=== PATIENT | female | born 1955 | race Caucasian/White ===

== ENCOUNTER 2021-11-18 15:29 | Inpatient (IN) | payer OTHER ==
[2021-11-18] MEDS ORDERED: ACETAMINOPHEN 1000 MG/100 ML BAG IVPB ONE (16:21)
[2021-11-18] MEDS ORDERED: SODIUM CHLORIDE 0.9% 500 ML INFUS.BAG IV ONE ×2 (16:42→17:42)
[2021-11-18 16:43] LABS: BASO % 0.4 % (0-2.0); EOS % 0.1 % (0-4.5); HEMOGLOBIN 8.5 GM/dL (10.7-15.3); LYMPH % 8.5 % (8-40); MCHC 34.1 g/dl (32.0-36.0); MEAN PLT VOLUME 7.6 fl (7.5-11.1); MONO % 8.5 % (3.8-10.2); NEUT % 82.5 % (42.8-82.8); PLATELET COUNT 398 10^3/uL (134-434); RBC 2.74 M/mm3 (3.60-5.2); RDW 16.8 % (11.6-15.6); WHITE BLOOD COUNT 10.4 K/mm3 (4.0-10.0)
[2021-11-18] MEDS ORDERED: ACETAMINOPHEN INJECTION 100 ML IVPB ONE (16:45)
[2021-11-18 16:50] LABS: INR 1.16 (0.83-1.09); PROTHROMBIN TIME (PATIENT) 13.4 SEC (9.7-13.0)
[2021-11-18 16:53] LABS: ACTIVATED PTT 38.3 SECONDS (25.2-36.5)
[2021-11-18 17:05] LABS: ALBUMIN 2.2 g/dl (3.4-5.0); ANION GAP 10 MMOL/L (8-16); CALCIUM 9.2 mg/dL (8.5-10.1); CHLORIDE 99 mmol/L (98-107); CO2 31 mmol/L (21-32); GLUCOSE,RANDOM 155 mg/dL (74-106); SODIUM 140 mmol/L (136-145)
[2021-11-18 17:07] LABS: CREATININE 1.9 mg/dL (0.55-1.3); SGOT/AST 70 U/L (15-37); SGPT/ALT 75 U/L (13-61)
[2021-11-18 17:09] LABS: BILIRUBIN,TOTAL 0.3 mg/dL (0.2-1)
[2021-11-18 17:10] LABS: ALK PHOS 108 U/L (45-117)
[2021-11-18 17:12] LABS: BLOOD UREA NITROGEN 112.9 mg/dL (7-18)
[2021-11-18] MEDS ORDERED: VANCOMYCIN 1 GM in D5W (PRE-DOCKED) 1,000 MG/250 ML IVPB ONE (18:10)
[2021-11-18 18:11] LABS: URINE APPEARANCE TURBID; URINE BILIRUBIN 3+ (NEGATIVE); URINE COLOR RED; URINE GLUCOSE (UA) NEGATIVE (NEGATIVE); URINE LEUK ESTERASE 3+ (NEGATIVE); URINE NITRITE POSITIVE (NEGATIVE); URINE PROTEIN 1+ (NEGATIVE); URINE UROBILINOGEN 0.2 mg/dL (0.2-1.0)
[2021-11-18] MEDS ORDERED: CEFEPIME HCL/D5W 2 GM/50 ML BAG IVPB ONE (18:11)
[2021-11-18 18:12] LABS: URINE KETONE NEGATIVE (NEGATIVE)
[2021-11-18 18:13] LABS: URINE RBC TNTC /uL (0-23.9)
[2021-11-18 18:14] LABS: URINE BACTERIA 3+ /uL (0-1359); URINE WBC TNTC /uL (0-25.8)
[2021-11-18] MEDS ORDERED: CEFEPIME 2 GM/100 ML BAG IVPB ONE (19:11)
[2021-11-18] MEDS ORDERED: SODIUM CHLORIDE 1,000 ML IV SCH (21:00)
[2021-11-18] MEDS ORDERED: MEROPENEM 1 GM in DEXTROSE 5%-WATER 100 ML IVPB ONE (21:19)
[2021-11-18] MEDS ORDERED: ZINC OXIDE/PANTHENOL/VITAMIN E 56 GM TUBE TP PRN (23:15)
[2021-11-18] MEDS ORDERED: oxyCODONE HCL 5 MG TABLET GT PRN (23:22)
[2021-11-18] MEDS ORDERED: ACETAMINOPHEN 1000 MG/100 ML BAG IVPB PRN (23:22)
[2021-11-18] MEDS ORDERED: DEXAMETHASONE SOD PHOSPHATE 4 MG/1 ML VIAL ONE (23:39)
[2021-11-19] MEDS ORDERED: VANCOMYCIN 1 GM/200 ML PREMIX BAG IVPB ONE (01:15)
[2021-11-19] MEDS ORDERED: VANCOMYCIN/WATER FOR INJ (PEG) 1,000 MG/200 ML BAG IVPB ONE (01:18)
[2021-11-19] MEDS: FAMOTIDINE 40 MG/5 ML ORAL SUSPENSION PEG SCH ×3 (01:31→21:59)
[2021-11-19] MEDS ORDERED: METOPROLOL TARTRATE 50 MG TABLET (FP) GT ONE (03:49)
[2021-11-19] MEDS ORDERED: METOPROLOL TARTRATE 5 MG/5 ML VIAL IVPUSH ONE (03:49)
[2021-11-19] MEDS: BUDESONIDE 0.5 MG/2 ML INH SUSP VIAL NEB SCH ×2 (07:57→20:39)
[2021-11-19] MEDS ORDERED: PNEUMOC 20-VAL CONJ-DIP CRM/PF 0.5 ML SYRINGE IM ONE (10:00)
[2021-11-19 10:32] LABS: HEMATOCRIT 24.7 % (32.4-45.2); HEMOGLOBIN 8.1 GM/dL (10.7-15.3); MCH 29.7 pg (25.7-33.7); MCHC 32.8 g/dl (32.0-36.0); MEAN CELL VOLUME 90.7 fl (80-96); MEAN PLT VOLUME 7.5 fl (7.5-11.1); PLATELET COUNT 393 10^3/uL (134-434); RBC 2.72 M/mm3 (3.60-5.2); RDW 17.2 % (11.6-15.6); WHITE BLOOD COUNT 12.7 K/mm3 (4.0-10.0)
[2021-11-19] MEDS: LIDOCAINE 5% TOPICAL PATCH TP SCH (10:56)
[2021-11-19] MEDS: MIDODRINE HCL 5 MG TABLET GT SCH ×2 (10:56→19:00)
[2021-11-19 11:02] LABS: CHLORIDE 106 mmol/L (98-107); SODIUM 143 mmol/L (136-145)
[2021-11-19 11:05] LABS: CALCIUM 9.3 mg/dL (8.5-10.1)
[2021-11-19 11:06] LABS: ALBUMIN 2.2 g/dl (3.4-5.0); ANION GAP 10 MMOL/L (8-16); CO2 27 mmol/L (21-32); GLUCOSE,RANDOM 116 mg/dL (74-106); MAGNESIUM 3.1 mg/dL (1.8-2.4)
[2021-11-19 11:09] LABS: PHOSPHOROUS 3.2 mg/dL (2.5-4.9); SGOT/AST 59 U/L (15-37); SGPT/ALT 71 U/L (13-61)
[2021-11-19 11:10] LABS: BILIRUBIN,TOTAL 0.5 mg/dL (0.2-1); TOT PROT 6.6 g/dl (6.4-8.2)
[2021-11-19 11:12] LABS: ALK PHOS 107 U/L (45-117); BLOOD UREA NITROGEN 113.6 mg/dL (7-18)
[2021-11-19 11:40] LABS: ANISOCYTOSIS 0; HELMET CELLS 0; HOWELL-JOLLY BODIES 0; MACROCYTOSIS 0; OVALOCYTE 0; ROULEAU 0; SICKELED CELLS 0; TARGET CELLS 0; TEAR DROP CELLS 0; TOXIC GRANULATION 0
[2021-11-19] MEDS ORDERED: SODIUM CHLORIDE 500 ML IV STA (12:38)
[2021-11-19] MEDS: COLLAGENASE CLOSTRIDIUM HIST. 30 GRAMS TUBE TP SCH (14:55)
[2021-11-19] MEDS: MEROPENEM 1 GM in DEXTROSE 5%-WATER 100 ML IVPB SCH (15:30)
[2021-11-19] MEDS ORDERED: ATORVASTATIN CA 80 MG TABLET (FP) GT SCH (22:00)
[2021-11-19] MEDS ORDERED: LIDOCAINE PATCH REMOVAL MC SCH (22:00)
[2021-11-19] MEDS ORDERED: QUEtiapine FUMARATE 25 MG TABLET GT SCH (22:00)
[2021-11-20] MEDS: MEROPENEM 1 GM in DEXTROSE 5%-WATER 100 ML IVPB SCH ×2 (01:10→15:00)
[2021-11-20 08:20] LABS: BASO % 0.6 % (0-2.0); HEMATOCRIT 23.8 % (32.4-45.2); LYMPH % 9.4 % (8-40); MCH 30.5 pg (25.7-33.7); MCHC 33.8 g/dl (32.0-36.0); MEAN CELL VOLUME 90.3 fl (80-96); MEAN PLT VOLUME 7.5 fl (7.5-11.1); MONO % 4.8 % (3.8-10.2); NEUT % 84.2 % (42.8-82.8); PLATELET COUNT 325 10^3/uL (134-434); RBC 2.64 M/mm3 (3.60-5.2); RDW 17.3 % (11.6-15.6); WHITE BLOOD COUNT 9.9 K/mm3 (4.0-10.0)
[2021-11-20] MEDS: BUDESONIDE 0.5 MG/2 ML INH SUSP VIAL NEB SCH ×2 (08:35→20:08)
[2021-11-20] MEDS ORDERED: SODIUM CHLORIDE 1,000 ML IV SCH (08:45)
[2021-11-20] MEDS: LIDOCAINE 5% TOPICAL PATCH TP SCH (10:47)
[2021-11-20] MEDS: COLLAGENASE CLOSTRIDIUM HIST. 30 GRAMS TUBE TP SCH (10:47)
[2021-11-20] MEDS: MIDODRINE HCL 5 MG TABLET GT SCH ×2 (10:47→18:03)
[2021-11-20 10:54] LABS: ALBUMIN 1.9 g/dl (3.4-5.0); ALK PHOS 97 U/L (45-117); ANION GAP 9 MMOL/L (8-16); BILIRUBIN,TOTAL 0.4 mg/dL (0.2-1); BLOOD UREA NITROGEN 112.6 mg/dL (7-18); CALCIUM 9.3 mg/dL (8.5-10.1); CHLORIDE 110 mmol/L (98-107); CO2 27 mmol/L (21-32); CREATININE 2.1 mg/dL (0.55-1.3); GLUCOSE,RANDOM 111 mg/dL (74-106); SGOT/AST 41 U/L (15-37); SGPT/ALT 58 U/L (13-61); SODIUM 146 mmol/L (136-145); TOT PROT 6.1 g/dl (6.4-8.2)
[2021-11-20] MEDS: FAMOTIDINE 40 MG/5 ML ORAL SUSPENSION PEG SCH ×2 (11:00→21:13)
[2021-11-20] MEDS: SODIUM CHLORIDE 0.45% 1,000 ML IV SCH (13:40)
[2021-11-20 16:30] VITALS: BMI 36.3
[2021-11-20] MEDS ORDERED: ZINC OXIDE/PANTHENOL/VITAMIN E 56 GM TUBE TP PRN (19:33)
[2021-11-20] MEDS ORDERED: FAMOTIDINE 40 MG/5 ML ORAL SUSPENSION PEG SCH ×2 (20:05→22:00)
[2021-11-20] MEDS: ATORVASTATIN CA 80 MG TABLET (FP) GT SCH (21:13)
[2021-11-20] MEDS: QUEtiapine FUMARATE 25 MG TABLET GT SCH (21:13)
[2021-11-20] MEDS: ASCORBIC ACID 500 MG TABLET (FP) PO SCH (21:13)
[2021-11-20] MEDS: oxyCODONE HCL 5 MG TABLET GT PRN (21:14)
[2021-11-20] MEDS: LIDOCAINE PATCH REMOVAL MC SCH (21:14)
[2021-11-21] MEDS: MEROPENEM 1 GM in DEXTROSE 5%-WATER 100 ML IVPB SCH ×2 (00:03→13:27)
[2021-11-21] MEDS: SODIUM CHLORIDE 0.45% 1,000 ML IV SCH ×3 (04:42→14:00)
[2021-11-21 08:14] LABS: HEMATOCRIT 25.6 % (32.4-45.2); HEMOGLOBIN 8.4 GM/dL (10.7-15.3); MCH 30.6 pg (25.7-33.7); MCHC 32.9 g/dl (32.0-36.0); MEAN CELL VOLUME 92.9 fl (80-96); MEAN PLT VOLUME 7.4 fl (7.5-11.1); PLATELET COUNT 347 10^3/uL (134-434); RBC 2.75 M/mm3 (3.60-5.2); RDW 17.5 % (11.6-15.6); WHITE BLOOD COUNT 9.1 K/mm3 (4.0-10.0)
[2021-11-21] MEDS: BUDESONIDE 0.5 MG/2 ML INH SUSP VIAL NEB SCH ×2 (08:30→20:30)
[2021-11-21 08:59] LABS: ALBUMIN 1.9 g/dl (3.4-5.0); BILIRUBIN,TOTAL 0.4 mg/dL (0.2-1); BLOOD UREA NITROGEN 95.4 mg/dL (7-18); CALCIUM 9.2 mg/dL (8.5-10.1); CREATININE 1.7 mg/dL (0.55-1.3)
[2021-11-21] MEDS: ASCORBIC ACID 500 MG TABLET (FP) PO SCH ×2 (09:57→21:52)
[2021-11-21] MEDS: MULTIVIT-MINERALS ORAL LIQUID PO SCH (09:57)
[2021-11-21] MEDS: MIDODRINE HCL 5 MG TABLET GT SCH ×2 (09:57→17:50)
[2021-11-21] MEDS: AMINO ACIDS/PROTEIN HYDROLYS 30 ML LIQUID.PKT PO SCH (09:57)
[2021-11-21] MEDS: LIDOCAINE 5% TOPICAL PATCH TP SCH (09:58)
[2021-11-21] MEDS: COLLAGENASE CLOSTRIDIUM HIST. 30 GRAMS TUBE TP SCH (09:59)
[2021-11-21] MEDS: FAMOTIDINE 40 MG/5 ML ORAL SUSPENSION PEG SCH (09:59)
[2021-11-21] MEDS: ATORVASTATIN CA 80 MG TABLET (FP) GT SCH (21:52)
[2021-11-21] MEDS: QUEtiapine FUMARATE 25 MG TABLET GT SCH (21:53)
[2021-11-21] MEDS: LIDOCAINE PATCH REMOVAL MC SCH (21:55)
[2021-11-22] MEDS: MEROPENEM 1 GM in DEXTROSE 5%-WATER 100 ML IVPB SCH ×2 (01:40→12:30)
[2021-11-22] MEDS: SODIUM CHLORIDE 0.45% 1,000 ML IV SCH ×3 (04:00→21:07)
[2021-11-22 07:42] LABS: HEMATOCRIT 26.1 % (32.4-45.2); HEMOGLOBIN 8.5 GM/dL (10.7-15.3); MCH 29.5 pg (25.7-33.7); MCHC 32.6 g/dl (32.0-36.0); MEAN CELL VOLUME 90.5 fl (80-96); MEAN PLT VOLUME 7.2 fl (7.5-11.1); PLATELET COUNT 387 10^3/uL (134-434); RBC 2.88 M/mm3 (3.60-5.2); RDW 17.1 % (11.6-15.6); WHITE BLOOD COUNT 10.5 K/mm3 (4.0-10.0)
[2021-11-22 08:04] LABS: ALBUMIN 1.9 g/dl (3.4-5.0); BLOOD UREA NITROGEN 77.5 mg/dL (7-18)
[2021-11-22 08:07] LABS: CREATININE 1.5 mg/dL (0.55-1.3)
[2021-11-22 08:08] LABS: BILIRUBIN,TOTAL 0.4 mg/dL (0.2-1)
[2021-11-22 08:09] LABS: TOT PROT 5.9 g/dl (6.4-8.2)
[2021-11-22] MEDS: BUDESONIDE 0.5 MG/2 ML INH SUSP VIAL NEB SCH ×2 (09:00→20:01)
[2021-11-22] MEDS: MULTIVIT-MINERALS ORAL LIQUID PO SCH (09:30)
[2021-11-22] MEDS: AMINO ACIDS/PROTEIN HYDROLYS 30 ML LIQUID.PKT PO SCH (09:30)
[2021-11-22] MEDS: FAMOTIDINE 40 MG/5 ML ORAL SUSPENSION PEG SCH (09:31)
[2021-11-22] MEDS: MIDODRINE HCL 5 MG TABLET GT SCH ×2 (09:31→17:26)
[2021-11-22] MEDS: LIDOCAINE 5% TOPICAL PATCH TP SCH (09:31)
[2021-11-22] MEDS: ASCORBIC ACID 500 MG TABLET (FP) PO SCH ×2 (09:31→21:08)
[2021-11-22] MEDS: oxyCODONE HCL 5 MG TABLET GT PRN ×2 (11:28→21:07)
[2021-11-22] MEDS: COLLAGENASE CLOSTRIDIUM HIST. 30 GRAMS TUBE TP SCH (11:28)
[2021-11-22] MEDS: QUEtiapine FUMARATE 25 MG TABLET GT SCH (21:07)
[2021-11-22] MEDS: ATORVASTATIN CA 80 MG TABLET (FP) GT SCH (21:07)
[2021-11-22] MEDS: LIDOCAINE PATCH REMOVAL MC SCH (21:08)
[2021-11-23] MEDS: MEROPENEM 1 GM in DEXTROSE 5%-WATER 100 ML IVPB SCH ×2 (00:54→13:05)
[2021-11-23] MEDS: oxyCODONE HCL 5 MG TABLET GT PRN ×4 (01:11→22:25)
[2021-11-23] MEDS: BUDESONIDE 0.5 MG/2 ML INH SUSP VIAL NEB SCH ×2 (08:05→20:56)
[2021-11-23] MEDS ORDERED: ACETAMINOPHEN 650 MG/20.3 ML ORAL SOLUTION (CUPS) PO ONE (09:05)
[2021-11-23] MEDS: AMINO ACIDS/PROTEIN HYDROLYS 30 ML LIQUID.PKT PO SCH (09:28)
[2021-11-23] MEDS ORDERED: VANCOMYCIN 1 GM in D5W (PRE-DOCKED) 1,000 MG/250 ML IVPB SCH (11:00)
[2021-11-23] MEDS ORDERED: VANCOMYCIN 1 GM/200 ML PREMIX BAG IVPB ONE (11:15)
[2021-11-23] MEDS: MULTIVIT-MINERALS ORAL LIQUID PO SCH (11:30)
[2021-11-23] MEDS: COLLAGENASE CLOSTRIDIUM HIST. 30 GRAMS TUBE TP SCH (11:31)
[2021-11-23] MEDS: MIDODRINE HCL 5 MG TABLET GT SCH ×2 (11:31→18:10)
[2021-11-23] MEDS: LIDOCAINE 5% TOPICAL PATCH TP SCH ×2 (11:31→16:58)
[2021-11-23] MEDS: FAMOTIDINE 40 MG/5 ML ORAL SUSPENSION PEG SCH (11:31)
[2021-11-23] MEDS: ASCORBIC ACID 500 MG TABLET (FP) PO SCH ×2 (11:32→22:00)
[2021-11-23] MEDS: SODIUM CHLORIDE 0.45% 1,000 ML IV SCH (13:04)
[2021-11-23 17:37] LABS: BASO % 0.4 % (0-2.0); EOS % 1.9 % (0-4.5); LYMPH % 6.3 % (8-40); MCH 28.9 pg (25.7-33.7); MCHC 31.9 g/dl (32.0-36.0); MEAN CELL VOLUME 90.7 fl (80-96); MEAN PLT VOLUME 7.2 fl (7.5-11.1); MONO % 3.6 % (3.8-10.2); NEUT % 87.8 % (42.8-82.8); PLATELET COUNT 394 10^3/uL (134-434); RBC 2.75 M/mm3 (3.60-5.2); RDW 17.5 % (11.6-15.6)
[2021-11-23 18:04] LABS: CALCIUM 9.2 mg/dL (8.5-10.1)
[2021-11-23 18:05] LABS: ALBUMIN 1.8 g/dl (3.4-5.0); MAGNESIUM 2.5 mg/dL (1.8-2.4)
[2021-11-23 18:08] LABS: CREATININE 1.2 mg/dL (0.55-1.3); PHOSPHOROUS 2.7 mg/dL (2.5-4.9)
[2021-11-23 18:09] LABS: BILIRUBIN,TOTAL 0.4 mg/dL (0.2-1); TOT PROT 5.8 g/dl (6.4-8.2)
[2021-11-23] MEDS: QUEtiapine FUMARATE 25 MG TABLET GT SCH (22:00)
[2021-11-23] MEDS: LIDOCAINE PATCH REMOVAL MC SCH ×2 (22:00)
[2021-11-23] MEDS: ATORVASTATIN CA 80 MG TABLET (FP) GT SCH (22:00)
[2021-11-24] MEDS: MEROPENEM 1 GM in DEXTROSE 5%-WATER 100 ML IVPB SCH ×2 (03:38→18:15)
[2021-11-24 06:50] LABS: HEMATOCRIT 22.9 % (32.4-45.2); HEMOGLOBIN 7.5 GM/dL (10.7-15.3); MCH 29.9 pg (25.7-33.7); MCHC 32.9 g/dl (32.0-36.0); MEAN CELL VOLUME 90.8 fl (80-96); MEAN PLT VOLUME 7.1 fl (7.5-11.1); PLATELET COUNT 361 10^3/uL (134-434); RBC 2.52 M/mm3 (3.60-5.2); RDW 16.9 % (11.6-15.6); WHITE BLOOD COUNT 10.2 K/mm3 (4.0-10.0)
[2021-11-24 07:23] LABS: CALCIUM 9.1 mg/dL (8.5-10.1)
[2021-11-24] MEDS: BUDESONIDE 0.5 MG/2 ML INH SUSP VIAL NEB SCH ×2 (08:13→19:48)
[2021-11-24] MEDS: AMINO ACIDS/PROTEIN HYDROLYS 30 ML LIQUID.PKT PO SCH (09:00)
[2021-11-24] MEDS: MULTIVIT-MINERALS ORAL LIQUID PO SCH (09:52)
[2021-11-24] MEDS: LIDOCAINE 5% TOPICAL PATCH TP SCH ×2 (09:53→09:54)
[2021-11-24] MEDS: FAMOTIDINE 40 MG/5 ML ORAL SUSPENSION PEG SCH (09:54)
[2021-11-24] MEDS: MIDODRINE HCL 5 MG TABLET GT SCH ×2 (09:54→17:09)
[2021-11-24] MEDS: COLLAGENASE CLOSTRIDIUM HIST. 30 GRAMS TUBE TP SCH (09:55)
[2021-11-24] MEDS: ASCORBIC ACID 500 MG TABLET (FP) PO SCH (09:55)
[2021-11-24] MEDS: SODIUM CHLORIDE 0.45% 1,000 ML IV SCH (12:00)
[2021-11-24] MEDS: AMINO ACIDS/PROTEIN HYDROLYS 30 ML LIQUID.PKT GT SCH (16:30)
[2021-11-24] MEDS: oxyCODONE HCL 5 MG TABLET GT PRN (20:32)
[2021-11-24] MEDS: QUEtiapine FUMARATE 25 MG TABLET GT SCH (21:00)
[2021-11-24] MEDS: ASCORBIC ACID 500 MG/5 ML UNIT DOSE CUP GT SCH (21:00)
[2021-11-24] MEDS: ATORVASTATIN CA 80 MG TABLET (FP) GT SCH (21:00)
[2021-11-24] MEDS: LIDOCAINE PATCH REMOVAL MC SCH ×2 (23:06)
[2021-11-25] MEDS: MEROPENEM 1 GM in DEXTROSE 5%-WATER 100 ML IVPB SCH ×3 (02:49→17:59)
[2021-11-25 07:10] LABS: HEMATOCRIT 25.2 % (32.4-45.2); HEMOGLOBIN 8.5 GM/dL (10.7-15.3); MCH 30.2 pg (25.7-33.7); MCHC 33.6 g/dl (32.0-36.0); MEAN CELL VOLUME 89.9 fl (80-96); PLATELET COUNT 362 10^3/uL (134-434); RBC 2.81 M/mm3 (3.60-5.2); RDW 16.9 % (11.6-15.6)
[2021-11-25 07:32] LABS: BLOOD UREA NITROGEN 48.8 mg/dL (7-18); CALCIUM 8.6 mg/dL (8.5-10.1)
[2021-11-25] MEDS: AMINO ACIDS/PROTEIN HYDROLYS 30 ML LIQUID.PKT GT SCH ×3 (07:47→17:59)
[2021-11-25] MEDS: BUDESONIDE 0.5 MG/2 ML INH SUSP VIAL NEB SCH ×2 (09:19→20:35)
[2021-11-25] MEDS: MULTIVIT-MINERALS ORAL LIQUID PO SCH (09:39)
[2021-11-25] MEDS: ASCORBIC ACID 500 MG/5 ML UNIT DOSE CUP GT SCH ×2 (09:39→21:15)
[2021-11-25] MEDS: LIDOCAINE 5% TOPICAL PATCH TP SCH ×2 (09:40)
[2021-11-25] MEDS: MIDODRINE HCL 5 MG TABLET GT SCH ×2 (09:41→17:58)
[2021-11-25] MEDS: COLLAGENASE CLOSTRIDIUM HIST. 30 GRAMS TUBE TP SCH (09:41)
[2021-11-25] MEDS: FAMOTIDINE 40 MG/5 ML ORAL SUSPENSION PEG SCH (09:42)
[2021-11-25] MEDS: SODIUM CHLORIDE 0.45% 1,000 ML IV SCH (11:49)
[2021-11-25] MEDS: oxyCODONE HCL 5 MG TABLET GT PRN (21:14)
[2021-11-25] MEDS: LIDOCAINE PATCH REMOVAL MC SCH ×2 (21:15)
[2021-11-25] MEDS: ATORVASTATIN CA 80 MG TABLET (FP) GT SCH (21:15)
[2021-11-25] MEDS: QUEtiapine FUMARATE 25 MG TABLET GT SCH (21:15)
[2021-11-26] MEDS: MEROPENEM 1 GM in DEXTROSE 5%-WATER 100 ML IVPB SCH ×3 (01:13→17:12)
[2021-11-26] MEDS: AMINO ACIDS/PROTEIN HYDROLYS 30 ML LIQUID.PKT GT SCH ×3 (08:55→16:30)
[2021-11-26] MEDS: ASCORBIC ACID 500 MG/5 ML UNIT DOSE CUP GT SCH ×2 (09:22→22:47)
[2021-11-26] MEDS: LIDOCAINE 5% TOPICAL PATCH TP SCH ×2 (09:22)
[2021-11-26] MEDS: MULTIVIT-MINERALS ORAL LIQUID PO SCH (09:22)
[2021-11-26] MEDS: FAMOTIDINE 40 MG/5 ML ORAL SUSPENSION PEG SCH (09:23)
[2021-11-26] MEDS: MIDODRINE HCL 5 MG TABLET GT SCH ×2 (09:23→17:12)
[2021-11-26] MEDS: COLLAGENASE CLOSTRIDIUM HIST. 30 GRAMS TUBE TP SCH (09:23)
[2021-11-26] MEDS: SODIUM CHLORIDE 0.45% 1,000 ML IV SCH (12:00)
[2021-11-26] MEDS: BUDESONIDE 0.5 MG/2 ML INH SUSP VIAL NEB SCH ×2 (12:20→20:37)
[2021-11-26] MEDS: oxyCODONE HCL 5 MG TABLET GT PRN ×2 (16:30→21:45)
[2021-11-26] MEDS: LIDOCAINE PATCH REMOVAL MC SCH ×2 (22:47)
[2021-11-26] MEDS: QUEtiapine FUMARATE 25 MG TABLET GT SCH (22:47)
[2021-11-26] MEDS: ATORVASTATIN CA 80 MG TABLET (FP) GT SCH (22:47)
[2021-11-27] MEDS: MEROPENEM 1 GM in DEXTROSE 5%-WATER 100 ML IVPB SCH ×3 (02:02→18:18)
[2021-11-27] MEDS: oxyCODONE HCL 5 MG TABLET GT PRN ×2 (06:35→21:41)
[2021-11-27] MEDS: BUDESONIDE 0.5 MG/2 ML INH SUSP VIAL NEB SCH ×2 (08:17→20:29)
[2021-11-27] MEDS: AMINO ACIDS/PROTEIN HYDROLYS 30 ML LIQUID.PKT GT SCH ×3 (10:01→18:18)
[2021-11-27] MEDS: MULTIVIT-MINERALS ORAL LIQUID PO SCH (10:01)
[2021-11-27] MEDS: FAMOTIDINE 40 MG/5 ML ORAL SUSPENSION PEG SCH (10:01)
[2021-11-27] MEDS: LIDOCAINE 5% TOPICAL PATCH TP SCH ×2 (10:04→10:05)
[2021-11-27] MEDS: MIDODRINE HCL 5 MG TABLET GT SCH ×2 (10:05→18:52)
[2021-11-27] MEDS: COLLAGENASE CLOSTRIDIUM HIST. 30 GRAMS TUBE TP SCH (10:05)
[2021-11-27] MEDS: ASCORBIC ACID 500 MG/5 ML UNIT DOSE CUP GT SCH ×2 (10:06→23:00)
[2021-11-27] MEDS: QUEtiapine FUMARATE 25 MG TABLET GT SCH (21:41)
[2021-11-27] MEDS: ATORVASTATIN CA 80 MG TABLET (FP) GT SCH (21:41)
[2021-11-27] MEDS: LIDOCAINE PATCH REMOVAL MC SCH ×2 (21:41)
[2021-11-28] MEDS: MEROPENEM 1 GM in DEXTROSE 5%-WATER 100 ML IVPB SCH ×3 (01:12→17:40)
[2021-11-28] MEDS: oxyCODONE HCL 5 MG TABLET GT PRN (06:47)
[2021-11-28] MEDS: BUDESONIDE 0.5 MG/2 ML INH SUSP VIAL NEB SCH ×2 (08:25→20:05)
[2021-11-28] MEDS: AMINO ACIDS/PROTEIN HYDROLYS 30 ML LIQUID.PKT GT SCH ×3 (08:58→17:40)
[2021-11-28] MEDS: LIDOCAINE 5% TOPICAL PATCH TP SCH ×2 (09:07)
[2021-11-28] MEDS: FAMOTIDINE 40 MG/5 ML ORAL SUSPENSION PEG SCH (09:08)
[2021-11-28] MEDS: MULTIVIT-MINERALS ORAL LIQUID PO SCH (09:08)
[2021-11-28] MEDS: ASCORBIC ACID 500 MG/5 ML UNIT DOSE CUP GT SCH ×2 (09:08→22:06)
[2021-11-28] MEDS: COLLAGENASE CLOSTRIDIUM HIST. 30 GRAMS TUBE TP SCH (09:09)
[2021-11-28] MEDS: MIDODRINE HCL 5 MG TABLET GT SCH ×2 (09:09→17:40)
[2021-11-28 17:28] LABS: HEMATOCRIT 26.6 % (32.4-45.2); HEMOGLOBIN 9.1 GM/dL (10.7-15.3); MCH 30.3 pg (25.7-33.7); MCHC 34.1 g/dl (32.0-36.0); MEAN CELL VOLUME 88.8 fl (80-96); MEAN PLT VOLUME 8.2 fl (7.5-11.1); PLATELET COUNT 358 10^3/uL (134-434); RDW 16.2 % (11.6-15.6)
[2021-11-28 17:42] LABS: ALBUMIN 1.7 g/dl (3.4-5.0); BLOOD UREA NITROGEN 43.4 mg/dL (7-18)
[2021-11-28 17:46] LABS: CREATININE 0.8 mg/dL (0.55-1.3)
[2021-11-28 17:48] LABS: BILIRUBIN,TOTAL 0.6 mg/dL (0.2-1)
[2021-11-28] MEDS: LIDOCAINE PATCH REMOVAL MC SCH ×2 (22:05)
[2021-11-28] MEDS: ATORVASTATIN CA 80 MG TABLET (FP) GT SCH (22:05)
[2021-11-28] MEDS: QUEtiapine FUMARATE 25 MG TABLET GT SCH (22:05)
[2021-11-29] MEDS: oxyCODONE HCL 5 MG TABLET GT PRN ×3 (00:48→22:37)
[2021-11-29] MEDS: MEROPENEM 1 GM in DEXTROSE 5%-WATER 100 ML IVPB SCH ×3 (01:09→18:17)
[2021-11-29 07:38] LABS: CALCIUM 9.3 mg/dL (8.5-10.1)
[2021-11-29 07:40] LABS: ALBUMIN 1.9 g/dl (3.4-5.0); BLOOD UREA NITROGEN 42.6 mg/dL (7-18)
[2021-11-29 07:42] LABS: CREATININE 0.9 mg/dL (0.55-1.3)
[2021-11-29 07:44] LABS: BILIRUBIN,TOTAL 0.4 mg/dL (0.2-1); TOT PROT 6.1 g/dl (6.4-8.2)
[2021-11-29] MEDS: BUDESONIDE 0.5 MG/2 ML INH SUSP VIAL NEB SCH ×2 (08:00→20:45)
[2021-11-29] MEDS: FAMOTIDINE 40 MG/5 ML ORAL SUSPENSION PEG SCH (10:02)
[2021-11-29] MEDS: MIDODRINE HCL 5 MG TABLET GT SCH ×2 (10:02→18:17)
[2021-11-29] MEDS: LIDOCAINE 5% TOPICAL PATCH TP SCH ×2 (10:03)
[2021-11-29] MEDS: ASCORBIC ACID 500 MG/5 ML UNIT DOSE CUP GT SCH ×2 (10:04→22:01)
[2021-11-29] MEDS: AMINO ACIDS/PROTEIN HYDROLYS 30 ML LIQUID.PKT GT SCH ×3 (10:04→18:01)
[2021-11-29] MEDS: MULTIVIT-MINERALS ORAL LIQUID PO SCH (10:04)
[2021-11-29] MEDS: COLLAGENASE CLOSTRIDIUM HIST. 30 GRAMS TUBE TP SCH (18:01)
[2021-11-29] MEDS: QUEtiapine FUMARATE 25 MG TABLET GT SCH (22:02)
[2021-11-29] MEDS: ATORVASTATIN CA 80 MG TABLET (FP) GT SCH (22:02)
[2021-11-29] MEDS: LIDOCAINE PATCH REMOVAL MC SCH ×2 (22:02)
[2021-11-30] MEDS: MEROPENEM 1 GM in DEXTROSE 5%-WATER 100 ML IVPB SCH ×2 (01:00→09:50)
[2021-11-30 06:50] VITALS: PULSE 89; TEMP 98.9
[2021-11-30] MEDS ORDERED: SODIUM CHLORIDE 0.9% 500 ML INFUS.BAG IV ONE (08:03)
[2021-11-30 08:24] LABS: CALCIUM 8.9 mg/dL (8.5-10.1)
[2021-11-30 08:25] LABS: ALBUMIN 1.8 g/dl (3.4-5.0); BLOOD UREA NITROGEN 46.6 mg/dL (7-18)
[2021-11-30 08:28] LABS: CREATININE 0.8 mg/dL (0.55-1.3)
[2021-11-30 08:29] LABS: BILIRUBIN,TOTAL 0.7 mg/dL (0.2-1); TOT PROT 5.8 g/dl (6.4-8.2)
[2021-11-30 09:27] VITALS: BP 130/74
[2021-11-30] MEDS: AMINO ACIDS/PROTEIN HYDROLYS 30 ML LIQUID.PKT GT SCH (09:42)
[2021-11-30] MEDS: LIDOCAINE 5% TOPICAL PATCH TP SCH ×2 (09:42→09:43)
[2021-11-30] MEDS: FAMOTIDINE 40 MG/5 ML ORAL SUSPENSION PEG SCH (09:43)
[2021-11-30] MEDS: MULTIVIT-MINERALS ORAL LIQUID PO SCH (09:43)
[2021-11-30] MEDS: ASCORBIC ACID 500 MG/5 ML UNIT DOSE CUP GT SCH (09:44)
[2021-11-30] MEDS: COLLAGENASE CLOSTRIDIUM HIST. 30 GRAMS TUBE TP SCH (09:44)
[2021-11-30 09:49] VITALS: RESP 26
[2021-11-30] MEDS: BUDESONIDE 0.5 MG/2 ML INH SUSP VIAL NEB SCH (09:49)
[2021-11-30] MEDS: MIDODRINE HCL 5 MG TABLET GT SCH (09:51)
== END 2021-11-30 10:45 | disposition short-term general hospital (02) | DRG 870 ==
LOC: JER 15:29 → JERBED 18:20 → J5S 11-19 03:04 → JICU 11-19 23:32 → J2W 11-19 23:40
PROVIDERS: ADMIT Internal Medicine
PROC: 5A1955Z Respiratory Ventilation, Greater than 96 Consecutive Hours (ICD-10-PCS; principal; 2021-11-18)
PROC: 30233N1 Transfusion of Nonautologous Red Blood Cells into Peripheral Vein, Percutaneous Approach (ICD-10-PCS; 2021-11-24)
DX: A41.89 Other specified sepsis (principal); J15.6 Pneumonia due to other Gram-negative bacteria; R53.2 Functional quadriplegia; J96.21 Acute and chronic respiratory failure with hypoxia; J96.22 Acute and chronic respiratory failure with hypercapnia; I69.354 Hemiplegia and hemiparesis following cerebral infarction affecting left non-dominant side; N17.9 Acute kidney failure, unspecified; N11.8 Other chronic tubulo-interstitial nephritis; K21.9 Gastro-esophageal reflux disease without esophagitis; R50.9 Fever, unspecified; I48.91 Unspecified atrial fibrillation; D72.829 Elevated white blood cell count, unspecified; R31.0 Gross hematuria; E78.5 Hyperlipidemia, unspecified; N18.9 Chronic kidney disease, unspecified; G89.29 Other chronic pain; M84.422G Pathological fracture, left humerus, subsequent encounter for fracture with delayed healing; D17.71 Benign lipomatous neoplasm of kidney; D64.9 Anemia, unspecified; M25.50 Pain in unspecified joint; L89.152 Pressure ulcer of sacral region, stage 2; Z93.1 Gastrostomy status; Z93.0 Tracheostomy status; Z86.718 Personal history of other venous thrombosis and embolism; Z88.0 Allergy status to penicillin
CPT/HCPCS: 36415; 36430; 71045-TC-FY; 73030-TC-LT-FY; 73030-TC-RT-FY; 73610-TC-LT-FY; 73630-TC-LT; 74176-TC; 76775-TC; 76856-TC; 80048; 80053; 81003; 83605; 83735; 84100; 84484; 85025; 85027; 85610; 85730; 86850; 86900; 86901; 86922; 87040; 87070; 87086; 87186; 87205; 93005; 93010; 94002; 94640; 99285-25; C9803-CS; E0186; P9058; U0003; U0005

== ENCOUNTER 2022-02-04 08:51 | Inpatient (IN) | payer OTHER ==
[2022-02-04] MEDS ORDERED: VANCOMYCIN 1 GM in D5W (PRE-DOCKED) 1,000 MG/250 ML IVPB ONE (09:06)
[2022-02-04] MEDS ORDERED: CEFEPIME HCL/D5W 1 GM/50 ML BAG IVPB ONE (09:06)
[2022-02-04] MEDS ORDERED: ACETAMINOPHEN 1000 MG/100 ML BAG IVPB ONE (09:06)
[2022-02-04] MEDS ORDERED: SODIUM CHLORIDE 1,000 ML IV STA (09:07)
[2022-02-04] MEDS ORDERED: VANCOMYCIN/WATER FOR INJ (PEG) 1,000 MG/200 ML BAG IVPB ONE (09:24)
[2022-02-04] MEDS ORDERED: CEFEPIME 1 GM/100 ML BAG IVPB ONE (09:24)
[2022-02-04] MEDS ORDERED: ACETAMINOPHEN INJECTION 100 ML IVPB ONE ×3 (09:24→22:45)
[2022-02-04 09:41] LABS: VENOUS BASE EXCESS 5.6 mmol/L (-2-2); VENOUS O2 SATURATION 56.7 % (70-80); VENOUS PCO2 59.2 mmHg (38-52); VENOUS PH 7.353 (7.310-7.410)
[2022-02-04 09:46] LABS: BASO % 0.6 % (0-2.0); EOS % 0.2 % (0-4.5); HEMATOCRIT 25.9 % (32.4-45.2); LYMPH % 22.3 % (8-40); MCH 29.2 pg (25.7-33.7); MEAN CELL VOLUME 94.2 fl (80-96); MEAN PLT VOLUME 7.8 fl (7.5-11.1); MONO % 5.5 % (3.8-10.2); NEUT % 71.4 % (42.8-82.8); PLATELET COUNT 533 10^3/uL (134-434); RBC 2.75 M/mm3 (3.60-5.2); RDW 17.8 % (11.6-15.6); WHITE BLOOD COUNT 13.4 K/mm3 (4.0-10.0)
[2022-02-04 09:47] LABS: INR 1.09 (0.83-1.09); PROTHROMBIN TIME (PATIENT) 12.5 SEC (9.7-13.0)
[2022-02-04 09:49] LABS: ACTIVATED PTT 28.8 SECONDS (25.2-36.5)
[2022-02-04 10:03] LABS: CHLORIDE 108 mmol/L (98-107); SODIUM 146 mmol/L (136-145)
[2022-02-04 10:05] LABS: CALCIUM 10.2 mg/dL (8.5-10.1)
[2022-02-04 10:06] LABS: ANION GAP 7 MMOL/L (8-16); BLOOD UREA NITROGEN 92.5 mg/dL (7-18); CO2 31 mmol/L (21-32); GLUCOSE,RANDOM 170 mg/dL (74-106)
[2022-02-04 10:09] LABS: CREATININE 2.2 mg/dL (0.55-1.3); SGOT/AST 38 U/L (15-37); SGPT/ALT 43 U/L (13-61)
[2022-02-04 10:10] LABS: TOT PROT 8.2 g/dl (6.4-8.2)
[2022-02-04 10:11] LABS: BILIRUBIN,TOTAL 0.4 mg/dL (0.2-1)
[2022-02-04 10:12] LABS: ALK PHOS 84 U/L (45-117)
[2022-02-04 10:12] LABS: ARTERIAL BLD GAS O2 SATURATION 99.6 % (95-98); ARTERIAL BLOOD GAS BASE EXCESS 7.2 mmol/L (-2-2); ARTERIAL BLOOD GAS PO2 255.2 mmHg (80-100); ARTERIAL BLOOD GAS pH 7.478 (7.350-7.450)
[2022-02-04 10:15] LABS: LACTIC ACID 2.3 mmol/L (0.4-2.0)
[2022-02-04 10:19] LABS: EPI CELLS >36 /uL (0-25.1); HYALINE CASTS 11 /uL (0-3.1); PH,URINE 6.5 (5.0-8.0); URINE APPEARANCE TURBID; URINE BILIRUBIN 1+ (NEGATIVE); URINE COLOR ORANGE; URINE GLUCOSE (UA) NEGATIVE (NEGATIVE); URINE KETONE NEGATIVE (NEGATIVE); URINE LEUK ESTERASE 3+ (NEGATIVE); URINE NITRITE NEGATIVE (NEGATIVE); URINE PROTEIN 3+ (NEGATIVE); URINE RBC 81 /uL (0-23.9); URINE WBC 6979 /uL (0-25.8)
[2022-02-04 10:23] LABS: ALLENS TEST POSITIVE; PT'S TEMP 102.8
[2022-02-04 10:24] LABS: VENT MODE U-AC; VENT RATE 20
[2022-02-04 10:34] LABS: URINE BACTERIA 262.06 /uL (0-1359); URINE CRYSTALS NEGATIVE /hpf
[2022-02-04] MEDS ORDERED: SODIUM CHLORIDE 1,000 ML IV SCH (10:45)
[2022-02-04] MEDS ORDERED: ACYCLOVIR INJECTION 500 MG in DEXTROSE 5%-WATER - 100 ML IVPB ONE (11:30)
[2022-02-04] MEDS: ACETAMINOPHEN 1000 MG/100 ML BAG IVPB PRN ×2 (16:13→22:49)
[2022-02-04] MEDS ORDERED: SODIUM CHLORIDE 500 ML IV STA (17:45)
[2022-02-04] MEDS: SODIUM CHLORIDE 1,000 ML IV SCH (18:15)
[2022-02-04] MEDS ORDERED: MEROPENEM 500 MG VIAL (RESTRICTED TO ID) IVPB ONE (18:30)
[2022-02-04] MEDS: MEROPENEM 500 MG in DEXTROSE 5%-WATER 100 ML IVPB SCH (18:59)
[2022-02-05] MEDS ORDERED: MEROPENEM 500 MG VIAL (RESTRICTED TO ID) IVPB ONE ×2 (00:50→09:58)
[2022-02-05] MEDS: MEROPENEM 500 MG in DEXTROSE 5%-WATER 100 ML IVPB SCH ×3 (01:19→17:16)
[2022-02-05] MEDS: SODIUM CHLORIDE 1,000 ML IV SCH (01:20)
[2022-02-05] MEDS: ACETAMINOPHEN 1000 MG/100 ML BAG IVPB PRN (05:00)
[2022-02-05] MEDS ORDERED: ACETAMINOPHEN INJECTION 100 ML IVPB ONE (05:17)
[2022-02-05 08:26] LABS: CALCIUM 9.7 mg/dL (8.5-10.1)
[2022-02-05 08:27] LABS: ALBUMIN 2.6 g/dl (3.4-5.0); BLOOD UREA NITROGEN 91.8 mg/dL (7-18)
[2022-02-05 08:30] LABS: CREATININE 2.1 mg/dL (0.55-1.3)
[2022-02-05 08:31] LABS: BILIRUBIN,TOTAL 0.5 mg/dL (0.2-1); TOT PROT 6.9 g/dl (6.4-8.2)
[2022-02-05 08:32] LABS: BASO % 0.5 % (0-2.0); HEMATOCRIT 23.8 % (32.4-45.2); HEMOGLOBIN 7.2 GM/dL (10.7-15.3); LYMPH % 15.4 % (8-40); MCH 29.2 pg (25.7-33.7); MCHC 30.3 g/dl (32.0-36.0); MEAN CELL VOLUME 96.5 fl (80-96); MEAN PLT VOLUME 8.2 fl (7.5-11.1); MONO % 4.6 % (3.8-10.2); NEUT % 79.5 % (42.8-82.8); PLATELET COUNT 338 10^3/uL (134-434); RBC 2.46 M/mm3 (3.60-5.2); RDW 18.2 % (11.6-15.6); WHITE BLOOD COUNT 10.8 K/mm3 (4.0-10.0)
[2022-02-05] MEDS ORDERED: VANCOMYCIN 1 GM in D5W (PRE-DOCKED) 1,000 MG/250 ML IVPB ONE (09:16)
[2022-02-05] MEDS ORDERED: VANCOMYCIN/WATER FOR INJ (PEG) 1,000 MG/200 ML BAG IVPB ONE (09:58)
[2022-02-05] MEDS ORDERED: METOPROLOL TARTRATE 25 MG TABLET (FP) PO SCH (12:30)
[2022-02-05] MEDS ORDERED: METOPROLOL TARTRATE 25 MG TABLET (FP) GT SCH (12:30)
[2022-02-05] MEDS ORDERED: METOPROLOL TARTRATE 5 MG/5 ML VIAL IVPUSH PRN (12:34)
[2022-02-05] MEDS ORDERED: SODIUM CHLORIDE 0.45% 1,000 ML IV SCH (13:00)
[2022-02-05] MEDS: SODIUM CHLORIDE 0.45% 1,000 ML IV SCH (14:17)
[2022-02-05] MEDS: ENOXAPARIN NA (PORCINE) 120 MG/0.8 ML DISP.SYRIN SQ SCH ×2 (14:55→21:50)
[2022-02-06] MEDS: MEROPENEM 500 MG in DEXTROSE 5%-WATER 100 ML IVPB SCH ×3 (01:07→18:13)
[2022-02-06] MEDS: SODIUM CHLORIDE 0.45% 1,000 ML IV SCH ×2 (05:24→15:09)
[2022-02-06 11:03] LABS: BASO % 0.2 % (0-2.0); EOS % 0.1 % (0-4.5); HEMATOCRIT 24.2 % (32.4-45.2); HEMOGLOBIN 7.6 GM/dL (10.7-15.3); MCH 29.6 pg (25.7-33.7); MCHC 31.6 g/dl (32.0-36.0); MEAN CELL VOLUME 93.7 fl (80-96); MEAN PLT VOLUME 8.3 fl (7.5-11.1); MONO % 5.1 % (3.8-10.2); NEUT % 77.6 % (42.8-82.8); PLATELET COUNT 285 10^3/uL (134-434); RBC 2.58 M/mm3 (3.60-5.2); RDW 17.8 % (11.6-15.6); WHITE BLOOD COUNT 7.7 K/mm3 (4.0-10.0)
[2022-02-06] MEDS: ENOXAPARIN NA (PORCINE) 120 MG/0.8 ML DISP.SYRIN SQ SCH (11:30)
[2022-02-06 11:50] LABS: ALBUMIN 2.6 g/dl (3.4-5.0)
[2022-02-06 11:51] LABS: CALCIUM 10.1 mg/dL (8.5-10.1)
[2022-02-06 11:52] LABS: BLOOD UREA NITROGEN 78.2 mg/dL (7-18)
[2022-02-06 11:54] LABS: CREATININE 1.8 mg/dL (0.55-1.3); PHOSPHOROUS 3.8 mg/dL (2.5-4.9)
[2022-02-06 11:56] LABS: BILIRUBIN,TOTAL 0.6 mg/dL (0.2-1); TOT PROT 6.7 g/dl (6.4-8.2)
[2022-02-06] MEDS ORDERED: LIDOCAINE 5% TOPICAL PATCH TP ONE (13:03)
[2022-02-06] MEDS ORDERED: ACETAMINOPHEN 1000 MG/100 ML BAG IVPB ONE (13:04)
[2022-02-06] MEDS ORDERED: HEPARIN NA (PORCINE) 5,000 UNITS/ML 1ML VIAL IVPUSH PRN (14:16)
[2022-02-06] MEDS ORDERED: IPRATROPIUM BR 0.02% 0.5 MG/2.5 ML VIAL.NEB. NEB PRN (19:03)
[2022-02-06] MEDS ORDERED: SODIUM CHLORIDE 0.45% 1,000 ML IV SCH (19:10)
[2022-02-06] MEDS: BUDESONIDE 0.5 MG/2 ML INH SUSP VIAL NEB SCH (19:38)
[2022-02-06] MEDS ORDERED: ACETAMINOPHEN 325 MG TABLET (FP) PO PRN (19:45)
[2022-02-06] MEDS ORDERED: oxyCODONE HCL 5 MG TABLET PO PRN (19:45)
[2022-02-06] MEDS: FAMOTIDINE 40 MG/5 ML ORAL SUSPENSION PEG SCH (20:46)
[2022-02-06 21:45] LABS: INR 1.09 (0.83-1.09); PROTHROMBIN TIME (PATIENT) 12.6 SEC (9.7-13.0)
[2022-02-06] MEDS ORDERED: PATIENT'S OWN MEDICATION (NON-FORMULARY) (Oxycodone Hcl/Acetaminophen [Oxycodon-Acetaminop GT SCH (22:00)
[2022-02-06] MEDS ORDERED: PATIENT'S OWN MEDICATION (NON-FORMULARY) (Argin/Glut/Cahmb/Collag/Mv-Min [Juven Packet] 1 GT SCH (22:00)
[2022-02-06] MEDS ORDERED: LIDOCAINE PATCH REMOVAL MC SCH (22:00)
[2022-02-06] MEDS: MIDODRINE HCL 5 MG TABLET GT SCH (22:10)
[2022-02-06] MEDS: QUEtiapine FUMARATE 25 MG TABLET GT SCH (22:10)
[2022-02-06] MEDS: ZINC OXIDE 20% TOPICAL OINTMENT 30 GM TUBE TP SCH (22:10)
[2022-02-06] MEDS: ATORVASTATIN CA 80 MG TABLET (FP) GT SCH (22:10)
[2022-02-06] MEDS: HEPARIN INFUSION - 25,000 UNITS/500 ML INFUS.BAG IVPB SCH (22:14)
[2022-02-07] MEDS: MEROPENEM 500 MG in DEXTROSE 5%-WATER 100 ML IVPB SCH ×4 (01:57→19:04)
[2022-02-07] MEDS ORDERED: DEXTROSE 5%-WATER - 1,000 ML with POTASSIUM CHLORIDE 20 MEQ IV SCH ×2 (05:45→09:31)
[2022-02-07] MEDS: BUDESONIDE 0.5 MG/2 ML INH SUSP VIAL NEB SCH ×2 (08:23→20:30)
[2022-02-07] MEDS: HEPARIN NA (PORCINE) 5,000 UNITS/ML 1ML VIAL IVPUSH PRN ×2 (08:45→17:41)
[2022-02-07] MEDS: HEPARIN INFUSION - 25,000 UNITS/500 ML INFUS.BAG IVPB SCH ×2 (08:49→23:01)
[2022-02-07] MEDS ORDERED: PATIENT'S OWN MEDICATION (NON-FORMULARY) (Lidocaine [Aspercreme Lidocaine] 1 EACH Adh..Pat TP SCH (10:00)
[2022-02-07] MEDS: ZINC OXIDE 20% TOPICAL OINTMENT 30 GM TUBE TP SCH ×4 (10:15→23:07)
[2022-02-07 10:21] LABS: BASO % 0.3 % (0-2.0); EOS % 0.4 % (0-4.5); HEMATOCRIT 22.2 % (32.4-45.2); HEMOGLOBIN 7.1 GM/dL (10.7-15.3); LYMPH % 17.1 % (8-40); MCH 30.2 pg (25.7-33.7); MCHC 32.2 g/dl (32.0-36.0); MEAN CELL VOLUME 93.8 fl (80-96); MEAN PLT VOLUME 8.2 fl (7.5-11.1); MONO % 4.8 % (3.8-10.2); NEUT % 77.4 % (42.8-82.8); PLATELET COUNT 243 10^3/uL (134-434); RBC 2.37 M/mm3 (3.60-5.2); RDW 17.8 % (11.6-15.6); WHITE BLOOD COUNT 6.3 K/mm3 (4.0-10.0)
[2022-02-07] MEDS: CYCLOBENZAPRINE HCL 5 MG TABLET GT SCH (10:28)
[2022-02-07] MEDS: FAMOTIDINE 40 MG/5 ML ORAL SUSPENSION PEG SCH (10:29)
[2022-02-07] MEDS: CYANOCOBALAMIN (VITAMIN B-12) 100 MCG TABLET GT SCH (10:29)
[2022-02-07] MEDS: ASCORBIC ACID 500 MG TABLET (FP) GT SCH (10:29)
[2022-02-07] MEDS: MIDODRINE HCL 5 MG TABLET GT SCH (10:29)
[2022-02-07] MEDS: MULTIVIT-MINERALS ORAL LIQUID GT SCH (10:29)
[2022-02-07] MEDS: POLYETHYLENE GLYCOL (HEALTHYLAX) 3350 17 GM PACKET GT SCH (10:31)
[2022-02-07 11:56] LABS: ALBUMIN 2.3 g/dl (3.4-5.0); ALK PHOS 71 U/L (45-117); ANION GAP 10 MMOL/L (8-16); BILIRUBIN,TOTAL 0.5 mg/dL (0.2-1); BLOOD UREA NITROGEN 73.7 mg/dL (7-18); CALCIUM 9.3 mg/dL (8.5-10.1); CHLORIDE 117 mmol/L (98-107); CO2 23 mmol/L (21-32); CREATININE 1.6 mg/dL (0.55-1.3); GLUCOSE,RANDOM 168 mg/dL (74-106); MAGNESIUM 2.7 mg/dL (1.8-2.4); PHOSPHOROUS 3.3 mg/dL (2.5-4.9); SGOT/AST 18 U/L (15-37); SGPT/ALT 15 U/L (13-61); SODIUM 150 mmol/L (136-145)
[2022-02-07] MEDS: LIDOCAINE 5% TOPICAL PATCH TP SCH (12:05)
[2022-02-07] MEDS: KCL 10 MEQ IVPB 10 MEQ/100 ML INFUS.BAG IVPB SCH ×4 (12:15→15:15)
[2022-02-07] MEDS ORDERED: POTASSIUM CHLORIDE TABS 20 MEQ TABLET.ER (FP) PO ONE (12:22)
[2022-02-07] MEDS ORDERED: POTASSIUM CHLORIDE ORAL LIQUID 20 MEQ/15 ML PO ONE (12:24)
[2022-02-07] MEDS ORDERED: METOPROLOL TARTRATE IVPB ONE ×2 (13:00)
[2022-02-07] MEDS ORDERED: SODIUM CHLORIDE IVPB ONE ×2 (13:00)
[2022-02-07] MEDS ORDERED: METOPROLOL TARTRATE 5 MG/5 ML VIAL IVPB PRN (15:28)
[2022-02-07] MEDS ORDERED: POTASSIUM CHLORIDE ORAL LIQUID 20 MEQ/15 ML PEG ONE (17:12)
[2022-02-07] MEDS: MIDODRINE HCL 2.5 MG TABLET GT SCH (18:05)
[2022-02-07] MEDS: ATORVASTATIN CA 80 MG TABLET (FP) GT SCH (22:53)
[2022-02-07] MEDS: QUEtiapine FUMARATE 25 MG TABLET GT SCH (22:53)
[2022-02-07] MEDS: LIDOCAINE PATCH REMOVAL MC SCH (22:53)
[2022-02-08] MEDS: HEPARIN NA (PORCINE) 5,000 UNITS/ML 1ML VIAL IVPUSH PRN (02:38)
[2022-02-08] MEDS: DEXTROSE 5%-WATER - 1,000 ML with POTASSIUM CHLORIDE 20 MEQ IV SCH ×2 (02:50→21:50)
[2022-02-08] MEDS: MEROPENEM 500 MG in DEXTROSE 5%-WATER 100 ML IVPB SCH ×2 (02:50→10:15)
[2022-02-08] MEDS: ZINC OXIDE 20% TOPICAL OINTMENT 30 GM TUBE TP SCH ×5 (10:30→23:35)
[2022-02-08 11:00] LABS: BASO % 0.3 % (0-2.0); HEMATOCRIT 22.8 % (32.4-45.2); HEMOGLOBIN 7.1 GM/dL (10.7-15.3); LYMPH % 14.4 % (8-40); MCH 29.4 pg (25.7-33.7); MCHC 31.3 g/dl (32.0-36.0); MEAN CELL VOLUME 93.9 fl (80-96); MEAN PLT VOLUME 8.3 fl (7.5-11.1); MONO % 4.7 % (3.8-10.2); NEUT % 79.6 % (42.8-82.8); PLATELET COUNT 230 10^3/uL (134-434); RBC 2.43 M/mm3 (3.60-5.2); WHITE BLOOD COUNT 6.6 K/mm3 (4.0-10.0)
[2022-02-08] MEDS: BUDESONIDE 0.5 MG/2 ML INH SUSP VIAL NEB SCH ×3 (11:00→20:11)
[2022-02-08] MEDS: CYCLOBENZAPRINE HCL 5 MG TABLET GT SCH (11:41)
[2022-02-08] MEDS: POLYETHYLENE GLYCOL (HEALTHYLAX) 3350 17 GM PACKET GT SCH (11:41)
[2022-02-08] MEDS: LIDOCAINE 5% TOPICAL PATCH TP SCH (11:41)
[2022-02-08] MEDS: ASCORBIC ACID 500 MG TABLET (FP) GT SCH (11:41)
[2022-02-08] MEDS: MIDODRINE HCL 2.5 MG TABLET GT SCH ×2 (11:41→18:52)
[2022-02-08] MEDS: FAMOTIDINE 40 MG/5 ML ORAL SUSPENSION PEG SCH (11:45)
[2022-02-08] MEDS: MULTIVIT-MINERALS ORAL LIQUID GT SCH (11:45)
[2022-02-08] MEDS: CYANOCOBALAMIN (VITAMIN B-12) 100 MCG TABLET GT SCH (11:49)
[2022-02-08 12:28] LABS: ALBUMIN 2.3 g/dl (3.4-5.0); BLOOD UREA NITROGEN 65.4 mg/dL (7-18); CALCIUM 9.9 mg/dL (8.5-10.1); MAGNESIUM 2.8 mg/dL (1.8-2.4)
[2022-02-08 12:31] LABS: CREATININE 1.3 mg/dL (0.55-1.3)
[2022-02-08 12:33] LABS: BILIRUBIN,TOTAL 0.5 mg/dL (0.2-1); TOT PROT 5.8 g/dl (6.4-8.2)
[2022-02-08] MEDS ORDERED: LIDOCAINE HCL 1%, 10 MG/ML (20ML VIAL) ONE (15:01)
[2022-02-08] MEDS: QUEtiapine FUMARATE 25 MG TABLET GT SCH (21:46)
[2022-02-08] MEDS: oxyCODONE HCL 5 MG TABLET GT PRN (21:46)
[2022-02-08] MEDS: ATORVASTATIN CA 80 MG TABLET (FP) GT SCH (21:46)
[2022-02-08] MEDS: HEPARIN INFUSION - 25,000 UNITS/500 ML INFUS.BAG IVPB SCH (21:48)
[2022-02-08] MEDS: LIDOCAINE PATCH REMOVAL MC SCH (23:35)
[2022-02-09] MEDS: oxyCODONE HCL 5 MG TABLET GT PRN ×2 (05:45→18:24)
[2022-02-09] MEDS: ACETAMINOPHEN 325 MG TABLET (FP) NR PRN ×2 (05:46→18:27)
[2022-02-09] MEDS: BUDESONIDE 0.5 MG/2 ML INH SUSP VIAL NEB SCH ×2 (08:52→20:37)
[2022-02-09 09:57] LABS: BASO % 0.2 % (0-2.0); EOS % 2.3 % (0-4.5); HEMATOCRIT 20.1 % (32.4-45.2); LYMPH % 14.8 % (8-40); MCH 29.8 pg (25.7-33.7); MCHC 31.6 g/dl (32.0-36.0); MEAN CELL VOLUME 94.4 fl (80-96); MEAN PLT VOLUME 8.3 fl (7.5-11.1); NEUT % 78.7 % (42.8-82.8); PLATELET COUNT 210 10^3/uL (134-434); RBC 2.13 M/mm3 (3.60-5.2); WHITE BLOOD COUNT 6.9 K/mm3 (4.0-10.0)
[2022-02-09 10:09] LABS: HEMOGLOBIN 6.4 GM/dL (10.7-15.3)
[2022-02-09 10:23] LABS: CALCIUM 9.7 mg/dL (8.5-10.1)
[2022-02-09 10:24] LABS: ALBUMIN 2.2 g/dl (3.4-5.0); BLOOD UREA NITROGEN 55.1 mg/dL (7-18); MAGNESIUM 2.6 mg/dL (1.8-2.4)
[2022-02-09 10:27] LABS: CREATININE 1.2 mg/dL (0.55-1.3); PHOSPHOROUS 2.6 mg/dL (2.5-4.9)
[2022-02-09 10:29] LABS: BILIRUBIN,TOTAL 0.5 mg/dL (0.2-1); TOT PROT 5.5 g/dl (6.4-8.2)
[2022-02-09] MEDS: HEPARIN NA (PORCINE) 5,000 UNITS/ML 1ML VIAL IVPUSH PRN (10:38)
[2022-02-09] MEDS: ZINC OXIDE 20% TOPICAL OINTMENT 30 GM TUBE TP SCH ×4 (11:07→23:08)
[2022-02-09] MEDS: CYCLOBENZAPRINE HCL 5 MG TABLET GT SCH (11:08)
[2022-02-09] MEDS: ASCORBIC ACID 500 MG TABLET (FP) GT SCH (11:08)
[2022-02-09] MEDS: MIDODRINE HCL 2.5 MG TABLET GT SCH ×2 (11:08→17:29)
[2022-02-09] MEDS: MULTIVIT-MINERALS ORAL LIQUID GT SCH (11:08)
[2022-02-09] MEDS: FAMOTIDINE 40 MG/5 ML ORAL SUSPENSION PEG SCH (11:09)
[2022-02-09] MEDS: LIDOCAINE 5% TOPICAL PATCH TP SCH (11:09)
[2022-02-09] MEDS: CYANOCOBALAMIN (VITAMIN B-12) 100 MCG TABLET GT SCH (11:09)
[2022-02-09] MEDS: DEXTROSE 5%-WATER - 1,000 ML with POTASSIUM CHLORIDE 20 MEQ IV SCH ×2 (11:10→20:00)
[2022-02-09] MEDS: POLYETHYLENE GLYCOL (HEALTHYLAX) 3350 17 GM PACKET GT SCH (11:10)
[2022-02-09] MEDS ORDERED: ENOXAPARIN NA (PORCINE) 100 MG/1 ML DISP.SYRIN SQ SCH (11:45)
[2022-02-09] MEDS ORDERED: ACETAMINOPHEN 500 MG TABLET (FP) PO PRN (17:25)
[2022-02-09] MEDS: QUEtiapine FUMARATE 25 MG TABLET GT SCH (23:07)
[2022-02-09] MEDS: ATORVASTATIN CA 80 MG TABLET (FP) GT SCH (23:07)
[2022-02-09] MEDS: LIDOCAINE PATCH REMOVAL MC SCH (23:08)
[2022-02-09] MEDS: ENOXAPARIN NA (PORCINE) 100 MG/1 ML DISP.SYRIN SQ SCH (23:08)
[2022-02-10] MEDS: DEXTROSE 5%-WATER - 1,000 ML with POTASSIUM CHLORIDE 20 MEQ IV SCH ×3 (01:30→18:04)
[2022-02-10] MEDS: BUDESONIDE 0.5 MG/2 ML INH SUSP VIAL NEB SCH ×2 (08:23→20:17)
[2022-02-10 09:46] LABS: BASO % 0.2 % (0-2.0); EOS % 2.1 % (0-4.5); HEMOGLOBIN 7.9 GM/dL (10.7-15.3); LYMPH % 11.9 % (8-40); MCH 29.9 pg (25.7-33.7); MCHC 32.9 g/dl (32.0-36.0); MEAN CELL VOLUME 90.7 fl (80-96); MEAN PLT VOLUME 8.1 fl (7.5-11.1); MONO % 3.3 % (3.8-10.2); NEUT % 82.5 % (42.8-82.8); PLATELET COUNT 221 10^3/uL (134-434); RBC 2.65 M/mm3 (3.60-5.2); RDW 19.9 % (11.6-15.6); WHITE BLOOD COUNT 7.6 K/mm3 (4.0-10.0)
[2022-02-10 09:54] LABS: ALBUMIN 2.3 g/dl (3.4-5.0); BLOOD UREA NITROGEN 46.3 mg/dL (7-18); MAGNESIUM 2.7 mg/dL (1.8-2.4)
[2022-02-10 09:57] LABS: CREATININE 1.1 mg/dL (0.55-1.3); PHOSPHOROUS 2.6 mg/dL (2.5-4.9)
[2022-02-10 09:59] LABS: BILIRUBIN,TOTAL 0.4 mg/dL (0.2-1); TOT PROT 5.9 g/dl (6.4-8.2)
[2022-02-10] MEDS: ENOXAPARIN NA (PORCINE) 100 MG/1 ML DISP.SYRIN SQ SCH ×2 (10:27→22:05)
[2022-02-10] MEDS: MIDODRINE HCL 2.5 MG TABLET GT SCH ×2 (10:28→18:03)
[2022-02-10] MEDS: FAMOTIDINE 40 MG/5 ML ORAL SUSPENSION PEG SCH (10:28)
[2022-02-10] MEDS: POLYETHYLENE GLYCOL (HEALTHYLAX) 3350 17 GM PACKET GT SCH (10:28)
[2022-02-10] MEDS: MULTIVIT-MINERALS ORAL LIQUID GT SCH (10:28)
[2022-02-10] MEDS: CYANOCOBALAMIN (VITAMIN B-12) 100 MCG TABLET GT SCH (10:28)
[2022-02-10] MEDS: ASCORBIC ACID 500 MG TABLET (FP) GT SCH (10:28)
[2022-02-10] MEDS: CYCLOBENZAPRINE HCL 5 MG TABLET GT SCH (10:28)
[2022-02-10] MEDS: ZINC OXIDE 20% TOPICAL OINTMENT 30 GM TUBE TP SCH ×4 (10:29→22:42)
[2022-02-10] MEDS: LIDOCAINE 5% TOPICAL PATCH TP SCH (10:29)
[2022-02-10 21:46] VITALS: BMI 37.4
[2022-02-10] MEDS: QUEtiapine FUMARATE 25 MG TABLET GT SCH (22:05)
[2022-02-10] MEDS: ATORVASTATIN CA 80 MG TABLET (FP) GT SCH (22:05)
[2022-02-10] MEDS: LIDOCAINE PATCH REMOVAL MC SCH (22:42)
[2022-02-11] MEDS: BUDESONIDE 0.5 MG/2 ML INH SUSP VIAL NEB SCH ×2 (08:00→20:25)
[2022-02-11 10:44] LABS: BASO % 0.4 % (0-2.0); EOS % 3.2 % (0-4.5); HEMATOCRIT 21.9 % (32.4-45.2); HEMOGLOBIN 7.4 GM/dL (10.7-15.3); LYMPH % 13.5 % (8-40); MCH 30.3 pg (25.7-33.7); MCHC 33.6 g/dl (32.0-36.0); MEAN CELL VOLUME 90.2 fl (80-96); MEAN PLT VOLUME 7.9 fl (7.5-11.1); MONO % 4.9 % (3.8-10.2); PLATELET COUNT 222 10^3/uL (134-434); RBC 2.43 M/mm3 (3.60-5.2); RDW 19.9 % (11.6-15.6); WHITE BLOOD COUNT 6.5 K/mm3 (4.0-10.0)
[2022-02-11] MEDS: CYCLOBENZAPRINE HCL 5 MG TABLET GT SCH (10:47)
[2022-02-11] MEDS: MIDODRINE HCL 2.5 MG TABLET GT SCH ×2 (10:47→18:42)
[2022-02-11] MEDS: ZINC SULFATE 220 MG CAPSULE (FP) PO SCH (10:47)
[2022-02-11] MEDS: ENOXAPARIN NA (PORCINE) 100 MG/1 ML DISP.SYRIN SQ SCH ×2 (10:47→21:52)
[2022-02-11] MEDS: LIDOCAINE 5% TOPICAL PATCH TP SCH (10:47)
[2022-02-11] MEDS: ASCORBIC ACID 500 MG TABLET (FP) GT SCH (10:47)
[2022-02-11] MEDS: MULTIVIT-MINERALS ORAL LIQUID GT SCH (10:48)
[2022-02-11] MEDS: POLYETHYLENE GLYCOL (HEALTHYLAX) 3350 17 GM PACKET GT SCH (10:48)
[2022-02-11] MEDS: CYANOCOBALAMIN (VITAMIN B-12) 100 MCG TABLET GT SCH (10:48)
[2022-02-11] MEDS: ZINC OXIDE 20% TOPICAL OINTMENT 30 GM TUBE TP SCH ×4 (10:49→22:46)
[2022-02-11 11:01] LABS: BLOOD UREA NITROGEN 38.5 mg/dL (7-18)
[2022-02-11 11:02] LABS: ALBUMIN 2.2 g/dl (3.4-5.0); MAGNESIUM 2.5 mg/dL (1.8-2.4)
[2022-02-11 11:05] LABS: CREATININE 1.1 mg/dL (0.55-1.3); PHOSPHOROUS 2.4 mg/dL (2.5-4.9)
[2022-02-11 11:07] LABS: BILIRUBIN,TOTAL 0.5 mg/dL (0.2-1); TOT PROT 5.7 g/dl (6.4-8.2)
[2022-02-11] MEDS: DEXTROSE 5%-WATER - 1,000 ML with POTASSIUM CHLORIDE 20 MEQ IV SCH (18:24)
[2022-02-11] MEDS: FAMOTIDINE 40 MG/5 ML ORAL SUSPENSION PEG SCH (18:25)
[2022-02-11] MEDS: QUEtiapine FUMARATE 25 MG TABLET GT SCH (21:52)
[2022-02-11] MEDS: ATORVASTATIN CA 80 MG TABLET (FP) GT SCH (21:52)
[2022-02-11] MEDS: LIDOCAINE PATCH REMOVAL MC SCH (22:46)
[2022-02-12] MEDS: DEXTROSE 5%-WATER - 1,000 ML with POTASSIUM CHLORIDE 20 MEQ IV SCH ×2 (05:21→18:09)
[2022-02-12] MEDS: BUDESONIDE 0.5 MG/2 ML INH SUSP VIAL NEB SCH ×2 (08:40→19:44)
[2022-02-12] MEDS: LIDOCAINE 5% TOPICAL PATCH TP SCH (10:30)
[2022-02-12] MEDS: MULTIVIT-MINERALS ORAL LIQUID GT SCH (10:31)
[2022-02-12] MEDS: ENOXAPARIN NA (PORCINE) 100 MG/1 ML DISP.SYRIN SQ SCH ×2 (10:31→21:26)
[2022-02-12] MEDS: FAMOTIDINE 40 MG/5 ML ORAL SUSPENSION PEG SCH (10:31)
[2022-02-12] MEDS: ASCORBIC ACID 500 MG TABLET (FP) GT SCH (10:32)
[2022-02-12] MEDS: MIDODRINE HCL 2.5 MG TABLET GT SCH ×2 (10:32→17:07)
[2022-02-12] MEDS: POLYETHYLENE GLYCOL (HEALTHYLAX) 3350 17 GM PACKET GT SCH (10:32)
[2022-02-12] MEDS: ZINC SULFATE 220 MG CAPSULE (FP) PO SCH (10:32)
[2022-02-12] MEDS: CYCLOBENZAPRINE HCL 5 MG TABLET GT SCH (10:32)
[2022-02-12] MEDS: CYANOCOBALAMIN (VITAMIN B-12) 100 MCG TABLET GT SCH (10:33)
[2022-02-12] MEDS: ZINC OXIDE 20% TOPICAL OINTMENT 30 GM TUBE TP SCH ×4 (10:34→22:03)
[2022-02-12 11:57] LABS: BASO % 0.5 % (0-2.0); EOS % 1.9 % (0-4.5); HEMATOCRIT 25.4 % (32.4-45.2); HEMOGLOBIN 8.2 GM/dL (10.7-15.3); LYMPH % 15.2 % (8-40); MCH 29.2 pg (25.7-33.7); MCHC 32.3 g/dl (32.0-36.0); MEAN CELL VOLUME 90.3 fl (80-96); MEAN PLT VOLUME 8.2 fl (7.5-11.1); MONO % 4.6 % (3.8-10.2); NEUT % 77.8 % (42.8-82.8); PLATELET COUNT 242 10^3/uL (134-434); RBC 2.81 M/mm3 (3.60-5.2); RDW 19.8 % (11.6-15.6); WHITE BLOOD COUNT 6.3 K/mm3 (4.0-10.0)
[2022-02-12 12:22] LABS: ALBUMIN 2.1 g/dl (3.4-5.0); BLOOD UREA NITROGEN 34.7 mg/dL (7-18); MAGNESIUM 2.4 mg/dL (1.8-2.4)
[2022-02-12 12:25] LABS: CREATININE 1.2 mg/dL (0.55-1.3); PHOSPHOROUS 2.2 mg/dL (2.5-4.9)
[2022-02-12 12:27] LABS: BILIRUBIN,TOTAL 0.6 mg/dL (0.2-1); TOT PROT 5.6 g/dl (6.4-8.2)
[2022-02-12] MEDS: ACETAMINOPHEN 500 MG TABLET (FP) GT PRN (13:47)
[2022-02-12] MEDS ORDERED: POTASSIUM PHOSPHATE 30 MM in SODIUM CHLORIDE 500 ML IVPB ONE (13:56)
[2022-02-12] MEDS ORDERED: NAPH,MB-DB/K PH,MBDB POWDER PACKET PEG ONE (15:38)
[2022-02-12] MEDS: LIDOCAINE PATCH REMOVAL MC SCH (21:20)
[2022-02-12] MEDS: QUEtiapine FUMARATE 25 MG TABLET GT SCH (21:21)
[2022-02-12] MEDS: ACETAMINOPHEN 325 MG TABLET (FP) NR PRN (21:21)
[2022-02-12] MEDS: oxyCODONE HCL 5 MG TABLET GT PRN (21:21)
[2022-02-12] MEDS: ATORVASTATIN CA 80 MG TABLET (FP) GT SCH (21:21)
[2022-02-13 08:45] LABS: EPI CELLS 31 /uL (0-25.1); HYALINE CASTS 3 /uL (0-3.1); URINE APPEARANCE TURBID; URINE BACTERIA >9,000 /uL (0-1359); URINE BILIRUBIN 1+ (NEGATIVE); URINE COLOR RED; URINE GLUCOSE (UA) NEGATIVE (NEGATIVE); URINE KETONE NEGATIVE (NEGATIVE); URINE LEUK ESTERASE 3+ (NEGATIVE); URINE NITRITE POSITIVE (NEGATIVE); URINE PROTEIN 3+ (NEGATIVE); URINE WBC 10285 /uL (0-25.8)
[2022-02-13] MEDS: AMINO ACIDS/PROTEIN HYDROLYS 30 ML LIQUID.PKT PEG SCH ×2 (08:49→17:54)
[2022-02-13] MEDS: BUDESONIDE 0.5 MG/2 ML INH SUSP VIAL NEB SCH ×2 (09:11→20:36)
[2022-02-13 10:29] LABS: URINE RBC 780.3 /uL (0-23.9)
[2022-02-13 10:30] LABS: URINE CRYSTALS 0-5 /hpf; YEAST NONE SEEN (NEGATIVE)
[2022-02-13] MEDS: ENOXAPARIN NA (PORCINE) 100 MG/1 ML DISP.SYRIN SQ SCH (10:50)
[2022-02-13] MEDS: CYCLOBENZAPRINE HCL 5 MG TABLET GT SCH (10:51)
[2022-02-13] MEDS: MULTIVIT-MINERALS ORAL LIQUID GT SCH (10:51)
[2022-02-13] MEDS: ASCORBIC ACID 500 MG TABLET (FP) GT SCH (10:51)
[2022-02-13] MEDS: MIDODRINE HCL 2.5 MG TABLET GT SCH ×2 (10:51→17:55)
[2022-02-13] MEDS: FAMOTIDINE 40 MG/5 ML ORAL SUSPENSION PEG SCH (10:51)
[2022-02-13] MEDS: CYANOCOBALAMIN (VITAMIN B-12) 100 MCG TABLET GT SCH (10:51)
[2022-02-13] MEDS: ZINC SULFATE 220 MG CAPSULE (FP) PO SCH (10:51)
[2022-02-13] MEDS: LIDOCAINE 5% TOPICAL PATCH TP SCH (10:52)
[2022-02-13] MEDS: POLYETHYLENE GLYCOL (HEALTHYLAX) 3350 17 GM PACKET GT SCH (10:52)
[2022-02-13] MEDS: ZINC OXIDE 20% TOPICAL OINTMENT 30 GM TUBE TP SCH ×4 (10:52→22:03)
[2022-02-13 13:02] LABS: BASO % 0.4 % (0-2.0); EOS % 1.1 % (0-4.5); HEMATOCRIT 24.1 % (32.4-45.2); HEMOGLOBIN 7.9 GM/dL (10.7-15.3); LYMPH % 9.8 % (8-40); MCH 29.5 pg (25.7-33.7); MCHC 32.8 g/dl (32.0-36.0); MEAN CELL VOLUME 90.1 fl (80-96); MEAN PLT VOLUME 7.8 fl (7.5-11.1); MONO % 4.8 % (3.8-10.2); NEUT % 83.9 % (42.8-82.8); PLATELET COUNT 237 10^3/uL (134-434); RBC 2.67 M/mm3 (3.60-5.2); RDW 19.2 % (11.6-15.6); WHITE BLOOD COUNT 6.2 K/mm3 (4.0-10.0)
[2022-02-13 13:23] LABS: CALCIUM 9.4 mg/dL (8.5-10.1)
[2022-02-13 13:24] LABS: ALBUMIN 2.2 g/dl (3.4-5.0); BLOOD UREA NITROGEN 35.6 mg/dL (7-18); MAGNESIUM 2.4 mg/dL (1.8-2.4)
[2022-02-13 13:27] LABS: CREATININE 1.2 mg/dL (0.55-1.3); PHOSPHOROUS 3.8 mg/dL (2.5-4.9)
[2022-02-13 13:28] LABS: BILIRUBIN,TOTAL 0.5 mg/dL (0.2-1); TOT PROT 5.9 g/dl (6.4-8.2)
[2022-02-13] MEDS: DEXTROSE 5%-WATER - 1,000 ML with POTASSIUM CHLORIDE 20 MEQ IV SCH (17:52)
[2022-02-13] MEDS ORDERED: ERTAPENEM SODIUM 1 GM in SODIUM CHLORIDE 50 ML IVPB SCH (18:00)
[2022-02-13] MEDS: ACETAMINOPHEN 500 MG TABLET (FP) GT PRN (18:37)
[2022-02-13 19:53] LABS: BASO % 0.3 % (0-2.0); EOS % 1.3 % (0-4.5); HEMATOCRIT 23.6 % (32.4-45.2); HEMOGLOBIN 7.7 GM/dL (10.7-15.3); LYMPH % 13.3 % (8-40); MCH 29.3 pg (25.7-33.7); MCHC 32.7 g/dl (32.0-36.0); MEAN CELL VOLUME 89.5 fl (80-96); MEAN PLT VOLUME 8.2 fl (7.5-11.1); MONO % 4.8 % (3.8-10.2); NEUT % 80.3 % (42.8-82.8); PLATELET COUNT 257 10^3/uL (134-434); RBC 2.63 M/mm3 (3.60-5.2); RDW 19.1 % (11.6-15.6)
[2022-02-13 21:40] LABS: HEMATOCRIT 23.6 % (32.4-45.2); HEMOGLOBIN 7.6 GM/dL (10.7-15.3); MCH 29.1 pg (25.7-33.7); MCHC 32.2 g/dl (32.0-36.0); MEAN CELL VOLUME 90.3 fl (80-96); MEAN PLT VOLUME 7.7 fl (7.5-11.1); PLATELET COUNT 252 10^3/uL (134-434); RBC 2.61 M/mm3 (3.60-5.2); RDW 19.4 % (11.6-15.6); WHITE BLOOD COUNT 6.2 K/mm3 (4.0-10.0)
[2022-02-13] MEDS: QUEtiapine FUMARATE 25 MG TABLET GT SCH (22:02)
[2022-02-13] MEDS: ATORVASTATIN CA 80 MG TABLET (FP) GT SCH (22:02)
[2022-02-13] MEDS: LIDOCAINE PATCH REMOVAL MC SCH (22:08)
[2022-02-14] MEDS: BUDESONIDE 0.5 MG/2 ML INH SUSP VIAL NEB SCH ×2 (08:45→20:10)
[2022-02-14 10:38] LABS: INR 1.06 (0.83-1.09); PROTHROMBIN TIME (PATIENT) 12.2 SEC (9.7-13.0)
[2022-02-14 10:40] LABS: BASO % 0.3 % (0-2.0); EOS % 1.8 % (0-4.5); HEMATOCRIT 22.8 % (32.4-45.2); HEMOGLOBIN 7.6 GM/dL (10.7-15.3); LYMPH % 14.4 % (8-40); MCH 29.9 pg (25.7-33.7); MCHC 33.2 g/dl (32.0-36.0); MEAN CELL VOLUME 89.8 fl (80-96); MEAN PLT VOLUME 7.8 fl (7.5-11.1); MONO % 5.7 % (3.8-10.2); NEUT % 77.8 % (42.8-82.8); PLATELET COUNT 226 10^3/uL (134-434); RBC 2.53 M/mm3 (3.60-5.2); RDW 19.1 % (11.6-15.6); WHITE BLOOD COUNT 6.3 K/mm3 (4.0-10.0)
[2022-02-14 10:41] LABS: ACTIVATED PTT 28.2 SECONDS (25.2-36.5)
[2022-02-14] MEDS: AMINO ACIDS/PROTEIN HYDROLYS 30 ML LIQUID.PKT PEG SCH ×2 (10:42→17:26)
[2022-02-14] MEDS: MULTIVIT-MINERALS ORAL LIQUID GT SCH (10:47)
[2022-02-14] MEDS: CYCLOBENZAPRINE HCL 5 MG TABLET GT SCH (10:47)
[2022-02-14] MEDS: LIDOCAINE 5% TOPICAL PATCH TP SCH (10:47)
[2022-02-14] MEDS: POLYETHYLENE GLYCOL (HEALTHYLAX) 3350 17 GM PACKET GT SCH (10:47)
[2022-02-14] MEDS: ASCORBIC ACID 500 MG TABLET (FP) GT SCH (10:48)
[2022-02-14] MEDS: MIDODRINE HCL 2.5 MG TABLET GT SCH ×2 (10:48→18:01)
[2022-02-14] MEDS: ZINC SULFATE 220 MG CAPSULE (FP) PO SCH (10:48)
[2022-02-14] MEDS: FAMOTIDINE 40 MG/5 ML ORAL SUSPENSION PEG SCH (10:48)
[2022-02-14] MEDS: CYANOCOBALAMIN (VITAMIN B-12) 100 MCG TABLET GT SCH (10:48)
[2022-02-14] MEDS: ZINC OXIDE 20% TOPICAL OINTMENT 30 GM TUBE TP SCH ×4 (10:49→21:01)
[2022-02-14 11:16] LABS: CALCIUM 9.7 mg/dL (8.5-10.1)
[2022-02-14 11:17] LABS: ALBUMIN 2.2 g/dl (3.4-5.0); BLOOD UREA NITROGEN 35.4 mg/dL (7-18); MAGNESIUM 2.5 mg/dL (1.8-2.4)
[2022-02-14 11:20] LABS: BILIRUBIN,TOTAL 0.5 mg/dL (0.2-1); CREATININE 1.2 mg/dL (0.55-1.3); PHOSPHOROUS 3.1 mg/dL (2.5-4.9); TOT PROT 5.8 g/dl (6.4-8.2)
[2022-02-14] MEDS: FLUCONAZOLE 40 MG/ML SUSPENSION GT SCH (13:05)
[2022-02-14] MEDS: DEXTROSE 5%-WATER - 1,000 ML with POTASSIUM CHLORIDE 20 MEQ IV SCH ×2 (13:07→18:02)
[2022-02-14] MEDS: LEVALBUTEROL HCL 0.31 MG/3 ML VIAL.NEB IH SCH ×2 (14:40→20:10)
[2022-02-14] MEDS: ACETAMINOPHEN 325 MG TABLET (FP) NR PRN (17:26)
[2022-02-14] MEDS: ATORVASTATIN CA 80 MG TABLET (FP) GT SCH (21:01)
[2022-02-14] MEDS: QUEtiapine FUMARATE 25 MG TABLET GT SCH (21:01)
[2022-02-14] MEDS: LIDOCAINE PATCH REMOVAL MC SCH (21:01)
[2022-02-15] MEDS: BUDESONIDE 0.5 MG/2 ML INH SUSP VIAL NEB SCH ×2 (08:20→20:05)
[2022-02-15] MEDS: LEVALBUTEROL HCL 0.31 MG/3 ML VIAL.NEB IH SCH ×3 (08:44→20:05)
[2022-02-15 09:14] LABS: BASO % 0.2 % (0-2.0); EOS % 1.2 % (0-4.5); HEMATOCRIT 22.8 % (32.4-45.2); HEMOGLOBIN 7.4 GM/dL (10.7-15.3); MCH 29.5 pg (25.7-33.7); MCHC 32.7 g/dl (32.0-36.0); MEAN CELL VOLUME 90.2 fl (80-96); MEAN PLT VOLUME 7.4 fl (7.5-11.1); MONO % 6.3 % (3.8-10.2); NEUT % 78.3 % (42.8-82.8); PLATELET COUNT 252 10^3/uL (134-434); RBC 2.52 M/mm3 (3.60-5.2); RDW 19.2 % (11.6-15.6); WHITE BLOOD COUNT 6.2 K/mm3 (4.0-10.0)
[2022-02-15 09:36] LABS: CALCIUM 9.2 mg/dL (8.5-10.1)
[2022-02-15 09:37] LABS: ALBUMIN 2.1 g/dl (3.4-5.0); BLOOD UREA NITROGEN 42.4 mg/dL (7-18); MAGNESIUM 2.3 mg/dL (1.8-2.4)
[2022-02-15 09:40] LABS: CREATININE 1.1 mg/dL (0.55-1.3)
[2022-02-15 09:41] LABS: BILIRUBIN,TOTAL 0.5 mg/dL (0.2-1)
[2022-02-15 09:42] LABS: TOT PROT 5.7 g/dl (6.4-8.2)
[2022-02-15] MEDS: DEXTROSE 5%-WATER - 1,000 ML with POTASSIUM CHLORIDE 20 MEQ IV SCH (09:49)
[2022-02-15] MEDS: AMINO ACIDS/PROTEIN HYDROLYS 30 ML LIQUID.PKT PEG SCH ×2 (09:53→17:35)
[2022-02-15] MEDS: ZINC OXIDE 20% TOPICAL OINTMENT 30 GM TUBE TP SCH ×4 (09:55→22:12)
[2022-02-15] MEDS: CYCLOBENZAPRINE HCL 5 MG TABLET GT SCH (09:57)
[2022-02-15] MEDS: POLYETHYLENE GLYCOL (HEALTHYLAX) 3350 17 GM PACKET GT SCH ×2 (09:57→11:47)
[2022-02-15] MEDS: LIDOCAINE 5% TOPICAL PATCH TP SCH (09:58)
[2022-02-15] MEDS: ZINC SULFATE 220 MG CAPSULE (FP) PO SCH (09:59)
[2022-02-15] MEDS: ASCORBIC ACID 500 MG TABLET (FP) GT SCH (09:59)
[2022-02-15] MEDS: MIDODRINE HCL 2.5 MG TABLET GT SCH ×2 (09:59→17:35)
[2022-02-15] MEDS: MULTIVIT-MINERALS ORAL LIQUID GT SCH (10:23)
[2022-02-15] MEDS: FLUCONAZOLE 40 MG/ML SUSPENSION GT SCH (10:24)
[2022-02-15] MEDS: FAMOTIDINE 40 MG/5 ML ORAL SUSPENSION PEG SCH (10:26)
[2022-02-15] MEDS: CYANOCOBALAMIN (VITAMIN B-12) 100 MCG TABLET GT SCH (10:27)
[2022-02-15] MEDS: oxyCODONE HCL 5 MG TABLET GT PRN (11:50)
[2022-02-15] MEDS: ENOXAPARIN NA (PORCINE) 100 MG/1 ML DISP.SYRIN SQ SCH ×2 (11:52→22:11)
[2022-02-15] MEDS: ATORVASTATIN CA 80 MG TABLET (FP) GT SCH (22:11)
[2022-02-15] MEDS: QUEtiapine FUMARATE 25 MG TABLET GT SCH (22:11)
[2022-02-15] MEDS: LIDOCAINE PATCH REMOVAL MC SCH (22:12)
[2022-02-16] MEDS: LEVALBUTEROL HCL 0.31 MG/3 ML VIAL.NEB IH SCH ×3 (08:45→21:19)
[2022-02-16] MEDS: BUDESONIDE 0.5 MG/2 ML INH SUSP VIAL NEB SCH ×2 (08:45→21:00)
[2022-02-16] MEDS: MIDODRINE HCL 2.5 MG TABLET GT SCH ×2 (09:18→18:07)
[2022-02-16] MEDS: AMINO ACIDS/PROTEIN HYDROLYS 30 ML LIQUID.PKT PEG SCH ×2 (09:18→18:07)
[2022-02-16] MEDS: POLYETHYLENE GLYCOL (HEALTHYLAX) 3350 17 GM PACKET GT SCH (09:18)
[2022-02-16] MEDS: CYCLOBENZAPRINE HCL 5 MG TABLET GT SCH (09:18)
[2022-02-16] MEDS: FAMOTIDINE 40 MG/5 ML ORAL SUSPENSION PEG SCH (09:19)
[2022-02-16] MEDS: CYANOCOBALAMIN (VITAMIN B-12) 100 MCG TABLET GT SCH (09:19)
[2022-02-16] MEDS: ENOXAPARIN NA (PORCINE) 100 MG/1 ML DISP.SYRIN SQ SCH ×2 (09:19→22:09)
[2022-02-16] MEDS: ASCORBIC ACID 500 MG TABLET (FP) GT SCH (09:19)
[2022-02-16] MEDS: MULTIVIT-MINERALS ORAL LIQUID GT SCH (09:20)
[2022-02-16] MEDS: FLUCONAZOLE 40 MG/ML SUSPENSION GT SCH (09:20)
[2022-02-16] MEDS: ZINC SULFATE 220 MG CAPSULE (FP) PO SCH (09:43)
[2022-02-16 10:10] LABS: BASO % 0.3 % (0-2.0); EOS % 0.8 % (0-4.5); HEMATOCRIT 23.7 % (32.4-45.2); HEMOGLOBIN 7.8 GM/dL (10.7-15.3); LYMPH % 17.5 % (8-40); MCH 29.7 pg (25.7-33.7); MCHC 32.8 g/dl (32.0-36.0); MEAN CELL VOLUME 90.8 fl (80-96); MEAN PLT VOLUME 7.4 fl (7.5-11.1); MONO % 6.9 % (3.8-10.2); NEUT % 74.5 % (42.8-82.8); PLATELET COUNT 267 10^3/uL (134-434); RBC 2.61 M/mm3 (3.60-5.2); RDW 19.5 % (11.6-15.6); WHITE BLOOD COUNT 8.2 K/mm3 (4.0-10.0)
[2022-02-16] MEDS: LIDOCAINE 5% TOPICAL PATCH TP SCH (10:30)
[2022-02-16] MEDS: ZINC OXIDE 20% TOPICAL OINTMENT 30 GM TUBE TP SCH ×3 (10:30→22:09)
[2022-02-16 10:55] LABS: CALCIUM 9.4 mg/dL (8.5-10.1)
[2022-02-16 10:56] LABS: ALBUMIN 2.2 g/dl (3.4-5.0); BLOOD UREA NITROGEN 43.8 mg/dL (7-18)
[2022-02-16 10:59] LABS: CREATININE 1.2 mg/dL (0.55-1.3)
[2022-02-16 11:00] LABS: BILIRUBIN,TOTAL 1.2 mg/dL (0.2-1)
[2022-02-16 11:01] LABS: TOT PROT 6.1 g/dl (6.4-8.2)
[2022-02-16] MEDS ORDERED: ACETYLCYSTEINE 20% 200MG/ML 4 ML VIAL *FOR ORAL / INH USE ONLY NEB ONE ×2 (15:32→16:29)
[2022-02-16] MEDS ORDERED: methylPREDNISolone NA SUCC 40 MG/1 ML VIAL IVPUSH ONE (15:35)
[2022-02-16] MEDS ORDERED: methylPREDNISolone NA SUCC 125 MG/2 ML VIAL ONE (15:37)
[2022-02-16] MEDS ORDERED: ALBUTEROL SO4 0.083% IH SOL 2.5 MG/3 ML VIAL.NEB. NEB ONE (16:28)
[2022-02-16] MEDS ORDERED: ALBUTEROL SO4 2.5/IPRATROPIUM 0.5 INH SOL 3 ML VIAL.NEB. NEB ONE (17:51)
[2022-02-16] MEDS: guaiFENesin 200 MG/10 ML 10 ML UNIT-DOSE CUPS GT PRN (18:07)
[2022-02-16] MEDS: methylPREDNISolone NA SUCC 40 MG/1 ML VIAL IVPUSH SCH (18:33)
[2022-02-16 18:50] LABS: ARTERIAL BLD GAS O2 SATURATION 99.2 % (95-98); ARTERIAL BLOOD GAS BASE EXCESS -2.9 mmol/L (-2-2); ARTERIAL BLOOD GAS PO2 168.8 mmHg (80-100); ARTERIAL BLOOD GAS pH 7.423 (7.350-7.450)
[2022-02-16 18:52] LABS: ALLENS TEST POSITIVE
[2022-02-16 18:53] LABS: VENT MODE A/C; VENT RATE 20
[2022-02-16] MEDS ORDERED: ACETYLCYSTEINE 20% 200MG/ML 30 ML VIAL *FOR ORAL / INH USE ONLY PO SCH (20:45)
[2022-02-16 22:07] LABS: HEMATOCRIT 23.8 % (32.4-45.2); HEMOGLOBIN 7.7 GM/dL (10.7-15.3); MCH 29.5 pg (25.7-33.7); MCHC 32.4 g/dl (32.0-36.0); MEAN CELL VOLUME 90.9 fl (80-96); MEAN PLT VOLUME 7.7 fl (7.5-11.1); PLATELET COUNT 281 10^3/uL (134-434); RBC 2.62 M/mm3 (3.60-5.2); RDW 19.7 % (11.6-15.6); WHITE BLOOD COUNT 10.1 K/mm3 (4.0-10.0)
[2022-02-16] MEDS: QUEtiapine FUMARATE 25 MG TABLET GT SCH (22:09)
[2022-02-16] MEDS: LIDOCAINE PATCH REMOVAL MC SCH (22:09)
[2022-02-16] MEDS: ATORVASTATIN CA 80 MG TABLET (FP) GT SCH (22:09)
[2022-02-16] MEDS: ACETYLCYSTEINE 20% 200MG/ML 4 ML VIAL *FOR ORAL / INH USE ONLY PO SCH (22:09)
[2022-02-16 23:28] LABS: ANISOCYTOSIS 1+; MACROCYTOSIS 0; PLATELET ESTIMATE NORMAL
[2022-02-17] MEDS: ACETYLCYSTEINE 20% 200MG/ML 4 ML VIAL *FOR ORAL / INH USE ONLY PO SCH ×5 (00:30→15:56)
[2022-02-17] MEDS: methylPREDNISolone NA SUCC 40 MG/1 ML VIAL IVPUSH SCH ×3 (01:59→18:10)
[2022-02-17] MEDS: ALBUTEROL SO4 0.083% IH SOL 2.5 MG/3 ML VIAL.NEB. NEB PRN (02:24)
[2022-02-17] MEDS: AMINO ACIDS/PROTEIN HYDROLYS 30 ML LIQUID.PKT PEG SCH ×2 (08:18→18:10)
[2022-02-17] MEDS: BUDESONIDE 0.5 MG/2 ML INH SUSP VIAL NEB SCH ×2 (08:35→21:10)
[2022-02-17] MEDS: LEVALBUTEROL HCL 0.31 MG/3 ML VIAL.NEB IH SCH ×3 (08:35→21:11)
[2022-02-17 09:18] LABS: BASO % 0.2 % (0-2.0); HEMATOCRIT 22.6 % (32.4-45.2); HEMOGLOBIN 7.4 GM/dL (10.7-15.3); LYMPH % 9.7 % (8-40); MCH 29.1 pg (25.7-33.7); MCHC 32.5 g/dl (32.0-36.0); MEAN CELL VOLUME 89.5 fl (80-96); MEAN PLT VOLUME 7.8 fl (7.5-11.1); MONO % 1.3 % (3.8-10.2); NEUT % 88.8 % (42.8-82.8); PLATELET COUNT 299 10^3/uL (134-434); RBC 2.52 M/mm3 (3.60-5.2); WHITE BLOOD COUNT 6.6 K/mm3 (4.0-10.0)
[2022-02-17 09:49] LABS: ALBUMIN 2.1 g/dl (3.4-5.0); BILIRUBIN,TOTAL 0.4 mg/dL (0.2-1); BLOOD UREA NITROGEN 47.4 mg/dL (7-18); CREATININE 1.2 mg/dL (0.55-1.3); TOT PROT 6.3 g/dl (6.4-8.2)
[2022-02-17] MEDS: MULTIVIT-MINERALS ORAL LIQUID GT SCH (11:55)
[2022-02-17] MEDS: ASCORBIC ACID 500 MG TABLET (FP) GT SCH (11:55)
[2022-02-17] MEDS: ZINC SULFATE 220 MG CAPSULE (FP) PO SCH (11:55)
[2022-02-17] MEDS: ENOXAPARIN NA (PORCINE) 100 MG/1 ML DISP.SYRIN SQ SCH ×2 (11:55→21:09)
[2022-02-17] MEDS: MIDODRINE HCL 2.5 MG TABLET GT SCH ×2 (11:56→18:10)
[2022-02-17] MEDS: POLYETHYLENE GLYCOL (HEALTHYLAX) 3350 17 GM PACKET GT SCH (11:56)
[2022-02-17] MEDS: CYCLOBENZAPRINE HCL 5 MG TABLET GT SCH (11:56)
[2022-02-17] MEDS: CYANOCOBALAMIN (VITAMIN B-12) 100 MCG TABLET GT SCH (11:56)
[2022-02-17] MEDS: FLUCONAZOLE 40 MG/ML SUSPENSION GT SCH (11:57)
[2022-02-17] MEDS: LIDOCAINE 5% TOPICAL PATCH TP SCH (11:58)
[2022-02-17] MEDS: FAMOTIDINE 40 MG/5 ML ORAL SUSPENSION PEG SCH (11:58)
[2022-02-17] MEDS: ZINC OXIDE 20% TOPICAL OINTMENT 30 GM TUBE TP SCH ×4 (12:00→21:10)
[2022-02-17] MEDS: ATORVASTATIN CA 80 MG TABLET (FP) GT SCH (21:09)
[2022-02-17] MEDS: LIDOCAINE PATCH REMOVAL MC SCH (21:10)
[2022-02-17] MEDS: QUEtiapine FUMARATE 25 MG TABLET GT SCH (21:10)
[2022-02-18] MEDS: methylPREDNISolone NA SUCC 40 MG/1 ML VIAL IVPUSH SCH ×3 (01:26→18:25)
[2022-02-18] MEDS: LEVALBUTEROL HCL 0.31 MG/3 ML VIAL.NEB IH SCH ×3 (08:02→20:31)
[2022-02-18] MEDS: BUDESONIDE 0.5 MG/2 ML INH SUSP VIAL NEB SCH ×2 (08:02→20:30)
[2022-02-18] MEDS: ZINC SULFATE 220 MG CAPSULE (FP) PO SCH (09:02)
[2022-02-18] MEDS: ASCORBIC ACID 500 MG TABLET (FP) GT SCH (09:02)
[2022-02-18] MEDS: MIDODRINE HCL 2.5 MG TABLET GT SCH ×2 (09:02→18:25)
[2022-02-18] MEDS: AMINO ACIDS/PROTEIN HYDROLYS 30 ML LIQUID.PKT PEG SCH ×2 (09:02→18:25)
[2022-02-18] MEDS: POLYETHYLENE GLYCOL (HEALTHYLAX) 3350 17 GM PACKET GT SCH (09:02)
[2022-02-18] MEDS: FLUCONAZOLE 40 MG/ML SUSPENSION GT SCH (09:03)
[2022-02-18] MEDS: ENOXAPARIN NA (PORCINE) 100 MG/1 ML DISP.SYRIN SQ SCH (09:03)
[2022-02-18] MEDS: LIDOCAINE 5% TOPICAL PATCH TP SCH (09:03)
[2022-02-18] MEDS: CYCLOBENZAPRINE HCL 5 MG TABLET GT SCH (09:03)
[2022-02-18] MEDS: ZINC OXIDE 20% TOPICAL OINTMENT 30 GM TUBE TP SCH ×4 (09:04→21:21)
[2022-02-18] MEDS: CYANOCOBALAMIN (VITAMIN B-12) 100 MCG TABLET GT SCH (09:04)
[2022-02-18] MEDS: FAMOTIDINE 40 MG/5 ML ORAL SUSPENSION PEG SCH (09:04)
[2022-02-18] MEDS: MULTIVIT-MINERALS ORAL LIQUID GT SCH (09:04)
[2022-02-18 10:11] LABS: HEMATOCRIT 23.9 % (32.4-45.2); HEMOGLOBIN 7.9 GM/dL (10.7-15.3); LYMPH % 7.9 % (8-40); MCH 29.6 pg (25.7-33.7); MCHC 32.8 g/dl (32.0-36.0); MEAN CELL VOLUME 90.2 fl (80-96); MEAN PLT VOLUME 7.5 fl (7.5-11.1); MONO % 2.5 % (3.8-10.2); NEUT % 89.6 % (42.8-82.8); PLATELET COUNT 337 10^3/uL (134-434); RBC 2.65 M/mm3 (3.60-5.2); RDW 19.4 % (11.6-15.6); WHITE BLOOD COUNT 7.2 K/mm3 (4.0-10.0)
[2022-02-18 10:35] LABS: BLOOD UREA NITROGEN 59.2 mg/dL (7-18); CALCIUM 9.7 mg/dL (8.5-10.1)
[2022-02-18 10:36] LABS: ALBUMIN 2.1 g/dl (3.4-5.0); MAGNESIUM 2.6 mg/dL (1.8-2.4)
[2022-02-18 10:39] LABS: CREATININE 1.2 mg/dL (0.55-1.3)
[2022-02-18 10:40] LABS: BILIRUBIN,TOTAL 0.4 mg/dL (0.2-1); PHOSPHOROUS 3.4 mg/dL (2.5-4.9)
[2022-02-18 21:03] LABS: BASO % 0.1 % (0-2.0); HEMATOCRIT 23.1 % (32.4-45.2); HEMOGLOBIN 7.6 GM/dL (10.7-15.3); LYMPH % 6.3 % (8-40); MCH 29.7 pg (25.7-33.7); MEAN CELL VOLUME 89.9 fl (80-96); MEAN PLT VOLUME 7.5 fl (7.5-11.1); MONO % 2.6 % (3.8-10.2); PLATELET COUNT 363 10^3/uL (134-434); RBC 2.57 M/mm3 (3.60-5.2); RDW 19.2 % (11.6-15.6); WHITE BLOOD COUNT 7.4 K/mm3 (4.0-10.0)
[2022-02-18] MEDS: QUEtiapine FUMARATE 25 MG TABLET GT SCH (21:18)
[2022-02-18] MEDS: ATORVASTATIN CA 80 MG TABLET (FP) GT SCH (21:18)
[2022-02-18] MEDS: LIDOCAINE PATCH REMOVAL MC SCH (21:18)
[2022-02-18 21:24] LABS: ALBUMIN 2.2 g/dl (3.4-5.0)
[2022-02-18 21:25] LABS: CALCIUM 9.5 mg/dL (8.5-10.1)
[2022-02-18 21:27] LABS: BLOOD UREA NITROGEN 68.8 mg/dL (7-18)
[2022-02-18 21:29] LABS: CREATININE 1.1 mg/dL (0.55-1.3)
[2022-02-18 21:32] LABS: BILIRUBIN,TOTAL 0.3 mg/dL (0.2-1); TOT PROT 6.2 g/dl (6.4-8.2)
[2022-02-18 21:59] LABS: ANISOCYTOSIS 3+; MACROCYTOSIS 0; OVALOCYTE 1+; PLATELET ESTIMATE NORMAL
[2022-02-18] MEDS ORDERED: ENOXAPARIN NA (PORCINE) 30 MG/0.3 ML DISP.SYRIN SQ ONE (22:00)
[2022-02-19] MEDS: methylPREDNISolone NA SUCC 40 MG/1 ML VIAL IVPUSH SCH ×5 (02:31→22:52)
[2022-02-19] MEDS: ALBUTEROL SO4 0.083% IH SOL 2.5 MG/3 ML VIAL.NEB. NEB PRN ×2 (08:00→11:40)
[2022-02-19] MEDS: BUDESONIDE 0.5 MG/2 ML INH SUSP VIAL NEB SCH (08:00)
[2022-02-19] MEDS: POLYETHYLENE GLYCOL (HEALTHYLAX) 3350 17 GM PACKET GT SCH (10:49)
[2022-02-19] MEDS: MIDODRINE HCL 2.5 MG TABLET GT SCH ×2 (10:49→17:17)
[2022-02-19] MEDS: ZINC SULFATE 220 MG CAPSULE (FP) PO SCH (10:49)
[2022-02-19] MEDS: FAMOTIDINE 40 MG/5 ML ORAL SUSPENSION PEG SCH (10:49)
[2022-02-19] MEDS: CYCLOBENZAPRINE HCL 5 MG TABLET GT SCH (10:49)
[2022-02-19] MEDS: AMINO ACIDS/PROTEIN HYDROLYS 30 ML LIQUID.PKT PEG SCH ×2 (10:49→17:17)
[2022-02-19] MEDS: MULTIVIT-MINERALS ORAL LIQUID GT SCH (10:49)
[2022-02-19] MEDS: ASCORBIC ACID 500 MG TABLET (FP) GT SCH (10:49)
[2022-02-19] MEDS: LIDOCAINE 5% TOPICAL PATCH TP SCH (10:53)
[2022-02-19] MEDS: ZINC OXIDE 20% TOPICAL OINTMENT 30 GM TUBE TP SCH ×4 (11:00→21:08)
[2022-02-19] MEDS ORDERED: ACETYLCYSTEINE 20% 200MG/ML 4 ML VIAL *FOR ORAL / INH USE ONLY NEB SCH (11:38)
[2022-02-19] MEDS: ACETAMINOPHEN 325 MG TABLET (FP) NR PRN (12:50)
[2022-02-19] MEDS: ACETYLCYSTEINE 20% 200MG/ML 4 ML VIAL *FOR ORAL / INH USE ONLY NEB SCH ×4 (13:24→20:56)
[2022-02-19] MEDS: LEVALBUTEROL HCL 0.31 MG/3 ML VIAL.NEB IH SCH (13:25)
[2022-02-19] MEDS: ALBUTEROL SO4 0.083% IH SOL 2.5 MG/3 ML VIAL.NEB. NEB SCH ×2 (13:26→20:57)
[2022-02-19] MEDS: CYANOCOBALAMIN (VITAMIN B-12) 100 MCG TABLET GT SCH (13:40)
[2022-02-19 13:51] LABS: ALBUMIN 2.5 g/dl (3.4-5.0)
[2022-02-19 13:53] LABS: CALCIUM 10.2 mg/dL (8.5-10.1)
[2022-02-19 13:57] LABS: BILIRUBIN,TOTAL 0.3 mg/dL (0.2-1); TOT PROT 6.5 g/dl (6.4-8.2)
[2022-02-19 14:00] LABS: CREATININE 1.2 mg/dL (0.55-1.3)
[2022-02-19] MEDS ORDERED: LEVALBUTEROL HCL 0.31 MG/3 ML VIAL.NEB IH SCH (14:00)
[2022-02-19] MEDS: FLUCONAZOLE 40 MG/ML SUSPENSION GT SCH (14:45)
[2022-02-19 20:11] LABS: HEMATOCRIT 25.1 % (32.4-45.2); HEMOGLOBIN 8.1 GM/dL (10.7-15.3); MCH 29.5 pg (25.7-33.7); MCHC 32.4 g/dl (32.0-36.0); MEAN CELL VOLUME 90.9 fl (80-96); MEAN PLT VOLUME 7.6 fl (7.5-11.1); PLATELET COUNT 351 10^3/uL (134-434); RBC 2.76 M/mm3 (3.60-5.2); WHITE BLOOD COUNT 10.7 K/mm3 (4.0-10.0)
[2022-02-19 21:52] LABS: ANISOCYTOSIS 1+; MACROCYTOSIS 0
[2022-02-19] MEDS ORDERED: ENOXAPARIN NA (PORCINE) 100 MG/1 ML DISP.SYRIN SQ SCH (22:00)
[2022-02-19] MEDS: LIDOCAINE PATCH REMOVAL MC SCH (22:08)
[2022-02-19] MEDS: QUEtiapine FUMARATE 25 MG TABLET GT SCH (22:52)
[2022-02-19] MEDS: ENOXAPARIN SQ SCH (22:52)
[2022-02-19] MEDS: ATORVASTATIN CA 80 MG TABLET (FP) GT SCH (22:52)
[2022-02-20] MEDS: ZINC OXIDE 20% TOPICAL OINTMENT 30 GM TUBE TP SCH ×4 (08:20→22:43)
[2022-02-20] MEDS: ALBUTEROL SO4 0.083% IH SOL 2.5 MG/3 ML VIAL.NEB. NEB SCH ×2 (08:40→19:26)
[2022-02-20] MEDS: ACETYLCYSTEINE 20% 200MG/ML 4 ML VIAL *FOR ORAL / INH USE ONLY NEB SCH ×2 (08:40→19:26)
[2022-02-20] MEDS: methylPREDNISolone NA SUCC 40 MG/1 ML VIAL IVPUSH SCH ×2 (11:00→22:07)
[2022-02-20] MEDS: MIDODRINE HCL 2.5 MG TABLET GT SCH ×2 (11:18→17:58)
[2022-02-20] MEDS: ASCORBIC ACID 500 MG TABLET (FP) GT SCH (11:18)
[2022-02-20] MEDS: ACETAMINOPHEN 325 MG TABLET (FP) NR PRN (11:18)
[2022-02-20] MEDS: ZINC SULFATE 220 MG CAPSULE (FP) PO SCH (11:19)
[2022-02-20] MEDS: AMINO ACIDS/PROTEIN HYDROLYS 30 ML LIQUID.PKT PEG SCH ×2 (11:19→17:58)
[2022-02-20] MEDS: POLYETHYLENE GLYCOL (HEALTHYLAX) 3350 17 GM PACKET GT SCH (11:19)
[2022-02-20] MEDS: FAMOTIDINE 40 MG/5 ML ORAL SUSPENSION PEG SCH (11:20)
[2022-02-20] MEDS: FLUCONAZOLE 40 MG/ML SUSPENSION GT SCH (11:20)
[2022-02-20] MEDS: LIDOCAINE 5% TOPICAL PATCH TP SCH (11:20)
[2022-02-20] MEDS: CYCLOBENZAPRINE HCL 5 MG TABLET GT SCH (11:21)
[2022-02-20] MEDS: CYANOCOBALAMIN (VITAMIN B-12) 100 MCG TABLET GT SCH (11:26)
[2022-02-20] MEDS: MULTIVIT-MINERALS ORAL LIQUID GT SCH (11:26)
[2022-02-20 12:04] LABS: BLOOD UREA NITROGEN 68.7 mg/dL (7-18)
[2022-02-20 12:06] LABS: ALBUMIN 2.6 g/dl (3.4-5.0); CALCIUM 9.9 mg/dL (8.5-10.1); MAGNESIUM 2.7 mg/dL (1.8-2.4)
[2022-02-20 12:09] LABS: CREATININE 1.1 mg/dL (0.55-1.3); PHOSPHOROUS 2.7 mg/dL (2.5-4.9)
[2022-02-20 12:10] LABS: BILIRUBIN,TOTAL 0.4 mg/dL (0.2-1); TOT PROT 7.1 g/dl (6.4-8.2)
[2022-02-20 17:54] LABS: HEMOGLOBIN 7.9 GM/dL (10.7-15.3); MCH 28.6 pg (25.7-33.7); MCHC 31.7 g/dl (32.0-36.0); MEAN CELL VOLUME 90.3 fl (80-96); MEAN PLT VOLUME 7.2 fl (7.5-11.1); PLATELET COUNT 351 10^3/uL (134-434); RBC 2.77 M/mm3 (3.60-5.2); RDW 18.5 % (11.6-15.6); WHITE BLOOD COUNT 9.5 K/mm3 (4.0-10.0)
[2022-02-20 19:40] LABS: ANISOCYTOSIS 1+; MACROCYTOSIS 0
[2022-02-20] MEDS: METOPROLOL TARTRATE 25 MG TABLET (FP) GT SCH (21:50)
[2022-02-20] MEDS: ATORVASTATIN CA 80 MG TABLET (FP) GT SCH (21:50)
[2022-02-20] MEDS: QUEtiapine FUMARATE 25 MG TABLET GT SCH (21:51)
[2022-02-20] MEDS: ENOXAPARIN SQ SCH (21:51)
[2022-02-20] MEDS: LIDOCAINE PATCH REMOVAL MC SCH (22:43)
[2022-02-21] MEDS: ACETYLCYSTEINE 20% 200MG/ML 4 ML VIAL *FOR ORAL / INH USE ONLY NEB SCH ×2 (08:30→19:50)
[2022-02-21] MEDS: ALBUTEROL SO4 0.083% IH SOL 2.5 MG/3 ML VIAL.NEB. NEB SCH ×2 (08:30→19:50)
[2022-02-21] MEDS: AMINO ACIDS/PROTEIN HYDROLYS 30 ML LIQUID.PKT PEG SCH ×2 (08:54→18:25)
[2022-02-21] MEDS: oxyCODONE HCL 5 MG TABLET PO PRN (08:55)
[2022-02-21] MEDS: ACETAMINOPHEN 325 MG TABLET (FP) NR PRN (08:55)
[2022-02-21] MEDS: METOPROLOL TARTRATE 25 MG TABLET (FP) GT SCH ×2 (12:06→22:24)
[2022-02-21] MEDS: methylPREDNISolone NA SUCC 40 MG/1 ML VIAL IVPUSH SCH (12:06)
[2022-02-21] MEDS: CYCLOBENZAPRINE HCL 5 MG TABLET GT SCH (12:06)
[2022-02-21] MEDS: ASCORBIC ACID 500 MG TABLET (FP) GT SCH (12:06)
[2022-02-21] MEDS: ZINC OXIDE 20% TOPICAL OINTMENT 30 GM TUBE TP SCH ×4 (12:07→22:25)
[2022-02-21] MEDS: LIDOCAINE 5% TOPICAL PATCH TP SCH (12:09)
[2022-02-21] MEDS: POLYETHYLENE GLYCOL (HEALTHYLAX) 3350 17 GM PACKET GT SCH (12:09)
[2022-02-21] MEDS: CYANOCOBALAMIN (VITAMIN B-12) 100 MCG TABLET GT SCH (12:12)
[2022-02-21] MEDS: FAMOTIDINE 40 MG/5 ML ORAL SUSPENSION PEG SCH (12:12)
[2022-02-21] MEDS: ZINC SULFATE 220 MG CAPSULE (FP) PO SCH (12:12)
[2022-02-21] MEDS: MULTIVIT-MINERALS ORAL LIQUID GT SCH (12:12)
[2022-02-21] MEDS: FLUCONAZOLE 40 MG/ML SUSPENSION GT SCH (12:13)
[2022-02-21] MEDS: MIDODRINE HCL 2.5 MG TABLET GT SCH ×2 (12:13→18:25)
[2022-02-21 12:23] LABS: ALBUMIN 2.3 g/dl (3.4-5.0); BLOOD UREA NITROGEN 72.7 mg/dL (7-18)
[2022-02-21 12:26] LABS: CREATININE 1.1 mg/dL (0.55-1.3)
[2022-02-21 12:28] LABS: BILIRUBIN,TOTAL 0.4 mg/dL (0.2-1)
[2022-02-21 17:08] LABS: HEMATOCRIT 24.2 % (32.4-45.2); HEMOGLOBIN 7.8 GM/dL (10.7-15.3); MCH 29.4 pg (25.7-33.7); MCHC 32.1 g/dl (32.0-36.0); MEAN CELL VOLUME 91.3 fl (80-96); PLATELET COUNT 311 10^3/uL (134-434); RBC 2.65 M/mm3 (3.60-5.2); WHITE BLOOD COUNT 10.2 K/mm3 (4.0-10.0)
[2022-02-21 17:58] LABS: ANISOCYTOSIS 2+; MACROCYTOSIS 0
[2022-02-21] MEDS: LIDOCAINE PATCH REMOVAL MC SCH (22:24)
[2022-02-21] MEDS: ATORVASTATIN CA 80 MG TABLET (FP) GT SCH (22:24)
[2022-02-21] MEDS: QUEtiapine FUMARATE 25 MG TABLET GT SCH (22:24)
[2022-02-21] MEDS: ENOXAPARIN SQ SCH (22:24)
[2022-02-22] MEDS: ALBUTEROL SO4 0.083% IH SOL 2.5 MG/3 ML VIAL.NEB. NEB SCH ×2 (08:24→20:33)
[2022-02-22] MEDS: ACETYLCYSTEINE 20% 200MG/ML 4 ML VIAL *FOR ORAL / INH USE ONLY NEB SCH ×2 (08:24→20:33)
[2022-02-22] MEDS: ZINC SULFATE 220 MG CAPSULE (FP) PO SCH (10:54)
[2022-02-22] MEDS: METOPROLOL TARTRATE 25 MG TABLET (FP) GT SCH ×2 (10:54→23:13)
[2022-02-22] MEDS: oxyCODONE HCL 5 MG TABLET PO PRN ×2 (10:54→23:13)
[2022-02-22] MEDS: predniSONE 20 MG TABLET (UD) PO SCH (10:54)
[2022-02-22] MEDS: CYCLOBENZAPRINE HCL 5 MG TABLET GT SCH (10:54)
[2022-02-22] MEDS: POLYETHYLENE GLYCOL (HEALTHYLAX) 3350 17 GM PACKET GT SCH (10:56)
[2022-02-22] MEDS: MULTIVIT-MINERALS ORAL LIQUID GT SCH (10:56)
[2022-02-22] MEDS: AMINO ACIDS/PROTEIN HYDROLYS 30 ML LIQUID.PKT PEG SCH ×2 (10:57→18:26)
[2022-02-22] MEDS: FAMOTIDINE 40 MG/5 ML ORAL SUSPENSION PEG SCH (10:57)
[2022-02-22] MEDS: MIDODRINE HCL 2.5 MG TABLET GT SCH ×2 (10:57→18:26)
[2022-02-22] MEDS: LIDOCAINE 5% TOPICAL PATCH TP SCH (10:58)
[2022-02-22] MEDS: CYANOCOBALAMIN (VITAMIN B-12) 100 MCG TABLET GT SCH (10:58)
[2022-02-22] MEDS: ZINC OXIDE 20% TOPICAL OINTMENT 30 GM TUBE TP SCH ×4 (10:59→23:31)
[2022-02-22] MEDS: ASCORBIC ACID 500 MG TABLET (FP) GT SCH (10:59)
[2022-02-22 12:48] LABS: ALBUMIN 2.3 g/dl (3.4-5.0)
[2022-02-22 12:49] LABS: BLOOD UREA NITROGEN 65.6 mg/dL (7-18)
[2022-02-22 12:52] LABS: CREATININE 1.2 mg/dL (0.55-1.3)
[2022-02-22 12:53] LABS: BILIRUBIN,TOTAL 0.2 mg/dL (0.2-1); TOT PROT 5.9 g/dl (6.4-8.2)
[2022-02-22] MEDS: COLLAGENASE CLOSTRIDIUM HIST. 30 GRAMS TUBE TP SCH (15:55)
[2022-02-22 16:13] LABS: BASO % 0.1 % (0-2.0); HEMATOCRIT 25.1 % (32.4-45.2); LYMPH % 4.2 % (8-40); MCH 29.4 pg (25.7-33.7); MEAN CELL VOLUME 91.7 fl (80-96); MEAN PLT VOLUME 7.2 fl (7.5-11.1); MONO % 2.6 % (3.8-10.2); NEUT % 93.1 % (42.8-82.8); PLATELET COUNT 325 10^3/uL (134-434); RBC 2.74 M/mm3 (3.60-5.2); RDW 19.5 % (11.6-15.6); WHITE BLOOD COUNT 13.4 K/mm3 (4.0-10.0)
[2022-02-22 18:25] LABS: ANISOCYTOSIS 1+; MACROCYTOSIS 0; PLATELET ESTIMATE NORMAL
[2022-02-22] MEDS: ATORVASTATIN CA 80 MG TABLET (FP) GT SCH (23:13)
[2022-02-22] MEDS: LIDOCAINE PATCH REMOVAL MC SCH (23:13)
[2022-02-22] MEDS: QUEtiapine FUMARATE 25 MG TABLET GT SCH (23:13)
[2022-02-22] MEDS: ENOXAPARIN SQ SCH (23:14)
[2022-02-23] MEDS: ACETYLCYSTEINE 20% 200MG/ML 4 ML VIAL *FOR ORAL / INH USE ONLY NEB SCH ×2 (07:30→20:05)
[2022-02-23] MEDS: ALBUTEROL SO4 0.083% IH SOL 2.5 MG/3 ML VIAL.NEB. NEB SCH ×2 (07:30→20:05)
[2022-02-23] MEDS: METOPROLOL TARTRATE 25 MG TABLET (FP) GT SCH ×2 (12:09→22:21)
[2022-02-23] MEDS: predniSONE 20 MG TABLET (UD) PO SCH (12:09)
[2022-02-23] MEDS: CYCLOBENZAPRINE HCL 5 MG TABLET GT SCH (12:09)
[2022-02-23] MEDS: ZINC SULFATE 220 MG CAPSULE (FP) PO SCH (12:09)
[2022-02-23] MEDS: oxyCODONE HCL 5 MG TABLET PO PRN (12:10)
[2022-02-23] MEDS: MIDODRINE HCL 2.5 MG TABLET GT SCH ×2 (12:11→18:45)
[2022-02-23] MEDS: MULTIVIT-MINERALS ORAL LIQUID GT SCH (12:11)
[2022-02-23] MEDS: POLYETHYLENE GLYCOL (HEALTHYLAX) 3350 17 GM PACKET GT SCH (12:15)
[2022-02-23] MEDS: AMINO ACIDS/PROTEIN HYDROLYS 30 ML LIQUID.PKT PEG SCH ×2 (12:15→18:45)
[2022-02-23] MEDS: LIDOCAINE 5% TOPICAL PATCH TP SCH (12:16)
[2022-02-23] MEDS: COLLAGENASE CLOSTRIDIUM HIST. 30 GRAMS TUBE TP SCH (12:16)
[2022-02-23] MEDS: FAMOTIDINE 40 MG/5 ML ORAL SUSPENSION PEG SCH (12:16)
[2022-02-23] MEDS: CYANOCOBALAMIN (VITAMIN B-12) 100 MCG TABLET GT SCH (12:16)
[2022-02-23] MEDS: ASCORBIC ACID 500 MG TABLET (FP) GT SCH (12:17)
[2022-02-23] MEDS: ZINC OXIDE 20% TOPICAL OINTMENT 30 GM TUBE TP SCH ×4 (12:18→22:22)
[2022-02-23 13:15] LABS: CALCIUM 10.1 mg/dL (8.5-10.1)
[2022-02-23 13:16] LABS: ALBUMIN 2.5 g/dl (3.4-5.0); BLOOD UREA NITROGEN 65.9 mg/dL (7-18)
[2022-02-23 13:19] LABS: CREATININE 1.2 mg/dL (0.55-1.3)
[2022-02-23 13:20] LABS: BILIRUBIN,TOTAL 0.5 mg/dL (0.2-1); TOT PROT 6.3 g/dl (6.4-8.2)
[2022-02-23] MEDS: SODIUM HYPOCHLORITE 0.5% 473 ML- BULK BOTTLE TP SCH (16:01)
[2022-02-23 18:11] LABS: HEMATOCRIT 27.5 % (32.4-45.2); HEMOGLOBIN 8.7 GM/dL (10.7-15.3); MCH 29.2 pg (25.7-33.7); MCHC 31.6 g/dl (32.0-36.0); MEAN CELL VOLUME 92.2 fl (80-96); MEAN PLT VOLUME 8.2 fl (7.5-11.1); PLATELET COUNT 276 10^3/uL (134-434); RBC 2.98 M/mm3 (3.60-5.2); RDW 19.4 % (11.6-15.6); WHITE BLOOD COUNT 14.9 K/mm3 (4.0-10.0)
[2022-02-23 18:56] LABS: PLATELET ESTIMATE NORMAL
[2022-02-23] MEDS: QUEtiapine FUMARATE 25 MG TABLET GT SCH (22:21)
[2022-02-23] MEDS: MEROPENEM 1 GM in DEXTROSE 5%-WATER 100 ML IVPB SCH (22:21)
[2022-02-23] MEDS: ATORVASTATIN CA 80 MG TABLET (FP) GT SCH (22:21)
[2022-02-23] MEDS: ENOXAPARIN SQ SCH (22:21)
[2022-02-23] MEDS: LIDOCAINE PATCH REMOVAL MC SCH (23:00)
[2022-02-23 23:27] LABS: ANISOCYTOSIS 1+
[2022-02-24] MEDS: MEROPENEM 1 GM in DEXTROSE 5%-WATER 100 ML IVPB SCH ×3 (02:20→19:30)
[2022-02-24] MEDS: ACETYLCYSTEINE 20% 200MG/ML 4 ML VIAL *FOR ORAL / INH USE ONLY NEB SCH ×2 (07:28→20:21)
[2022-02-24] MEDS: ALBUTEROL SO4 0.083% IH SOL 2.5 MG/3 ML VIAL.NEB. NEB SCH (07:29)
[2022-02-24] MEDS: AMINO ACIDS/PROTEIN HYDROLYS 30 ML LIQUID.PKT PEG SCH ×2 (09:15→17:55)
[2022-02-24] MEDS ORDERED: MEROPENEM 1 GM VIAL (RESTRICTED TO ID) IVPB ONE (10:39)
[2022-02-24] MEDS: MULTIVIT-MINERALS ORAL LIQUID GT SCH (10:49)
[2022-02-24] MEDS: ZINC SULFATE 220 MG CAPSULE (FP) PO SCH (10:50)
[2022-02-24] MEDS: ASCORBIC ACID 500 MG TABLET (FP) GT SCH (10:50)
[2022-02-24] MEDS: MIDODRINE HCL 2.5 MG TABLET GT SCH ×2 (10:50→17:56)
[2022-02-24] MEDS: CYCLOBENZAPRINE HCL 5 MG TABLET GT SCH (10:50)
[2022-02-24] MEDS: METOPROLOL TARTRATE 25 MG TABLET (FP) GT SCH ×2 (10:53→23:00)
[2022-02-24] MEDS: FAMOTIDINE 40 MG/5 ML ORAL SUSPENSION PEG SCH (10:54)
[2022-02-24] MEDS: predniSONE 10 MG TABLET (UD) PO SCH (10:57)
[2022-02-24] MEDS: CYANOCOBALAMIN (VITAMIN B-12) 100 MCG TABLET GT SCH (11:00)
[2022-02-24 11:04] LABS: CALCIUM 9.6 mg/dL (8.5-10.1)
[2022-02-24 11:05] LABS: ALBUMIN 2.2 g/dl (3.4-5.0); BLOOD UREA NITROGEN 55.1 mg/dL (7-18); MAGNESIUM 2.4 mg/dL (1.8-2.4)
[2022-02-24] MEDS: ZINC OXIDE 20% TOPICAL OINTMENT 30 GM TUBE TP SCH ×4 (11:07→23:00)
[2022-02-24 11:08] LABS: CREATININE 1.2 mg/dL (0.55-1.3); PHOSPHOROUS 1.3 mg/dL (2.5-4.9)
[2022-02-24 11:09] LABS: TOT PROT 5.9 g/dl (6.4-8.2)
[2022-02-24 11:10] LABS: BILIRUBIN,TOTAL 0.5 mg/dL (0.2-1)
[2022-02-24] MEDS: ACETAMINOPHEN 325 MG TABLET (FP) NR PRN ×2 (11:35→23:01)
[2022-02-24] MEDS: LIDOCAINE 5% TOPICAL PATCH TP SCH (11:44)
[2022-02-24] MEDS: COLLAGENASE CLOSTRIDIUM HIST. 30 GRAMS TUBE TP SCH (12:06)
[2022-02-24] MEDS: SODIUM HYPOCHLORITE 0.5% 473 ML- BULK BOTTLE TP SCH (12:06)
[2022-02-24] MEDS: POLYETHYLENE GLYCOL (HEALTHYLAX) 3350 17 GM PACKET GT SCH (12:08)
[2022-02-24] MEDS: NAPH,MB-DB/K PH,MBDB POWDER PACKET GT SCH ×2 (15:08→23:00)
[2022-02-24] MEDS: BACITRACIN 15 GM TUBE TOPICAL OINTMENT TP SCH (15:09)
[2022-02-24 16:21] LABS: BASO % 0.5 % (0-2.0); HEMATOCRIT 24.1 % (32.4-45.2); HEMOGLOBIN 7.7 GM/dL (10.7-15.3); LYMPH % 5.7 % (8-40); MCH 29.4 pg (25.7-33.7); MCHC 32.1 g/dl (32.0-36.0); MEAN CELL VOLUME 91.5 fl (80-96); MEAN PLT VOLUME 7.4 fl (7.5-11.1); MONO % 1.4 % (3.8-10.2); NEUT % 92.4 % (42.8-82.8); PLATELET COUNT 280 10^3/uL (134-434); RBC 2.63 M/mm3 (3.60-5.2); RDW 20.1 % (11.6-15.6); WHITE BLOOD COUNT 10.8 K/mm3 (4.0-10.0)
[2022-02-24 16:46] LABS: EPI CELLS >36 /uL (0-25.1); HYALINE CASTS 73 /uL (0-3.1); PH,URINE >= 9.0 (5.0-8.0); URINE APPEARANCE TURBID; URINE BACTERIA >9,000 /uL (0-1359); URINE BILIRUBIN NEGATIVE (NEGATIVE); URINE COLOR YELLOW; URINE GLUCOSE (UA) TRACE (NEGATIVE); URINE KETONE NEGATIVE (NEGATIVE); URINE LEUK ESTERASE 3+ (NEGATIVE); URINE NITRITE NEGATIVE (NEGATIVE); URINE PROTEIN 3+ (NEGATIVE); URINE RBC 162 /uL (0-23.9); URINE UROBILINOGEN 0.2 mg/dL (0.2-1.0); URINE WBC 26 /uL (0-25.8)
[2022-02-24 17:04] LABS: URINE CRYSTALS CA OXALATE /hpf
[2022-02-24 17:25] LABS: ANISOCYTOSIS 3+; MACROCYTOSIS 3+; TOXIC GRANULATION 1+
[2022-02-24] MEDS: QUEtiapine FUMARATE 25 MG TABLET GT SCH (23:00)
[2022-02-24] MEDS: ENOXAPARIN SQ SCH (23:00)
[2022-02-24] MEDS: LIDOCAINE PATCH REMOVAL MC SCH (23:00)
[2022-02-24] MEDS: ATORVASTATIN CA 80 MG TABLET (FP) GT SCH (23:00)
[2022-02-24] MEDS: oxyCODONE HCL 5 MG TABLET PO PRN (23:02)
[2022-02-25] MEDS: MEROPENEM 1 GM in DEXTROSE 5%-WATER 100 ML IVPB SCH ×3 (03:40→17:05)
[2022-02-25] MEDS: NAPH,MB-DB/K PH,MBDB POWDER PACKET GT SCH ×3 (06:00→22:29)
[2022-02-25] MEDS: ACETAMINOPHEN 500 MG TABLET (FP) GT PRN (06:57)
[2022-02-25] MEDS: ACETYLCYSTEINE 20% 200MG/ML 4 ML VIAL *FOR ORAL / INH USE ONLY NEB SCH ×2 (08:45→20:23)
[2022-02-25 08:47] LABS: HEMATOCRIT 24.3 % (32.4-45.2); HEMOGLOBIN 7.8 GM/dL (10.7-15.3); MCH 29.4 pg (25.7-33.7); MCHC 32.2 g/dl (32.0-36.0); MEAN CELL VOLUME 91.4 fl (80-96); MEAN PLT VOLUME 7.7 fl (7.5-11.1); PLATELET COUNT 285 10^3/uL (134-434); RBC 2.66 M/mm3 (3.60-5.2); RDW 20.4 % (11.6-15.6); WHITE BLOOD COUNT 7.9 K/mm3 (4.0-10.0)
[2022-02-25 08:53] LABS: CALCIUM 8.9 mg/dL (8.5-10.1)
[2022-02-25 08:54] LABS: ALBUMIN 2.1 g/dl (3.4-5.0); BLOOD UREA NITROGEN 63.3 mg/dL (7-18); MAGNESIUM 2.4 mg/dL (1.8-2.4)
[2022-02-25 08:57] LABS: CREATININE 1.1 mg/dL (0.55-1.3); PHOSPHOROUS 2.5 mg/dL (2.5-4.9)
[2022-02-25 08:58] LABS: TOT PROT 5.4 g/dl (6.4-8.2)
[2022-02-25 08:59] LABS: BILIRUBIN,TOTAL 0.4 mg/dL (0.2-1)
[2022-02-25] MEDS: POLYETHYLENE GLYCOL (HEALTHYLAX) 3350 17 GM PACKET GT SCH (09:40)
[2022-02-25] MEDS: LIDOCAINE 5% TOPICAL PATCH TP SCH (09:40)
[2022-02-25] MEDS: ASCORBIC ACID 500 MG TABLET (FP) GT SCH (09:41)
[2022-02-25] MEDS: METOPROLOL TARTRATE 25 MG TABLET (FP) GT SCH ×2 (09:41→22:30)
[2022-02-25] MEDS: CYANOCOBALAMIN (VITAMIN B-12) 100 MCG TABLET GT SCH (09:41)
[2022-02-25] MEDS: MIDODRINE HCL 2.5 MG TABLET GT SCH ×2 (09:41→17:02)
[2022-02-25] MEDS: MULTIVIT-MINERALS ORAL LIQUID GT SCH (09:41)
[2022-02-25] MEDS: FAMOTIDINE 40 MG/5 ML ORAL SUSPENSION PEG SCH (09:41)
[2022-02-25] MEDS: CYCLOBENZAPRINE HCL 5 MG TABLET GT SCH (09:41)
[2022-02-25] MEDS: ZINC SULFATE 220 MG CAPSULE (FP) PO SCH (09:41)
[2022-02-25] MEDS: oxyCODONE HCL 5 MG TABLET PO PRN ×2 (09:42→20:07)
[2022-02-25] MEDS: ZINC OXIDE 20% TOPICAL OINTMENT 30 GM TUBE TP SCH ×4 (09:43→22:30)
[2022-02-25] MEDS: COLLAGENASE CLOSTRIDIUM HIST. 30 GRAMS TUBE TP SCH (09:43)
[2022-02-25 10:51] LABS: ANISOCYTOSIS 0; HELMET CELLS 0; HOWELL-JOLLY BODIES 0; MACROCYTOSIS 0; OVALOCYTE 0; ROULEAU 0; SICKELED CELLS 0; TARGET CELLS 0; TEAR DROP CELLS 0; TOXIC GRANULATION 0
[2022-02-25] MEDS: BACITRACIN 15 GM TUBE TOPICAL OINTMENT TP SCH (11:04)
[2022-02-25] MEDS: predniSONE 10 MG TABLET (UD) PO SCH (11:17)
[2022-02-25] MEDS: SODIUM HYPOCHLORITE 0.5% 473 ML- BULK BOTTLE TP SCH (11:18)
[2022-02-25] MEDS: AMINO ACIDS/PROTEIN HYDROLYS 30 ML LIQUID.PKT PEG SCH ×2 (11:19→17:02)
[2022-02-25] MEDS ORDERED: LEVALBUTEROL HCL 0.31 MG/3 ML VIAL.NEB IH SCH (14:00)
[2022-02-25] MEDS: ALBUTEROL SO4 0.083% IH SOL 2.5 MG/3 ML VIAL.NEB. NEB SCH (20:21)
[2022-02-25] MEDS: QUEtiapine FUMARATE 25 MG TABLET GT SCH (22:29)
[2022-02-25] MEDS: ATORVASTATIN CA 80 MG TABLET (FP) GT SCH (22:29)
[2022-02-25] MEDS: ENOXAPARIN SQ SCH (22:29)
[2022-02-25] MEDS: LIDOCAINE PATCH REMOVAL MC SCH (22:30)
[2022-02-26] MEDS: MEROPENEM 1 GM in DEXTROSE 5%-WATER 100 ML IVPB SCH ×3 (01:22→19:00)
[2022-02-26] MEDS: NAPH,MB-DB/K PH,MBDB POWDER PACKET GT SCH ×2 (05:18→14:21)
[2022-02-26] MEDS: ALBUTEROL SO4 0.083% IH SOL 2.5 MG/3 ML VIAL.NEB. NEB SCH ×2 (07:50→21:02)
[2022-02-26] MEDS: ACETYLCYSTEINE 20% 200MG/ML 4 ML VIAL *FOR ORAL / INH USE ONLY NEB SCH ×3 (07:50→21:02)
[2022-02-26] MEDS: AMINO ACIDS/PROTEIN HYDROLYS 30 ML LIQUID.PKT PEG SCH ×2 (09:06→19:00)
[2022-02-26] MEDS: LIDOCAINE 5% TOPICAL PATCH TP SCH (09:07)
[2022-02-26] MEDS: ZINC SULFATE 220 MG CAPSULE (FP) PO SCH (09:07)
[2022-02-26] MEDS: CYCLOBENZAPRINE HCL 5 MG TABLET GT SCH (09:07)
[2022-02-26] MEDS: MIDODRINE HCL 2.5 MG TABLET GT SCH ×2 (09:07→19:01)
[2022-02-26] MEDS: ASCORBIC ACID 500 MG TABLET (FP) GT SCH (09:07)
[2022-02-26] MEDS: guaiFENesin 200 MG/10 ML 10 ML UNIT-DOSE CUPS GT PRN (09:07)
[2022-02-26] MEDS: METOPROLOL TARTRATE 25 MG TABLET (FP) GT SCH ×2 (09:07→21:45)
[2022-02-26] MEDS: BACITRACIN 15 GM TUBE TOPICAL OINTMENT TP SCH (09:08)
[2022-02-26] MEDS: SODIUM HYPOCHLORITE 0.5% 473 ML- BULK BOTTLE TP SCH (09:10)
[2022-02-26] MEDS: FAMOTIDINE 40 MG/5 ML ORAL SUSPENSION PEG SCH (09:10)
[2022-02-26] MEDS: CYANOCOBALAMIN (VITAMIN B-12) 100 MCG TABLET GT SCH (09:10)
[2022-02-26] MEDS: MULTIVIT-MINERALS ORAL LIQUID GT SCH (09:10)
[2022-02-26] MEDS: ZINC OXIDE 20% TOPICAL OINTMENT 30 GM TUBE TP SCH ×4 (09:11→21:46)
[2022-02-26] MEDS: COLLAGENASE CLOSTRIDIUM HIST. 30 GRAMS TUBE TP SCH (09:11)
[2022-02-26] MEDS: POLYETHYLENE GLYCOL (HEALTHYLAX) 3350 17 GM PACKET GT SCH (09:43)
[2022-02-26] MEDS ORDERED: predniSONE 20 MG TABLET (UD) PO ONE (10:00)
[2022-02-26] MEDS ORDERED: ALBUTEROL SO4 2.5/IPRATROPIUM 0.5 INH SOL 3 ML VIAL.NEB. NEB ONE (11:51)
[2022-02-26] MEDS ORDERED: SODIUM CHLORIDE FOR INHALATION 3 ML VIAL.NEB IH PRN ×2 (12:01→12:15)
[2022-02-26] MEDS ORDERED: morphine CARPU-JECT 2 MG/1 ML DISP.SYRIN IM ONE (12:12)
[2022-02-26] MEDS ORDERED: morphine CARPU-JECT 4 MG/1 ML DISP.SYRIN IVPUSH PRN (12:12)
[2022-02-26 12:22] LABS: MAGNESIUM 2.6 mg/dL (1.8-2.4)
[2022-02-26 12:26] LABS: PHOSPHOROUS 4.5 mg/dL (2.5-4.9)
[2022-02-26 12:27] LABS: BLOOD UREA NITROGEN 65.1 mg/dL (7-18); CALCIUM 9.4 mg/dL (8.5-10.1)
[2022-02-26 12:28] LABS: ALBUMIN 2.4 g/dl (3.4-5.0)
[2022-02-26 12:30] LABS: CREATININE 1.3 mg/dL (0.55-1.3)
[2022-02-26] MEDS ORDERED: guaiFENesin 200 MG/10 ML 10 ML UNIT-DOSE CUPS PO SCH (12:30)
[2022-02-26 12:31] LABS: BILIRUBIN,TOTAL 0.8 mg/dL (0.2-1); TOT PROT 6.3 g/dl (6.4-8.2)
[2022-02-26 12:50] LABS: HEMATOCRIT 28.9 % (32.4-45.2); HEMOGLOBIN 8.9 GM/dL (10.7-15.3); MCH 28.8 pg (25.7-33.7); MCHC 30.8 g/dl (32.0-36.0); MEAN CELL VOLUME 93.5 fl (80-96); MEAN PLT VOLUME 7.9 fl (7.5-11.1); PLATELET COUNT 451 10^3/uL (134-434); RBC 3.09 M/mm3 (3.60-5.2); RDW 21.2 % (11.6-15.6); WHITE BLOOD COUNT 20.8 K/mm3 (4.0-10.0)
[2022-02-26 13:03] LABS: INR 1.07 (0.83-1.09); PROTHROMBIN TIME (PATIENT) 12.3 SEC (9.7-13.0)
[2022-02-26] MEDS: guaiFENesin/D-METHORPHAN HB 10 ML UNIT-DOSE CUPS PO SCH ×3 (14:12→20:43)
[2022-02-26] MEDS: oxyCODONE HCL 5 MG TABLET PO PRN (14:20)
[2022-02-26 14:45] LABS: ANISOCYTOSIS 1+; MACROCYTOSIS 0
[2022-02-26] MEDS: ALBUTEROL SO4 0.083% IH SOL 2.5 MG/3 ML VIAL.NEB. NEB PRN (16:14)
[2022-02-26] MEDS: SODIUM CHLORIDE FOR INHALATION 3 ML VIAL.NEB IH SCH ×3 (16:15→23:25)
[2022-02-26 21:00] LABS: HEMATOCRIT 23.5 % (32.4-45.2); HEMOGLOBIN 7.5 GM/dL (10.7-15.3); MCH 29.6 pg (25.7-33.7); MEAN CELL VOLUME 92.4 fl (80-96); MEAN PLT VOLUME 7.7 fl (7.5-11.1); PLATELET COUNT 283 10^3/uL (134-434); RBC 2.54 M/mm3 (3.60-5.2); RDW 20.3 % (11.6-15.6)
[2022-02-26] MEDS: LIDOCAINE PATCH REMOVAL MC SCH (21:45)
[2022-02-26] MEDS: ATORVASTATIN CA 80 MG TABLET (FP) GT SCH (21:45)
[2022-02-26] MEDS: QUEtiapine FUMARATE 25 MG TABLET GT SCH (21:46)
[2022-02-26 22:07] LABS: ANISOCYTOSIS 1+; MACROCYTOSIS 0; PLATELET ESTIMATE NORMAL
[2022-02-27] MEDS: guaiFENesin/D-METHORPHAN HB 10 ML UNIT-DOSE CUPS PO SCH ×6 (00:58→21:44)
[2022-02-27] MEDS: MEROPENEM 1 GM in DEXTROSE 5%-WATER 100 ML IVPB SCH ×3 (03:04→18:25)
[2022-02-27] MEDS: oxyCODONE HCL 5 MG TABLET PO PRN (03:04)
[2022-02-27] MEDS: ALBUTEROL SO4 0.083% IH SOL 2.5 MG/3 ML VIAL.NEB. NEB PRN ×2 (05:04→14:52)
[2022-02-27] MEDS: ACETYLCYSTEINE 20% 200MG/ML 4 ML VIAL *FOR ORAL / INH USE ONLY NEB SCH ×3 (05:04→21:18)
[2022-02-27] MEDS: SODIUM CHLORIDE FOR INHALATION 3 ML VIAL.NEB IH SCH ×5 (05:05→20:05)
[2022-02-27] MEDS: ALBUTEROL SO4 0.083% IH SOL 2.5 MG/3 ML VIAL.NEB. NEB SCH ×2 (08:04→20:04)
[2022-02-27] MEDS ORDERED: predniSONE 10 MG TABLET (UD) PO ONE (10:00)
[2022-02-27] MEDS: ACETAMINOPHEN 500 MG TABLET (FP) GT PRN (11:59)
[2022-02-27] MEDS: ZINC SULFATE 220 MG CAPSULE (FP) PO SCH (11:59)
[2022-02-27] MEDS: CYCLOBENZAPRINE HCL 5 MG TABLET GT SCH (11:59)
[2022-02-27] MEDS: ASCORBIC ACID 500 MG TABLET (FP) GT SCH (11:59)
[2022-02-27] MEDS: MIDODRINE HCL 2.5 MG TABLET GT SCH ×2 (11:59→18:26)
[2022-02-27] MEDS: BACITRACIN 15 GM TUBE TOPICAL OINTMENT TP SCH (12:00)
[2022-02-27] MEDS: AMINO ACIDS/PROTEIN HYDROLYS 30 ML LIQUID.PKT PEG SCH ×2 (12:00→18:24)
[2022-02-27] MEDS: METOPROLOL TARTRATE 25 MG TABLET (FP) GT SCH ×2 (12:00→21:45)
[2022-02-27] MEDS: MULTIVIT-MINERALS ORAL LIQUID GT SCH (12:01)
[2022-02-27] MEDS: SODIUM HYPOCHLORITE 0.5% 473 ML- BULK BOTTLE TP SCH (12:01)
[2022-02-27] MEDS: COLLAGENASE CLOSTRIDIUM HIST. 30 GRAMS TUBE TP SCH (12:02)
[2022-02-27] MEDS: FAMOTIDINE 40 MG/5 ML ORAL SUSPENSION PEG SCH (12:02)
[2022-02-27] MEDS: ZINC OXIDE 20% TOPICAL OINTMENT 30 GM TUBE TP SCH ×4 (12:03→21:46)
[2022-02-27] MEDS: CYANOCOBALAMIN (VITAMIN B-12) 100 MCG TABLET GT SCH (12:03)
[2022-02-27 13:02] LABS: BASO % 0.2 % (0-2.0); EOS % 0.2 % (0-4.5); HEMATOCRIT 23.1 % (32.4-45.2); HEMOGLOBIN 7.5 GM/dL (10.7-15.3); LYMPH % 7.8 % (8-40); MCHC 32.5 g/dl (32.0-36.0); MEAN CELL VOLUME 92.2 fl (80-96); MEAN PLT VOLUME 7.7 fl (7.5-11.1); MONO % 4.6 % (3.8-10.2); NEUT % 87.2 % (42.8-82.8); PLATELET COUNT 274 10^3/uL (134-434); RDW 20.7 % (11.6-15.6)
[2022-02-27 13:40] LABS: ALBUMIN 2.2 g/dl (3.4-5.0); BLOOD UREA NITROGEN 66.5 mg/dL (7-18)
[2022-02-27 13:43] LABS: CREATININE 1.2 mg/dL (0.55-1.3)
[2022-02-27 13:45] LABS: BILIRUBIN,TOTAL 0.4 mg/dL (0.2-1); TOT PROT 5.5 g/dl (6.4-8.2)
[2022-02-27] MEDS: POLYETHYLENE GLYCOL (HEALTHYLAX) 3350 17 GM PACKET GT SCH (14:43)
[2022-02-27] MEDS: LIDOCAINE 5% TOPICAL PATCH TP SCH (14:43)
[2022-02-27] MEDS: ATORVASTATIN CA 80 MG TABLET (FP) GT SCH (21:45)
[2022-02-27] MEDS: LIDOCAINE PATCH REMOVAL MC SCH (21:45)
[2022-02-27] MEDS: QUEtiapine FUMARATE 25 MG TABLET GT SCH (21:46)
[2022-02-27] MEDS: ENOXAPARIN NA (PORCINE) 60 MG/0.6 ML DISP.SYRIN SQ SCH (22:18)
[2022-02-28] MEDS: SODIUM CHLORIDE FOR INHALATION 3 ML VIAL.NEB IH SCH ×5 (00:30→15:14)
[2022-02-28] MEDS: guaiFENesin/D-METHORPHAN HB 10 ML UNIT-DOSE CUPS PO SCH ×6 (01:39→22:47)
[2022-02-28] MEDS: MEROPENEM 1 GM in DEXTROSE 5%-WATER 100 ML IVPB SCH ×3 (01:40→17:13)
[2022-02-28] MEDS: ALBUTEROL SO4 0.083% IH SOL 2.5 MG/3 ML VIAL.NEB. NEB PRN ×2 (05:00→13:23)
[2022-02-28] MEDS: ACETYLCYSTEINE 20% 200MG/ML 4 ML VIAL *FOR ORAL / INH USE ONLY NEB SCH ×3 (05:00→22:15)
[2022-02-28] MEDS: ALBUTEROL SO4 0.083% IH SOL 2.5 MG/3 ML VIAL.NEB. NEB SCH ×2 (07:48→21:00)
[2022-02-28] MEDS: BACITRACIN 15 GM TUBE TOPICAL OINTMENT TP SCH (09:56)
[2022-02-28] MEDS: LIDOCAINE 5% TOPICAL PATCH TP SCH (09:56)
[2022-02-28] MEDS: POLYETHYLENE GLYCOL (HEALTHYLAX) 3350 17 GM PACKET GT SCH (09:57)
[2022-02-28] MEDS: ENOXAPARIN NA (PORCINE) 60 MG/0.6 ML DISP.SYRIN SQ SCH ×2 (09:57→22:47)
[2022-02-28] MEDS: METOPROLOL TARTRATE 25 MG TABLET (FP) GT SCH ×2 (09:58→22:55)
[2022-02-28] MEDS: AMINO ACIDS/PROTEIN HYDROLYS 30 ML LIQUID.PKT PEG SCH ×2 (09:58→17:12)
[2022-02-28] MEDS: ZINC SULFATE 220 MG CAPSULE (FP) PO SCH (09:58)
[2022-02-28] MEDS: CYCLOBENZAPRINE HCL 5 MG TABLET GT SCH (09:58)
[2022-02-28] MEDS: MIDODRINE HCL 2.5 MG TABLET GT SCH ×2 (09:58→17:13)
[2022-02-28] MEDS: ASCORBIC ACID 500 MG TABLET (FP) GT SCH (09:59)
[2022-02-28] MEDS: CYANOCOBALAMIN (VITAMIN B-12) 100 MCG TABLET GT SCH (10:00)
[2022-02-28] MEDS: MULTIVIT-MINERALS ORAL LIQUID GT SCH (10:02)
[2022-02-28] MEDS: FAMOTIDINE 40 MG/5 ML ORAL SUSPENSION PEG SCH (10:02)
[2022-02-28 11:37] LABS: BASO % 0.2 % (0-2.0); EOS % 0.4 % (0-4.5); HEMATOCRIT 22.1 % (32.4-45.2); LYMPH % 5.9 % (8-40); MCH 29.4 pg (25.7-33.7); MCHC 31.5 g/dl (32.0-36.0); MEAN PLT VOLUME 8.2 fl (7.5-11.1); MONO % 4.5 % (3.8-10.2); PLATELET COUNT 250 10^3/uL (134-434); RBC 2.38 M/mm3 (3.60-5.2); RDW 20.7 % (11.6-15.6); WHITE BLOOD COUNT 11.2 K/mm3 (4.0-10.0)
[2022-02-28] MEDS: COLLAGENASE CLOSTRIDIUM HIST. 30 GRAMS TUBE TP SCH (11:40)
[2022-02-28] MEDS: ZINC OXIDE 20% TOPICAL OINTMENT 30 GM TUBE TP SCH ×4 (11:41→22:56)
[2022-02-28 12:01] LABS: ALBUMIN 2.1 g/dl (3.4-5.0); BLOOD UREA NITROGEN 67.3 mg/dL (7-18); CALCIUM 8.7 mg/dL (8.5-10.1); MAGNESIUM 2.7 mg/dL (1.8-2.4)
[2022-02-28 12:04] LABS: BILIRUBIN,TOTAL 0.5 mg/dL (0.2-1); CREATININE 1.1 mg/dL (0.55-1.3); PHOSPHOROUS 3.2 mg/dL (2.5-4.9); TOT PROT 5.2 g/dl (6.4-8.2)
[2022-02-28] MEDS: SODIUM HYPOCHLORITE 0.5% 473 ML- BULK BOTTLE TP SCH (12:32)
[2022-02-28] MEDS: ACETAMINOPHEN 500 MG TABLET (FP) GT PRN (15:08)
[2022-02-28] MEDS: oxyCODONE HCL 5 MG TABLET GT SCH (17:12)
[2022-02-28] MEDS: ATORVASTATIN CA 80 MG TABLET (FP) GT SCH (22:48)
[2022-02-28] MEDS: QUEtiapine FUMARATE 25 MG TABLET GT SCH (22:48)
[2022-02-28] MEDS: LIDOCAINE PATCH REMOVAL MC SCH (22:55)
[2022-03-01] MEDS: oxyCODONE HCL 5 MG TABLET GT SCH ×4 (00:49→19:12)
[2022-03-01] MEDS: MEROPENEM 1 GM in DEXTROSE 5%-WATER 100 ML IVPB SCH ×3 (01:27→21:32)
[2022-03-01] MEDS: guaiFENesin/D-METHORPHAN HB 10 ML UNIT-DOSE CUPS PO SCH ×6 (01:27→21:33)
[2022-03-01] MEDS: ACETYLCYSTEINE 20% 200MG/ML 4 ML VIAL *FOR ORAL / INH USE ONLY NEB SCH ×3 (05:15→21:12)
[2022-03-01] MEDS: SODIUM CHLORIDE FOR INHALATION 3 ML VIAL.NEB IH SCH ×4 (07:30→20:03)
[2022-03-01] MEDS: ALBUTEROL SO4 0.083% IH SOL 2.5 MG/3 ML VIAL.NEB. NEB SCH ×2 (07:30→21:11)
[2022-03-01] MEDS: LIDOCAINE 5% TOPICAL PATCH TP SCH (09:42)
[2022-03-01] MEDS: AMINO ACIDS/PROTEIN HYDROLYS 30 ML LIQUID.PKT PEG SCH ×2 (09:42→18:05)
[2022-03-01] MEDS: FAMOTIDINE 40 MG/5 ML ORAL SUSPENSION PEG SCH (09:43)
[2022-03-01] MEDS: ENOXAPARIN NA (PORCINE) 60 MG/0.6 ML DISP.SYRIN SQ SCH ×2 (09:43→21:34)
[2022-03-01] MEDS: MULTIVIT-MINERALS ORAL LIQUID GT SCH (09:44)
[2022-03-01] MEDS: CYANOCOBALAMIN (VITAMIN B-12) 100 MCG TABLET GT SCH (09:44)
[2022-03-01] MEDS: POLYETHYLENE GLYCOL (HEALTHYLAX) 3350 17 GM PACKET GT SCH (09:45)
[2022-03-01] MEDS: MIDODRINE HCL 2.5 MG TABLET GT SCH ×2 (09:45→18:05)
[2022-03-01] MEDS: ZINC SULFATE 220 MG CAPSULE (FP) PO SCH (09:45)
[2022-03-01] MEDS: CYCLOBENZAPRINE HCL 5 MG TABLET GT SCH (09:45)
[2022-03-01] MEDS: SODIUM HYPOCHLORITE 0.5% 473 ML- BULK BOTTLE TP SCH (09:46)
[2022-03-01] MEDS: ASCORBIC ACID 500 MG TABLET (FP) GT SCH (09:46)
[2022-03-01] MEDS: ZINC OXIDE 20% TOPICAL OINTMENT 30 GM TUBE TP SCH ×4 (09:47→21:34)
[2022-03-01] MEDS: COLLAGENASE CLOSTRIDIUM HIST. 30 GRAMS TUBE TP SCH (09:48)
[2022-03-01] MEDS: BACITRACIN 15 GM TUBE TOPICAL OINTMENT TP SCH (10:07)
[2022-03-01] MEDS: METOPROLOL TARTRATE 25 MG TABLET (FP) GT SCH ×2 (10:07→23:56)
[2022-03-01 11:29] LABS: BASO % 0.3 % (0-2.0); EOS % 0.3 % (0-4.5); HEMATOCRIT 21.4 % (32.4-45.2); LYMPH % 5.3 % (8-40); MCH 28.8 pg (25.7-33.7); MCHC 31.2 g/dl (32.0-36.0); MEAN CELL VOLUME 92.5 fl (80-96); MONO % 3.7 % (3.8-10.2); NEUT % 90.4 % (42.8-82.8); PLATELET COUNT 253 10^3/uL (134-434); RBC 2.31 M/mm3 (3.60-5.2); RDW 20.8 % (11.6-15.6)
[2022-03-01 11:36] LABS: HEMOGLOBIN 6.7 GM/dL (10.7-15.3)
[2022-03-01 12:09] LABS: BILIRUBIN,TOTAL 0.4 mg/dL (0.2-1); CALCIUM 8.3 mg/dL (8.5-10.1); CREATININE 1.2 mg/dL (0.55-1.3); MAGNESIUM 2.7 mg/dL (1.8-2.4); PHOSPHOROUS 2.7 mg/dL (2.5-4.9); TOT PROT 4.9 g/dl (6.4-8.2)
[2022-03-01] MEDS: ACETAMINOPHEN 500 MG TABLET (FP) GT PRN (12:27)
[2022-03-01] MEDS: ALBUTEROL SO4 0.083% IH SOL 2.5 MG/3 ML VIAL.NEB. NEB PRN (14:45)
[2022-03-01 21:25] LABS: BASO % 0.3 % (0-2.0); EOS % 0.7 % (0-4.5); HEMATOCRIT 25.5 % (32.4-45.2); HEMOGLOBIN 8.1 GM/dL (10.7-15.3); LYMPH % 8.7 % (8-40); MCH 29.7 pg (25.7-33.7); MCHC 31.9 g/dl (32.0-36.0); MEAN CELL VOLUME 93.1 fl (80-96); MEAN PLT VOLUME 7.8 fl (7.5-11.1); NEUT % 86.3 % (42.8-82.8); PLATELET COUNT 242 10^3/uL (134-434); RBC 2.74 M/mm3 (3.60-5.2); RDW 19.8 % (11.6-15.6); WHITE BLOOD COUNT 10.4 K/mm3 (4.0-10.0)
[2022-03-01] MEDS: ATORVASTATIN CA 80 MG TABLET (FP) GT SCH (21:32)
[2022-03-01] MEDS: QUEtiapine FUMARATE 25 MG TABLET GT SCH (21:32)
[2022-03-01] MEDS: LIDOCAINE PATCH REMOVAL MC SCH (21:33)
[2022-03-02] MEDS: oxyCODONE HCL 5 MG TABLET GT SCH ×4 (01:29→18:34)
[2022-03-02] MEDS: guaiFENesin/D-METHORPHAN HB 10 ML UNIT-DOSE CUPS PO SCH ×6 (01:32→22:18)
[2022-03-02] MEDS: MEROPENEM 1 GM in DEXTROSE 5%-WATER 100 ML IVPB SCH ×4 (02:01→18:20)
[2022-03-02] MEDS: SODIUM CHLORIDE FOR INHALATION 3 ML VIAL.NEB IH SCH ×4 (02:12→20:45)
[2022-03-02] MEDS: ACETAMINOPHEN 500 MG TABLET (FP) GT PRN ×2 (06:35→15:53)
[2022-03-02] MEDS: ACETYLCYSTEINE 20% 200MG/ML 4 ML VIAL *FOR ORAL / INH USE ONLY NEB SCH ×3 (07:50→20:45)
[2022-03-02] MEDS: ALBUTEROL SO4 0.083% IH SOL 2.5 MG/3 ML VIAL.NEB. NEB SCH ×2 (07:50→20:45)
[2022-03-02] MEDS: LIDOCAINE 5% TOPICAL PATCH TP SCH (10:11)
[2022-03-02] MEDS: POLYETHYLENE GLYCOL (HEALTHYLAX) 3350 17 GM PACKET GT SCH (10:12)
[2022-03-02] MEDS: AMINO ACIDS/PROTEIN HYDROLYS 30 ML LIQUID.PKT PEG SCH ×2 (10:13→18:20)
[2022-03-02] MEDS: MULTIVIT-MINERALS ORAL LIQUID GT SCH (10:13)
[2022-03-02] MEDS: CYCLOBENZAPRINE HCL 5 MG TABLET GT SCH (10:14)
[2022-03-02] MEDS: ASCORBIC ACID 500 MG TABLET (FP) GT SCH (10:14)
[2022-03-02] MEDS: CYANOCOBALAMIN (VITAMIN B-12) 100 MCG TABLET GT SCH (10:14)
[2022-03-02] MEDS: ZINC SULFATE 220 MG CAPSULE (FP) PO SCH (10:14)
[2022-03-02] MEDS: MIDODRINE HCL 2.5 MG TABLET GT SCH ×2 (10:14→18:20)
[2022-03-02] MEDS: FAMOTIDINE 40 MG/5 ML ORAL SUSPENSION PEG SCH (10:15)
[2022-03-02] MEDS: SODIUM HYPOCHLORITE 0.5% 473 ML- BULK BOTTLE TP SCH (10:18)
[2022-03-02] MEDS: COLLAGENASE CLOSTRIDIUM HIST. 30 GRAMS TUBE TP SCH (10:19)
[2022-03-02] MEDS: BACITRACIN 15 GM TUBE TOPICAL OINTMENT TP SCH (10:20)
[2022-03-02] MEDS: ZINC OXIDE 20% TOPICAL OINTMENT 30 GM TUBE TP SCH ×4 (10:21→22:18)
[2022-03-02 10:32] LABS: BASO % 0.3 % (0-2.0); EOS % 0.4 % (0-4.5); HEMATOCRIT 24.9 % (32.4-45.2); HEMOGLOBIN 8.3 GM/dL (10.7-15.3); MCH 30.6 pg (25.7-33.7); MCHC 33.3 g/dl (32.0-36.0); MEAN CELL VOLUME 91.7 fl (80-96); MEAN PLT VOLUME 7.6 fl (7.5-11.1); NEUT % 88.3 % (42.8-82.8); PLATELET COUNT 251 10^3/uL (134-434); RBC 2.72 M/mm3 (3.60-5.2); RDW 19.8 % (11.6-15.6); WHITE BLOOD COUNT 10.4 K/mm3 (4.0-10.0)
[2022-03-02 11:08] LABS: CALCIUM 8.5 mg/dL (8.5-10.1)
[2022-03-02 11:09] LABS: BLOOD UREA NITROGEN 73.4 mg/dL (7-18)
[2022-03-02 11:12] LABS: CREATININE 1.3 mg/dL (0.55-1.3)
[2022-03-02 11:14] LABS: BILIRUBIN,TOTAL 0.4 mg/dL (0.2-1); TOT PROT 5.2 g/dl (6.4-8.2)
[2022-03-02] MEDS: METOPROLOL TARTRATE 25 MG TABLET (FP) GT SCH ×2 (11:44→22:18)
[2022-03-02] MEDS: ALBUTEROL SO4 0.083% IH SOL 2.5 MG/3 ML VIAL.NEB. NEB PRN (14:49)
[2022-03-02] MEDS: ATORVASTATIN CA 80 MG TABLET (FP) GT SCH (22:18)
[2022-03-02] MEDS: QUEtiapine FUMARATE 25 MG TABLET GT SCH (22:18)
[2022-03-02] MEDS: LIDOCAINE PATCH REMOVAL MC SCH (22:19)
[2022-03-03] MEDS: oxyCODONE HCL 5 MG TABLET GT SCH ×4 (02:01→18:43)
[2022-03-03] MEDS: guaiFENesin/D-METHORPHAN HB 10 ML UNIT-DOSE CUPS PO SCH ×7 (02:31→21:20)
[2022-03-03] MEDS: SODIUM CHLORIDE FOR INHALATION 3 ML VIAL.NEB IH SCH ×2 (07:32→20:00)
[2022-03-03] MEDS: ALBUTEROL SO4 0.083% IH SOL 2.5 MG/3 ML VIAL.NEB. NEB SCH ×2 (08:54→20:00)
[2022-03-03] MEDS: ACETYLCYSTEINE 20% 200MG/ML 4 ML VIAL *FOR ORAL / INH USE ONLY NEB SCH ×3 (08:54→20:00)
[2022-03-03 08:55] LABS: BASO % 0.5 % (0-2.0); EOS % 0.7 % (0-4.5); HEMATOCRIT 22.7 % (32.4-45.2); HEMOGLOBIN 7.3 GM/dL (10.7-15.3); LYMPH % 8.8 % (8-40); MCH 29.8 pg (25.7-33.7); MCHC 32.1 g/dl (32.0-36.0); MEAN CELL VOLUME 92.7 fl (80-96); MONO % 4.4 % (3.8-10.2); NEUT % 85.6 % (42.8-82.8); PLATELET COUNT 225 10^3/uL (134-434); RBC 2.45 M/mm3 (3.60-5.2); WHITE BLOOD COUNT 7.3 K/mm3 (4.0-10.0)
[2022-03-03 09:12] LABS: CALCIUM 8.5 mg/dL (8.5-10.1)
[2022-03-03 09:13] LABS: ALBUMIN 1.9 g/dl (3.4-5.0); BLOOD UREA NITROGEN 83.8 mg/dL (7-18); MAGNESIUM 2.9 mg/dL (1.8-2.4)
[2022-03-03 09:16] LABS: CREATININE 1.3 mg/dL (0.55-1.3)
[2022-03-03 09:17] LABS: TOT PROT 4.8 g/dl (6.4-8.2)
[2022-03-03 09:18] LABS: BILIRUBIN,TOTAL 0.4 mg/dL (0.2-1)
[2022-03-03] MEDS: MIDODRINE HCL 2.5 MG TABLET GT SCH ×2 (09:23→17:02)
[2022-03-03] MEDS: ZINC SULFATE 220 MG CAPSULE (FP) PO SCH (09:23)
[2022-03-03] MEDS: METOPROLOL TARTRATE 25 MG TABLET (FP) GT SCH ×2 (09:23→21:20)
[2022-03-03] MEDS: ASCORBIC ACID 500 MG TABLET (FP) GT SCH (09:23)
[2022-03-03] MEDS: AMINO ACIDS/PROTEIN HYDROLYS 30 ML LIQUID.PKT PEG SCH ×2 (09:23→17:02)
[2022-03-03] MEDS: POLYETHYLENE GLYCOL (HEALTHYLAX) 3350 17 GM PACKET GT SCH (09:23)
[2022-03-03] MEDS: MULTIVIT-MINERALS ORAL LIQUID GT SCH (09:24)
[2022-03-03] MEDS: CYCLOBENZAPRINE HCL 5 MG TABLET GT SCH (09:24)
[2022-03-03] MEDS: CYANOCOBALAMIN (VITAMIN B-12) 100 MCG TABLET GT SCH (09:24)
[2022-03-03] MEDS: FAMOTIDINE 40 MG/5 ML ORAL SUSPENSION PEG SCH (09:24)
[2022-03-03] MEDS: COLLAGENASE CLOSTRIDIUM HIST. 30 GRAMS TUBE TP SCH (09:26)
[2022-03-03] MEDS: ZINC OXIDE 20% TOPICAL OINTMENT 30 GM TUBE TP SCH ×4 (09:26→22:52)
[2022-03-03] MEDS: LIDOCAINE 5% TOPICAL PATCH TP SCH (09:27)
[2022-03-03] MEDS: BACITRACIN 15 GM TUBE TOPICAL OINTMENT TP SCH (09:27)
[2022-03-03] MEDS: SODIUM HYPOCHLORITE 0.5% 473 ML- BULK BOTTLE TP SCH (10:00)
[2022-03-03] MEDS: ACETAMINOPHEN 500 MG TABLET (FP) GT PRN (16:04)
[2022-03-03] MEDS: ENOXAPARIN NA (PORCINE) 60 MG/0.6 ML DISP.SYRIN SQ SCH ×2 (16:13→21:59)
[2022-03-03] MEDS: ATORVASTATIN CA 80 MG TABLET (FP) GT SCH (21:20)
[2022-03-03] MEDS: QUEtiapine FUMARATE 25 MG TABLET GT SCH (21:20)
[2022-03-03] MEDS: LIDOCAINE PATCH REMOVAL MC SCH (22:52)
[2022-03-04] MEDS: oxyCODONE HCL 5 MG TABLET GT SCH ×6 (00:09→23:40)
[2022-03-04] MEDS: guaiFENesin/D-METHORPHAN HB 10 ML UNIT-DOSE CUPS PO SCH ×6 (02:09→21:36)
[2022-03-04] MEDS: ACETAMINOPHEN 500 MG TABLET (FP) GT PRN (05:51)
[2022-03-04] MEDS ORDERED: MEROPENEM 500 MG in DEXTROSE 5%-WATER 100 ML IVPB ONE (07:49)
[2022-03-04] MEDS: ALBUTEROL SO4 0.083% IH SOL 2.5 MG/3 ML VIAL.NEB. NEB SCH ×2 (07:55→20:35)
[2022-03-04] MEDS: ACETYLCYSTEINE 20% 200MG/ML 4 ML VIAL *FOR ORAL / INH USE ONLY NEB SCH ×3 (07:55→20:40)
[2022-03-04] MEDS: SODIUM CHLORIDE FOR INHALATION 3 ML VIAL.NEB IH SCH ×6 (07:56→14:13)
[2022-03-04 09:22] LABS: BASO % 0.5 % (0-2.0); EOS % 0.8 % (0-4.5); HEMOGLOBIN 7.1 GM/dL (10.7-15.3); LYMPH % 10.6 % (8-40); MCH 30.4 pg (25.7-33.7); MCHC 32.5 g/dl (32.0-36.0); MEAN CELL VOLUME 93.6 fl (80-96); MEAN PLT VOLUME 8.2 fl (7.5-11.1); MONO % 4.4 % (3.8-10.2); NEUT % 83.7 % (42.8-82.8); PLATELET COUNT 234 10^3/uL (134-434); RBC 2.35 M/mm3 (3.60-5.2); RDW 19.8 % (11.6-15.6); WHITE BLOOD COUNT 7.3 K/mm3 (4.0-10.0)
[2022-03-04 09:53] LABS: CALCIUM 8.6 mg/dL (8.5-10.1)
[2022-03-04 09:54] LABS: ALBUMIN 1.8 g/dl (3.4-5.0)
[2022-03-04 09:55] LABS: BLOOD UREA NITROGEN 85.8 mg/dL (7-18)
[2022-03-04 09:57] LABS: CREATININE 1.4 mg/dL (0.55-1.3)
[2022-03-04 09:59] LABS: BILIRUBIN,TOTAL 0.4 mg/dL (0.2-1)
[2022-03-04] MEDS: AMINO ACIDS/PROTEIN HYDROLYS 30 ML LIQUID.PKT PEG SCH ×2 (11:29→18:03)
[2022-03-04] MEDS: BACITRACIN 15 GM TUBE TOPICAL OINTMENT TP SCH (11:30)
[2022-03-04] MEDS: MULTIVIT-MINERALS ORAL LIQUID GT SCH (11:31)
[2022-03-04] MEDS: MIDODRINE HCL 2.5 MG TABLET GT SCH ×2 (11:31→18:02)
[2022-03-04] MEDS: METOPROLOL TARTRATE 25 MG TABLET (FP) GT SCH ×2 (11:31→21:39)
[2022-03-04] MEDS: ASCORBIC ACID 500 MG TABLET (FP) GT SCH (11:31)
[2022-03-04] MEDS: FAMOTIDINE 40 MG/5 ML ORAL SUSPENSION PEG SCH (11:31)
[2022-03-04] MEDS: CYCLOBENZAPRINE HCL 5 MG TABLET GT SCH (11:31)
[2022-03-04] MEDS: ZINC SULFATE 220 MG CAPSULE (FP) PO SCH (11:32)
[2022-03-04] MEDS: POLYETHYLENE GLYCOL (HEALTHYLAX) 3350 17 GM PACKET GT SCH (11:32)
[2022-03-04] MEDS: LIDOCAINE 5% TOPICAL PATCH TP SCH (11:32)
[2022-03-04] MEDS: SODIUM HYPOCHLORITE 0.5% 473 ML- BULK BOTTLE TP SCH (11:32)
[2022-03-04] MEDS: ENOXAPARIN NA (PORCINE) 60 MG/0.6 ML DISP.SYRIN SQ SCH (11:32)
[2022-03-04] MEDS: CYANOCOBALAMIN (VITAMIN B-12) 100 MCG TABLET GT SCH (11:33)
[2022-03-04] MEDS: ZINC OXIDE 20% TOPICAL OINTMENT 30 GM TUBE TP SCH ×4 (11:33→21:39)
[2022-03-04] MEDS: COLLAGENASE CLOSTRIDIUM HIST. 30 GRAMS TUBE TP SCH (11:33)
[2022-03-04] MEDS: ALBUTEROL SO4 0.083% IH SOL 2.5 MG/3 ML VIAL.NEB. NEB PRN (14:14)
[2022-03-04 19:09] LABS: INR 0.99 (0.83-1.09); PROTHROMBIN TIME (PATIENT) 11.4 SEC (9.7-13.0)
[2022-03-04 19:12] LABS: ACTIVATED PTT 26.8 SECONDS (25.2-36.5)
[2022-03-04] MEDS: MEROPENEM 500 MG in DEXTROSE 5%-WATER 100 ML IVPB SCH (19:29)
[2022-03-04] MEDS: LIDOCAINE PATCH REMOVAL MC SCH (21:36)
[2022-03-04] MEDS: ATORVASTATIN CA 80 MG TABLET (FP) GT SCH (21:36)
[2022-03-04] MEDS: QUEtiapine FUMARATE 25 MG TABLET GT SCH (21:39)
[2022-03-04] MEDS ORDERED: METOPROLOL TARTRATE 25 MG TABLET (FP) GT ONE (21:44)
[2022-03-04] MEDS ORDERED: METOPROLOL TARTRATE 25 MG TABLET (FP) GT SCH (21:47)
[2022-03-05] MEDS: guaiFENesin/D-METHORPHAN HB 10 ML UNIT-DOSE CUPS PO SCH ×6 (00:48→20:13)
[2022-03-05] MEDS: MEROPENEM 500 MG in DEXTROSE 5%-WATER 100 ML IVPB SCH ×2 (01:44→12:04)
[2022-03-05] MEDS: oxyCODONE HCL 5 MG TABLET GT SCH ×3 (05:33→21:39)
[2022-03-05] MEDS: ALBUTEROL SO4 0.083% IH SOL 2.5 MG/3 ML VIAL.NEB. NEB SCH ×2 (08:33→20:45)
[2022-03-05] MEDS: ACETYLCYSTEINE 20% 200MG/ML 4 ML VIAL *FOR ORAL / INH USE ONLY NEB SCH ×3 (08:35→20:45)
[2022-03-05] MEDS: SODIUM CHLORIDE FOR INHALATION 3 ML VIAL.NEB IH PRN (08:35)
[2022-03-05 09:19] LABS: BASO % 0.5 % (0-2.0); EOS % 0.8 % (0-4.5); HEMATOCRIT 21.6 % (32.4-45.2); LYMPH % 8.6 % (8-40); MCH 30.3 pg (25.7-33.7); MCHC 32.2 g/dl (32.0-36.0); MEAN CELL VOLUME 93.9 fl (80-96); MEAN PLT VOLUME 8.1 fl (7.5-11.1); MONO % 3.8 % (3.8-10.2); NEUT % 86.3 % (42.8-82.8); PLATELET COUNT 220 10^3/uL (134-434); RDW 20.4 % (11.6-15.6); WHITE BLOOD COUNT 6.5 K/mm3 (4.0-10.0)
[2022-03-05 09:50] LABS: BLOOD UREA NITROGEN 80.9 mg/dL (7-18); CALCIUM 8.7 mg/dL (8.5-10.1)
[2022-03-05 09:51] LABS: ALBUMIN 1.8 g/dl (3.4-5.0); MAGNESIUM 2.8 mg/dL (1.8-2.4)
[2022-03-05 09:53] LABS: CREATININE 1.2 mg/dL (0.55-1.3); PHOSPHOROUS 2.9 mg/dL (2.5-4.9)
[2022-03-05 09:54] LABS: BILIRUBIN,TOTAL 0.4 mg/dL (0.2-1)
[2022-03-05 09:55] LABS: TOT PROT 4.9 g/dl (6.4-8.2)
[2022-03-05] MEDS: CYCLOBENZAPRINE HCL 5 MG TABLET GT SCH (12:03)
[2022-03-05] MEDS: BACITRACIN 15 GM TUBE TOPICAL OINTMENT TP SCH (12:03)
[2022-03-05] MEDS: AMINO ACIDS/PROTEIN HYDROLYS 30 ML LIQUID.PKT PEG SCH ×2 (12:03→18:06)
[2022-03-05] MEDS: MULTIVIT-MINERALS ORAL LIQUID GT SCH (12:03)
[2022-03-05] MEDS: METOPROLOL TARTRATE 25 MG TABLET (FP) GT SCH ×2 (12:04→21:38)
[2022-03-05] MEDS: MIDODRINE HCL 2.5 MG TABLET GT SCH ×2 (12:04→18:06)
[2022-03-05] MEDS: ZINC SULFATE 220 MG CAPSULE (FP) PO SCH (12:04)
[2022-03-05] MEDS: FAMOTIDINE 40 MG/5 ML ORAL SUSPENSION PEG SCH (12:04)
[2022-03-05] MEDS: LIDOCAINE 5% TOPICAL PATCH TP SCH (12:04)
[2022-03-05] MEDS: POLYETHYLENE GLYCOL (HEALTHYLAX) 3350 17 GM PACKET GT SCH (12:04)
[2022-03-05] MEDS: COLLAGENASE CLOSTRIDIUM HIST. 30 GRAMS TUBE TP SCH (12:05)
[2022-03-05] MEDS: CYANOCOBALAMIN (VITAMIN B-12) 100 MCG TABLET GT SCH (12:05)
[2022-03-05] MEDS: ASCORBIC ACID 500 MG TABLET (FP) GT SCH (12:05)
[2022-03-05] MEDS: ZINC OXIDE 20% TOPICAL OINTMENT 30 GM TUBE TP SCH ×4 (12:05→21:39)
[2022-03-05] MEDS ORDERED: SODIUM CHLORIDE 0.45% 1,000 ML IV SCH (12:30)
[2022-03-05] MEDS: ALBUTEROL SO4 0.083% IH SOL 2.5 MG/3 ML VIAL.NEB. NEB PRN (14:55)
[2022-03-05] MEDS: FERROUS SULFATE 220 MG/5 ML ELIXIR GT SCH (16:03)
[2022-03-05] MEDS: ACETAMINOPHEN 500 MG TABLET (FP) GT PRN (20:13)
[2022-03-05] MEDS: SODIUM CHLORIDE FOR INHALATION 3 ML VIAL.NEB IH SCH ×2 (20:43→20:44)
[2022-03-05] MEDS: SODIUM HYPOCHLORITE 0.5% 473 ML- BULK BOTTLE TP SCH (20:43)
[2022-03-05] MEDS: ATORVASTATIN CA 80 MG TABLET (FP) GT SCH (21:39)
[2022-03-05] MEDS: QUEtiapine FUMARATE 25 MG TABLET GT SCH (21:39)
[2022-03-05] MEDS: LIDOCAINE PATCH REMOVAL MC SCH (21:40)
[2022-03-06] MEDS: guaiFENesin/D-METHORPHAN HB 10 ML UNIT-DOSE CUPS PO SCH ×7 (01:54→23:48)
[2022-03-06] MEDS: oxyCODONE HCL 5 MG TABLET GT SCH ×3 (05:42→21:54)
[2022-03-06] MEDS: ALBUTEROL SO4 0.083% IH SOL 2.5 MG/3 ML VIAL.NEB. NEB SCH ×2 (08:20→20:30)
[2022-03-06] MEDS: ACETYLCYSTEINE 20% 200MG/ML 4 ML VIAL *FOR ORAL / INH USE ONLY NEB SCH ×3 (08:20→21:41)
[2022-03-06] MEDS: ZINC SULFATE 220 MG CAPSULE (FP) PO SCH (10:07)
[2022-03-06] MEDS: METOPROLOL TARTRATE 25 MG TABLET (FP) GT SCH ×2 (10:07→21:55)
[2022-03-06] MEDS: MIDODRINE HCL 2.5 MG TABLET GT SCH ×2 (10:09→17:34)
[2022-03-06] MEDS: CYCLOBENZAPRINE HCL 5 MG TABLET GT SCH (10:09)
[2022-03-06] MEDS: POLYETHYLENE GLYCOL (HEALTHYLAX) 3350 17 GM PACKET GT SCH (10:09)
[2022-03-06] MEDS: ASCORBIC ACID 500 MG TABLET (FP) GT SCH (10:09)
[2022-03-06] MEDS: CYANOCOBALAMIN (VITAMIN B-12) 100 MCG TABLET GT SCH (10:14)
[2022-03-06] MEDS: MULTIVIT-MINERALS ORAL LIQUID GT SCH (10:14)
[2022-03-06] MEDS: FAMOTIDINE 40 MG/5 ML ORAL SUSPENSION PEG SCH (10:14)
[2022-03-06] MEDS: FERROUS SULFATE 220 MG/5 ML ELIXIR GT SCH (10:14)
[2022-03-06] MEDS: AMINO ACIDS/PROTEIN HYDROLYS 30 ML LIQUID.PKT PEG SCH (10:18)
[2022-03-06] MEDS: LIDOCAINE 5% TOPICAL PATCH TP SCH (10:22)
[2022-03-06] MEDS: ZINC OXIDE 20% TOPICAL OINTMENT 30 GM TUBE TP SCH ×4 (11:07→21:55)
[2022-03-06] MEDS: ALBUTEROL SO4 0.083% IH SOL 2.5 MG/3 ML VIAL.NEB. NEB PRN (13:20)
[2022-03-06] MEDS: COLLAGENASE CLOSTRIDIUM HIST. 30 GRAMS TUBE TP SCH (14:07)
[2022-03-06] MEDS: BACITRACIN 15 GM TUBE TOPICAL OINTMENT TP SCH (14:07)
[2022-03-06 17:59] LABS: BASO % 0.3 % (0-2.0); EOS % 0.7 % (0-4.5); LYMPH % 12.2 % (8-40); MCH 29.4 pg (25.7-33.7); MCHC 32.1 g/dl (32.0-36.0); MEAN CELL VOLUME 91.7 fl (80-96); MONO % 5.4 % (3.8-10.2); NEUT % 81.4 % (42.8-82.8); PLATELET COUNT 223 10^3/uL (134-434); RBC 2.73 M/mm3 (3.60-5.2); RDW 21.1 % (11.6-15.6); WHITE BLOOD COUNT 6.3 K/mm3 (4.0-10.0)
[2022-03-06 18:17] LABS: ALBUMIN 1.8 g/dl (3.4-5.0); BLOOD UREA NITROGEN 73.9 mg/dL (7-18); CALCIUM 8.7 mg/dL (8.5-10.1); MAGNESIUM 2.7 mg/dL (1.8-2.4)
[2022-03-06 18:20] LABS: PHOSPHOROUS 2.6 mg/dL (2.5-4.9)
[2022-03-06 18:21] LABS: CREATININE 1.1 mg/dL (0.55-1.3)
[2022-03-06 18:22] LABS: BILIRUBIN,TOTAL 0.4 mg/dL (0.2-1)
[2022-03-06 18:33] LABS: ANISOCYTOSIS 2+; MACROCYTOSIS 0; PLATELET ESTIMATE NORMAL
[2022-03-06] MEDS: ATORVASTATIN CA 80 MG TABLET (FP) GT SCH (21:54)
[2022-03-06] MEDS: LIDOCAINE PATCH REMOVAL MC SCH (21:55)
[2022-03-06] MEDS: QUEtiapine FUMARATE 25 MG TABLET GT SCH (21:55)
[2022-03-07] MEDS: guaiFENesin/D-METHORPHAN HB 10 ML UNIT-DOSE CUPS PO SCH ×5 (04:42→21:02)
[2022-03-07] MEDS: oxyCODONE HCL 5 MG TABLET GT SCH ×3 (05:47→21:02)
[2022-03-07] MEDS: ACETYLCYSTEINE 20% 200MG/ML 4 ML VIAL *FOR ORAL / INH USE ONLY NEB SCH ×3 (08:49→21:09)
[2022-03-07] MEDS: ALBUTEROL SO4 0.083% IH SOL 2.5 MG/3 ML VIAL.NEB. NEB SCH ×2 (08:50→21:10)
[2022-03-07] MEDS ORDERED: ENOXAPARIN NA (PORCINE) 40 MG/0.4 ML DISP.SYRIN SQ SCH (10:00)
[2022-03-07 10:55] LABS: BASO % 0.6 % (0-2.0); EOS % 0.7 % (0-4.5); HEMATOCRIT 24.6 % (32.4-45.2); LYMPH % 14.8 % (8-40); MCH 29.7 pg (25.7-33.7); MCHC 32.5 g/dl (32.0-36.0); MEAN CELL VOLUME 91.4 fl (80-96); MEAN PLT VOLUME 8.2 fl (7.5-11.1); MONO % 5.4 % (3.8-10.2); NEUT % 78.5 % (42.8-82.8); PLATELET COUNT 218 10^3/uL (134-434); RBC 2.69 M/mm3 (3.60-5.2); RDW 20.2 % (11.6-15.6); WHITE BLOOD COUNT 6.1 K/mm3 (4.0-10.0)
[2022-03-07 11:09] LABS: CALCIUM 8.6 mg/dL (8.5-10.1)
[2022-03-07 11:10] LABS: ALBUMIN 1.8 g/dl (3.4-5.0); BLOOD UREA NITROGEN 76.9 mg/dL (7-18); MAGNESIUM 2.7 mg/dL (1.8-2.4)
[2022-03-07 11:13] LABS: CREATININE 1.2 mg/dL (0.55-1.3); PHOSPHOROUS 2.7 mg/dL (2.5-4.9)
[2022-03-07 11:14] LABS: BILIRUBIN,TOTAL 0.6 mg/dL (0.2-1)
[2022-03-07 11:15] LABS: TOT PROT 4.9 g/dl (6.4-8.2)
[2022-03-07] MEDS: LIDOCAINE 5% TOPICAL PATCH TP SCH (12:45)
[2022-03-07] MEDS: POLYETHYLENE GLYCOL (HEALTHYLAX) 3350 17 GM PACKET GT SCH (12:46)
[2022-03-07] MEDS: MIDODRINE HCL 2.5 MG TABLET GT SCH ×2 (12:46→17:04)
[2022-03-07] MEDS: AMINO ACIDS/PROTEIN HYDROLYS 30 ML LIQUID.PKT PEG SCH (12:46)
[2022-03-07] MEDS: ZINC SULFATE 220 MG CAPSULE (FP) PO SCH (12:47)
[2022-03-07] MEDS: MULTIVIT-MINERALS ORAL LIQUID GT SCH (12:47)
[2022-03-07] MEDS: METOPROLOL TARTRATE 25 MG TABLET (FP) GT SCH ×2 (12:47→21:02)
[2022-03-07] MEDS: ASCORBIC ACID 500 MG TABLET (FP) GT SCH (12:47)
[2022-03-07] MEDS: CYANOCOBALAMIN (VITAMIN B-12) 100 MCG TABLET GT SCH (12:47)
[2022-03-07] MEDS: FAMOTIDINE 40 MG/5 ML ORAL SUSPENSION PEG SCH (12:48)
[2022-03-07] MEDS: COLLAGENASE CLOSTRIDIUM HIST. 30 GRAMS TUBE TP SCH (12:48)
[2022-03-07] MEDS: BACITRACIN 15 GM TUBE TOPICAL OINTMENT TP SCH (12:48)
[2022-03-07] MEDS: CYCLOBENZAPRINE HCL 5 MG TABLET GT SCH (12:48)
[2022-03-07] MEDS: FERROUS SULFATE 220 MG/5 ML ELIXIR GT SCH (12:48)
[2022-03-07] MEDS: ZINC OXIDE 20% TOPICAL OINTMENT 30 GM TUBE TP SCH ×4 (12:49→23:07)
[2022-03-07] MEDS ORDERED: SODIUM CHLORIDE 0.9% 500 ML INFUS.BAG IV ONE (14:21)
[2022-03-07] MEDS: ALBUTEROL SO4 0.083% IH SOL 2.5 MG/3 ML VIAL.NEB. NEB PRN (14:50)
[2022-03-07] MEDS: SODIUM CHLORIDE 1,000 ML IV SCH (16:37)
[2022-03-07] MEDS: MEROPENEM 500 MG in DEXTROSE 5%-WATER 100 ML IVPB SCH ×3 (17:24→17:26)
[2022-03-07] MEDS: ENOXAPARIN NA (PORCINE) 100 MG/1 ML DISP.SYRIN SQ SCH (21:01)
[2022-03-07] MEDS: ATORVASTATIN CA 80 MG TABLET (FP) GT SCH (21:01)
[2022-03-07] MEDS: QUEtiapine FUMARATE 25 MG TABLET GT SCH (21:02)
[2022-03-07] MEDS: LIDOCAINE PATCH REMOVAL MC SCH (23:04)
[2022-03-08] MEDS: guaiFENesin/D-METHORPHAN HB 10 ML UNIT-DOSE CUPS PO SCH ×6 (00:45→21:53)
[2022-03-08] MEDS: SODIUM CHLORIDE 1,000 ML IV SCH ×2 (03:44→16:07)
[2022-03-08] MEDS: oxyCODONE HCL 5 MG TABLET GT SCH ×3 (05:59→23:14)
[2022-03-08 08:03] LABS: BASO % 0.5 % (0-2.0); EOS % 1.4 % (0-4.5); HEMATOCRIT 22.4 % (32.4-45.2); HEMOGLOBIN 7.3 GM/dL (10.7-15.3); LYMPH % 14.4 % (8-40); MCH 30.1 pg (25.7-33.7); MCHC 32.7 g/dl (32.0-36.0); MEAN CELL VOLUME 92.1 fl (80-96); MEAN PLT VOLUME 7.9 fl (7.5-11.1); MONO % 5.4 % (3.8-10.2); NEUT % 78.3 % (42.8-82.8); PLATELET COUNT 199 10^3/uL (134-434); RBC 2.43 M/mm3 (3.60-5.2); RDW 20.3 % (11.6-15.6); WHITE BLOOD COUNT 4.2 K/mm3 (4.0-10.0)
[2022-03-08 08:18] LABS: BLOOD UREA NITROGEN 67.8 mg/dL (7-18); CALCIUM 8.4 mg/dL (8.5-10.1)
[2022-03-08 08:19] LABS: ALBUMIN 1.6 g/dl (3.4-5.0); MAGNESIUM 2.6 mg/dL (1.8-2.4)
[2022-03-08 08:21] LABS: CREATININE 1.1 mg/dL (0.55-1.3); PHOSPHOROUS 2.6 mg/dL (2.5-4.9)
[2022-03-08 08:22] LABS: BILIRUBIN,TOTAL 0.6 mg/dL (0.2-1); TOT PROT 4.5 g/dl (6.4-8.2)
[2022-03-08] MEDS: ALBUTEROL SO4 0.083% IH SOL 2.5 MG/3 ML VIAL.NEB. NEB SCH ×2 (08:45→21:00)
[2022-03-08] MEDS: ACETYLCYSTEINE 20% 200MG/ML 4 ML VIAL *FOR ORAL / INH USE ONLY NEB SCH ×3 (08:45→21:00)
[2022-03-08] MEDS: AMINO ACIDS/PROTEIN HYDROLYS 30 ML LIQUID.PKT PEG SCH (11:51)
[2022-03-08] MEDS: BACITRACIN 15 GM TUBE TOPICAL OINTMENT TP SCH (11:51)
[2022-03-08] MEDS: MULTIVIT-MINERALS ORAL LIQUID GT SCH (11:53)
[2022-03-08] MEDS: CYANOCOBALAMIN (VITAMIN B-12) 100 MCG TABLET GT SCH (11:53)
[2022-03-08] MEDS: FAMOTIDINE 40 MG/5 ML ORAL SUSPENSION PEG SCH (11:54)
[2022-03-08] MEDS: COLLAGENASE CLOSTRIDIUM HIST. 30 GRAMS TUBE TP SCH (11:54)
[2022-03-08] MEDS: ASCORBIC ACID 500 MG TABLET (FP) GT SCH (11:55)
[2022-03-08] MEDS: METOPROLOL TARTRATE 25 MG TABLET (FP) GT SCH ×2 (11:55→23:13)
[2022-03-08] MEDS: ZINC SULFATE 220 MG CAPSULE (FP) PO SCH (11:55)
[2022-03-08] MEDS: CYCLOBENZAPRINE HCL 5 MG TABLET GT SCH (11:55)
[2022-03-08] MEDS: MIDODRINE HCL 2.5 MG TABLET GT SCH ×4 (11:55→23:11)
[2022-03-08] MEDS: LIDOCAINE 5% TOPICAL PATCH TP SCH (11:55)
[2022-03-08] MEDS: ZINC OXIDE 20% TOPICAL OINTMENT 30 GM TUBE TP SCH ×4 (11:56→23:15)
[2022-03-08] MEDS: POLYETHYLENE GLYCOL (HEALTHYLAX) 3350 17 GM PACKET GT SCH (11:56)
[2022-03-08] MEDS: ENOXAPARIN NA (PORCINE) 100 MG/1 ML DISP.SYRIN SQ SCH ×2 (11:57→23:13)
[2022-03-08] MEDS ORDERED: MIDODRINE HCL 2.5 MG TABLET GT SCH (14:00)
[2022-03-08] MEDS: ALBUTEROL SO4 0.083% IH SOL 2.5 MG/3 ML VIAL.NEB. NEB PRN (15:35)
[2022-03-08] MEDS: FERROUS SULFATE 220 MG/5 ML ELIXIR GT SCH (16:02)
[2022-03-08] MEDS ORDERED: ACETAMINOPHEN 1000 MG/100 ML BAG IVPB ONE (22:18)
[2022-03-08] MEDS: LIDOCAINE PATCH REMOVAL MC SCH (23:11)
[2022-03-08] MEDS: ATORVASTATIN CA 80 MG TABLET (FP) GT SCH (23:13)
[2022-03-08] MEDS: QUEtiapine FUMARATE 25 MG TABLET GT SCH (23:14)
[2022-03-09] MEDS: guaiFENesin/D-METHORPHAN HB 10 ML UNIT-DOSE CUPS PO SCH ×6 (02:18→20:37)
[2022-03-09] MEDS: ALBUTEROL SO4 0.083% IH SOL 2.5 MG/3 ML VIAL.NEB. NEB SCH ×2 (07:20→20:31)
[2022-03-09] MEDS: ACETYLCYSTEINE 20% 200MG/ML 4 ML VIAL *FOR ORAL / INH USE ONLY NEB SCH ×3 (07:20→20:31)
[2022-03-09] MEDS: oxyCODONE HCL 5 MG TABLET GT SCH ×3 (07:33→21:58)
[2022-03-09 07:51] LABS: EPI CELLS >36 /uL (0-25.1); HYALINE CASTS 0 /uL (0-3.1); URINE APPEARANCE TURBID; URINE BILIRUBIN NEGATIVE (NEGATIVE); URINE COLOR YELLOW; URINE GLUCOSE (UA) NEGATIVE (NEGATIVE); URINE KETONE NEGATIVE (NEGATIVE); URINE LEUK ESTERASE 3+ (NEGATIVE); URINE NITRITE NEGATIVE (NEGATIVE); URINE PROTEIN 2+ (NEGATIVE); URINE WBC 234 /uL (0-25.8)
[2022-03-09 07:58] LABS: URINE BACTERIA 2142.9 /uL (0-1359); URINE CRYSTALS NEGATIVE /hpf; URINE RBC 1026 /uL (0-23.9)
[2022-03-09] MEDS: AMINO ACIDS/PROTEIN HYDROLYS 30 ML LIQUID.PKT PEG SCH (10:56)
[2022-03-09] MEDS: MULTIVIT-MINERALS ORAL LIQUID GT SCH (10:57)
[2022-03-09] MEDS: CYCLOBENZAPRINE HCL 5 MG TABLET GT SCH (10:57)
[2022-03-09] MEDS: BACITRACIN 15 GM TUBE TOPICAL OINTMENT TP SCH (10:57)
[2022-03-09] MEDS: POLYETHYLENE GLYCOL (HEALTHYLAX) 3350 17 GM PACKET GT SCH (10:58)
[2022-03-09] MEDS: ZINC SULFATE 220 MG CAPSULE (FP) PO SCH (10:58)
[2022-03-09] MEDS: METOPROLOL TARTRATE 25 MG TABLET (FP) GT SCH ×2 (10:58→21:59)
[2022-03-09] MEDS: FAMOTIDINE 40 MG/5 ML ORAL SUSPENSION PEG SCH (10:58)
[2022-03-09] MEDS: FERROUS SULFATE 220 MG/5 ML ELIXIR GT SCH (10:58)
[2022-03-09] MEDS: COLLAGENASE CLOSTRIDIUM HIST. 30 GRAMS TUBE TP SCH (10:59)
[2022-03-09] MEDS: CYANOCOBALAMIN (VITAMIN B-12) 100 MCG TABLET GT SCH (10:59)
[2022-03-09] MEDS: MIDODRINE HCL 2.5 MG TABLET GT SCH ×3 (10:59→17:12)
[2022-03-09] MEDS: ASCORBIC ACID 500 MG TABLET (FP) GT SCH (10:59)
[2022-03-09] MEDS: ZINC OXIDE 20% TOPICAL OINTMENT 30 GM TUBE TP SCH ×4 (10:59→22:00)
[2022-03-09] MEDS: ENOXAPARIN NA (PORCINE) 100 MG/1 ML DISP.SYRIN SQ SCH ×2 (11:01→21:57)
[2022-03-09] MEDS: LIDOCAINE 5% TOPICAL PATCH TP SCH (11:01)
[2022-03-09 11:41] LABS: BASO % 0.6 % (0-2.0); EOS % 1.2 % (0-4.5); HEMATOCRIT 23.5 % (32.4-45.2); HEMOGLOBIN 7.6 GM/dL (10.7-15.3); MCH 29.4 pg (25.7-33.7); MCHC 32.2 g/dl (32.0-36.0); MEAN CELL VOLUME 91.3 fl (80-96); MEAN PLT VOLUME 7.9 fl (7.5-11.1); MONO % 5.1 % (3.8-10.2); NEUT % 80.1 % (42.8-82.8); PLATELET COUNT 242 10^3/uL (134-434); RBC 2.57 M/mm3 (3.60-5.2); RDW 19.8 % (11.6-15.6); WHITE BLOOD COUNT 4.4 K/mm3 (4.0-10.0)
[2022-03-09 12:25] LABS: CALCIUM 8.8 mg/dL (8.5-10.1)
[2022-03-09 12:28] LABS: ALBUMIN 1.7 g/dl (3.4-5.0); BLOOD UREA NITROGEN 57.2 mg/dL (7-18); MAGNESIUM 2.5 mg/dL (1.8-2.4)
[2022-03-09 12:30] LABS: PHOSPHOROUS 2.1 mg/dL (2.5-4.9)
[2022-03-09 12:31] LABS: BILIRUBIN,TOTAL 0.5 mg/dL (0.2-1); TOT PROT 4.8 g/dl (6.4-8.2)
[2022-03-09] MEDS: ALBUTEROL SO4 0.083% IH SOL 2.5 MG/3 ML VIAL.NEB. NEB PRN (14:55)
[2022-03-09] MEDS: ACETAMINOPHEN 500 MG TABLET (FP) GT PRN (21:57)
[2022-03-09] MEDS: ATORVASTATIN CA 80 MG TABLET (FP) GT SCH (21:59)
[2022-03-09] MEDS: QUEtiapine FUMARATE 25 MG TABLET GT SCH (22:00)
[2022-03-09] MEDS: LIDOCAINE PATCH REMOVAL MC SCH (23:15)
[2022-03-10] MEDS: guaiFENesin/D-METHORPHAN HB 10 ML UNIT-DOSE CUPS PO SCH ×6 (00:48→21:48)
[2022-03-10] MEDS: oxyCODONE HCL 5 MG TABLET GT SCH ×3 (05:49→21:46)
[2022-03-10] MEDS: ALBUTEROL SO4 0.083% IH SOL 2.5 MG/3 ML VIAL.NEB. NEB SCH ×2 (08:00→20:24)
[2022-03-10] MEDS: ACETYLCYSTEINE 20% 200MG/ML 4 ML VIAL *FOR ORAL / INH USE ONLY NEB SCH ×3 (08:00→20:24)
[2022-03-10] MEDS: AMINO ACIDS/PROTEIN HYDROLYS 30 ML LIQUID.PKT PEG SCH (09:09)
[2022-03-10 10:03] LABS: BASO % 0.7 % (0-2.0); EOS % 1.1 % (0-4.5); HEMATOCRIT 24.4 % (32.4-45.2); HEMOGLOBIN 7.9 GM/dL (10.7-15.3); LYMPH % 19.3 % (8-40); MCH 29.6 pg (25.7-33.7); MCHC 32.1 g/dl (32.0-36.0); MEAN CELL VOLUME 91.9 fl (80-96); MEAN PLT VOLUME 8.1 fl (7.5-11.1); NEUT % 72.9 % (42.8-82.8); PLATELET COUNT 273 10^3/uL (134-434); RBC 2.66 M/mm3 (3.60-5.2); RDW 20.2 % (11.6-15.6); WHITE BLOOD COUNT 5.1 K/mm3 (4.0-10.0)
[2022-03-10] MEDS: POLYETHYLENE GLYCOL (HEALTHYLAX) 3350 17 GM PACKET GT SCH (10:57)
[2022-03-10] MEDS: CYANOCOBALAMIN (VITAMIN B-12) 100 MCG TABLET GT SCH (10:57)
[2022-03-10] MEDS: FAMOTIDINE 40 MG/5 ML ORAL SUSPENSION PEG SCH (10:57)
[2022-03-10] MEDS: MULTIVIT-MINERALS ORAL LIQUID GT SCH (10:57)
[2022-03-10] MEDS: MIDODRINE HCL 2.5 MG TABLET GT SCH ×3 (10:58→17:40)
[2022-03-10] MEDS: ENOXAPARIN NA (PORCINE) 100 MG/1 ML DISP.SYRIN SQ SCH ×2 (10:58→21:48)
[2022-03-10] MEDS: CYCLOBENZAPRINE HCL 5 MG TABLET GT SCH (10:58)
[2022-03-10] MEDS: ZINC SULFATE 220 MG CAPSULE (FP) PO SCH (10:58)
[2022-03-10] MEDS: LIDOCAINE 5% TOPICAL PATCH TP SCH (10:59)
[2022-03-10] MEDS: METOPROLOL TARTRATE 25 MG TABLET (FP) GT SCH ×2 (10:59→21:44)
[2022-03-10] MEDS: COLLAGENASE CLOSTRIDIUM HIST. 30 GRAMS TUBE TP SCH (11:00)
[2022-03-10] MEDS: FERROUS SULFATE 220 MG/5 ML ELIXIR GT SCH (11:00)
[2022-03-10] MEDS: ZINC OXIDE 20% TOPICAL OINTMENT 30 GM TUBE TP SCH ×4 (11:00→22:00)
[2022-03-10] MEDS: BACITRACIN 15 GM TUBE TOPICAL OINTMENT TP SCH (11:00)
[2022-03-10] MEDS: ASCORBIC ACID 500 MG TABLET (FP) GT SCH (11:01)
[2022-03-10 11:09] LABS: ALBUMIN 1.7 g/dl (3.4-5.0); CALCIUM 8.9 mg/dL (8.5-10.1); MAGNESIUM 2.5 mg/dL (1.8-2.4)
[2022-03-10 11:11] LABS: BLOOD UREA NITROGEN 56.2 mg/dL (7-18)
[2022-03-10 11:14] LABS: CREATININE 1.1 mg/dL (0.55-1.3)
[2022-03-10 11:15] LABS: BILIRUBIN,TOTAL 0.4 mg/dL (0.2-1); TOT PROT 4.8 g/dl (6.4-8.2)
[2022-03-10] MEDS: ALBUTEROL SO4 0.083% IH SOL 2.5 MG/3 ML VIAL.NEB. NEB PRN (15:20)
[2022-03-10] MEDS: CEFTAZIDIME/AVIBACTAM 2.5 GM in DEXTROSE 5%-WATER - 250 ML IVPB SCH ×2 (17:40→19:01)
[2022-03-10] MEDS: ATORVASTATIN CA 80 MG TABLET (FP) GT SCH (21:44)
[2022-03-10] MEDS: QUEtiapine FUMARATE 25 MG TABLET GT SCH (21:45)
[2022-03-10] MEDS: LIDOCAINE PATCH REMOVAL MC SCH (21:58)
[2022-03-11] MEDS: CEFTAZIDIME/AVIBACTAM 2.5 GM in DEXTROSE 5%-WATER - 250 ML IVPB SCH ×2 (01:58→09:58)
[2022-03-11] MEDS: guaiFENesin/D-METHORPHAN HB 10 ML UNIT-DOSE CUPS PO SCH ×7 (01:59→22:00)
[2022-03-11] MEDS: oxyCODONE HCL 5 MG TABLET GT SCH ×3 (05:53→21:50)
[2022-03-11] MEDS: ACETYLCYSTEINE 20% 200MG/ML 4 ML VIAL *FOR ORAL / INH USE ONLY NEB SCH ×3 (08:05→20:05)
[2022-03-11] MEDS: ALBUTEROL SO4 0.083% IH SOL 2.5 MG/3 ML VIAL.NEB. NEB SCH ×2 (08:05→20:05)
[2022-03-11] MEDS: AMINO ACIDS/PROTEIN HYDROLYS 30 ML LIQUID.PKT PEG SCH (08:26)
[2022-03-11] MEDS: POLYETHYLENE GLYCOL (HEALTHYLAX) 3350 17 GM PACKET GT SCH (09:55)
[2022-03-11] MEDS: BACITRACIN 15 GM TUBE TOPICAL OINTMENT TP SCH (09:55)
[2022-03-11] MEDS: LIDOCAINE 5% TOPICAL PATCH TP SCH (09:55)
[2022-03-11] MEDS: ENOXAPARIN NA (PORCINE) 100 MG/1 ML DISP.SYRIN SQ SCH ×2 (09:56→21:49)
[2022-03-11] MEDS: FERROUS SULFATE 220 MG/5 ML ELIXIR GT SCH (09:56)
[2022-03-11] MEDS: FAMOTIDINE 40 MG/5 ML ORAL SUSPENSION PEG SCH (09:56)
[2022-03-11] MEDS: MIDODRINE HCL 2.5 MG TABLET GT SCH ×3 (09:57→17:43)
[2022-03-11] MEDS: CYCLOBENZAPRINE HCL 5 MG TABLET GT SCH (09:57)
[2022-03-11] MEDS: CYANOCOBALAMIN (VITAMIN B-12) 100 MCG TABLET GT SCH (09:57)
[2022-03-11] MEDS: MULTIVIT-MINERALS ORAL LIQUID GT SCH (09:57)
[2022-03-11] MEDS: ASCORBIC ACID 500 MG TABLET (FP) GT SCH (09:57)
[2022-03-11] MEDS: ZINC SULFATE 220 MG CAPSULE (FP) PO SCH (09:57)
[2022-03-11] MEDS: METOPROLOL TARTRATE 25 MG TABLET (FP) GT SCH ×2 (09:57→21:52)
[2022-03-11] MEDS: COLLAGENASE CLOSTRIDIUM HIST. 30 GRAMS TUBE TP SCH (09:58)
[2022-03-11] MEDS: ZINC OXIDE 20% TOPICAL OINTMENT 30 GM TUBE TP SCH ×4 (09:58→21:50)
[2022-03-11 10:21] LABS: BASO % 0.7 % (0-2.0); EOS % 1.7 % (0-4.5); HEMATOCRIT 22.8 % (32.4-45.2); HEMOGLOBIN 7.2 GM/dL (10.7-15.3); LYMPH % 19.3 % (8-40); MCH 29.3 pg (25.7-33.7); MCHC 31.8 g/dl (32.0-36.0); MEAN CELL VOLUME 92.1 fl (80-96); MEAN PLT VOLUME 7.9 fl (7.5-11.1); MONO % 6.8 % (3.8-10.2); NEUT % 71.5 % (42.8-82.8); PLATELET COUNT 276 10^3/uL (134-434); RBC 2.47 M/mm3 (3.60-5.2); RDW 19.5 % (11.6-15.6); WHITE BLOOD COUNT 4.4 K/mm3 (4.0-10.0)
[2022-03-11 10:43] LABS: BLOOD UREA NITROGEN 47.1 mg/dL (7-18); CALCIUM 8.7 mg/dL (8.5-10.1); MAGNESIUM 2.5 mg/dL (1.8-2.4)
[2022-03-11 10:44] LABS: ALBUMIN 1.7 g/dl (3.4-5.0)
[2022-03-11 10:47] LABS: PHOSPHOROUS 2.1 mg/dL (2.5-4.9)
[2022-03-11 10:48] LABS: BILIRUBIN,TOTAL 0.5 mg/dL (0.2-1); TOT PROT 4.9 g/dl (6.4-8.2)
[2022-03-11] MEDS: ALBUTEROL SO4 0.083% IH SOL 2.5 MG/3 ML VIAL.NEB. NEB PRN (14:30)
[2022-03-11] MEDS: ACETAMINOPHEN 500 MG TABLET (FP) GT PRN (18:24)
[2022-03-11] MEDS: LIDOCAINE PATCH REMOVAL MC SCH (21:48)
[2022-03-11] MEDS: ATORVASTATIN CA 80 MG TABLET (FP) GT SCH (21:49)
[2022-03-11] MEDS: QUEtiapine FUMARATE 25 MG TABLET GT SCH (21:50)
[2022-03-12] MEDS: guaiFENesin/D-METHORPHAN HB 10 ML UNIT-DOSE CUPS PO SCH ×5 (06:00→20:56)
[2022-03-12] MEDS: oxyCODONE HCL 5 MG TABLET GT SCH (06:20)
[2022-03-12] MEDS: ALBUTEROL SO4 0.083% IH SOL 2.5 MG/3 ML VIAL.NEB. NEB SCH ×2 (08:00→20:35)
[2022-03-12] MEDS: ACETYLCYSTEINE 20% 200MG/ML 4 ML VIAL *FOR ORAL / INH USE ONLY NEB SCH ×3 (08:00→20:36)
[2022-03-12 09:28] LABS: BASO % 0.8 % (0-2.0); EOS % 2.7 % (0-4.5); HEMATOCRIT 22.7 % (32.4-45.2); HEMOGLOBIN 7.2 GM/dL (10.7-15.3); MCH 29.3 pg (25.7-33.7); MCHC 31.8 g/dl (32.0-36.0); MEAN CELL VOLUME 92.1 fl (80-96); MEAN PLT VOLUME 7.8 fl (7.5-11.1); NEUT % 70.5 % (42.8-82.8); PLATELET COUNT 288 10^3/uL (134-434); RBC 2.47 M/mm3 (3.60-5.2); RDW 19.9 % (11.6-15.6)
[2022-03-12 10:37] LABS: ALBUMIN 1.6 g/dl (3.4-5.0); CALCIUM 8.9 mg/dL (8.5-10.1)
[2022-03-12 10:38] LABS: BLOOD UREA NITROGEN 43.1 mg/dL (7-18); MAGNESIUM 2.5 mg/dL (1.8-2.4)
[2022-03-12 10:41] LABS: CREATININE 0.9 mg/dL (0.55-1.3); PHOSPHOROUS 2.2 mg/dL (2.5-4.9)
[2022-03-12 10:42] LABS: BILIRUBIN,TOTAL 0.5 mg/dL (0.2-1); TOT PROT 4.7 g/dl (6.4-8.2)
[2022-03-12] MEDS: METOPROLOL TARTRATE 25 MG TABLET (FP) GT SCH ×2 (10:56→21:16)
[2022-03-12] MEDS: MIDODRINE HCL 2.5 MG TABLET GT SCH ×3 (10:56→17:55)
[2022-03-12] MEDS: CYCLOBENZAPRINE HCL 5 MG TABLET GT SCH (10:56)
[2022-03-12] MEDS: ASCORBIC ACID 500 MG TABLET (FP) GT SCH (10:56)
[2022-03-12] MEDS: ZINC SULFATE 220 MG CAPSULE (FP) PO SCH (10:57)
[2022-03-12] MEDS: AMINO ACIDS/PROTEIN HYDROLYS 30 ML LIQUID.PKT PEG SCH (10:57)
[2022-03-12] MEDS: LIDOCAINE 5% TOPICAL PATCH TP SCH (10:57)
[2022-03-12] MEDS: POLYETHYLENE GLYCOL (HEALTHYLAX) 3350 17 GM PACKET GT SCH (10:57)
[2022-03-12] MEDS: BACITRACIN 15 GM TUBE TOPICAL OINTMENT TP SCH (10:58)
[2022-03-12] MEDS: ENOXAPARIN NA (PORCINE) 100 MG/1 ML DISP.SYRIN SQ SCH ×2 (10:58→21:16)
[2022-03-12] MEDS: MULTIVIT-MINERALS ORAL LIQUID GT SCH (10:58)
[2022-03-12] MEDS: CYANOCOBALAMIN (VITAMIN B-12) 100 MCG TABLET GT SCH (10:58)
[2022-03-12] MEDS: FAMOTIDINE 40 MG/5 ML ORAL SUSPENSION PEG SCH (10:59)
[2022-03-12] MEDS: ZINC OXIDE 20% TOPICAL OINTMENT 30 GM TUBE TP SCH ×4 (10:59→21:18)
[2022-03-12] MEDS: COLLAGENASE CLOSTRIDIUM HIST. 30 GRAMS TUBE TP SCH (10:59)
[2022-03-12] MEDS: FERROUS SULFATE 220 MG/5 ML ELIXIR GT SCH (10:59)
[2022-03-12] MEDS: SODIUM CHLORIDE FOR INHALATION 3 ML VIAL.NEB IH PRN (15:18)
[2022-03-12] MEDS ORDERED: SODIUM PHOSPHATE - 20 MM in DEXTROSE 5%-WATER - 250 ML IVPB ONE (19:00)
[2022-03-12] MEDS: ACETAMINOPHEN 500 MG TABLET (FP) GT PRN (20:56)
[2022-03-12] MEDS ORDERED: oxyCODONE HCL 5 MG TABLET PO ONE (21:16)
[2022-03-12] MEDS: ATORVASTATIN CA 80 MG TABLET (FP) GT SCH (21:17)
[2022-03-12] MEDS: LIDOCAINE PATCH REMOVAL MC SCH (21:17)
[2022-03-12] MEDS: QUEtiapine FUMARATE 25 MG TABLET GT SCH (21:17)
[2022-03-13] MEDS: guaiFENesin/D-METHORPHAN HB 10 ML UNIT-DOSE CUPS PO SCH ×6 (01:32→21:05)
[2022-03-13] MEDS: ACETAMINOPHEN 500 MG TABLET (FP) GT PRN ×2 (05:28→16:57)
[2022-03-13] MEDS: ALBUTEROL SO4 0.083% IH SOL 2.5 MG/3 ML VIAL.NEB. NEB SCH (08:50)
[2022-03-13] MEDS: ACETYLCYSTEINE 20% 200MG/ML 4 ML VIAL *FOR ORAL / INH USE ONLY NEB SCH ×3 (08:51→21:10)
[2022-03-13] MEDS: LIDOCAINE 5% TOPICAL PATCH TP SCH (11:22)
[2022-03-13] MEDS: CYCLOBENZAPRINE HCL 5 MG TABLET GT SCH (11:23)
[2022-03-13] MEDS: ZINC SULFATE 220 MG CAPSULE (FP) PO SCH (11:24)
[2022-03-13] MEDS: ASCORBIC ACID 500 MG TABLET (FP) GT SCH (11:24)
[2022-03-13] MEDS: METOPROLOL TARTRATE 25 MG TABLET (FP) GT SCH ×2 (11:24→21:43)
[2022-03-13] MEDS: AMINO ACIDS/PROTEIN HYDROLYS 30 ML LIQUID.PKT PEG SCH (11:24)
[2022-03-13] MEDS: MIDODRINE HCL 2.5 MG TABLET GT SCH ×3 (11:24→18:45)
[2022-03-13] MEDS: BACITRACIN 15 GM TUBE TOPICAL OINTMENT TP SCH (11:25)
[2022-03-13] MEDS: MULTIVIT-MINERALS ORAL LIQUID GT SCH (11:26)
[2022-03-13] MEDS: ENOXAPARIN NA (PORCINE) 100 MG/1 ML DISP.SYRIN SQ SCH (11:27)
[2022-03-13] MEDS: FAMOTIDINE 40 MG/5 ML ORAL SUSPENSION PEG SCH (11:27)
[2022-03-13] MEDS: COLLAGENASE CLOSTRIDIUM HIST. 30 GRAMS TUBE TP SCH (11:27)
[2022-03-13] MEDS: FERROUS SULFATE 220 MG/5 ML ELIXIR GT SCH (11:27)
[2022-03-13] MEDS: POLYETHYLENE GLYCOL (HEALTHYLAX) 3350 17 GM PACKET GT SCH (11:27)
[2022-03-13] MEDS: ZINC OXIDE 20% TOPICAL OINTMENT 30 GM TUBE TP SCH ×4 (11:29→23:07)
[2022-03-13] MEDS: CYANOCOBALAMIN (VITAMIN B-12) 100 MCG TABLET GT SCH (11:29)
[2022-03-13] MEDS ORDERED: ACETAMINOPHEN 325 MG TABLET (FP) PO PRN (18:20)
[2022-03-13] MEDS ORDERED: ALBUTEROL SO4 HFA INHALER IH PRN (20:34)
[2022-03-13] MEDS: QUEtiapine FUMARATE 25 MG TABLET GT SCH (21:43)
[2022-03-13] MEDS: ATORVASTATIN CA 80 MG TABLET (FP) GT SCH (21:43)
[2022-03-13] MEDS: ENOXAPARIN NA (PORCINE) 60 MG/0.6 ML DISP.SYRIN SQ SCH (21:44)
[2022-03-13] MEDS: oxyCODONE HCL 5 MG TABLET GT PRN (21:58)
[2022-03-13] MEDS: LIDOCAINE PATCH REMOVAL MC SCH (23:07)
[2022-03-14] MEDS: guaiFENesin/D-METHORPHAN HB 10 ML UNIT-DOSE CUPS PO SCH ×6 (01:11→22:07)
[2022-03-14] MEDS: oxyCODONE HCL 5 MG TABLET GT PRN ×3 (04:27→22:07)
[2022-03-14] MEDS: ACETYLCYSTEINE 20% 200MG/ML 4 ML VIAL *FOR ORAL / INH USE ONLY NEB SCH ×3 (08:08→23:17)
[2022-03-14] MEDS: AMINO ACIDS/PROTEIN HYDROLYS 30 ML LIQUID.PKT PEG SCH (10:11)
[2022-03-14 11:20] LABS: HEMOGLOBIN 7.1 GM/dL (10.7-15.3); MCH 29.7 pg (25.7-33.7); MCHC 32.4 g/dl (32.0-36.0); MEAN CELL VOLUME 91.6 fl (80-96); MEAN PLT VOLUME 7.5 fl (7.5-11.1); PLATELET COUNT 317 10^3/uL (134-434); RDW 20.2 % (11.6-15.6); WHITE BLOOD COUNT 4.6 K/mm3 (4.0-10.0)
[2022-03-14] MEDS ORDERED: SODIUM CHLORIDE 500 ML IV STA (11:28)
[2022-03-14 11:55] LABS: ALBUMIN 1.7 g/dl (3.4-5.0)
[2022-03-14 11:58] LABS: CREATININE 0.9 mg/dL (0.55-1.3)
[2022-03-14 11:59] LABS: BILIRUBIN,TOTAL 0.3 mg/dL (0.2-1)
[2022-03-14] MEDS: POLYETHYLENE GLYCOL (HEALTHYLAX) 3350 17 GM PACKET GT SCH (12:48)
[2022-03-14] MEDS: LIDOCAINE 5% TOPICAL PATCH TP SCH (12:48)
[2022-03-14] MEDS: ASCORBIC ACID 500 MG TABLET (FP) GT SCH (12:49)
[2022-03-14] MEDS: ENOXAPARIN NA (PORCINE) 60 MG/0.6 ML DISP.SYRIN SQ SCH ×2 (12:49→22:06)
[2022-03-14] MEDS: FERROUS SULFATE 220 MG/5 ML ELIXIR GT SCH (12:49)
[2022-03-14] MEDS: FAMOTIDINE 40 MG/5 ML ORAL SUSPENSION PEG SCH (12:49)
[2022-03-14] MEDS: MULTIVIT-MINERALS ORAL LIQUID GT SCH (12:49)
[2022-03-14] MEDS: MIDODRINE HCL 2.5 MG TABLET GT SCH ×4 (12:49→18:14)
[2022-03-14] MEDS: CYANOCOBALAMIN (VITAMIN B-12) 100 MCG TABLET GT SCH (12:49)
[2022-03-14] MEDS: ZINC SULFATE 220 MG CAPSULE (FP) PO SCH (12:50)
[2022-03-14] MEDS: CYCLOBENZAPRINE HCL 5 MG TABLET GT SCH (12:50)
[2022-03-14] MEDS: METOPROLOL TARTRATE 25 MG TABLET (FP) GT SCH ×2 (12:50→22:08)
[2022-03-14] MEDS: BACITRACIN 15 GM TUBE TOPICAL OINTMENT TP SCH (12:50)
[2022-03-14] MEDS: COLLAGENASE CLOSTRIDIUM HIST. 30 GRAMS TUBE TP SCH (12:51)
[2022-03-14] MEDS: ZINC OXIDE 20% TOPICAL OINTMENT 30 GM TUBE TP SCH ×4 (12:51→22:07)
[2022-03-14] MEDS: ATORVASTATIN CA 80 MG TABLET (FP) GT SCH (22:06)
[2022-03-14] MEDS: QUEtiapine FUMARATE 25 MG TABLET GT SCH (22:07)
[2022-03-14] MEDS: LIDOCAINE PATCH REMOVAL MC SCH (22:07)
[2022-03-15] MEDS: guaiFENesin/D-METHORPHAN HB 10 ML UNIT-DOSE CUPS PO SCH ×6 (00:09→21:36)
[2022-03-15] MEDS: ACETYLCYSTEINE 20% 200MG/ML 4 ML VIAL *FOR ORAL / INH USE ONLY NEB SCH ×3 (08:15→20:25)
[2022-03-15] MEDS: AMINO ACIDS/PROTEIN HYDROLYS 30 ML LIQUID.PKT PEG SCH (10:35)
[2022-03-15] MEDS: CYANOCOBALAMIN (VITAMIN B-12) 100 MCG TABLET GT SCH (10:35)
[2022-03-15] MEDS: LIDOCAINE 5% TOPICAL PATCH TP SCH (10:42)
[2022-03-15] MEDS: MULTIVIT-MINERALS ORAL LIQUID GT SCH (10:42)
[2022-03-15] MEDS: POLYETHYLENE GLYCOL (HEALTHYLAX) 3350 17 GM PACKET GT SCH (10:43)
[2022-03-15] MEDS: CYCLOBENZAPRINE HCL 5 MG TABLET GT SCH (10:43)
[2022-03-15] MEDS: ENOXAPARIN NA (PORCINE) 60 MG/0.6 ML DISP.SYRIN SQ SCH ×2 (10:43→21:37)
[2022-03-15] MEDS: ASCORBIC ACID 500 MG TABLET (FP) GT SCH (10:43)
[2022-03-15] MEDS: MIDODRINE HCL 2.5 MG TABLET GT SCH ×3 (10:43→17:59)
[2022-03-15] MEDS: METOPROLOL TARTRATE 25 MG TABLET (FP) GT SCH ×2 (10:43→21:37)
[2022-03-15] MEDS: ZINC SULFATE 220 MG CAPSULE (FP) PO SCH (10:43)
[2022-03-15] MEDS: FERROUS SULFATE 220 MG/5 ML ELIXIR GT SCH (10:44)
[2022-03-15] MEDS: FAMOTIDINE 40 MG/5 ML ORAL SUSPENSION PEG SCH (10:44)
[2022-03-15] MEDS: ZINC OXIDE 20% TOPICAL OINTMENT 30 GM TUBE TP SCH ×4 (10:44→21:39)
[2022-03-15] MEDS: COLLAGENASE CLOSTRIDIUM HIST. 30 GRAMS TUBE TP SCH (10:44)
[2022-03-15] MEDS: BACITRACIN 15 GM TUBE TOPICAL OINTMENT TP SCH (10:45)
[2022-03-15 11:45] LABS: BASO % 0.8 % (0-2.0); EOS % 1.1 % (0-4.5); HEMATOCRIT 22.5 % (32.4-45.2); HEMOGLOBIN 7.1 GM/dL (10.7-15.3); LYMPH % 18.3 % (8-40); MCH 29.1 pg (25.7-33.7); MCHC 31.8 g/dl (32.0-36.0); MEAN CELL VOLUME 91.6 fl (80-96); MEAN PLT VOLUME 7.8 fl (7.5-11.1); MONO % 7.5 % (3.8-10.2); NEUT % 72.3 % (42.8-82.8); PLATELET COUNT 328 10^3/uL (134-434); RBC 2.45 M/mm3 (3.60-5.2); RDW 19.9 % (11.6-15.6); WHITE BLOOD COUNT 4.6 K/mm3 (4.0-10.0)
[2022-03-15 12:06] LABS: ALBUMIN 1.7 g/dl (3.4-5.0); CALCIUM 9.2 mg/dL (8.5-10.1); MAGNESIUM 2.5 mg/dL (1.8-2.4)
[2022-03-15 12:07] LABS: BLOOD UREA NITROGEN 45.8 mg/dL (7-18)
[2022-03-15 12:09] LABS: CREATININE 0.9 mg/dL (0.55-1.3); PHOSPHOROUS 2.7 mg/dL (2.5-4.9)
[2022-03-15 12:10] LABS: BILIRUBIN,TOTAL 0.4 mg/dL (0.2-1)
[2022-03-15] MEDS ORDERED: SODIUM CHLORIDE 500 ML IV STA (15:55)
[2022-03-15] MEDS: ATORVASTATIN CA 80 MG TABLET (FP) GT SCH (21:36)
[2022-03-15] MEDS: QUEtiapine FUMARATE 25 MG TABLET GT SCH (21:37)
[2022-03-15] MEDS: LIDOCAINE PATCH REMOVAL MC SCH (21:38)
[2022-03-16] MEDS: guaiFENesin/D-METHORPHAN HB 10 ML UNIT-DOSE CUPS PO SCH ×6 (01:14→22:18)
[2022-03-16] MEDS: AMINO ACIDS/PROTEIN HYDROLYS 30 ML LIQUID.PKT PEG SCH (08:13)
[2022-03-16] MEDS: ACETYLCYSTEINE 20% 200MG/ML 4 ML VIAL *FOR ORAL / INH USE ONLY NEB SCH ×3 (08:39→21:02)
[2022-03-16] MEDS: LIDOCAINE 5% TOPICAL PATCH TP SCH (10:30)
[2022-03-16] MEDS: FAMOTIDINE 40 MG/5 ML ORAL SUSPENSION PEG SCH (10:31)
[2022-03-16] MEDS: ENOXAPARIN NA (PORCINE) 60 MG/0.6 ML DISP.SYRIN SQ SCH ×2 (10:31→22:17)
[2022-03-16] MEDS: FERROUS SULFATE 220 MG/5 ML ELIXIR GT SCH (10:31)
[2022-03-16] MEDS: CYANOCOBALAMIN (VITAMIN B-12) 100 MCG TABLET GT SCH (10:32)
[2022-03-16] MEDS: ASCORBIC ACID 500 MG TABLET (FP) GT SCH (10:32)
[2022-03-16] MEDS: ZINC SULFATE 220 MG CAPSULE (FP) PO SCH (10:32)
[2022-03-16] MEDS: METOPROLOL TARTRATE 25 MG TABLET (FP) GT SCH ×3 (10:32→22:17)
[2022-03-16] MEDS: POLYETHYLENE GLYCOL (HEALTHYLAX) 3350 17 GM PACKET GT SCH (10:32)
[2022-03-16] MEDS: CYCLOBENZAPRINE HCL 5 MG TABLET GT SCH (10:32)
[2022-03-16] MEDS: MIDODRINE HCL 2.5 MG TABLET GT SCH ×3 (10:32→17:35)
[2022-03-16] MEDS: MULTIVIT-MINERALS ORAL LIQUID GT SCH (10:32)
[2022-03-16] MEDS: BACITRACIN 15 GM TUBE TOPICAL OINTMENT TP SCH (10:33)
[2022-03-16] MEDS: ZINC OXIDE 20% TOPICAL OINTMENT 30 GM TUBE TP SCH ×4 (10:34→22:18)
[2022-03-16] MEDS: COLLAGENASE CLOSTRIDIUM HIST. 30 GRAMS TUBE TP SCH (10:34)
[2022-03-16 13:31] LABS: HEMATOCRIT 21.3 % (32.4-45.2); MCH 29.6 pg (25.7-33.7); MCHC 32.4 g/dl (32.0-36.0); MEAN CELL VOLUME 91.4 fl (80-96); MEAN PLT VOLUME 7.8 fl (7.5-11.1); PLATELET COUNT 326 10^3/uL (134-434); RBC 2.33 M/mm3 (3.60-5.2); RDW 20.2 % (11.6-15.6); WHITE BLOOD COUNT 4.9 K/mm3 (4.0-10.0)
[2022-03-16 13:41] LABS: BLOOD UREA NITROGEN 45.2 mg/dL (7-18); CALCIUM 8.9 mg/dL (8.5-10.1); MAGNESIUM 2.4 mg/dL (1.8-2.4)
[2022-03-16 13:45] LABS: PHOSPHOROUS 2.2 mg/dL (2.5-4.9)
[2022-03-16 13:59] LABS: HEMOGLOBIN 6.9 GM/dL (10.7-15.3)
[2022-03-16] MEDS ORDERED: NAPH,MB-DB/K PH,MBDB POWDER PACKET GT ONE (17:37)
[2022-03-16] MEDS: oxyCODONE HCL 5 MG TABLET GT PRN (18:19)
[2022-03-16] MEDS: ALBUTEROL SO4 0.083% IH SOL 2.5 MG/3 ML VIAL.NEB. NEB PRN (21:02)
[2022-03-16] MEDS: QUEtiapine FUMARATE 25 MG TABLET GT SCH (22:18)
[2022-03-16] MEDS: LIDOCAINE PATCH REMOVAL MC SCH (22:18)
[2022-03-16] MEDS: ATORVASTATIN CA 80 MG TABLET (FP) GT SCH (22:18)
[2022-03-17] MEDS: guaiFENesin/D-METHORPHAN HB 10 ML UNIT-DOSE CUPS PO SCH ×6 (01:47→20:31)
[2022-03-17] MEDS: SODIUM CHLORIDE FOR INHALATION 3 ML VIAL.NEB IH PRN (08:04)
[2022-03-17] MEDS: ACETYLCYSTEINE 20% 200MG/ML 4 ML VIAL *FOR ORAL / INH USE ONLY NEB SCH ×3 (08:04→20:53)
[2022-03-17] MEDS: ALBUTEROL SO4 0.083% IH SOL 2.5 MG/3 ML VIAL.NEB. NEB PRN ×3 (08:05→20:53)
[2022-03-17] MEDS: AMINO ACIDS/PROTEIN HYDROLYS 30 ML LIQUID.PKT PEG SCH (08:25)
[2022-03-17] MEDS: MIDODRINE HCL 2.5 MG TABLET GT SCH ×3 (10:43→18:10)
[2022-03-17] MEDS: ZINC SULFATE 220 MG CAPSULE (FP) PO SCH (10:43)
[2022-03-17] MEDS: ENOXAPARIN NA (PORCINE) 60 MG/0.6 ML DISP.SYRIN SQ SCH ×2 (10:43→22:52)
[2022-03-17] MEDS: POLYETHYLENE GLYCOL (HEALTHYLAX) 3350 17 GM PACKET GT SCH (10:44)
[2022-03-17] MEDS: METOPROLOL TARTRATE 25 MG TABLET (FP) GT SCH ×2 (10:44→22:52)
[2022-03-17] MEDS: FAMOTIDINE 40 MG/5 ML ORAL SUSPENSION PEG SCH (10:45)
[2022-03-17] MEDS: LIDOCAINE 5% TOPICAL PATCH TP SCH (10:45)
[2022-03-17] MEDS: ASCORBIC ACID 500 MG TABLET (FP) GT SCH (10:45)
[2022-03-17] MEDS: MULTIVIT-MINERALS ORAL LIQUID GT SCH (10:45)
[2022-03-17] MEDS: CYCLOBENZAPRINE HCL 5 MG TABLET GT SCH (10:45)
[2022-03-17] MEDS: FERROUS SULFATE 220 MG/5 ML ELIXIR GT SCH (10:46)
[2022-03-17] MEDS: CYANOCOBALAMIN (VITAMIN B-12) 100 MCG TABLET GT SCH (10:46)
[2022-03-17] MEDS: BACITRACIN 15 GM TUBE TOPICAL OINTMENT TP SCH (10:46)
[2022-03-17] MEDS: COLLAGENASE CLOSTRIDIUM HIST. 30 GRAMS TUBE TP SCH (10:46)
[2022-03-17] MEDS: ZINC OXIDE 20% TOPICAL OINTMENT 30 GM TUBE TP SCH ×4 (10:47→23:04)
[2022-03-17] MEDS: oxyCODONE HCL 5 MG TABLET GT PRN (13:22)
[2022-03-17] MEDS ORDERED: ALPRAZolam 0.25 MG TABLET PO ONE (15:29)
[2022-03-17] MEDS ORDERED: FUROSEMIDE 40 MG/4 ML INJECTABLE VIAL IVPUSH ONE ×2 (20:09→20:12)
[2022-03-17] MEDS: QUEtiapine FUMARATE 25 MG TABLET GT SCH (22:52)
[2022-03-17] MEDS: ATORVASTATIN CA 80 MG TABLET (FP) GT SCH (22:52)
[2022-03-17] MEDS: ACETAMINOPHEN 500 MG TABLET (FP) GT PRN (22:53)
[2022-03-17] MEDS: LIDOCAINE PATCH REMOVAL MC SCH (22:53)
[2022-03-17 23:08] LABS: HEMATOCRIT 26.7 % (32.4-45.2); HEMOGLOBIN 8.8 GM/dL (10.7-15.3); MCH 29.6 pg (25.7-33.7); MCHC 32.9 g/dl (32.0-36.0); MEAN CELL VOLUME 89.9 fl (80-96); MEAN PLT VOLUME 7.1 fl (7.5-11.1); PLATELET COUNT 339 10^3/uL (134-434); RBC 2.97 M/mm3 (3.60-5.2); RDW 18.5 % (11.6-15.6); WHITE BLOOD COUNT 6.3 K/mm3 (4.0-10.0)
[2022-03-18] MEDS: guaiFENesin/D-METHORPHAN HB 10 ML UNIT-DOSE CUPS PO SCH ×6 (01:15→22:03)
[2022-03-18] MEDS: oxyCODONE HCL 5 MG TABLET GT PRN (01:40)
[2022-03-18] MEDS: ACETYLCYSTEINE 20% 200MG/ML 4 ML VIAL *FOR ORAL / INH USE ONLY NEB SCH ×3 (07:45→20:17)
[2022-03-18] MEDS: ALBUTEROL SO4 0.083% IH SOL 2.5 MG/3 ML VIAL.NEB. NEB PRN ×3 (07:45→20:17)
[2022-03-18] MEDS: AMINO ACIDS/PROTEIN HYDROLYS 30 ML LIQUID.PKT PEG SCH (08:19)
[2022-03-18 09:43] LABS: BASO % 0.4 % (0-2.0); EOS % 0.6 % (0-4.5); HEMATOCRIT 25.4 % (32.4-45.2); HEMOGLOBIN 8.2 GM/dL (10.7-15.3); LYMPH % 13.6 % (8-40); MCH 29.4 pg (25.7-33.7); MCHC 32.2 g/dl (32.0-36.0); MEAN CELL VOLUME 91.2 fl (80-96); MEAN PLT VOLUME 7.4 fl (7.5-11.1); MONO % 7.1 % (3.8-10.2); NEUT % 78.3 % (42.8-82.8); PLATELET COUNT 344 10^3/uL (134-434); RBC 2.78 M/mm3 (3.60-5.2); RDW 19.3 % (11.6-15.6); WHITE BLOOD COUNT 7.7 K/mm3 (4.0-10.0)
[2022-03-18] MEDS: POLYETHYLENE GLYCOL (HEALTHYLAX) 3350 17 GM PACKET GT SCH (09:53)
[2022-03-18] MEDS: CYANOCOBALAMIN (VITAMIN B-12) 100 MCG TABLET GT SCH (09:53)
[2022-03-18] MEDS: MULTIVIT-MINERALS ORAL LIQUID GT SCH (09:53)
[2022-03-18] MEDS: ENOXAPARIN NA (PORCINE) 60 MG/0.6 ML DISP.SYRIN SQ SCH ×2 (09:53→22:04)
[2022-03-18] MEDS: METOPROLOL TARTRATE 25 MG TABLET (FP) GT SCH ×2 (09:54→22:04)
[2022-03-18] MEDS: MIDODRINE HCL 2.5 MG TABLET GT SCH ×3 (09:54→17:00)
[2022-03-18] MEDS: FAMOTIDINE 40 MG/5 ML ORAL SUSPENSION PEG SCH (09:54)
[2022-03-18] MEDS: ASCORBIC ACID 500 MG TABLET (FP) GT SCH (09:54)
[2022-03-18] MEDS: ZINC SULFATE 220 MG CAPSULE (FP) PO SCH (09:54)
[2022-03-18] MEDS: FERROUS SULFATE 220 MG/5 ML ELIXIR GT SCH (09:54)
[2022-03-18] MEDS: CYCLOBENZAPRINE HCL 5 MG TABLET GT SCH (09:54)
[2022-03-18] MEDS: BACITRACIN 15 GM TUBE TOPICAL OINTMENT TP SCH (09:55)
[2022-03-18] MEDS: COLLAGENASE CLOSTRIDIUM HIST. 30 GRAMS TUBE TP SCH (09:56)
[2022-03-18] MEDS: ZINC OXIDE 20% TOPICAL OINTMENT 30 GM TUBE TP SCH ×4 (09:56→22:06)
[2022-03-18 10:13] LABS: CALCIUM 9.3 mg/dL (8.5-10.1)
[2022-03-18 10:14] LABS: ALBUMIN 1.8 g/dl (3.4-5.0); BLOOD UREA NITROGEN 40.7 mg/dL (7-18); MAGNESIUM 2.3 mg/dL (1.8-2.4)
[2022-03-18 10:17] LABS: PHOSPHOROUS 2.9 mg/dL (2.5-4.9)
[2022-03-18 10:18] LABS: BILIRUBIN,TOTAL 0.5 mg/dL (0.2-1); TOT PROT 5.1 g/dl (6.4-8.2)
[2022-03-18] MEDS ORDERED: ONDANSETRON 4 MG/2 ML VIAL IVPUSH ONE (11:07)
[2022-03-18] MEDS: LIDOCAINE 5% TOPICAL PATCH TP SCH (13:14)
[2022-03-18] MEDS: ACETAMINOPHEN 500 MG TABLET (FP) GT PRN (13:27)
[2022-03-18] MEDS: LIDOCAINE PATCH REMOVAL MC SCH (22:03)
[2022-03-18] MEDS: ATORVASTATIN CA 80 MG TABLET (FP) GT SCH (22:03)
[2022-03-18] MEDS: QUEtiapine FUMARATE 25 MG TABLET GT SCH (22:05)
[2022-03-19] MEDS: guaiFENesin/D-METHORPHAN HB 10 ML UNIT-DOSE CUPS PO SCH ×6 (02:37→21:13)
[2022-03-19] MEDS: ACETAMINOPHEN 650 MG/20.3 ML ORAL SOLUTION (CUPS) GT PRN ×2 (03:35→09:36)
[2022-03-19] MEDS: ACETYLCYSTEINE 20% 200MG/ML 4 ML VIAL *FOR ORAL / INH USE ONLY NEB SCH (08:00)
[2022-03-19] MEDS: ALBUTEROL SO4 0.083% IH SOL 2.5 MG/3 ML VIAL.NEB. NEB PRN ×2 (08:00→15:32)
[2022-03-19] MEDS: POLYETHYLENE GLYCOL (HEALTHYLAX) 3350 17 GM PACKET GT SCH (09:36)
[2022-03-19] MEDS: AMINO ACIDS/PROTEIN HYDROLYS 30 ML LIQUID.PKT PEG SCH (09:37)
[2022-03-19] MEDS: LIDOCAINE 5% TOPICAL PATCH TP SCH (09:38)
[2022-03-19] MEDS: MULTIVIT-MINERALS ORAL LIQUID GT SCH (09:38)
[2022-03-19] MEDS: ENOXAPARIN NA (PORCINE) 60 MG/0.6 ML DISP.SYRIN SQ SCH ×2 (09:38→11:43)
[2022-03-19] MEDS: CYANOCOBALAMIN (VITAMIN B-12) 100 MCG TABLET GT SCH (09:38)
[2022-03-19] MEDS: FERROUS SULFATE 220 MG/5 ML ELIXIR GT SCH (09:39)
[2022-03-19] MEDS: FAMOTIDINE 40 MG/5 ML ORAL SUSPENSION PEG SCH (09:39)
[2022-03-19] MEDS: BACITRACIN 15 GM TUBE TOPICAL OINTMENT TP SCH (09:39)
[2022-03-19] MEDS: MIDODRINE HCL 2.5 MG TABLET GT SCH ×3 (09:39→17:45)
[2022-03-19] MEDS: CYCLOBENZAPRINE HCL 5 MG TABLET GT SCH (09:39)
[2022-03-19] MEDS: METOPROLOL TARTRATE 25 MG TABLET (FP) GT SCH ×2 (09:39→23:05)
[2022-03-19] MEDS: ZINC SULFATE 220 MG CAPSULE (FP) PO SCH (09:39)
[2022-03-19] MEDS: COLLAGENASE CLOSTRIDIUM HIST. 30 GRAMS TUBE TP SCH (09:40)
[2022-03-19] MEDS: ZINC OXIDE 20% TOPICAL OINTMENT 30 GM TUBE TP SCH ×4 (09:40→23:06)
[2022-03-19] MEDS: ASCORBIC ACID 500 MG TABLET (FP) GT SCH (09:40)
[2022-03-19 12:53] LABS: HEMATOCRIT 25.5 % (32.4-45.2); HEMOGLOBIN 8.3 GM/dL (10.7-15.3); MCH 29.7 pg (25.7-33.7); MCHC 32.8 g/dl (32.0-36.0); MEAN CELL VOLUME 90.6 fl (80-96); MEAN PLT VOLUME 7.4 fl (7.5-11.1); PLATELET COUNT 364 10^3/uL (134-434); RBC 2.81 M/mm3 (3.60-5.2); RDW 18.8 % (11.6-15.6); WHITE BLOOD COUNT 7.3 K/mm3 (4.0-10.0)
[2022-03-19 13:15] LABS: CALCIUM 9.3 mg/dL (8.5-10.1)
[2022-03-19 13:16] LABS: ALBUMIN 1.8 g/dl (3.4-5.0); BLOOD UREA NITROGEN 38.9 mg/dL (7-18); MAGNESIUM 2.4 mg/dL (1.8-2.4)
[2022-03-19 13:19] LABS: CREATININE 0.9 mg/dL (0.55-1.3); PHOSPHOROUS 2.6 mg/dL (2.5-4.9)
[2022-03-19 13:20] LABS: BILIRUBIN,TOTAL 0.6 mg/dL (0.2-1); TOT PROT 5.4 g/dl (6.4-8.2)
[2022-03-19] MEDS ORDERED: ACETYLCYSTEINE 20% 200MG/ML 4 ML VIAL *FOR ORAL / INH USE ONLY NEB SCH (14:00)
[2022-03-19] MEDS: oxyCODONE HCL 5 MG TABLET GT PRN (18:02)
[2022-03-19] MEDS: ATORVASTATIN CA 80 MG TABLET (FP) GT SCH (23:05)
[2022-03-19] MEDS: QUEtiapine FUMARATE 25 MG TABLET GT SCH (23:05)
[2022-03-19] MEDS: ENOXAPARIN NA (PORCINE) 40 MG/0.4 ML DISP.SYRIN SQ SCH (23:06)
[2022-03-19] MEDS: LIDOCAINE PATCH REMOVAL MC SCH (23:06)
[2022-03-20] MEDS: guaiFENesin/D-METHORPHAN HB 10 ML UNIT-DOSE CUPS PO SCH ×6 (01:14→22:28)
[2022-03-20] MEDS: ACETAMINOPHEN 650 MG/20.3 ML ORAL SOLUTION (CUPS) GT PRN (03:46)
[2022-03-20] MEDS: ZINC SULFATE 220 MG CAPSULE (FP) PO SCH (09:34)
[2022-03-20] MEDS: MIDODRINE HCL 2.5 MG TABLET GT SCH ×3 (09:34→17:55)
[2022-03-20] MEDS: METOPROLOL TARTRATE 25 MG TABLET (FP) GT SCH ×3 (09:34→22:32)
[2022-03-20] MEDS: ASCORBIC ACID 500 MG TABLET (FP) GT SCH (09:34)
[2022-03-20] MEDS: CYCLOBENZAPRINE HCL 5 MG TABLET GT SCH (09:34)
[2022-03-20] MEDS: AMINO ACIDS/PROTEIN HYDROLYS 30 ML LIQUID.PKT PEG SCH (09:36)
[2022-03-20] MEDS: LIDOCAINE 5% TOPICAL PATCH TP SCH (09:36)
[2022-03-20] MEDS: POLYETHYLENE GLYCOL (HEALTHYLAX) 3350 17 GM PACKET GT SCH (09:36)
[2022-03-20] MEDS: FAMOTIDINE 40 MG/5 ML ORAL SUSPENSION PEG SCH (09:48)
[2022-03-20] MEDS: CYANOCOBALAMIN (VITAMIN B-12) 100 MCG TABLET GT SCH (09:48)
[2022-03-20] MEDS: MULTIVIT-MINERALS ORAL LIQUID GT SCH (09:48)
[2022-03-20] MEDS: FERROUS SULFATE 220 MG/5 ML ELIXIR GT SCH (09:49)
[2022-03-20] MEDS: ENOXAPARIN NA (PORCINE) 40 MG/0.4 ML DISP.SYRIN SQ SCH ×2 (09:51→22:28)
[2022-03-20] MEDS: ZINC OXIDE 20% TOPICAL OINTMENT 30 GM TUBE TP SCH ×3 (09:51→18:08)
[2022-03-20 12:05] LABS: HEMATOCRIT 25.8 % (32.4-45.2); HEMOGLOBIN 8.5 GM/dL (10.7-15.3); MCH 29.9 pg (25.7-33.7); MCHC 32.8 g/dl (32.0-36.0); MEAN CELL VOLUME 91.1 fl (80-96); MEAN PLT VOLUME 7.5 fl (7.5-11.1); PLATELET COUNT 350 10^3/uL (134-434); RBC 2.83 M/mm3 (3.60-5.2); RDW 18.8 % (11.6-15.6); WHITE BLOOD COUNT 8.1 K/mm3 (4.0-10.0)
[2022-03-20 12:11] LABS: INR 1.03 (0.83-1.09); PROTHROMBIN TIME (PATIENT) 11.9 SEC (9.7-13.0)
[2022-03-20 12:38] LABS: PHOSPHOROUS 2.5 mg/dL (2.5-4.9)
[2022-03-20 12:39] LABS: TOT PROT 5.4 g/dl (6.4-8.2)
[2022-03-20 12:42] LABS: ALBUMIN 1.8 g/dl (3.4-5.0); ANISOCYTOSIS 0; CALCIUM 9.3 mg/dL (8.5-10.1); HELMET CELLS 0; HOWELL-JOLLY BODIES 0; MACROCYTOSIS 0; MAGNESIUM 2.3 mg/dL (1.8-2.4); OVALOCYTE 0; ROULEAU 0; SICKELED CELLS 0; TARGET CELLS 0; TEAR DROP CELLS 0; TOXIC GRANULATION 0
[2022-03-20 12:43] LABS: CREATININE 0.8 mg/dL (0.55-1.3)
[2022-03-20 12:49] LABS: BILIRUBIN,TOTAL 0.4 mg/dL (0.2-1)
[2022-03-20] MEDS: BACITRACIN 15 GM TUBE TOPICAL OINTMENT TP SCH (12:57)
[2022-03-20] MEDS: COLLAGENASE CLOSTRIDIUM HIST. 30 GRAMS TUBE TP SCH (12:57)
[2022-03-20] MEDS: ATORVASTATIN CA 80 MG TABLET (FP) GT SCH (22:28)
[2022-03-20] MEDS: QUEtiapine FUMARATE 25 MG TABLET GT SCH (22:28)
[2022-03-21] MEDS: ZINC OXIDE 20% TOPICAL OINTMENT 30 GM TUBE TP SCH ×5 (00:15→21:07)
[2022-03-21] MEDS: LIDOCAINE PATCH REMOVAL MC SCH ×2 (00:15→21:07)
[2022-03-21] MEDS: ACETAMINOPHEN 650 MG/20.3 ML ORAL SOLUTION (CUPS) GT PRN (00:45)
[2022-03-21] MEDS: guaiFENesin/D-METHORPHAN HB 10 ML UNIT-DOSE CUPS PO SCH ×4 (01:24→13:45)
[2022-03-21] MEDS: ENOXAPARIN NA (PORCINE) 40 MG/0.4 ML DISP.SYRIN SQ SCH ×2 (10:48→21:05)
[2022-03-21] MEDS: CYCLOBENZAPRINE HCL 5 MG TABLET GT SCH (10:49)
[2022-03-21] MEDS: MIDODRINE HCL 2.5 MG TABLET GT SCH ×3 (10:49→18:51)
[2022-03-21] MEDS: ASCORBIC ACID 500 MG TABLET (FP) GT SCH (10:49)
[2022-03-21] MEDS: ZINC SULFATE 220 MG CAPSULE (FP) PO SCH (10:49)
[2022-03-21] MEDS: METOPROLOL TARTRATE 25 MG TABLET (FP) GT SCH ×3 (10:49→21:06)
[2022-03-21] MEDS: AMINO ACIDS/PROTEIN HYDROLYS 30 ML LIQUID.PKT PEG SCH (10:49)
[2022-03-21] MEDS: CYANOCOBALAMIN (VITAMIN B-12) 100 MCG TABLET GT SCH (10:50)
[2022-03-21] MEDS: FAMOTIDINE 40 MG/5 ML ORAL SUSPENSION PEG SCH (10:50)
[2022-03-21] MEDS: FERROUS SULFATE 220 MG/5 ML ELIXIR GT SCH (10:50)
[2022-03-21] MEDS: MULTIVIT-MINERALS ORAL LIQUID GT SCH (10:50)
[2022-03-21] MEDS: BACITRACIN 15 GM TUBE TOPICAL OINTMENT TP SCH (10:51)
[2022-03-21] MEDS: COLLAGENASE CLOSTRIDIUM HIST. 30 GRAMS TUBE TP SCH (11:30)
[2022-03-21 13:11] LABS: HEMATOCRIT 21.7 % (32.4-45.2); MCH 29.4 pg (25.7-33.7); MCHC 32.1 g/dl (32.0-36.0); MEAN CELL VOLUME 91.6 fl (80-96); MEAN PLT VOLUME 7.4 fl (7.5-11.1); PLATELET COUNT 328 10^3/uL (134-434); RBC 2.36 M/mm3 (3.60-5.2); RDW 19.4 % (11.6-15.6); WHITE BLOOD COUNT 8.4 K/mm3 (4.0-10.0)
[2022-03-21 13:28] LABS: BLOOD UREA NITROGEN 41.2 mg/dL (7-18); CALCIUM 8.9 mg/dL (8.5-10.1); MAGNESIUM 2.1 mg/dL (1.8-2.4)
[2022-03-21 13:31] LABS: CREATININE 0.9 mg/dL (0.55-1.3); PHOSPHOROUS 2.3 mg/dL (2.5-4.9)
[2022-03-21] MEDS: LIDOCAINE 5% TOPICAL PATCH TP SCH (14:25)
[2022-03-21] MEDS ORDERED: NAPH,MB-DB/K PH,MBDB POWDER PACKET GT ONE (18:25)
[2022-03-21] MEDS ORDERED: FLUTICASONE PROP 0.05% 16 GM NASAL SPRAY NS ONE (19:08)
[2022-03-21] MEDS: ATORVASTATIN CA 80 MG TABLET (FP) GT SCH (21:06)
[2022-03-21] MEDS: QUEtiapine FUMARATE 25 MG TABLET GT SCH (21:06)
[2022-03-22 11:25] LABS: HEMOGLOBIN 7.8 GM/dL (10.7-15.3); MCH 29.1 pg (25.7-33.7); MCHC 32.2 g/dl (32.0-36.0); MEAN CELL VOLUME 90.1 fl (80-96); PLATELET COUNT 351 10^3/uL (134-434); RBC 2.67 M/mm3 (3.60-5.2); RDW 19.1 % (11.6-15.6); WHITE BLOOD COUNT 8.4 K/mm3 (4.0-10.0)
[2022-03-22] MEDS: LIDOCAINE 5% TOPICAL PATCH TP SCH (11:45)
[2022-03-22] MEDS: ASCORBIC ACID 500 MG TABLET (FP) GT SCH (11:48)
[2022-03-22] MEDS: METOPROLOL TARTRATE 25 MG TABLET (FP) GT SCH ×2 (11:48→22:55)
[2022-03-22] MEDS: ZINC SULFATE 220 MG CAPSULE (FP) PO SCH (11:48)
[2022-03-22] MEDS: AMINO ACIDS/PROTEIN HYDROLYS 30 ML LIQUID.PKT PEG SCH (11:49)
[2022-03-22] MEDS: MIDODRINE HCL 2.5 MG TABLET GT SCH ×3 (11:49→17:03)
[2022-03-22] MEDS: CYCLOBENZAPRINE HCL 5 MG TABLET GT SCH (11:49)
[2022-03-22] MEDS: ENOXAPARIN NA (PORCINE) 40 MG/0.4 ML DISP.SYRIN SQ SCH ×2 (11:49→22:55)
[2022-03-22] MEDS: CYANOCOBALAMIN (VITAMIN B-12) 100 MCG TABLET GT SCH (11:49)
[2022-03-22] MEDS: MULTIVIT-MINERALS ORAL LIQUID GT SCH (11:50)
[2022-03-22] MEDS: COLLAGENASE CLOSTRIDIUM HIST. 30 GRAMS TUBE TP SCH (11:50)
[2022-03-22] MEDS: FERROUS SULFATE 220 MG/5 ML ELIXIR GT SCH (11:50)
[2022-03-22] MEDS: ZINC OXIDE 20% TOPICAL OINTMENT 30 GM TUBE TP SCH ×4 (11:51→22:55)
[2022-03-22] MEDS: FAMOTIDINE 40 MG/5 ML ORAL SUSPENSION PEG SCH (11:51)
[2022-03-22] MEDS: BACITRACIN 15 GM TUBE TOPICAL OINTMENT TP SCH (11:51)
[2022-03-22 11:54] LABS: CALCIUM 9.5 mg/dL (8.5-10.1)
[2022-03-22 11:55] LABS: BLOOD UREA NITROGEN 45.5 mg/dL (7-18); MAGNESIUM 2.5 mg/dL (1.8-2.4)
[2022-03-22 11:58] LABS: PHOSPHOROUS 2.9 mg/dL (2.5-4.9)
[2022-03-22] MEDS: oxyCODONE HCL 5 MG TABLET GT PRN (16:53)
[2022-03-22] MEDS ORDERED: FLUTICASONE PROP 0.05% 16 GM NASAL SPRAY NS PRN (18:32)
[2022-03-22] MEDS: LIDOCAINE PATCH REMOVAL MC SCH (22:55)
[2022-03-22] MEDS: QUEtiapine FUMARATE 25 MG TABLET GT SCH (22:55)
[2022-03-22] MEDS: VANCOMYCIN 250 MG/5 ML ORAL SOLUTION GT SCH (22:55)
[2022-03-22] MEDS: ATORVASTATIN CA 80 MG TABLET (FP) GT SCH (22:55)
[2022-03-23] MEDS: VANCOMYCIN 250 MG/5 ML ORAL SOLUTION GT SCH ×4 (00:33→17:20)
[2022-03-23] MEDS: AMINO ACIDS/PROTEIN HYDROLYS 30 ML LIQUID.PKT PEG SCH (08:01)
[2022-03-23] MEDS: oxyCODONE HCL 5 MG TABLET GT PRN ×2 (08:01→21:51)
[2022-03-23] MEDS: LIDOCAINE 5% TOPICAL PATCH TP SCH (10:45)
[2022-03-23] MEDS: METOPROLOL TARTRATE 25 MG TABLET (FP) GT SCH ×2 (10:46→21:50)
[2022-03-23] MEDS: ASCORBIC ACID 500 MG TABLET (FP) GT SCH (10:46)
[2022-03-23] MEDS: MIDODRINE HCL 2.5 MG TABLET GT SCH ×3 (10:46→17:20)
[2022-03-23] MEDS: ZINC SULFATE 220 MG CAPSULE (FP) PO SCH (10:46)
[2022-03-23] MEDS: CYANOCOBALAMIN (VITAMIN B-12) 100 MCG TABLET GT SCH (10:47)
[2022-03-23] MEDS: ENOXAPARIN NA (PORCINE) 40 MG/0.4 ML DISP.SYRIN SQ SCH ×2 (10:47→21:51)
[2022-03-23] MEDS: FAMOTIDINE 40 MG/5 ML ORAL SUSPENSION PEG SCH (10:47)
[2022-03-23] MEDS: MULTIVIT-MINERALS ORAL LIQUID GT SCH (10:48)
[2022-03-23] MEDS: BACITRACIN 15 GM TUBE TOPICAL OINTMENT TP SCH (10:48)
[2022-03-23] MEDS: CYCLOBENZAPRINE HCL 5 MG TABLET GT SCH (10:48)
[2022-03-23] MEDS: FERROUS SULFATE 220 MG/5 ML ELIXIR GT SCH (10:48)
[2022-03-23] MEDS: COLLAGENASE CLOSTRIDIUM HIST. 30 GRAMS TUBE TP SCH (11:02)
[2022-03-23] MEDS: ZINC OXIDE 20% TOPICAL OINTMENT 30 GM TUBE TP SCH ×4 (11:02→21:51)
[2022-03-23 12:40] LABS: HEMATOCRIT 22.4 % (32.4-45.2); HEMOGLOBIN 7.4 GM/dL (10.7-15.3); MCH 29.6 pg (25.7-33.7); MCHC 32.8 g/dl (32.0-36.0); MEAN CELL VOLUME 90.3 fl (80-96); PLATELET COUNT 339 10^3/uL (134-434); RBC 2.49 M/mm3 (3.60-5.2); RDW 18.7 % (11.6-15.6); WHITE BLOOD COUNT 9.4 K/mm3 (4.0-10.0)
[2022-03-23 13:06] LABS: CALCIUM 9.4 mg/dL (8.5-10.1)
[2022-03-23 13:07] LABS: ALBUMIN 1.7 g/dl (3.4-5.0); BLOOD UREA NITROGEN 44.1 mg/dL (7-18); MAGNESIUM 2.3 mg/dL (1.8-2.4)
[2022-03-23 13:10] LABS: CREATININE 0.9 mg/dL (0.55-1.3); PHOSPHOROUS 3.2 mg/dL (2.5-4.9)
[2022-03-23 13:11] LABS: BILIRUBIN,TOTAL 0.4 mg/dL (0.2-1); TOT PROT 5.1 g/dl (6.4-8.2)
[2022-03-23] MEDS: ATORVASTATIN CA 80 MG TABLET (FP) GT SCH (21:50)
[2022-03-23] MEDS: LIDOCAINE PATCH REMOVAL MC SCH (21:51)
[2022-03-23] MEDS: QUEtiapine FUMARATE 25 MG TABLET GT SCH (21:51)
[2022-03-24] MEDS: VANCOMYCIN 250 MG/5 ML ORAL SOLUTION GT SCH ×4 (00:35→18:07)
[2022-03-24] MEDS: oxyCODONE HCL 5 MG TABLET GT PRN ×2 (04:03→13:37)
[2022-03-24] MEDS: AMINO ACIDS/PROTEIN HYDROLYS 30 ML LIQUID.PKT PEG SCH (08:23)
[2022-03-24] MEDS: CYCLOBENZAPRINE HCL 5 MG TABLET GT SCH (10:04)
[2022-03-24] MEDS: BACITRACIN 15 GM TUBE TOPICAL OINTMENT TP SCH (10:05)
[2022-03-24] MEDS: MULTIVIT-MINERALS ORAL LIQUID GT SCH (10:07)
[2022-03-24] MEDS: ENOXAPARIN NA (PORCINE) 40 MG/0.4 ML DISP.SYRIN SQ SCH ×2 (10:08→23:16)
[2022-03-24] MEDS: ZINC SULFATE 220 MG CAPSULE (FP) PO SCH (10:09)
[2022-03-24] MEDS: METOPROLOL TARTRATE 25 MG TABLET (FP) GT SCH ×2 (10:10→23:15)
[2022-03-24] MEDS: FERROUS SULFATE 220 MG/5 ML ELIXIR GT SCH (10:10)
[2022-03-24] MEDS: LIDOCAINE 5% TOPICAL PATCH TP SCH (10:11)
[2022-03-24] MEDS: MIDODRINE HCL 2.5 MG TABLET GT SCH ×3 (10:12→18:07)
[2022-03-24] MEDS: ASCORBIC ACID 500 MG TABLET (FP) GT SCH (10:12)
[2022-03-24] MEDS: FAMOTIDINE 40 MG/5 ML ORAL SUSPENSION PEG SCH (10:12)
[2022-03-24] MEDS: ZINC OXIDE 20% TOPICAL OINTMENT 30 GM TUBE TP SCH ×4 (10:12→23:17)
[2022-03-24] MEDS: CYANOCOBALAMIN (VITAMIN B-12) 100 MCG TABLET GT SCH (10:13)
[2022-03-24 10:54] LABS: HEMATOCRIT 23.5 % (32.4-45.2); HEMOGLOBIN 7.5 GM/dL (10.7-15.3); MCH 28.9 pg (25.7-33.7); MCHC 32.1 g/dl (32.0-36.0); MEAN CELL VOLUME 90.3 fl (80-96); MEAN PLT VOLUME 7.2 fl (7.5-11.1); PLATELET COUNT 372 10^3/uL (134-434); WHITE BLOOD COUNT 9.5 K/mm3 (4.0-10.0)
[2022-03-24 11:18] LABS: CALCIUM 9.2 mg/dL (8.5-10.1); MAGNESIUM 2.3 mg/dL (1.8-2.4)
[2022-03-24 11:19] LABS: ALBUMIN 1.8 g/dl (3.4-5.0)
[2022-03-24 11:22] LABS: CREATININE 0.9 mg/dL (0.55-1.3); PHOSPHOROUS 3.5 mg/dL (2.5-4.9)
[2022-03-24 11:23] LABS: BILIRUBIN,TOTAL 0.4 mg/dL (0.2-1); TOT PROT 5.3 g/dl (6.4-8.2)
[2022-03-24] MEDS: COLLAGENASE CLOSTRIDIUM HIST. 30 GRAMS TUBE TP SCH (12:45)
[2022-03-24] MEDS ORDERED: ACETAMINOPHEN 1000 MG/100 ML BAG IVPB ONE (15:01)
[2022-03-24] MEDS: ATORVASTATIN CA 80 MG TABLET (FP) GT SCH (23:14)
[2022-03-24] MEDS: LIDOCAINE PATCH REMOVAL MC SCH (23:15)
[2022-03-24] MEDS: QUEtiapine FUMARATE 25 MG TABLET GT SCH (23:15)
[2022-03-25] MEDS: VANCOMYCIN 250 MG/5 ML ORAL SOLUTION GT SCH ×4 (02:20→17:45)
[2022-03-25] MEDS: ACETAMINOPHEN 650 MG/20.3 ML ORAL SOLUTION (CUPS) GT PRN ×2 (06:13→16:36)
[2022-03-25] MEDS: MIDODRINE HCL 2.5 MG TABLET GT SCH ×3 (11:04→17:46)
[2022-03-25] MEDS: CYCLOBENZAPRINE HCL 5 MG TABLET GT SCH (11:04)
[2022-03-25] MEDS: ZINC SULFATE 220 MG CAPSULE (FP) PO SCH (11:04)
[2022-03-25] MEDS: ASCORBIC ACID 500 MG TABLET (FP) GT SCH (11:04)
[2022-03-25] MEDS: METOPROLOL TARTRATE 25 MG TABLET (FP) GT SCH ×2 (11:04→22:18)
[2022-03-25] MEDS: LIDOCAINE 5% TOPICAL PATCH TP SCH (11:05)
[2022-03-25] MEDS: AMINO ACIDS/PROTEIN HYDROLYS 30 ML LIQUID.PKT PEG SCH (11:05)
[2022-03-25] MEDS: FAMOTIDINE 40 MG/5 ML ORAL SUSPENSION PEG SCH (11:08)
[2022-03-25] MEDS: CYANOCOBALAMIN (VITAMIN B-12) 100 MCG TABLET GT SCH (11:08)
[2022-03-25] MEDS: ENOXAPARIN NA (PORCINE) 40 MG/0.4 ML DISP.SYRIN SQ SCH ×3 (11:08→22:19)
[2022-03-25] MEDS: MULTIVIT-MINERALS ORAL LIQUID GT SCH (11:08)
[2022-03-25] MEDS: FERROUS SULFATE 220 MG/5 ML ELIXIR GT SCH (11:08)
[2022-03-25] MEDS: ZINC OXIDE 20% TOPICAL OINTMENT 30 GM TUBE TP SCH ×4 (11:09→23:12)
[2022-03-25] MEDS: oxyCODONE HCL 5 MG TABLET GT PRN ×2 (12:43→18:34)
[2022-03-25] MEDS: COLLAGENASE CLOSTRIDIUM HIST. 30 GRAMS TUBE TP SCH (14:43)
[2022-03-25] MEDS: BACITRACIN 15 GM TUBE TOPICAL OINTMENT TP SCH (14:44)
[2022-03-25] MEDS: FLUTICASONE PROP 0.05% 16 GM NASAL SPRAY NS PRN (17:46)
[2022-03-25] MEDS: QUEtiapine FUMARATE 25 MG TABLET GT SCH (22:18)
[2022-03-25] MEDS: LIDOCAINE PATCH REMOVAL MC SCH (22:18)
[2022-03-25] MEDS: ATORVASTATIN CA 80 MG TABLET (FP) GT SCH (22:18)
[2022-03-26] MEDS: VANCOMYCIN 250 MG/5 ML ORAL SOLUTION GT SCH ×4 (00:11→17:50)
[2022-03-26] MEDS: AMINO ACIDS/PROTEIN HYDROLYS 30 ML LIQUID.PKT PEG SCH (09:00)
[2022-03-26] MEDS: FAMOTIDINE 40 MG/5 ML ORAL SUSPENSION PEG SCH (10:41)
[2022-03-26] MEDS: FERROUS SULFATE 220 MG/5 ML ELIXIR GT SCH (10:41)
[2022-03-26] MEDS: BACITRACIN 15 GM TUBE TOPICAL OINTMENT TP SCH (10:42)
[2022-03-26] MEDS: CYANOCOBALAMIN (VITAMIN B-12) 100 MCG TABLET GT SCH (10:42)
[2022-03-26] MEDS: MULTIVIT-MINERALS ORAL LIQUID GT SCH (10:42)
[2022-03-26] MEDS: ZINC OXIDE 20% TOPICAL OINTMENT 30 GM TUBE TP SCH ×4 (10:43→22:34)
[2022-03-26] MEDS: LIDOCAINE 5% TOPICAL PATCH TP SCH (10:44)
[2022-03-26] MEDS: MIDODRINE HCL 2.5 MG TABLET GT SCH ×3 (10:45→17:50)
[2022-03-26] MEDS: METOPROLOL TARTRATE 25 MG TABLET (FP) GT SCH ×2 (10:45→22:09)
[2022-03-26] MEDS: ZINC SULFATE 220 MG CAPSULE (FP) PO SCH (10:45)
[2022-03-26] MEDS: ENOXAPARIN NA (PORCINE) 40 MG/0.4 ML DISP.SYRIN SQ SCH ×2 (10:46→22:09)
[2022-03-26] MEDS: CYCLOBENZAPRINE HCL 5 MG TABLET GT SCH (10:46)
[2022-03-26] MEDS: ASCORBIC ACID 500 MG TABLET (FP) GT SCH (10:47)
[2022-03-26 10:50] LABS: BASO % 0.3 % (0-2.0); EOS % 2.4 % (0-4.5); HEMATOCRIT 23.2 % (32.4-45.2); HEMOGLOBIN 7.3 GM/dL (10.7-15.3); LYMPH % 8.3 % (8-40); MCH 28.4 pg (25.7-33.7); MCHC 31.5 g/dl (32.0-36.0); MEAN CELL VOLUME 90.2 fl (80-96); MEAN PLT VOLUME 7.1 fl (7.5-11.1); MONO % 4.7 % (3.8-10.2); NEUT % 84.3 % (42.8-82.8); PLATELET COUNT 378 10^3/uL (134-434); RBC 2.57 M/mm3 (3.60-5.2); RDW 18.7 % (11.6-15.6); WHITE BLOOD COUNT 11.3 K/mm3 (4.0-10.0)
[2022-03-26 11:16] LABS: CALCIUM 9.4 mg/dL (8.5-10.1)
[2022-03-26 11:17] LABS: ALBUMIN 1.8 g/dl (3.4-5.0); BLOOD UREA NITROGEN 49.3 mg/dL (7-18); MAGNESIUM 2.5 mg/dL (1.8-2.4)
[2022-03-26 11:21] LABS: PHOSPHOROUS 2.8 mg/dL (2.5-4.9)
[2022-03-26 11:22] LABS: BILIRUBIN,TOTAL 0.4 mg/dL (0.2-1); CREATININE 1.1 mg/dL (0.55-1.3); TOT PROT 5.4 g/dl (6.4-8.2)
[2022-03-26] MEDS: COLLAGENASE CLOSTRIDIUM HIST. 30 GRAMS TUBE TP SCH (13:26)
[2022-03-26] MEDS: oxyCODONE HCL 5 MG TABLET GT PRN (13:30)
[2022-03-26] MEDS: ACETAMINOPHEN 650 MG/20.3 ML ORAL SOLUTION (CUPS) GT PRN (16:45)
[2022-03-26] MEDS: QUEtiapine FUMARATE 25 MG TABLET GT SCH (22:09)
[2022-03-26] MEDS: ATORVASTATIN CA 80 MG TABLET (FP) GT SCH (22:09)
[2022-03-26] MEDS: LIDOCAINE PATCH REMOVAL MC SCH (22:34)
[2022-03-27] MEDS: VANCOMYCIN 250 MG/5 ML ORAL SOLUTION GT SCH ×4 (00:25→17:51)
[2022-03-27] MEDS: AMINO ACIDS/PROTEIN HYDROLYS 30 ML LIQUID.PKT PEG SCH (08:45)
[2022-03-27] MEDS: LIDOCAINE 5% TOPICAL PATCH TP SCH (09:54)
[2022-03-27] MEDS: MIDODRINE HCL 2.5 MG TABLET GT SCH ×3 (09:55→17:50)
[2022-03-27] MEDS: ZINC SULFATE 220 MG CAPSULE (FP) PO SCH (09:55)
[2022-03-27] MEDS: ENOXAPARIN NA (PORCINE) 40 MG/0.4 ML DISP.SYRIN SQ SCH ×2 (09:55→22:28)
[2022-03-27] MEDS: CYCLOBENZAPRINE HCL 5 MG TABLET GT SCH (09:55)
[2022-03-27] MEDS: FAMOTIDINE 40 MG/5 ML ORAL SUSPENSION PEG SCH (09:55)
[2022-03-27] MEDS: FERROUS SULFATE 220 MG/5 ML ELIXIR GT SCH (09:55)
[2022-03-27] MEDS: CYANOCOBALAMIN (VITAMIN B-12) 100 MCG TABLET GT SCH (09:55)
[2022-03-27] MEDS: COLLAGENASE CLOSTRIDIUM HIST. 30 GRAMS TUBE TP SCH (09:56)
[2022-03-27] MEDS: ZINC OXIDE 20% TOPICAL OINTMENT 30 GM TUBE TP SCH ×4 (09:56→22:29)
[2022-03-27] MEDS: BACITRACIN 15 GM TUBE TOPICAL OINTMENT TP SCH (09:57)
[2022-03-27] MEDS: ASCORBIC ACID 500 MG TABLET (FP) GT SCH (09:58)
[2022-03-27] MEDS: oxyCODONE HCL 5 MG TABLET GT PRN (10:29)
[2022-03-27] MEDS: METOPROLOL TARTRATE 25 MG TABLET (FP) GT SCH ×2 (10:29→22:28)
[2022-03-27 13:50] LABS: HEMATOCRIT 22.4 % (32.4-45.2); HEMOGLOBIN 7.1 GM/dL (10.7-15.3); MCH 28.7 pg (25.7-33.7); MCHC 31.8 g/dl (32.0-36.0); MEAN CELL VOLUME 90.3 fl (80-96); PLATELET COUNT 399 10^3/uL (134-434); RBC 2.48 M/mm3 (3.60-5.2); RDW 18.8 % (11.6-15.6); WHITE BLOOD COUNT 12.1 K/mm3 (4.0-10.0)
[2022-03-27] MEDS: MULTIVIT-MINERALS ORAL LIQUID GT SCH (14:04)
[2022-03-27] MEDS: BANATROL PLUS POWDER PACKET GT SCH ×2 (14:05→22:27)
[2022-03-27 14:18] LABS: CALCIUM 9.6 mg/dL (8.5-10.1)
[2022-03-27 14:19] LABS: BLOOD UREA NITROGEN 49.7 mg/dL (7-18); MAGNESIUM 2.5 mg/dL (1.8-2.4)
[2022-03-27 14:22] LABS: PHOSPHOROUS 2.9 mg/dL (2.5-4.9)
[2022-03-27] MEDS: SODIUM HYPOCHLORITE 0.25%- 473 ML BULK BOTTLE TP SCH (15:22)
[2022-03-27 19:18] LABS: EPI CELLS >36 /uL (0-25.1); HYALINE CASTS 166 /uL (0-3.1); PH,URINE 8.5 (5.0-8.0); URINE APPEARANCE TURBID; URINE BILIRUBIN 1+ (NEGATIVE); URINE COLOR ORANGE; URINE GLUCOSE (UA) NEGATIVE (NEGATIVE); URINE KETONE NEGATIVE (NEGATIVE); URINE LEUK ESTERASE 3+ (NEGATIVE); URINE NITRITE POSITIVE (NEGATIVE); URINE PROTEIN 3+ (NEGATIVE); URINE RBC 1407 /uL (0-23.9); URINE WBC 13451 /uL (0-25.8)
[2022-03-27] MEDS ORDERED: LACTOBACILLUS ACIDOPHILUS 1 TABLET PO SCH (22:00)
[2022-03-27] MEDS: ATORVASTATIN CA 80 MG TABLET (FP) GT SCH (22:27)
[2022-03-27] MEDS: LIDOCAINE PATCH REMOVAL MC SCH (22:28)
[2022-03-27] MEDS: LACTOBACILLUS ACIDOPHILUS 1 TABLET PO SCH (22:28)
[2022-03-27] MEDS: QUEtiapine FUMARATE 25 MG TABLET GT SCH (22:28)
[2022-03-27] MEDS: ACETAMINOPHEN 650 MG/20.3 ML ORAL SOLUTION (CUPS) GT PRN (22:29)
[2022-03-27 23:26] LABS: URINE BACTERIA 12 /uL (0-1359)
[2022-03-27] MEDS ORDERED: guaiFENesin 200 MG/10 ML 10 ML UNIT-DOSE CUPS PO ONE (23:44)
[2022-03-28] MEDS: BANATROL PLUS POWDER PACKET GT SCH ×3 (05:19→22:40)
[2022-03-28] MEDS: oxyCODONE HCL 5 MG TABLET GT PRN ×3 (05:19→23:13)
[2022-03-28] MEDS: VANCOMYCIN 250 MG/5 ML ORAL SOLUTION GT SCH ×4 (06:37→17:42)
[2022-03-28] MEDS: MIDODRINE HCL 2.5 MG TABLET GT SCH ×3 (11:33→17:43)
[2022-03-28] MEDS: ENOXAPARIN NA (PORCINE) 40 MG/0.4 ML DISP.SYRIN SQ SCH ×2 (11:33→22:40)
[2022-03-28] MEDS: ZINC SULFATE 220 MG CAPSULE (FP) PO SCH (11:34)
[2022-03-28] MEDS: LIDOCAINE 5% TOPICAL PATCH TP SCH (11:34)
[2022-03-28] MEDS: ASCORBIC ACID 500 MG TABLET (FP) GT SCH (11:34)
[2022-03-28] MEDS: AMINO ACIDS/PROTEIN HYDROLYS 30 ML LIQUID.PKT PEG SCH (11:35)
[2022-03-28] MEDS: METOPROLOL TARTRATE 25 MG TABLET (FP) GT SCH ×2 (11:35→22:40)
[2022-03-28] MEDS: FAMOTIDINE 40 MG/5 ML ORAL SUSPENSION PEG SCH (11:35)
[2022-03-28] MEDS: CYCLOBENZAPRINE HCL 5 MG TABLET GT SCH (11:35)
[2022-03-28] MEDS: FERROUS SULFATE 220 MG/5 ML ELIXIR GT SCH (11:35)
[2022-03-28] MEDS: BACITRACIN 15 GM TUBE TOPICAL OINTMENT TP SCH (11:36)
[2022-03-28] MEDS: MULTIVIT-MINERALS ORAL LIQUID GT SCH (11:36)
[2022-03-28] MEDS: CYANOCOBALAMIN (VITAMIN B-12) 100 MCG TABLET GT SCH (11:36)
[2022-03-28] MEDS: MEROPENEM 500 MG in DEXTROSE 5%-WATER 100 ML IVPB SCH ×2 (11:37→17:42)
[2022-03-28 11:39] LABS: BASO % 0.3 % (0-2.0); EOS % 4.5 % (0-4.5); HEMATOCRIT 23.5 % (32.4-45.2); HEMOGLOBIN 7.4 GM/dL (10.7-15.3); LYMPH % 9.3 % (8-40); MCH 28.7 pg (25.7-33.7); MCHC 31.7 g/dl (32.0-36.0); MEAN CELL VOLUME 90.5 fl (80-96); MEAN PLT VOLUME 6.5 fl (7.5-11.1); MONO % 5.4 % (3.8-10.2); NEUT % 80.5 % (42.8-82.8); PLATELET COUNT 382 10^3/uL (134-434); RBC 2.59 M/mm3 (3.60-5.2); RDW 19.2 % (11.6-15.6); WHITE BLOOD COUNT 10.9 K/mm3 (4.0-10.0)
[2022-03-28 12:01] LABS: CALCIUM 9.3 mg/dL (8.5-10.1)
[2022-03-28 12:03] LABS: MAGNESIUM 2.6 mg/dL (1.8-2.4)
[2022-03-28 12:05] LABS: BLOOD UREA NITROGEN 50.4 mg/dL (7-18); PHOSPHOROUS 2.6 mg/dL (2.5-4.9)
[2022-03-28 12:40] LABS: ANISOCYTOSIS 0; MACROCYTOSIS 0; TEAR DROP CELLS 0
[2022-03-28] MEDS: SODIUM HYPOCHLORITE 0.25%- 473 ML BULK BOTTLE TP SCH (16:08)
[2022-03-28] MEDS: COLLAGENASE CLOSTRIDIUM HIST. 30 GRAMS TUBE TP SCH (16:09)
[2022-03-28] MEDS: ZINC OXIDE 20% TOPICAL OINTMENT 30 GM TUBE TP SCH ×3 (16:09→22:41)
[2022-03-28] MEDS: LIDOCAINE PATCH REMOVAL MC SCH (22:40)
[2022-03-28] MEDS: LACTOBACILLUS ACIDOPHILUS 1 TABLET PO SCH (22:40)
[2022-03-28] MEDS: ATORVASTATIN CA 80 MG TABLET (FP) GT SCH (22:40)
[2022-03-28] MEDS: QUEtiapine FUMARATE 25 MG TABLET GT SCH (22:40)
[2022-03-29] MEDS: VANCOMYCIN 250 MG/5 ML ORAL SOLUTION GT SCH ×4 (00:24→18:37)
[2022-03-29] MEDS: BANATROL PLUS POWDER PACKET GT SCH ×3 (06:28→21:10)
[2022-03-29] MEDS: oxyCODONE HCL 5 MG TABLET GT PRN ×2 (06:58→13:07)
[2022-03-29] MEDS: AMINO ACIDS/PROTEIN HYDROLYS 30 ML LIQUID.PKT PEG SCH (09:45)
[2022-03-29] MEDS: LIDOCAINE 5% TOPICAL PATCH TP SCH (10:22)
[2022-03-29] MEDS: FERROUS SULFATE 220 MG/5 ML ELIXIR GT SCH (10:26)
[2022-03-29] MEDS: ENOXAPARIN NA (PORCINE) 40 MG/0.4 ML DISP.SYRIN SQ SCH ×2 (10:26→21:10)
[2022-03-29] MEDS: ZINC SULFATE 220 MG CAPSULE (FP) PO SCH (10:26)
[2022-03-29] MEDS: FAMOTIDINE 40 MG/5 ML ORAL SUSPENSION PEG SCH (10:27)
[2022-03-29] MEDS: CYCLOBENZAPRINE HCL 5 MG TABLET GT SCH (10:27)
[2022-03-29] MEDS: CYANOCOBALAMIN (VITAMIN B-12) 100 MCG TABLET GT SCH (10:27)
[2022-03-29] MEDS: ASCORBIC ACID 500 MG TABLET (FP) GT SCH (10:27)
[2022-03-29] MEDS: MULTIVIT-MINERALS ORAL LIQUID GT SCH (10:27)
[2022-03-29] MEDS: MIDODRINE HCL 2.5 MG TABLET GT SCH ×3 (10:27→18:37)
[2022-03-29] MEDS: ZINC OXIDE 20% TOPICAL OINTMENT 30 GM TUBE TP SCH ×4 (10:28→21:13)
[2022-03-29] MEDS: BACITRACIN 15 GM TUBE TOPICAL OINTMENT TP SCH (10:29)
[2022-03-29 11:12] LABS: HEMATOCRIT 22.4 % (32.4-45.2); HEMOGLOBIN 7.2 GM/dL (10.7-15.3); MCHC 32.1 g/dl (32.0-36.0); MEAN CELL VOLUME 90.4 fl (80-96); MEAN PLT VOLUME 6.8 fl (7.5-11.1); PLATELET COUNT 395 10^3/uL (134-434); RBC 2.48 M/mm3 (3.60-5.2); RDW 18.9 % (11.6-15.6); WHITE BLOOD COUNT 10.3 K/mm3 (4.0-10.0)
[2022-03-29] MEDS: METOPROLOL TARTRATE 25 MG TABLET (FP) GT SCH (11:26)
[2022-03-29 11:37] LABS: ALBUMIN 1.8 g/dl (3.4-5.0); BLOOD UREA NITROGEN 50.8 mg/dL (7-18); CALCIUM 9.4 mg/dL (8.5-10.1); MAGNESIUM 2.6 mg/dL (1.8-2.4)
[2022-03-29 11:40] LABS: CREATININE 1.1 mg/dL (0.55-1.3); PHOSPHOROUS 2.6 mg/dL (2.5-4.9)
[2022-03-29 11:41] LABS: BILIRUBIN,TOTAL 0.4 mg/dL (0.2-1); TOT PROT 5.4 g/dl (6.4-8.2)
[2022-03-29 11:52] LABS: ANISOCYTOSIS 0; MACROCYTOSIS 0
[2022-03-29] MEDS: SODIUM HYPOCHLORITE 0.25%- 473 ML BULK BOTTLE TP SCH (12:10)
[2022-03-29] MEDS: COLLAGENASE CLOSTRIDIUM HIST. 30 GRAMS TUBE TP SCH (12:10)
[2022-03-29] MEDS: CHOLECALCIFEROL (VIT D SOLUTION) 400 UNIT/1 ML DROPS PEG SCH (13:09)
[2022-03-29] MEDS: ACETAMINOPHEN 650 MG/20.3 ML ORAL SOLUTION (CUPS) GT PRN (20:45)
[2022-03-29] MEDS: QUEtiapine FUMARATE 25 MG TABLET GT SCH (21:11)
[2022-03-29] MEDS: LACTOBACILLUS ACIDOPHILUS 1 TABLET PO SCH (21:11)
[2022-03-29] MEDS: ATORVASTATIN CA 80 MG TABLET (FP) GT SCH (21:11)
[2022-03-29] MEDS: LIDOCAINE PATCH REMOVAL MC SCH (21:12)
[2022-03-30] MEDS: METOPROLOL TARTRATE 25 MG TABLET (FP) GT SCH ×2 (00:06→11:42)
[2022-03-30] MEDS: VANCOMYCIN 250 MG/5 ML ORAL SOLUTION GT SCH ×3 (00:33→13:16)
[2022-03-30] MEDS: FLUTICASONE PROP 0.05% 16 GM NASAL SPRAY NS PRN (06:47)
[2022-03-30] MEDS: BANATROL PLUS POWDER PACKET GT SCH ×2 (06:48→15:24)
[2022-03-30 10:35] LABS: HEMATOCRIT 22.5 % (32.4-45.2); MCH 28.5 pg (25.7-33.7); MCHC 31.2 g/dl (32.0-36.0); MEAN CELL VOLUME 91.3 fl (80-96); MEAN PLT VOLUME 6.6 fl (7.5-11.1); PLATELET COUNT 364 10^3/uL (134-434); RBC 2.47 M/mm3 (3.60-5.2); RDW 19.5 % (11.6-15.6); WHITE BLOOD COUNT 9.4 K/mm3 (4.0-10.0)
[2022-03-30 11:04] LABS: BLOOD UREA NITROGEN 52.6 mg/dL (7-18); CALCIUM 9.3 mg/dL (8.5-10.1); MAGNESIUM 2.6 mg/dL (1.8-2.4)
[2022-03-30 11:08] LABS: CREATININE 1.2 mg/dL (0.55-1.3)
[2022-03-30] MEDS: LIDOCAINE 5% TOPICAL PATCH TP SCH (11:39)
[2022-03-30] MEDS: AMINO ACIDS/PROTEIN HYDROLYS 30 ML LIQUID.PKT PEG SCH (11:39)
[2022-03-30] MEDS: MULTIVIT-MINERALS ORAL LIQUID GT SCH (11:39)
[2022-03-30] MEDS: FAMOTIDINE 40 MG/5 ML ORAL SUSPENSION PEG SCH (11:39)
[2022-03-30] MEDS: MEROPENEM 1 GM in DEXTROSE 5%-WATER 100 ML IVPB SCH (11:39)
[2022-03-30] MEDS: CHOLECALCIFEROL (VIT D SOLUTION) 400 UNIT/1 ML DROPS PEG SCH (11:40)
[2022-03-30] MEDS: ASCORBIC ACID 500 MG TABLET (FP) GT SCH (11:40)
[2022-03-30] MEDS: oxyCODONE HCL 5 MG TABLET GT PRN (11:40)
[2022-03-30] MEDS: MIDODRINE HCL 2.5 MG TABLET GT SCH ×2 (11:41→15:24)
[2022-03-30] MEDS: BACITRACIN 15 GM TUBE TOPICAL OINTMENT TP SCH (11:41)
[2022-03-30] MEDS: SODIUM HYPOCHLORITE 0.25%- 473 ML BULK BOTTLE TP SCH (11:41)
[2022-03-30] MEDS: CYANOCOBALAMIN (VITAMIN B-12) 100 MCG TABLET GT SCH (11:41)
[2022-03-30] MEDS: ZINC OXIDE 20% TOPICAL OINTMENT 30 GM TUBE TP SCH ×3 (11:42→22:00)
[2022-03-30] MEDS: COLLAGENASE CLOSTRIDIUM HIST. 30 GRAMS TUBE TP SCH (11:42)
[2022-03-30] MEDS: FERROUS SULFATE 220 MG/5 ML ELIXIR GT SCH (11:47)
[2022-03-30] MEDS ORDERED: ACETAMINOPHEN 650 MG/20.3 ML ORAL SOLUTION (CUPS) GT ONE (13:06)
[2022-03-30] MEDS: ACETAMINOPHEN 650 MG/20.3 ML ORAL SOLUTION (CUPS) GT PRN (13:15)
[2022-03-30] MEDS: VANCOMYCIN/WATER FOR INJ (PEG) 1,000 MG/200 ML BAG IVPB SCH (13:16)
[2022-03-30] MEDS: ENOXAPARIN NA (PORCINE) 40 MG/0.4 ML DISP.SYRIN SQ SCH (13:17)
[2022-03-31] MEDS: LACTOBACILLUS ACIDOPHILUS 1 TABLET PO SCH ×2 (00:32→23:06)
[2022-03-31] MEDS: METOPROLOL TARTRATE 25 MG TABLET (FP) GT SCH ×3 (00:32→23:06)
[2022-03-31] MEDS: ATORVASTATIN CA 80 MG TABLET (FP) GT SCH ×2 (00:33→23:05)
[2022-03-31] MEDS: VANCOMYCIN/WATER FOR INJ (PEG) 1,000 MG/200 ML BAG IVPB SCH ×2 (00:34→13:30)
[2022-03-31] MEDS: LIDOCAINE PATCH REMOVAL MC SCH ×2 (00:34→23:06)
[2022-03-31] MEDS: QUEtiapine FUMARATE 25 MG TABLET GT SCH ×2 (00:34→23:05)
[2022-03-31] MEDS: BANATROL PLUS POWDER PACKET GT SCH ×4 (00:39→23:06)
[2022-03-31] MEDS: VANCOMYCIN 250 MG/5 ML ORAL SOLUTION GT SCH ×5 (00:55→18:06)
[2022-03-31] MEDS: MEROPENEM 1 GM in DEXTROSE 5%-WATER 100 ML IVPB SCH ×4 (02:48→18:03)
[2022-03-31 09:45] LABS: INR 1.15 (0.83-1.09); PROTHROMBIN TIME (PATIENT) 13.3 SEC (9.7-13.0)
[2022-03-31 09:50] LABS: HEMATOCRIT 24.9 % (32.4-45.2); HEMOGLOBIN 8.1 GM/dL (10.7-15.3); MCHC 32.6 g/dl (32.0-36.0); MEAN PLT VOLUME 6.9 fl (7.5-11.1); PLATELET COUNT 364 10^3/uL (134-434); RDW 17.5 % (11.6-15.6)
[2022-03-31] MEDS ORDERED: ENOXAPARIN NA (PORCINE) 40 MG/0.4 ML DISP.SYRIN SQ SCH (10:00)
[2022-03-31 10:03] LABS: CALCIUM 9.3 mg/dL (8.5-10.1); MAGNESIUM 2.6 mg/dL (1.8-2.4)
[2022-03-31 10:05] LABS: BLOOD UREA NITROGEN 50.7 mg/dL (7-18)
[2022-03-31 10:07] LABS: PHOSPHOROUS 2.9 mg/dL (2.5-4.9)
[2022-03-31] MEDS: MIDODRINE HCL 2.5 MG TABLET GT SCH ×4 (10:44→19:05)
[2022-03-31] MEDS: ASCORBIC ACID 500 MG TABLET (FP) GT SCH (10:44)
[2022-03-31] MEDS: LIDOCAINE 5% TOPICAL PATCH TP SCH (10:45)
[2022-03-31] MEDS: FERROUS SULFATE 220 MG/5 ML ELIXIR GT SCH (10:46)
[2022-03-31] MEDS: SODIUM HYPOCHLORITE 0.25%- 473 ML BULK BOTTLE TP SCH (10:46)
[2022-03-31] MEDS: CHOLECALCIFEROL (VIT D SOLUTION) 400 UNIT/1 ML DROPS PEG SCH (10:46)
[2022-03-31] MEDS: AMINO ACIDS/PROTEIN HYDROLYS 30 ML LIQUID.PKT PEG SCH (10:46)
[2022-03-31] MEDS: FAMOTIDINE 40 MG/5 ML ORAL SUSPENSION PEG SCH (10:46)
[2022-03-31] MEDS: MULTIVIT-MINERALS ORAL LIQUID GT SCH (10:47)
[2022-03-31] MEDS: ZINC OXIDE 20% TOPICAL OINTMENT 30 GM TUBE TP SCH ×5 (10:47→23:22)
[2022-03-31] MEDS: BACITRACIN 15 GM TUBE TOPICAL OINTMENT TP SCH (10:47)
[2022-03-31] MEDS: COLLAGENASE CLOSTRIDIUM HIST. 30 GRAMS TUBE TP SCH (10:48)
[2022-03-31] MEDS: CYANOCOBALAMIN (VITAMIN B-12) 100 MCG TABLET GT SCH (10:54)
[2022-03-31] MEDS: oxyCODONE HCL 5 MG TABLET GT PRN ×2 (12:36→23:09)
[2022-03-31] MEDS: MEROPENEM 500 MG in DEXTROSE 5%-WATER 100 ML IVPB SCH (16:56)
[2022-04-01] MEDS: MEROPENEM 1 GM in DEXTROSE 5%-WATER 100 ML IVPB SCH ×3 (01:52→17:15)
[2022-04-01] MEDS: VANCOMYCIN 250 MG/5 ML ORAL SOLUTION GT SCH ×4 (02:22→17:15)
[2022-04-01] MEDS: VANCOMYCIN/WATER FOR INJ (PEG) 1,000 MG/200 ML BAG IVPB SCH ×3 (03:50→22:24)
[2022-04-01] MEDS: BANATROL PLUS POWDER PACKET GT SCH ×3 (06:35→22:23)
[2022-04-01] MEDS: AMINO ACIDS/PROTEIN HYDROLYS 30 ML LIQUID.PKT PEG SCH (09:09)
[2022-04-01] MEDS: MIDODRINE HCL 2.5 MG TABLET GT SCH ×3 (09:09→17:15)
[2022-04-01] MEDS: METOPROLOL TARTRATE 25 MG TABLET (FP) GT SCH ×2 (09:09→22:23)
[2022-04-01] MEDS: LIDOCAINE 5% TOPICAL PATCH TP SCH (09:10)
[2022-04-01] MEDS: MULTIVIT-MINERALS ORAL LIQUID GT SCH (09:13)
[2022-04-01] MEDS: CYANOCOBALAMIN (VITAMIN B-12) 100 MCG TABLET GT SCH (09:13)
[2022-04-01] MEDS: FERROUS SULFATE 220 MG/5 ML ELIXIR GT SCH (09:14)
[2022-04-01] MEDS: CHOLECALCIFEROL (VIT D SOLUTION) 400 UNIT/1 ML DROPS PEG SCH (09:14)
[2022-04-01] MEDS: FAMOTIDINE 40 MG/5 ML ORAL SUSPENSION PEG SCH (09:14)
[2022-04-01] MEDS: ZINC OXIDE 20% TOPICAL OINTMENT 30 GM TUBE TP SCH ×4 (09:16→22:25)
[2022-04-01] MEDS: ASCORBIC ACID 500 MG TABLET (FP) GT SCH (09:21)
[2022-04-01 10:45] LABS: HEMATOCRIT 28.5 % (32.4-45.2); HEMOGLOBIN 9.2 GM/dL (10.7-15.3); MCH 29.1 pg (25.7-33.7); MCHC 32.2 g/dl (32.0-36.0); MEAN CELL VOLUME 90.4 fl (80-96); MEAN PLT VOLUME 6.8 fl (7.5-11.1); PLATELET COUNT 396 10^3/uL (134-434); RBC 3.16 M/mm3 (3.60-5.2); RDW 18.1 % (11.6-15.6); WHITE BLOOD COUNT 10.8 K/mm3 (4.0-10.0)
[2022-04-01] MEDS: oxyCODONE HCL 5 MG TABLET GT PRN ×2 (10:59→15:12)
[2022-04-01 11:22] LABS: ALBUMIN 1.8 g/dl (3.4-5.0); BLOOD UREA NITROGEN 53.5 mg/dL (7-18); CALCIUM 9.7 mg/dL (8.5-10.1); MAGNESIUM 2.7 mg/dL (1.8-2.4)
[2022-04-01 11:25] LABS: PHOSPHOROUS 2.8 mg/dL (2.5-4.9)
[2022-04-01 11:27] LABS: BILIRUBIN,TOTAL 0.6 mg/dL (0.2-1); TOT PROT 5.5 g/dl (6.4-8.2)
[2022-04-01 11:47] LABS: ANISOCYTOSIS 0; HELMET CELLS 0; HOWELL-JOLLY BODIES 0; MACROCYTOSIS 0; OVALOCYTE 0; ROULEAU 0; SICKELED CELLS 0; TARGET CELLS 0; TEAR DROP CELLS 0; TOXIC GRANULATION 0
[2022-04-01] MEDS: COLLAGENASE CLOSTRIDIUM HIST. 30 GRAMS TUBE TP SCH (12:16)
[2022-04-01] MEDS: BACITRACIN 15 GM TUBE TOPICAL OINTMENT TP SCH (12:16)
[2022-04-01] MEDS: SODIUM HYPOCHLORITE 0.25%- 473 ML BULK BOTTLE TP SCH (12:16)
[2022-04-01] MEDS: ACETAMINOPHEN 650 MG/20.3 ML ORAL SOLUTION (CUPS) GT PRN (12:39)
[2022-04-01] MEDS: ATORVASTATIN CA 80 MG TABLET (FP) GT SCH (22:23)
[2022-04-01] MEDS: LIDOCAINE PATCH REMOVAL MC SCH (22:24)
[2022-04-01] MEDS: LACTOBACILLUS ACIDOPHILUS 1 TABLET PO SCH (22:24)
[2022-04-01] MEDS: QUEtiapine FUMARATE 25 MG TABLET GT SCH (22:24)
[2022-04-02] MEDS: VANCOMYCIN 250 MG/5 ML ORAL SOLUTION GT SCH ×5 (00:22→23:12)
[2022-04-02] MEDS: MEROPENEM 1 GM in DEXTROSE 5%-WATER 100 ML IVPB SCH ×3 (01:16→17:50)
[2022-04-02] MEDS: BANATROL PLUS POWDER PACKET GT SCH ×3 (05:06→22:33)
[2022-04-02] MEDS: LIDOCAINE 5% TOPICAL PATCH TP SCH (10:23)
[2022-04-02] MEDS: oxyCODONE HCL 5 MG TABLET GT PRN ×2 (10:23→23:11)
[2022-04-02] MEDS: MULTIVIT-MINERALS ORAL LIQUID GT SCH (10:24)
[2022-04-02] MEDS: FAMOTIDINE 40 MG/5 ML ORAL SUSPENSION PEG SCH (10:25)
[2022-04-02] MEDS: CHOLECALCIFEROL (VIT D SOLUTION) 400 UNIT/1 ML DROPS PEG SCH (10:25)
[2022-04-02] MEDS: METOPROLOL TARTRATE 25 MG TABLET (FP) GT SCH ×3 (10:26→22:33)
[2022-04-02] MEDS: FERROUS SULFATE 220 MG/5 ML ELIXIR GT SCH (10:26)
[2022-04-02] MEDS: MIDODRINE HCL 2.5 MG TABLET GT SCH ×3 (10:26→17:50)
[2022-04-02] MEDS: ASPIRIN 81 MG CHEWABLE TABLETS GT SCH (10:26)
[2022-04-02] MEDS: ASCORBIC ACID 500 MG TABLET (FP) GT SCH (10:26)
[2022-04-02] MEDS: AMINO ACIDS/PROTEIN HYDROLYS 30 ML LIQUID.PKT PEG SCH (10:26)
[2022-04-02] MEDS: CYANOCOBALAMIN (VITAMIN B-12) 100 MCG TABLET GT SCH (10:26)
[2022-04-02] MEDS: ZINC OXIDE 20% TOPICAL OINTMENT 30 GM TUBE TP SCH ×4 (10:30→22:34)
[2022-04-02] MEDS: BACITRACIN 15 GM TUBE TOPICAL OINTMENT TP SCH (10:45)
[2022-04-02 10:54] LABS: HEMATOCRIT 26.5 % (32.4-45.2); HEMOGLOBIN 8.5 GM/dL (10.7-15.3); MCH 29.1 pg (25.7-33.7); MCHC 32.2 g/dl (32.0-36.0); MEAN CELL VOLUME 90.6 fl (80-96); MEAN PLT VOLUME 6.8 fl (7.5-11.1); PLATELET COUNT 377 10^3/uL (134-434); RBC 2.93 M/mm3 (3.60-5.2); RDW 18.3 % (11.6-15.6); WHITE BLOOD COUNT 9.4 K/mm3 (4.0-10.0)
[2022-04-02 11:26] LABS: CALCIUM 9.3 mg/dL (8.5-10.1)
[2022-04-02 11:27] LABS: ALBUMIN 1.8 g/dl (3.4-5.0); BLOOD UREA NITROGEN 53.1 mg/dL (7-18); MAGNESIUM 2.6 mg/dL (1.8-2.4)
[2022-04-02 11:30] LABS: CREATININE 1.1 mg/dL (0.55-1.3); PHOSPHOROUS 2.3 mg/dL (2.5-4.9)
[2022-04-02 11:32] LABS: BILIRUBIN,TOTAL 0.4 mg/dL (0.2-1); TOT PROT 5.4 g/dl (6.4-8.2)
[2022-04-02] MEDS: SODIUM HYPOCHLORITE 0.25%- 473 ML BULK BOTTLE TP SCH (12:30)
[2022-04-02] MEDS: COLLAGENASE CLOSTRIDIUM HIST. 30 GRAMS TUBE TP SCH (12:30)
[2022-04-02] MEDS: VANCOMYCIN/WATER FOR INJ (PEG) 1,000 MG/200 ML BAG IVPB SCH ×2 (12:40→22:33)
[2022-04-02] MEDS: ATORVASTATIN CA 80 MG TABLET (FP) GT SCH (22:33)
[2022-04-02] MEDS: QUEtiapine FUMARATE 25 MG TABLET GT SCH (22:33)
[2022-04-02] MEDS: LACTOBACILLUS ACIDOPHILUS 1 TABLET PO SCH (22:34)
[2022-04-02] MEDS: LIDOCAINE PATCH REMOVAL MC SCH (22:34)
[2022-04-03] MEDS: MEROPENEM 1 GM in DEXTROSE 5%-WATER 100 ML IVPB SCH ×3 (02:09→18:21)
[2022-04-03] MEDS: BANATROL PLUS POWDER PACKET GT SCH ×3 (05:28→23:18)
[2022-04-03] MEDS: VANCOMYCIN 250 MG/5 ML ORAL SOLUTION GT SCH ×4 (05:28→23:18)
[2022-04-03] MEDS: AMINO ACIDS/PROTEIN HYDROLYS 30 ML LIQUID.PKT PEG SCH (08:40)
[2022-04-03] MEDS: LIDOCAINE 5% TOPICAL PATCH TP SCH (10:38)
[2022-04-03] MEDS: MIDODRINE HCL 2.5 MG TABLET GT SCH ×3 (10:40→18:21)
[2022-04-03] MEDS: oxyCODONE HCL 5 MG TABLET GT PRN (10:40)
[2022-04-03] MEDS: CYANOCOBALAMIN (VITAMIN B-12) 100 MCG TABLET GT SCH (10:40)
[2022-04-03] MEDS: ASCORBIC ACID 500 MG TABLET (FP) GT SCH (10:40)
[2022-04-03] MEDS: ASPIRIN 81 MG CHEWABLE TABLETS GT SCH (10:40)
[2022-04-03] MEDS: FAMOTIDINE 40 MG/5 ML ORAL SUSPENSION PEG SCH (10:41)
[2022-04-03] MEDS: CHOLECALCIFEROL (VIT D SOLUTION) 400 UNIT/1 ML DROPS PEG SCH (10:41)
[2022-04-03] MEDS: BACITRACIN 15 GM TUBE TOPICAL OINTMENT TP SCH (10:42)
[2022-04-03] MEDS: MULTIVIT-MINERALS ORAL LIQUID GT SCH (10:42)
[2022-04-03] MEDS: ZINC OXIDE 20% TOPICAL OINTMENT 30 GM TUBE TP SCH ×4 (10:42→23:18)
[2022-04-03] MEDS: FERROUS SULFATE 220 MG/5 ML ELIXIR GT SCH (10:42)
[2022-04-03] MEDS: ACETAMINOPHEN 650 MG/20.3 ML ORAL SOLUTION (CUPS) GT PRN (10:55)
[2022-04-03] MEDS: METOPROLOL TARTRATE 25 MG TABLET (FP) GT SCH ×2 (11:30→23:17)
[2022-04-03] MEDS: VANCOMYCIN/WATER FOR INJ (PEG) 1,000 MG/200 ML BAG IVPB SCH ×2 (12:45→23:18)
[2022-04-03] MEDS: SODIUM HYPOCHLORITE 0.25%- 473 ML BULK BOTTLE TP SCH (15:30)
[2022-04-03] MEDS: COLLAGENASE CLOSTRIDIUM HIST. 30 GRAMS TUBE TP SCH (15:30)
[2022-04-03] MEDS: ATORVASTATIN CA 80 MG TABLET (FP) GT SCH (23:16)
[2022-04-03] MEDS: QUEtiapine FUMARATE 25 MG TABLET GT SCH (23:17)
[2022-04-03] MEDS: LACTOBACILLUS ACIDOPHILUS 1 TABLET PO SCH (23:17)
[2022-04-03] MEDS: LIDOCAINE PATCH REMOVAL MC SCH (23:18)
[2022-04-04] MEDS: MEROPENEM 1 GM in DEXTROSE 5%-WATER 100 ML IVPB SCH ×3 (02:46→18:21)
[2022-04-04] MEDS: BANATROL PLUS POWDER PACKET GT SCH ×3 (06:14→23:57)
[2022-04-04] MEDS: oxyCODONE HCL 5 MG TABLET GT PRN (06:15)
[2022-04-04] MEDS: VANCOMYCIN 250 MG/5 ML ORAL SOLUTION GT SCH ×3 (06:15→18:22)
[2022-04-04 09:39] LABS: HEMATOCRIT 26.7 % (32.4-45.2); HEMOGLOBIN 8.7 GM/dL (10.7-15.3); MCH 29.3 pg (25.7-33.7); MCHC 32.7 g/dl (32.0-36.0); MEAN CELL VOLUME 89.7 fl (80-96); PLATELET COUNT 402 10^3/uL (134-434); RBC 2.97 M/mm3 (3.60-5.2); RDW 17.8 % (11.6-15.6); WHITE BLOOD COUNT 10.2 K/mm3 (4.0-10.0)
[2022-04-04 10:22] LABS: BLOOD UREA NITROGEN 44.9 mg/dL (7-18)
[2022-04-04 10:24] LABS: CALCIUM 9.4 mg/dL (8.5-10.1); MAGNESIUM 2.6 mg/dL (1.8-2.4)
[2022-04-04 10:25] LABS: CREATININE 0.8 mg/dL (0.55-1.3); PHOSPHOROUS 2.9 mg/dL (2.5-4.9)
[2022-04-04] MEDS: LIDOCAINE 5% TOPICAL PATCH TP SCH (11:37)
[2022-04-04] MEDS: FAMOTIDINE 40 MG/5 ML ORAL SUSPENSION PEG SCH (11:38)
[2022-04-04] MEDS: CHOLECALCIFEROL (VIT D SOLUTION) 400 UNIT/1 ML DROPS PEG SCH (11:38)
[2022-04-04] MEDS: MULTIVIT-MINERALS ORAL LIQUID GT SCH (11:38)
[2022-04-04] MEDS: AMINO ACIDS/PROTEIN HYDROLYS 30 ML LIQUID.PKT PEG SCH (11:38)
[2022-04-04] MEDS: CYANOCOBALAMIN (VITAMIN B-12) 100 MCG TABLET GT SCH (11:39)
[2022-04-04] MEDS: ASPIRIN 81 MG CHEWABLE TABLETS GT SCH (11:39)
[2022-04-04] MEDS: ASCORBIC ACID 500 MG TABLET (FP) GT SCH (11:39)
[2022-04-04] MEDS: MIDODRINE HCL 2.5 MG TABLET GT SCH ×3 (11:40→18:22)
[2022-04-04] MEDS: BACITRACIN 15 GM TUBE TOPICAL OINTMENT TP SCH (11:41)
[2022-04-04] MEDS: METOPROLOL TARTRATE 25 MG TABLET (FP) GT SCH ×2 (11:41→23:58)
[2022-04-04] MEDS: SODIUM HYPOCHLORITE 0.25%- 473 ML BULK BOTTLE TP SCH (11:42)
[2022-04-04] MEDS: COLLAGENASE CLOSTRIDIUM HIST. 30 GRAMS TUBE TP SCH (11:42)
[2022-04-04] MEDS: ZINC OXIDE 20% TOPICAL OINTMENT 30 GM TUBE TP SCH ×4 (11:43→23:59)
[2022-04-04] MEDS: VANCOMYCIN/WATER FOR INJ (PEG) 1,000 MG/200 ML BAG IVPB SCH ×2 (12:42→23:59)
[2022-04-04] MEDS: FERROUS SULFATE 220 MG/5 ML ELIXIR GT SCH (15:15)
[2022-04-04] MEDS: LACTOBACILLUS ACIDOPHILUS 1 TABLET PO SCH (23:57)
[2022-04-04] MEDS: LIDOCAINE PATCH REMOVAL MC SCH (23:58)
[2022-04-04] MEDS: ATORVASTATIN CA 80 MG TABLET (FP) GT SCH (23:58)
[2022-04-04] MEDS: QUEtiapine FUMARATE 25 MG TABLET GT SCH (23:58)
[2022-04-05] MEDS: MEROPENEM 1 GM in DEXTROSE 5%-WATER 100 ML IVPB SCH ×3 (02:02→17:16)
[2022-04-05] MEDS: BANATROL PLUS POWDER PACKET GT SCH ×3 (05:48→21:22)
[2022-04-05] MEDS: VANCOMYCIN 250 MG/5 ML ORAL SOLUTION GT SCH ×4 (05:48→17:17)
[2022-04-05] MEDS: oxyCODONE HCL 5 MG TABLET GT PRN ×4 (05:48→16:20)
[2022-04-05 08:51] LABS: HEMOGLOBIN 8.2 GM/dL (10.7-15.3); MCH 29.6 pg (25.7-33.7); MCHC 32.8 g/dl (32.0-36.0); MEAN CELL VOLUME 90.3 fl (80-96); MEAN PLT VOLUME 6.8 fl (7.5-11.1); PLATELET COUNT 384 10^3/uL (134-434); RBC 2.77 M/mm3 (3.60-5.2); WHITE BLOOD COUNT 10.5 K/mm3 (4.0-10.0)
[2022-04-05] MEDS: AMINO ACIDS/PROTEIN HYDROLYS 30 ML LIQUID.PKT PEG SCH (11:44)
[2022-04-05] MEDS: LIDOCAINE 5% TOPICAL PATCH TP SCH (11:44)
[2022-04-05] MEDS: FAMOTIDINE 40 MG/5 ML ORAL SUSPENSION PEG SCH (11:45)
[2022-04-05] MEDS: ASPIRIN 81 MG CHEWABLE TABLETS GT SCH (11:45)
[2022-04-05] MEDS: FERROUS SULFATE 220 MG/5 ML ELIXIR GT SCH (11:45)
[2022-04-05] MEDS: ASCORBIC ACID 500 MG TABLET (FP) GT SCH (11:45)
[2022-04-05] MEDS: CHOLECALCIFEROL (VIT D SOLUTION) 400 UNIT/1 ML DROPS PEG SCH (11:45)
[2022-04-05] MEDS: MIDODRINE HCL 2.5 MG TABLET GT SCH ×4 (11:45→18:59)
[2022-04-05] MEDS: BACITRACIN 15 GM TUBE TOPICAL OINTMENT TP SCH (11:46)
[2022-04-05] MEDS: MULTIVIT-MINERALS ORAL LIQUID GT SCH (11:46)
[2022-04-05] MEDS: COLLAGENASE CLOSTRIDIUM HIST. 30 GRAMS TUBE TP SCH (11:47)
[2022-04-05] MEDS: CYANOCOBALAMIN (VITAMIN B-12) 100 MCG TABLET GT SCH (11:47)
[2022-04-05] MEDS: SODIUM HYPOCHLORITE 0.25%- 473 ML BULK BOTTLE TP SCH (11:47)
[2022-04-05] MEDS: ZINC OXIDE 20% TOPICAL OINTMENT 30 GM TUBE TP SCH ×4 (11:47→21:23)
[2022-04-05] MEDS: FLUTICASONE PROP 0.05% 16 GM NASAL SPRAY NS PRN (11:49)
[2022-04-05 12:24] LABS: CALCIUM 9.3 mg/dL (8.5-10.1)
[2022-04-05 12:25] LABS: ALBUMIN 1.8 g/dl (3.4-5.0)
[2022-04-05 12:28] LABS: CREATININE 0.8 mg/dL (0.55-1.3)
[2022-04-05 12:29] LABS: BILIRUBIN,TOTAL 0.6 mg/dL (0.2-1)
[2022-04-05] MEDS: METOPROLOL TARTRATE 25 MG TABLET (FP) GT SCH ×2 (13:35→21:22)
[2022-04-05] MEDS: VANCOMYCIN/WATER FOR INJ (PEG) 1,000 MG/200 ML BAG IVPB SCH (14:39)
[2022-04-05] MEDS ORDERED: ALPRAZolam 0.25 MG TABLET GT ONE (16:50)
[2022-04-05] MEDS: LACTOBACILLUS ACIDOPHILUS 1 TABLET PO SCH (21:21)
[2022-04-05] MEDS: LIDOCAINE PATCH REMOVAL MC SCH (21:22)
[2022-04-05] MEDS: ATORVASTATIN CA 80 MG TABLET (FP) GT SCH (21:22)
[2022-04-05] MEDS: QUEtiapine FUMARATE 25 MG TABLET GT SCH (21:23)
[2022-04-06] MEDS: VANCOMYCIN 250 MG/5 ML ORAL SOLUTION GT SCH ×4 (00:18→18:11)
[2022-04-06] MEDS: MEROPENEM 1 GM in DEXTROSE 5%-WATER 100 ML IVPB SCH ×3 (01:42→18:10)
[2022-04-06] MEDS: BANATROL PLUS POWDER PACKET GT SCH ×3 (06:24→21:05)
[2022-04-06 10:08] LABS: HEMATOCRIT 25.3 % (32.4-45.2); HEMOGLOBIN 8.3 GM/dL (10.7-15.3); MCH 29.4 pg (25.7-33.7); MCHC 32.7 g/dl (32.0-36.0); MEAN CELL VOLUME 89.8 fl (80-96); MEAN PLT VOLUME 6.9 fl (7.5-11.1); PLATELET COUNT 414 10^3/uL (134-434); RBC 2.82 M/mm3 (3.60-5.2); RDW 17.9 % (11.6-15.6); WHITE BLOOD COUNT 8.9 K/mm3 (4.0-10.0)
[2022-04-06 10:38] LABS: BLOOD UREA NITROGEN 46.2 mg/dL (7-18); CALCIUM 9.9 mg/dL (8.5-10.1); MAGNESIUM 2.8 mg/dL (1.8-2.4)
[2022-04-06 10:39] LABS: ALBUMIN 1.9 g/dl (3.4-5.0)
[2022-04-06 10:41] LABS: PHOSPHOROUS 3.3 mg/dL (2.5-4.9)
[2022-04-06 10:42] LABS: CREATININE 0.9 mg/dL (0.55-1.3)
[2022-04-06 10:43] LABS: BILIRUBIN,TOTAL 0.4 mg/dL (0.2-1); TOT PROT 5.6 g/dl (6.4-8.2)
[2022-04-06 10:49] LABS: ANISOCYTOSIS 1+; MACROCYTOSIS 0
[2022-04-06] MEDS: LIDOCAINE 5% TOPICAL PATCH TP SCH (11:01)
[2022-04-06] MEDS: AMINO ACIDS/PROTEIN HYDROLYS 30 ML LIQUID.PKT PEG SCH (11:02)
[2022-04-06] MEDS: MIDODRINE HCL 2.5 MG TABLET GT SCH ×3 (11:03→19:33)
[2022-04-06] MEDS: ASCORBIC ACID 500 MG TABLET (FP) GT SCH (11:03)
[2022-04-06] MEDS: METOPROLOL TARTRATE 25 MG TABLET (FP) GT SCH ×2 (11:03→21:06)
[2022-04-06] MEDS: ASPIRIN 81 MG CHEWABLE TABLETS GT SCH (11:03)
[2022-04-06] MEDS: FAMOTIDINE 40 MG/5 ML ORAL SUSPENSION PEG SCH (11:04)
[2022-04-06] MEDS: CHOLECALCIFEROL (VIT D SOLUTION) 400 UNIT/1 ML DROPS PEG SCH (11:04)
[2022-04-06] MEDS: FERROUS SULFATE 220 MG/5 ML ELIXIR GT SCH (11:04)
[2022-04-06] MEDS: COLLAGENASE CLOSTRIDIUM HIST. 30 GRAMS TUBE TP SCH (11:05)
[2022-04-06] MEDS: SODIUM HYPOCHLORITE 0.25%- 473 ML BULK BOTTLE TP SCH (11:05)
[2022-04-06] MEDS: BACITRACIN 15 GM TUBE TOPICAL OINTMENT TP SCH (11:06)
[2022-04-06] MEDS: MULTIVIT-MINERALS ORAL LIQUID GT SCH (11:06)
[2022-04-06] MEDS: CYANOCOBALAMIN (VITAMIN B-12) 100 MCG TABLET GT SCH (11:07)
[2022-04-06] MEDS: ZINC OXIDE 20% TOPICAL OINTMENT 30 GM TUBE TP SCH ×4 (11:07→21:10)
[2022-04-06] MEDS ORDERED: SODIUM CHLORIDE 0.45% 1,000 ML IV SCH (13:45)
[2022-04-06] MEDS: LACTOBACILLUS ACIDOPHILUS 1 TABLET PO SCH (21:05)
[2022-04-06] MEDS: ATORVASTATIN CA 80 MG TABLET (FP) GT SCH (21:06)
[2022-04-06] MEDS: LIDOCAINE PATCH REMOVAL MC SCH (21:06)
[2022-04-06] MEDS: QUEtiapine FUMARATE 25 MG TABLET GT SCH (21:10)
[2022-04-07] MEDS: VANCOMYCIN 250 MG/5 ML ORAL SOLUTION GT SCH ×4 (00:49→17:06)
[2022-04-07] MEDS: MEROPENEM 1 GM in DEXTROSE 5%-WATER 100 ML IVPB SCH ×3 (01:56→17:05)
[2022-04-07] MEDS: BANATROL PLUS POWDER PACKET GT SCH ×3 (05:42→22:03)
[2022-04-07] MEDS: oxyCODONE HCL 5 MG TABLET GT PRN ×2 (08:50→15:50)
[2022-04-07] MEDS: AMINO ACIDS/PROTEIN HYDROLYS 30 ML LIQUID.PKT PEG SCH (08:51)
[2022-04-07] MEDS: LIDOCAINE 5% TOPICAL PATCH TP SCH (09:20)
[2022-04-07] MEDS: METOPROLOL TARTRATE 25 MG TABLET (FP) GT SCH ×2 (09:21→23:24)
[2022-04-07] MEDS: MIDODRINE HCL 2.5 MG TABLET GT SCH ×3 (09:21→17:04)
[2022-04-07] MEDS: CHOLECALCIFEROL (VIT D SOLUTION) 400 UNIT/1 ML DROPS PEG SCH (09:22)
[2022-04-07] MEDS: FERROUS SULFATE 220 MG/5 ML ELIXIR GT SCH (09:22)
[2022-04-07] MEDS: CYANOCOBALAMIN (VITAMIN B-12) 100 MCG TABLET GT SCH (09:22)
[2022-04-07] MEDS: ASCORBIC ACID 500 MG TABLET (FP) GT SCH (09:22)
[2022-04-07] MEDS: MULTIVIT-MINERALS ORAL LIQUID GT SCH (09:23)
[2022-04-07] MEDS: FAMOTIDINE 40 MG/5 ML ORAL SUSPENSION PEG SCH (09:23)
[2022-04-07] MEDS: ZINC OXIDE 20% TOPICAL OINTMENT 30 GM TUBE TP SCH ×4 (09:35→22:03)
[2022-04-07] MEDS: BACITRACIN 15 GM TUBE TOPICAL OINTMENT TP SCH (09:36)
[2022-04-07 10:39] LABS: HEMATOCRIT 25.8 % (32.4-45.2); HEMOGLOBIN 8.5 GM/dL (10.7-15.3); MCH 29.3 pg (25.7-33.7); MCHC 32.9 g/dl (32.0-36.0); MEAN CELL VOLUME 89.1 fl (80-96); MEAN PLT VOLUME 7.1 fl (7.5-11.1); PLATELET COUNT 445 10^3/uL (134-434); RDW 17.8 % (11.6-15.6); WHITE BLOOD COUNT 10.5 K/mm3 (4.0-10.0)
[2022-04-07 11:24] LABS: CALCIUM 9.4 mg/dL (8.5-10.1)
[2022-04-07 11:25] LABS: BLOOD UREA NITROGEN 47.9 mg/dL (7-18); MAGNESIUM 2.6 mg/dL (1.8-2.4)
[2022-04-07 11:28] LABS: CREATININE 0.9 mg/dL (0.55-1.3)
[2022-04-07] MEDS ORDERED: SODIUM CHLORIDE 1,000 ML IV SCH (13:00)
[2022-04-07] MEDS: SODIUM HYPOCHLORITE 0.25%- 473 ML BULK BOTTLE TP SCH (14:41)
[2022-04-07] MEDS: COLLAGENASE CLOSTRIDIUM HIST. 30 GRAMS TUBE TP SCH (14:42)
[2022-04-07] MEDS: DULoxetine HCL 20 MG CAPSULE.DR PO SCH (17:37)
[2022-04-07] MEDS: LIDOCAINE PATCH REMOVAL MC SCH (22:03)
[2022-04-07] MEDS: QUEtiapine FUMARATE 25 MG TABLET GT SCH (22:03)
[2022-04-07] MEDS: LACTOBACILLUS ACIDOPHILUS 1 TABLET PO SCH (22:03)
[2022-04-07] MEDS: ATORVASTATIN CA 80 MG TABLET (FP) GT SCH (22:03)
[2022-04-08] MEDS: VANCOMYCIN 250 MG/5 ML ORAL SOLUTION GT SCH ×4 (01:02→17:23)
[2022-04-08] MEDS: oxyCODONE HCL 5 MG TABLET GT PRN ×2 (01:09→06:24)
[2022-04-08] MEDS: MEROPENEM 1 GM in DEXTROSE 5%-WATER 100 ML IVPB SCH ×3 (01:09→17:19)
[2022-04-08] MEDS: BANATROL PLUS POWDER PACKET GT SCH ×3 (05:06→21:54)
[2022-04-08] MEDS: MULTIVIT-MINERALS ORAL LIQUID GT SCH (09:50)
[2022-04-08] MEDS: CYANOCOBALAMIN (VITAMIN B-12) 100 MCG TABLET GT SCH (09:50)
[2022-04-08] MEDS: LIDOCAINE 5% TOPICAL PATCH TP SCH (09:50)
[2022-04-08] MEDS: CHOLECALCIFEROL (VIT D SOLUTION) 400 UNIT/1 ML DROPS PEG SCH (09:50)
[2022-04-08] MEDS: DULoxetine HCL 20 MG CAPSULE.DR PO SCH (09:50)
[2022-04-08] MEDS: FAMOTIDINE 40 MG/5 ML ORAL SUSPENSION PEG SCH (09:51)
[2022-04-08] MEDS: AMINO ACIDS/PROTEIN HYDROLYS 30 ML LIQUID.PKT PEG SCH (09:51)
[2022-04-08] MEDS: ASCORBIC ACID 500 MG TABLET (FP) GT SCH (09:52)
[2022-04-08] MEDS: MIDODRINE HCL 2.5 MG TABLET GT SCH ×3 (09:52→17:19)
[2022-04-08] MEDS: METOPROLOL TARTRATE 25 MG TABLET (FP) GT SCH ×2 (09:52→21:55)
[2022-04-08] MEDS: SODIUM HYPOCHLORITE 0.25%- 473 ML BULK BOTTLE TP SCH (09:53)
[2022-04-08] MEDS: BACITRACIN 15 GM TUBE TOPICAL OINTMENT TP SCH (09:53)
[2022-04-08] MEDS: FERROUS SULFATE 220 MG/5 ML ELIXIR GT SCH (09:54)
[2022-04-08] MEDS: ZINC OXIDE 20% TOPICAL OINTMENT 30 GM TUBE TP SCH ×4 (09:55→22:05)
[2022-04-08] MEDS: COLLAGENASE CLOSTRIDIUM HIST. 30 GRAMS TUBE TP SCH (09:55)
[2022-04-08 10:10] LABS: HEMATOCRIT 25.3 % (32.4-45.2); HEMOGLOBIN 8.5 GM/dL (10.7-15.3); MCHC 33.4 g/dl (32.0-36.0); MEAN CELL VOLUME 89.7 fl (80-96); MEAN PLT VOLUME 6.7 fl (7.5-11.1); PLATELET COUNT 415 10^3/uL (134-434); RBC 2.82 M/mm3 (3.60-5.2); WHITE BLOOD COUNT 10.3 K/mm3 (4.0-10.0)
[2022-04-08 10:51] LABS: ALBUMIN 1.9 g/dl (3.4-5.0); CALCIUM 9.5 mg/dL (8.5-10.1)
[2022-04-08 10:52] LABS: BLOOD UREA NITROGEN 41.8 mg/dL (7-18); MAGNESIUM 2.7 mg/dL (1.8-2.4)
[2022-04-08 10:55] LABS: BILIRUBIN,TOTAL 0.6 mg/dL (0.2-1); CREATININE 0.9 mg/dL (0.55-1.3); PHOSPHOROUS 3.2 mg/dL (2.5-4.9)
[2022-04-08 10:56] LABS: TOT PROT 5.6 g/dl (6.4-8.2)
[2022-04-08] MEDS: ACETAMINOPHEN 650 MG/20.3 ML ORAL SOLUTION (CUPS) GT PRN (12:37)
[2022-04-08] MEDS ORDERED: diazePAM 5 MG TABLET PEG PRN (13:21)
[2022-04-08] MEDS: LACTOBACILLUS ACIDOPHILUS 1 TABLET PO SCH (21:54)
[2022-04-08] MEDS: LIDOCAINE PATCH REMOVAL MC SCH (21:55)
[2022-04-08] MEDS: QUEtiapine FUMARATE 25 MG TABLET GT SCH (21:55)
[2022-04-08] MEDS: ATORVASTATIN CA 80 MG TABLET (FP) GT SCH (21:55)
[2022-04-09] MEDS: VANCOMYCIN 250 MG/5 ML ORAL SOLUTION GT SCH ×4 (00:45→18:04)
[2022-04-09] MEDS: MEROPENEM 1 GM in DEXTROSE 5%-WATER 100 ML IVPB SCH ×3 (01:21→18:02)
[2022-04-09] MEDS: BANATROL PLUS POWDER PACKET GT SCH ×2 (05:18→13:16)
[2022-04-09] MEDS: LIDOCAINE 5% TOPICAL PATCH TP SCH (10:22)
[2022-04-09] MEDS: AMINO ACIDS/PROTEIN HYDROLYS 30 ML LIQUID.PKT PEG SCH (10:22)
[2022-04-09] MEDS: CHOLECALCIFEROL (VIT D SOLUTION) 400 UNIT/1 ML DROPS PEG SCH (10:23)
[2022-04-09] MEDS: FAMOTIDINE 40 MG/5 ML ORAL SUSPENSION PEG SCH (10:23)
[2022-04-09] MEDS: FERROUS SULFATE 220 MG/5 ML ELIXIR GT SCH (10:23)
[2022-04-09] MEDS: ASCORBIC ACID 500 MG TABLET (FP) GT SCH (10:24)
[2022-04-09] MEDS: MIDODRINE HCL 2.5 MG TABLET GT SCH ×3 (10:24→18:02)
[2022-04-09] MEDS: MULTIVIT-MINERALS ORAL LIQUID GT SCH (10:25)
[2022-04-09] MEDS: BACITRACIN 15 GM TUBE TOPICAL OINTMENT TP SCH (10:26)
[2022-04-09] MEDS: SODIUM HYPOCHLORITE 0.25%- 473 ML BULK BOTTLE TP SCH (10:26)
[2022-04-09] MEDS: DULoxetine HCL 20 MG CAPSULE.DR PO SCH (10:26)
[2022-04-09] MEDS: METOPROLOL TARTRATE 25 MG TABLET (FP) GT SCH (10:28)
[2022-04-09] MEDS: COLLAGENASE CLOSTRIDIUM HIST. 30 GRAMS TUBE TP SCH (10:29)
[2022-04-09] MEDS: CYANOCOBALAMIN (VITAMIN B-12) 100 MCG TABLET GT SCH (10:30)
[2022-04-09] MEDS: ZINC OXIDE 20% TOPICAL OINTMENT 30 GM TUBE TP SCH ×3 (10:30→18:03)
[2022-04-09] MEDS: ACETAMINOPHEN 650 MG/20.3 ML ORAL SOLUTION (CUPS) GT PRN (18:01)
[2022-04-10] MEDS: LACTOBACILLUS ACIDOPHILUS 1 TABLET PO SCH ×2 (00:37→21:19)
[2022-04-10] MEDS: ATORVASTATIN CA 80 MG TABLET (FP) GT SCH ×2 (00:38→21:20)
[2022-04-10] MEDS: LIDOCAINE PATCH REMOVAL MC SCH ×2 (00:38→21:20)
[2022-04-10] MEDS: QUEtiapine FUMARATE 25 MG TABLET GT SCH ×2 (00:38→21:22)
[2022-04-10] MEDS: BANATROL PLUS POWDER PACKET GT SCH ×5 (00:38→21:19)
[2022-04-10] MEDS: ZINC OXIDE 20% TOPICAL OINTMENT 30 GM TUBE TP SCH ×5 (00:39→23:02)
[2022-04-10] MEDS: VANCOMYCIN 250 MG/5 ML ORAL SOLUTION GT SCH ×5 (00:39→17:07)
[2022-04-10] MEDS: METOPROLOL TARTRATE 25 MG TABLET (FP) GT SCH ×3 (00:39→21:20)
[2022-04-10] MEDS: MEROPENEM 1 GM in DEXTROSE 5%-WATER 100 ML IVPB SCH ×3 (02:10→17:06)
[2022-04-10] MEDS: AMINO ACIDS/PROTEIN HYDROLYS 30 ML LIQUID.PKT PEG SCH (09:27)
[2022-04-10] MEDS: FAMOTIDINE 40 MG/5 ML ORAL SUSPENSION PEG SCH (09:28)
[2022-04-10] MEDS: MULTIVIT-MINERALS ORAL LIQUID GT SCH (09:28)
[2022-04-10] MEDS: DULoxetine HCL 20 MG CAPSULE.DR PO SCH (09:28)
[2022-04-10] MEDS: FERROUS SULFATE 220 MG/5 ML ELIXIR GT SCH (09:28)
[2022-04-10] MEDS: MIDODRINE HCL 2.5 MG TABLET GT SCH ×3 (09:28→17:06)
[2022-04-10] MEDS: CHOLECALCIFEROL (VIT D SOLUTION) 400 UNIT/1 ML DROPS PEG SCH (09:29)
[2022-04-10] MEDS: CYANOCOBALAMIN (VITAMIN B-12) 100 MCG TABLET GT SCH (09:29)
[2022-04-10] MEDS: ASCORBIC ACID 500 MG TABLET (FP) GT SCH (09:29)
[2022-04-10 10:11] LABS: BASO % 0.5 % (0-2.0); HEMATOCRIT 23.5 % (32.4-45.2); HEMOGLOBIN 7.9 GM/dL (10.7-15.3); INR 1.12 (0.83-1.09); LYMPH % 10.6 % (8-40); MCH 30.2 pg (25.7-33.7); MCHC 33.7 g/dl (32.0-36.0); MEAN CELL VOLUME 89.6 fl (80-96); MONO % 6.1 % (3.8-10.2); NEUT % 78.8 % (42.8-82.8); PLATELET COUNT 447 10^3/uL (134-434); PROTHROMBIN TIME (PATIENT) 12.9 SEC (9.7-13.0); RBC 2.62 M/mm3 (3.60-5.2); RDW 17.6 % (11.6-15.6); WHITE BLOOD COUNT 8.5 K/mm3 (4.0-10.0)
[2022-04-10] MEDS: LIDOCAINE 5% TOPICAL PATCH TP SCH (10:11)
[2022-04-10] MEDS: BACITRACIN 15 GM TUBE TOPICAL OINTMENT TP SCH (10:12)
[2022-04-10] MEDS: SODIUM HYPOCHLORITE 0.25%- 473 ML BULK BOTTLE TP SCH (10:12)
[2022-04-10] MEDS: COLLAGENASE CLOSTRIDIUM HIST. 30 GRAMS TUBE TP SCH (10:12)
[2022-04-10 10:14] LABS: ACTIVATED PTT 26.6 SECONDS (25.2-36.5)
[2022-04-10 10:31] LABS: CALCIUM 9.2 mg/dL (8.5-10.1)
[2022-04-10 10:32] LABS: ALBUMIN 1.8 g/dl (3.4-5.0); BLOOD UREA NITROGEN 40.2 mg/dL (7-18); MAGNESIUM 2.7 mg/dL (1.8-2.4)
[2022-04-10 10:35] LABS: CREATININE 0.8 mg/dL (0.55-1.3); PHOSPHOROUS 3.3 mg/dL (2.5-4.9)
[2022-04-10 10:36] LABS: BILIRUBIN,TOTAL 0.5 mg/dL (0.2-1); TOT PROT 5.3 g/dl (6.4-8.2)
[2022-04-10] MEDS: ACETAMINOPHEN 650 MG/20.3 ML ORAL SOLUTION (CUPS) GT PRN (21:45)
[2022-04-11] MEDS: VANCOMYCIN 250 MG/5 ML ORAL SOLUTION GT SCH ×4 (00:18→18:03)
[2022-04-11] MEDS: MEROPENEM 1 GM in DEXTROSE 5%-WATER 100 ML IVPB SCH ×3 (01:44→18:03)
[2022-04-11] MEDS: BANATROL PLUS POWDER PACKET GT SCH ×3 (05:21→22:43)
[2022-04-11 10:11] LABS: BASO % 0.6 % (0-2.0); EOS % 4.5 % (0-4.5); MCH 29.6 pg (25.7-33.7); MCHC 33.2 g/dl (32.0-36.0); MEAN CELL VOLUME 89.3 fl (80-96); MEAN PLT VOLUME 6.7 fl (7.5-11.1); NEUT % 78.9 % (42.8-82.8); PLATELET COUNT 463 10^3/uL (134-434); RBC 2.69 M/mm3 (3.60-5.2); RDW 18.1 % (11.6-15.6); WHITE BLOOD COUNT 8.8 K/mm3 (4.0-10.0)
[2022-04-11] MEDS: diazePAM 5 MG TABLET PEG PRN (10:18)
[2022-04-11] MEDS: ASCORBIC ACID 500 MG TABLET (FP) GT SCH (10:18)
[2022-04-11] MEDS: MIDODRINE HCL 2.5 MG TABLET GT SCH ×3 (10:20→18:04)
[2022-04-11] MEDS: METOPROLOL TARTRATE 25 MG TABLET (FP) GT SCH ×2 (10:20→22:42)
[2022-04-11] MEDS: AMINO ACIDS/PROTEIN HYDROLYS 30 ML LIQUID.PKT PEG SCH (10:21)
[2022-04-11] MEDS: LIDOCAINE 5% TOPICAL PATCH TP SCH (10:23)
[2022-04-11] MEDS: MULTIVIT-MINERALS ORAL LIQUID GT SCH (10:25)
[2022-04-11] MEDS: CHOLECALCIFEROL (VIT D SOLUTION) 400 UNIT/1 ML DROPS PEG SCH (10:25)
[2022-04-11] MEDS: FAMOTIDINE 40 MG/5 ML ORAL SUSPENSION PEG SCH (10:26)
[2022-04-11] MEDS: DULoxetine HCL 20 MG CAPSULE.DR PO SCH (10:26)
[2022-04-11] MEDS: CYANOCOBALAMIN (VITAMIN B-12) 100 MCG TABLET GT SCH (10:28)
[2022-04-11] MEDS: ZINC OXIDE 20% TOPICAL OINTMENT 30 GM TUBE TP SCH ×4 (10:29→22:42)
[2022-04-11 11:20] LABS: BLOOD UREA NITROGEN 37.1 mg/dL (7-18); CALCIUM 9.6 mg/dL (8.5-10.1)
[2022-04-11 11:21] LABS: ALBUMIN 1.8 g/dl (3.4-5.0); MAGNESIUM 2.7 mg/dL (1.8-2.4)
[2022-04-11 11:23] LABS: CREATININE 0.8 mg/dL (0.55-1.3); PHOSPHOROUS 3.4 mg/dL (2.5-4.9)
[2022-04-11 11:24] LABS: BILIRUBIN,TOTAL 0.5 mg/dL (0.2-1); TOT PROT 5.5 g/dl (6.4-8.2)
[2022-04-11] MEDS: BACITRACIN 15 GM TUBE TOPICAL OINTMENT TP SCH (13:40)
[2022-04-11] MEDS: COLLAGENASE CLOSTRIDIUM HIST. 30 GRAMS TUBE TP SCH (13:40)
[2022-04-11] MEDS: FERROUS SULFATE 220 MG/5 ML ELIXIR GT SCH (13:40)
[2022-04-11] MEDS: SODIUM HYPOCHLORITE 0.25%- 473 ML BULK BOTTLE TP SCH (13:40)
[2022-04-11] MEDS: LACTOBACILLUS ACIDOPHILUS 1 TABLET PO SCH (22:41)
[2022-04-11] MEDS: ATORVASTATIN CA 80 MG TABLET (FP) GT SCH (22:41)
[2022-04-11] MEDS: QUEtiapine FUMARATE 25 MG TABLET GT SCH (22:41)
[2022-04-11] MEDS: LIDOCAINE PATCH REMOVAL MC SCH (22:43)
[2022-04-12] MEDS: VANCOMYCIN 250 MG/5 ML ORAL SOLUTION GT SCH ×4 (01:20→17:51)
[2022-04-12] MEDS: MEROPENEM 1 GM in DEXTROSE 5%-WATER 100 ML IVPB SCH ×3 (01:20→17:51)
[2022-04-12] MEDS: BANATROL PLUS POWDER PACKET GT SCH ×3 (05:11→21:22)
[2022-04-12] MEDS: AMINO ACIDS/PROTEIN HYDROLYS 30 ML LIQUID.PKT PEG SCH (10:00)
[2022-04-12] MEDS: ACETAMINOPHEN 650 MG/20.3 ML ORAL SOLUTION (CUPS) GT PRN (10:00)
[2022-04-12] MEDS: FAMOTIDINE 40 MG/5 ML ORAL SUSPENSION PEG SCH (10:41)
[2022-04-12] MEDS: FERROUS SULFATE 220 MG/5 ML ELIXIR GT SCH (10:41)
[2022-04-12] MEDS: CHOLECALCIFEROL (VIT D SOLUTION) 400 UNIT/1 ML DROPS PEG SCH (10:41)
[2022-04-12] MEDS: CYANOCOBALAMIN (VITAMIN B-12) 100 MCG TABLET GT SCH (10:43)
[2022-04-12] MEDS: DULoxetine HCL 20 MG CAPSULE.DR PO SCH ×2 (10:43→11:13)
[2022-04-12] MEDS: MIDODRINE HCL 2.5 MG TABLET GT SCH ×3 (10:44→17:51)
[2022-04-12] MEDS: ASCORBIC ACID 500 MG TABLET (FP) GT SCH (10:45)
[2022-04-12] MEDS: ZINC OXIDE 20% TOPICAL OINTMENT 30 GM TUBE TP SCH ×4 (10:59→21:23)
[2022-04-12] MEDS: BACITRACIN 15 GM TUBE TOPICAL OINTMENT TP SCH (11:00)
[2022-04-12] MEDS: METOPROLOL TARTRATE 25 MG TABLET (FP) GT SCH ×2 (11:03→21:22)
[2022-04-12] MEDS: LIDOCAINE 5% TOPICAL PATCH TP SCH (11:17)
[2022-04-12] MEDS: COLLAGENASE CLOSTRIDIUM HIST. 30 GRAMS TUBE TP SCH (12:45)
[2022-04-12] MEDS: SODIUM HYPOCHLORITE 0.25%- 473 ML BULK BOTTLE TP SCH (12:45)
[2022-04-12] MEDS: MULTIVIT-MINERALS ORAL LIQUID GT SCH (13:14)
[2022-04-12] MEDS: ATORVASTATIN CA 80 MG TABLET (FP) GT SCH (21:22)
[2022-04-12] MEDS: LACTOBACILLUS ACIDOPHILUS 1 TABLET PO SCH (21:22)
[2022-04-12] MEDS: QUEtiapine FUMARATE 25 MG TABLET GT SCH (21:23)
[2022-04-12] MEDS: LIDOCAINE PATCH REMOVAL MC SCH (21:23)
[2022-04-13] MEDS: MEROPENEM 1 GM in DEXTROSE 5%-WATER 100 ML IVPB SCH ×3 (01:28→17:51)
[2022-04-13] MEDS: VANCOMYCIN 250 MG/5 ML ORAL SOLUTION GT SCH ×5 (01:28→23:31)
[2022-04-13] MEDS: BANATROL PLUS POWDER PACKET GT SCH ×3 (05:03→23:33)
[2022-04-13] MEDS: ACETAMINOPHEN 650 MG/20.3 ML ORAL SOLUTION (CUPS) GT PRN ×2 (05:03→18:31)
[2022-04-13] MEDS: AMINO ACIDS/PROTEIN HYDROLYS 30 ML LIQUID.PKT PEG SCH (09:45)
[2022-04-13] MEDS: ASCORBIC ACID 500 MG TABLET (FP) GT SCH (09:45)
[2022-04-13] MEDS: MIDODRINE HCL 2.5 MG TABLET GT SCH ×3 (09:45→17:51)
[2022-04-13] MEDS: METOPROLOL TARTRATE 25 MG TABLET (FP) GT SCH ×2 (09:46→23:33)
[2022-04-13] MEDS: FERROUS SULFATE 220 MG/5 ML ELIXIR GT SCH (09:47)
[2022-04-13] MEDS: LIDOCAINE 5% TOPICAL PATCH TP SCH (09:48)
[2022-04-13] MEDS: FAMOTIDINE 40 MG/5 ML ORAL SUSPENSION PEG SCH (09:48)
[2022-04-13] MEDS: MULTIVIT-MINERALS ORAL LIQUID GT SCH (09:49)
[2022-04-13] MEDS: CHOLECALCIFEROL (VIT D SOLUTION) 400 UNIT/1 ML DROPS PEG SCH (09:49)
[2022-04-13] MEDS: BACITRACIN 15 GM TUBE TOPICAL OINTMENT TP SCH (09:49)
[2022-04-13] MEDS: CYANOCOBALAMIN (VITAMIN B-12) 100 MCG TABLET GT SCH (09:51)
[2022-04-13] MEDS: ZINC OXIDE 20% TOPICAL OINTMENT 30 GM TUBE TP SCH ×4 (09:52→23:33)
[2022-04-13 11:36] LABS: BASO % 0.5 % (0-2.0); EOS % 9.4 % (0-4.5); HEMATOCRIT 23.2 % (32.4-45.2); HEMOGLOBIN 7.7 GM/dL (10.7-15.3); LYMPH % 13.9 % (8-40); MCH 29.9 pg (25.7-33.7); MCHC 33.1 g/dl (32.0-36.0); MEAN CELL VOLUME 90.3 fl (80-96); MEAN PLT VOLUME 6.7 fl (7.5-11.1); MONO % 5.9 % (3.8-10.2); NEUT % 70.3 % (42.8-82.8); PLATELET COUNT 354 10^3/uL (134-434); RBC 2.57 M/mm3 (3.60-5.2); RDW 18.2 % (11.6-15.6); WHITE BLOOD COUNT 8.1 K/mm3 (4.0-10.0)
[2022-04-13 12:10] LABS: ALBUMIN 1.8 g/dl (3.4-5.0); CALCIUM 9.7 mg/dL (8.5-10.1)
[2022-04-13 12:12] LABS: BLOOD UREA NITROGEN 36.8 mg/dL (7-18)
[2022-04-13 12:13] LABS: CREATININE 0.9 mg/dL (0.55-1.3); MAGNESIUM 2.7 mg/dL (1.8-2.4)
[2022-04-13 12:14] LABS: BILIRUBIN,TOTAL 0.4 mg/dL (0.2-1); TOT PROT 5.5 g/dl (6.4-8.2)
[2022-04-13] MEDS: SODIUM HYPOCHLORITE 0.25%- 473 ML BULK BOTTLE TP SCH (13:11)
[2022-04-13] MEDS: COLLAGENASE CLOSTRIDIUM HIST. 30 GRAMS TUBE TP SCH (13:11)
[2022-04-13] MEDS: diazePAM 5 MG TABLET PEG PRN (13:33)
[2022-04-13] MEDS: QUEtiapine FUMARATE 25 MG TABLET GT SCH (23:31)
[2022-04-13] MEDS: ATORVASTATIN CA 80 MG TABLET (FP) GT SCH (23:32)
[2022-04-13] MEDS: LACTOBACILLUS ACIDOPHILUS 1 TABLET PO SCH (23:32)
[2022-04-13] MEDS: LIDOCAINE PATCH REMOVAL MC SCH (23:33)
[2022-04-14] MEDS: MEROPENEM 1 GM in DEXTROSE 5%-WATER 100 ML IVPB SCH ×3 (02:06→18:14)
[2022-04-14] MEDS: VANCOMYCIN 250 MG/5 ML ORAL SOLUTION GT SCH ×3 (05:11→18:14)
[2022-04-14] MEDS: BANATROL PLUS POWDER PACKET GT SCH ×3 (05:11→21:19)
[2022-04-14] MEDS: ASCORBIC ACID 500 MG TABLET (FP) GT SCH (10:29)
[2022-04-14] MEDS: METOPROLOL TARTRATE 25 MG TABLET (FP) GT SCH ×2 (10:29→21:19)
[2022-04-14] MEDS: CHOLECALCIFEROL (VIT D SOLUTION) 400 UNIT/1 ML DROPS PEG SCH (10:30)
[2022-04-14] MEDS: MIDODRINE HCL 5 MG TABLET GT SCH ×3 (10:30→18:14)
[2022-04-14] MEDS: FERROUS SULFATE 220 MG/5 ML ELIXIR GT SCH (10:30)
[2022-04-14] MEDS: ZINC OXIDE 20% TOPICAL OINTMENT 30 GM TUBE TP SCH ×4 (10:30→21:28)
[2022-04-14] MEDS: FAMOTIDINE 40 MG/5 ML ORAL SUSPENSION PEG SCH (10:30)
[2022-04-14] MEDS: AMINO ACIDS/PROTEIN HYDROLYS 30 ML LIQUID.PKT PEG SCH (10:30)
[2022-04-14] MEDS: CYANOCOBALAMIN (VITAMIN B-12) 100 MCG TABLET GT SCH (10:31)
[2022-04-14] MEDS: LIDOCAINE 5% TOPICAL PATCH TP SCH (10:31)
[2022-04-14] MEDS: MULTIVIT-MINERALS ORAL LIQUID GT SCH (10:31)
[2022-04-14] MEDS: BACITRACIN 15 GM TUBE TOPICAL OINTMENT TP SCH (10:31)
[2022-04-14] MEDS: ACETAMINOPHEN 650 MG/20.3 ML ORAL SOLUTION (CUPS) GT PRN ×2 (11:01→18:18)
[2022-04-14 11:55] LABS: BASO % 0.5 % (0-2.0); EOS % 5.7 % (0-4.5); HEMOGLOBIN 8.1 GM/dL (10.7-15.3); LYMPH % 11.4 % (8-40); MCHC 33.6 g/dl (32.0-36.0); MEAN CELL VOLUME 89.1 fl (80-96); MEAN PLT VOLUME 6.8 fl (7.5-11.1); MONO % 6.1 % (3.8-10.2); NEUT % 76.3 % (42.8-82.8); PLATELET COUNT 355 10^3/uL (134-434); RBC 2.69 M/mm3 (3.60-5.2); RDW 17.6 % (11.6-15.6); WHITE BLOOD COUNT 8.8 K/mm3 (4.0-10.0)
[2022-04-14 12:04] LABS: CALCIUM 9.9 mg/dL (8.5-10.1)
[2022-04-14 12:05] LABS: BLOOD UREA NITROGEN 40.3 mg/dL (7-18); MAGNESIUM 2.8 mg/dL (1.8-2.4)
[2022-04-14 12:07] LABS: BILIRUBIN,TOTAL 0.5 mg/dL (0.2-1)
[2022-04-14 12:08] LABS: PHOSPHOROUS 2.7 mg/dL (2.5-4.9)
[2022-04-14 12:09] LABS: TOT PROT 6.1 g/dl (6.4-8.2)
[2022-04-14] MEDS: COLLAGENASE CLOSTRIDIUM HIST. 30 GRAMS TUBE TP SCH (15:54)
[2022-04-14] MEDS: SODIUM HYPOCHLORITE 0.25%- 473 ML BULK BOTTLE TP SCH (15:54)
[2022-04-14] MEDS: LACTOBACILLUS ACIDOPHILUS 1 TABLET PO SCH (21:18)
[2022-04-14] MEDS: ATORVASTATIN CA 80 MG TABLET (FP) GT SCH (21:19)
[2022-04-14] MEDS: QUEtiapine FUMARATE 25 MG TABLET GT SCH (21:19)
[2022-04-14] MEDS: LIDOCAINE PATCH REMOVAL MC SCH (21:26)
[2022-04-15] MEDS: MEROPENEM 1 GM in DEXTROSE 5%-WATER 100 ML IVPB SCH ×3 (01:22→18:10)
[2022-04-15] MEDS: VANCOMYCIN 250 MG/5 ML ORAL SOLUTION GT SCH ×4 (01:23→18:11)
[2022-04-15] MEDS: BANATROL PLUS POWDER PACKET GT SCH ×3 (06:23→21:45)
[2022-04-15] MEDS: LIDOCAINE 5% TOPICAL PATCH TP SCH (10:25)
[2022-04-15] MEDS: METOPROLOL TARTRATE 25 MG TABLET (FP) GT SCH ×2 (10:26→21:45)
[2022-04-15] MEDS: ASCORBIC ACID 500 MG TABLET (FP) GT SCH (10:26)
[2022-04-15] MEDS: AMINO ACIDS/PROTEIN HYDROLYS 30 ML LIQUID.PKT PEG SCH (10:26)
[2022-04-15] MEDS: MIDODRINE HCL 5 MG TABLET GT SCH ×3 (10:27→18:10)
[2022-04-15] MEDS: CHOLECALCIFEROL (VIT D SOLUTION) 400 UNIT/1 ML DROPS PEG SCH (10:27)
[2022-04-15] MEDS: FAMOTIDINE 40 MG/5 ML ORAL SUSPENSION PEG SCH (10:27)
[2022-04-15] MEDS: CYANOCOBALAMIN (VITAMIN B-12) 100 MCG TABLET GT SCH (10:28)
[2022-04-15] MEDS: FERROUS SULFATE 220 MG/5 ML ELIXIR GT SCH (10:28)
[2022-04-15] MEDS: MULTIVIT-MINERALS ORAL LIQUID GT SCH (10:28)
[2022-04-15] MEDS: BACITRACIN 15 GM TUBE TOPICAL OINTMENT TP SCH (10:28)
[2022-04-15] MEDS: ZINC OXIDE 20% TOPICAL OINTMENT 30 GM TUBE TP SCH ×4 (10:29→21:45)
[2022-04-15 10:47] LABS: BASO % 0.5 % (0-2.0); HEMATOCRIT 23.4 % (32.4-45.2); HEMOGLOBIN 7.8 GM/dL (10.7-15.3); LYMPH % 10.8 % (8-40); MCH 30.1 pg (25.7-33.7); MCHC 33.2 g/dl (32.0-36.0); MEAN CELL VOLUME 90.7 fl (80-96); MEAN PLT VOLUME 6.9 fl (7.5-11.1); MONO % 6.2 % (3.8-10.2); NEUT % 73.5 % (42.8-82.8); PLATELET COUNT 345 10^3/uL (134-434); RBC 2.58 M/mm3 (3.60-5.2); RDW 18.3 % (11.6-15.6); WHITE BLOOD COUNT 10.2 K/mm3 (4.0-10.0)
[2022-04-15 10:48] LABS: BLOOD UREA NITROGEN 43.2 mg/dL (7-18); MAGNESIUM 2.8 mg/dL (1.8-2.4)
[2022-04-15 10:51] LABS: PHOSPHOROUS 3.2 mg/dL (2.5-4.9)
[2022-04-15 10:53] LABS: BILIRUBIN,TOTAL 0.4 mg/dL (0.2-1); TOT PROT 6.1 g/dl (6.4-8.2)
[2022-04-15] MEDS ORDERED: CASPOFUNGIN ACETATE 70 MG in SODIUM CHLORIDE 250 ML IVPB ONE (12:00)
[2022-04-15] MEDS: SODIUM HYPOCHLORITE 0.25%- 473 ML BULK BOTTLE TP SCH (15:09)
[2022-04-15] MEDS: COLLAGENASE CLOSTRIDIUM HIST. 30 GRAMS TUBE TP SCH (15:09)
[2022-04-15] MEDS: diazePAM 5 MG TABLET GT PRN (15:21)
[2022-04-15] MEDS: QUEtiapine FUMARATE 25 MG TABLET GT SCH (21:45)
[2022-04-15] MEDS: LACTOBACILLUS ACIDOPHILUS 1 TABLET PO SCH (21:45)
[2022-04-15] MEDS: ATORVASTATIN CA 80 MG TABLET (FP) GT SCH (21:45)
[2022-04-15] MEDS: LIDOCAINE PATCH REMOVAL MC SCH (21:47)
[2022-04-16] MEDS: VANCOMYCIN 250 MG/5 ML ORAL SOLUTION GT SCH ×4 (00:01→17:21)
[2022-04-16] MEDS: MEROPENEM 1 GM in DEXTROSE 5%-WATER 100 ML IVPB SCH ×2 (02:01→09:02)
[2022-04-16] MEDS: BANATROL PLUS POWDER PACKET GT SCH ×3 (06:25→23:30)
[2022-04-16] MEDS: LIDOCAINE 5% TOPICAL PATCH TP SCH (09:01)
[2022-04-16] MEDS: AMINO ACIDS/PROTEIN HYDROLYS 30 ML LIQUID.PKT PEG SCH (09:01)
[2022-04-16] MEDS: METOPROLOL TARTRATE 25 MG TABLET (FP) GT SCH ×2 (09:02→23:31)
[2022-04-16] MEDS: ASCORBIC ACID 500 MG TABLET (FP) GT SCH (09:03)
[2022-04-16] MEDS: FAMOTIDINE 40 MG/5 ML ORAL SUSPENSION PEG SCH (09:04)
[2022-04-16] MEDS: FERROUS SULFATE 220 MG/5 ML ELIXIR GT SCH (09:04)
[2022-04-16] MEDS: MULTIVIT-MINERALS ORAL LIQUID GT SCH (09:04)
[2022-04-16] MEDS: MIDODRINE HCL 5 MG TABLET GT SCH ×3 (09:05→17:21)
[2022-04-16] MEDS: CYANOCOBALAMIN (VITAMIN B-12) 100 MCG TABLET GT SCH (09:05)
[2022-04-16] MEDS: CHOLECALCIFEROL (VIT D SOLUTION) 400 UNIT/1 ML DROPS PEG SCH (09:05)
[2022-04-16] MEDS: ZINC OXIDE 20% TOPICAL OINTMENT 30 GM TUBE TP SCH ×4 (09:07→23:32)
[2022-04-16] MEDS: BACITRACIN 15 GM TUBE TOPICAL OINTMENT TP SCH (09:07)
[2022-04-16] MEDS ORDERED: CASPOFUNGIN ACETATE 50 MG in SODIUM CHLORIDE 250 ML IVPB SCH (10:00)
[2022-04-16] MEDS: diazePAM 5 MG TABLET GT PRN (12:34)
[2022-04-16] MEDS: COLLAGENASE CLOSTRIDIUM HIST. 30 GRAMS TUBE TP SCH (12:41)
[2022-04-16] MEDS: SODIUM HYPOCHLORITE 0.25%- 473 ML BULK BOTTLE TP SCH (12:41)
[2022-04-16] MEDS: ACETAMINOPHEN 650 MG/20.3 ML ORAL SOLUTION (CUPS) GT PRN (13:11)
[2022-04-16] MEDS: CASPOFUNGIN ACETATE 50 MG in SODIUM CHLORIDE 250 ML IVPB SCH (17:59)
[2022-04-16] MEDS: LACTOBACILLUS ACIDOPHILUS 1 TABLET PO SCH (23:30)
[2022-04-16] MEDS: LIDOCAINE PATCH REMOVAL MC SCH (23:30)
[2022-04-16] MEDS: ATORVASTATIN CA 80 MG TABLET (FP) GT SCH (23:31)
[2022-04-16] MEDS: QUEtiapine FUMARATE 25 MG TABLET GT SCH (23:32)
[2022-04-17] MEDS: VANCOMYCIN 250 MG/5 ML ORAL SOLUTION GT SCH ×4 (00:49→17:14)
[2022-04-17] MEDS: BANATROL PLUS POWDER PACKET GT SCH ×3 (05:10→21:02)
[2022-04-17] MEDS: METOPROLOL TARTRATE 25 MG TABLET (FP) GT SCH ×2 (09:27→21:01)
[2022-04-17] MEDS: MIDODRINE HCL 5 MG TABLET GT SCH ×3 (09:27→17:14)
[2022-04-17] MEDS: ASCORBIC ACID 500 MG TABLET (FP) GT SCH (09:28)
[2022-04-17] MEDS: LIDOCAINE 5% TOPICAL PATCH TP SCH (09:29)
[2022-04-17] MEDS: MULTIVIT-MINERALS ORAL LIQUID GT SCH (09:30)
[2022-04-17] MEDS: FERROUS SULFATE 220 MG/5 ML ELIXIR GT SCH (09:30)
[2022-04-17] MEDS: CYANOCOBALAMIN (VITAMIN B-12) 100 MCG TABLET GT SCH (09:31)
[2022-04-17] MEDS: CHOLECALCIFEROL (VIT D SOLUTION) 400 UNIT/1 ML DROPS PEG SCH (09:31)
[2022-04-17] MEDS: FAMOTIDINE 40 MG/5 ML ORAL SUSPENSION PEG SCH (09:31)
[2022-04-17] MEDS: AMINO ACIDS/PROTEIN HYDROLYS 30 ML LIQUID.PKT PEG SCH (09:32)
[2022-04-17] MEDS: ZINC OXIDE 20% TOPICAL OINTMENT 30 GM TUBE TP SCH ×4 (09:33→21:12)
[2022-04-17] MEDS: BACITRACIN 15 GM TUBE TOPICAL OINTMENT TP SCH (09:33)
[2022-04-17 10:28] LABS: BASO % 0.6 % (0-2.0); EOS % 10.2 % (0-4.5); HEMATOCRIT 22.8 % (32.4-45.2); HEMOGLOBIN 7.4 GM/dL (10.7-15.3); LYMPH % 15.5 % (8-40); MCH 29.5 pg (25.7-33.7); MCHC 32.5 g/dl (32.0-36.0); MEAN CELL VOLUME 90.8 fl (80-96); MEAN PLT VOLUME 6.9 fl (7.5-11.1); MONO % 6.5 % (3.8-10.2); NEUT % 67.2 % (42.8-82.8); PLATELET COUNT 322 10^3/uL (134-434); RBC 2.52 M/mm3 (3.60-5.2); WHITE BLOOD COUNT 8.5 K/mm3 (4.0-10.0)
[2022-04-17] MEDS: diazePAM 5 MG TABLET GT PRN (10:55)
[2022-04-17] MEDS: oxyCODONE HCL 5 MG TABLET GT PRN (10:58)
[2022-04-17 11:01] LABS: BLOOD UREA NITROGEN 50.1 mg/dL (7-18)
[2022-04-17 11:04] LABS: CREATININE 1.1 mg/dL (0.55-1.3)
[2022-04-17 11:05] LABS: BILIRUBIN,TOTAL 0.5 mg/dL (0.2-1); TOT PROT 5.8 g/dl (6.4-8.2)
[2022-04-17] MEDS: SODIUM HYPOCHLORITE 0.25%- 473 ML BULK BOTTLE TP SCH (12:23)
[2022-04-17] MEDS: COLLAGENASE CLOSTRIDIUM HIST. 30 GRAMS TUBE TP SCH (12:24)
[2022-04-17] MEDS: CASPOFUNGIN ACETATE 50 MG in SODIUM CHLORIDE 250 ML IVPB SCH (17:39)
[2022-04-17] MEDS: ATORVASTATIN CA 80 MG TABLET (FP) GT SCH (21:02)
[2022-04-17] MEDS: LIDOCAINE PATCH REMOVAL MC SCH (21:02)
[2022-04-17] MEDS: QUEtiapine FUMARATE 25 MG TABLET GT SCH (21:02)
[2022-04-17] MEDS: LACTOBACILLUS ACIDOPHILUS 1 TABLET PO SCH (21:02)
[2022-04-18] MEDS: BANATROL PLUS POWDER PACKET GT SCH ×3 (05:07→21:54)
[2022-04-18 10:41] LABS: BASO % 0.8 % (0-2.0); EOS % 7.8 % (0-4.5); HEMATOCRIT 21.1 % (32.4-45.2); LYMPH % 16.9 % (8-40); MCH 29.5 pg (25.7-33.7); MCHC 32.2 g/dl (32.0-36.0); MEAN CELL VOLUME 91.6 fl (80-96); MEAN PLT VOLUME 7.1 fl (7.5-11.1); MONO % 6.3 % (3.8-10.2); NEUT % 68.2 % (42.8-82.8); PLATELET COUNT 323 10^3/uL (134-434); RDW 17.9 % (11.6-15.6); WHITE BLOOD COUNT 8.5 K/mm3 (4.0-10.0)
[2022-04-18 11:05] LABS: HEMOGLOBIN 6.8 GM/dL (10.7-15.3)
[2022-04-18] MEDS: ASCORBIC ACID 500 MG TABLET (FP) GT SCH (11:15)
[2022-04-18] MEDS: METOPROLOL TARTRATE 25 MG TABLET (FP) GT SCH ×2 (11:15→21:54)
[2022-04-18] MEDS: MIDODRINE HCL 5 MG TABLET GT SCH ×3 (11:16→18:02)
[2022-04-18] MEDS: LIDOCAINE 5% TOPICAL PATCH TP SCH (11:16)
[2022-04-18] MEDS: AMINO ACIDS/PROTEIN HYDROLYS 30 ML LIQUID.PKT PEG SCH (11:16)
[2022-04-18 11:18] LABS: CALCIUM 10.1 mg/dL (8.5-10.1); MAGNESIUM 3.1 mg/dL (1.8-2.4)
[2022-04-18] MEDS: FERROUS SULFATE 220 MG/5 ML ELIXIR GT SCH (11:18)
[2022-04-18] MEDS: FAMOTIDINE 40 MG/5 ML ORAL SUSPENSION PEG SCH (11:19)
[2022-04-18] MEDS: CHOLECALCIFEROL (VIT D SOLUTION) 400 UNIT/1 ML DROPS PEG SCH (11:19)
[2022-04-18] MEDS: MULTIVIT-MINERALS ORAL LIQUID GT SCH (11:19)
[2022-04-18] MEDS: CYANOCOBALAMIN (VITAMIN B-12) 100 MCG TABLET GT SCH (11:19)
[2022-04-18] MEDS: ZINC OXIDE 20% TOPICAL OINTMENT 30 GM TUBE TP SCH ×4 (11:20→21:55)
[2022-04-18 11:21] LABS: CREATININE 1.1 mg/dL (0.55-1.3); PHOSPHOROUS 3.3 mg/dL (2.5-4.9)
[2022-04-18 11:22] LABS: BILIRUBIN,TOTAL 0.4 mg/dL (0.2-1); TOT PROT 5.9 g/dl (6.4-8.2)
[2022-04-18] MEDS: oxyCODONE HCL 5 MG TABLET GT PRN (12:17)
[2022-04-18] MEDS: COLLAGENASE CLOSTRIDIUM HIST. 30 GRAMS TUBE TP SCH (14:26)
[2022-04-18] MEDS: SODIUM HYPOCHLORITE 0.25%- 473 ML BULK BOTTLE TP SCH (14:26)
[2022-04-18] MEDS: BACITRACIN 15 GM TUBE TOPICAL OINTMENT TP SCH (14:26)
[2022-04-18] MEDS: CASPOFUNGIN ACETATE 50 MG in SODIUM CHLORIDE 250 ML IVPB SCH (18:02)
[2022-04-18] MEDS: diazePAM 5 MG TABLET GT PRN (18:02)
[2022-04-18] MEDS: LACTOBACILLUS ACIDOPHILUS 1 TABLET PO SCH (21:54)
[2022-04-18] MEDS: ATORVASTATIN CA 80 MG TABLET (FP) GT SCH (21:54)
[2022-04-18] MEDS: QUEtiapine FUMARATE 25 MG TABLET GT SCH (21:55)
[2022-04-18] MEDS: LIDOCAINE PATCH REMOVAL MC SCH (21:55)
[2022-04-19] MEDS: BANATROL PLUS POWDER PACKET GT SCH (05:09)
[2022-04-19 06:44] VITALS: RESP 18
[2022-04-19] MEDS: ASCORBIC ACID 500 MG TABLET (FP) GT SCH (11:40)
[2022-04-19] MEDS: AMINO ACIDS/PROTEIN HYDROLYS 30 ML LIQUID.PKT PEG SCH (11:40)
[2022-04-19] MEDS: oxyCODONE HCL 5 MG TABLET GT PRN (11:40)
[2022-04-19] MEDS: METOPROLOL TARTRATE 25 MG TABLET (FP) GT SCH (11:40)
[2022-04-19] MEDS: FAMOTIDINE 40 MG/5 ML ORAL SUSPENSION PEG SCH (11:41)
[2022-04-19] MEDS: LIDOCAINE 5% TOPICAL PATCH TP SCH (11:41)
[2022-04-19] MEDS: CHOLECALCIFEROL (VIT D SOLUTION) 400 UNIT/1 ML DROPS PEG SCH (11:41)
[2022-04-19] MEDS: ZINC OXIDE 20% TOPICAL OINTMENT 30 GM TUBE TP SCH (11:42)
[2022-04-19] MEDS: CYANOCOBALAMIN (VITAMIN B-12) 100 MCG TABLET GT SCH (11:42)
[2022-04-19] MEDS: FERROUS SULFATE 220 MG/5 ML ELIXIR GT SCH (11:42)
[2022-04-19] MEDS: MULTIVIT-MINERALS ORAL LIQUID GT SCH (11:42)
[2022-04-19] MEDS: MIDODRINE HCL 5 MG TABLET GT SCH (11:43)
[2022-04-19] MEDS: BACITRACIN 15 GM TUBE TOPICAL OINTMENT TP SCH (13:13)
[2022-04-19] MEDS: SODIUM HYPOCHLORITE 0.25%- 473 ML BULK BOTTLE TP SCH (13:14)
[2022-04-19] MEDS: diazePAM 5 MG TABLET GT PRN (13:14)
[2022-04-19] MEDS: COLLAGENASE CLOSTRIDIUM HIST. 30 GRAMS TUBE TP SCH (13:14)
[2022-04-19 13:22] VITALS: BP 116/70; PULSE 95; TEMP 98.7
== END 2022-04-19 13:44 | DRG 870 ==
LOC: JER 08:51 → JERBED 09:08 → J5S 02-05 15:54
PROVIDERS: ADMIT Internal Medicine; ATTEND Internal Medicine
PROC: 5A1955Z Respiratory Ventilation, Greater than 96 Consecutive Hours (ICD-10-PCS; principal; 2022-02-04)
PROC: 0D20XUZ Change Feeding Device in Upper Intestinal Tract, External Approach (ICD-10-PCS; 2022-04-10)
PROC: 30233N1 Transfusion of Nonautologous Red Blood Cells into Peripheral Vein, Percutaneous Approach (ICD-10-PCS; 2022-04-11)
DX: A41.51 Sepsis due to Escherichia coli [E. coli] (principal); L89.154 Pressure ulcer of sacral region, stage 4; R53.2 Functional quadriplegia; G81.94 Hemiplegia, unspecified affecting left nondominant side; N39.0 Urinary tract infection, site not specified; I24.8 Other forms of acute ischemic heart disease; E87.0 Hyperosmolality and hypernatremia; E87.20 Acidosis, unspecified; I31.39 Other pericardial effusion (noninflammatory); R04.2 Hemoptysis; J96.10 Chronic respiratory failure, unspecified whether with hypoxia or hypercapnia; A04.72 Enterocolitis due to Clostridium difficile, not specified as recurrent; B49 Unspecified mycosis; K94.23 Gastrostomy malfunction; Z16.12 Extended spectrum beta lactamase (ESBL) resistance; Z99.11 Dependence on respirator [ventilator] status; N17.9 Acute kidney failure, unspecified; Z93.0 Tracheostomy status; R65.20 Severe sepsis without septic shock; I48.91 Unspecified atrial fibrillation; K21.9 Gastro-esophageal reflux disease without esophagitis; E78.5 Hyperlipidemia, unspecified; Z93.1 Gastrostomy status; E86.0 Dehydration; Y83.9 Surgical procedure, unspecified as the cause of abnormal reaction of the patient, or of later complication, without mention of misadventure at the time of the procedure; B96.4 Proteus (mirabilis) (morganii) as the cause of diseases classified elsewhere; R31.9 Hematuria, unspecified; D64.9 Anemia, unspecified; F41.9 Anxiety disorder, unspecified; D72.829 Elevated white blood cell count, unspecified; I27.20 Pulmonary hypertension, unspecified; N18.9 Chronic kidney disease, unspecified; E66.9 Obesity, unspecified; Z68.37 Body mass index [BMI] 37.0-37.9, adult; E87.6 Hypokalemia
CPT/HCPCS: 0241U-QW; 36415; 36430; 36600; 71045-TC-FY; 74018-TC-FY; 74176-TC; 74230-TC-FY; 76775-TC; 76856-TC; 80048; 80053; 81003; 82272; 82550; 82553; 82803; 82962; 83605; 83735; 84100; 84484; 85025; 85027; 85362; 85379; 85384; 85610; 85730; 86850; 86900; 86901; 86922; 87040; 87070; 87086; 87106; 87186; 87205; 87324; 87449; 87493; 92611-GN; 93005; 93010; 93306-TC; 94002; 94640; 97161-GP; 99291; C9803-CS; G0480; J0637; J1644; P9058; U0003; U0005

== ENCOUNTER 2023-03-18 22:18 | Observation (INO) | payer OTHER ==
[2023-03-19] MEDS ORDERED: ACETAMINOPHEN 650 MG/20.3 ML ORAL SOLUTION (CUPS) GT STA (01:15)
[2023-03-19] MEDS ORDERED: ACETAMINOPHEN 650 MG/20.3 ML ORAL SOLUTION (CUPS) ONE (01:21)
[2023-03-19 02:36] LABS: BASO % 0.5 % (0-2.0); EOS % 5.5 % (0-4.5); HEMATOCRIT 31.1 % (32.4-45.2); HEMOGLOBIN 10.1 GM/dL (10.7-15.3); LYMPH % 19.7 % (8-40); MCH 31.9 pg (25.7-33.7); MCHC 32.5 g/dl (32.0-36.0); MEAN CELL VOLUME 98.4 fl (80-96); MEAN PLT VOLUME 6.8 fl (7.5-11.1); MONO % 5.7 % (3.8-10.2); NEUT % 68.6 % (42.8-82.8); PLATELET COUNT 304 10^3/uL (134-434); RBC 3.17 M/mm3 (3.60-5.2); RDW 15.6 % (11.6-15.6); WHITE BLOOD COUNT 7.4 K/mm3 (4.0-10.0)
[2023-03-19 02:43] LABS: INR 1.08 (0.83-1.09); PROTHROMBIN TIME (PATIENT) 12.5 SEC (9.7-13.0)
[2023-03-19 02:46] LABS: ACTIVATED PTT 29.4 SECONDS (25.2-36.5)
[2023-03-19 03:06] LABS: POTASSIUM 4.3 mmol/L (3.5-5.1)
[2023-03-19 03:07] LABS: CALCIUM 10.3 mg/dL (8.5-10.1)
[2023-03-19 03:08] LABS: BLOOD UREA NITROGEN 58.7 mg/dL (7-18)
[2023-03-19 03:12] LABS: BILIRUBIN,TOTAL 0.4 mg/dL (0.2-1)
[2023-03-19] MEDS ORDERED: SODIUM CHLORIDE 1,000 ML IV STA (05:14)
[2023-03-19] MEDS: oxyCODONE HCL 5 MG TABLET GT SCH ×3 (06:53→22:36)
[2023-03-19] MEDS: LACTATED RINGERS SOLUTION 1,000 ML/1,000 ML INFUS.BAG IV SCH (07:31)
[2023-03-19] MEDS: ALBUTEROL SO4 0.083% IH SOL 2.5 MG/3 ML VIAL.NEB. NEB SCH ×4 (08:08→20:56)
[2023-03-19 08:38] LABS: BASO % 0.6 % (0-2.0); EOS % 7.4 % (0-4.5); HEMATOCRIT 31.2 % (32.4-45.2); HEMOGLOBIN 10.4 GM/dL (10.7-15.3); LYMPH % 24.7 % (8-40); MCHC 33.3 g/dl (32.0-36.0); MEAN CELL VOLUME 99.1 fl (80-96); MEAN PLT VOLUME 7.1 fl (7.5-11.1); MONO % 5.1 % (3.8-10.2); NEUT % 62.2 % (42.8-82.8); PLATELET COUNT 288 10^3/uL (134-434); RBC 3.15 M/mm3 (3.60-5.2); RDW 15.4 % (11.6-15.6); WHITE BLOOD COUNT 5.9 K/mm3 (4.0-10.0)
[2023-03-19 08:45] LABS: POTASSIUM 3.8 mmol/L (3.5-5.1)
[2023-03-19 09:01] LABS: MAGNESIUM 2.8 mg/dL (1.8-2.4)
[2023-03-19 09:02] LABS: CALCIUM 10.7 mg/dL (8.5-10.1)
[2023-03-19 09:06] LABS: PHOSPHOROUS 3.2 mg/dL (2.5-4.9)
[2023-03-19 09:07] LABS: TOT PROT 6.8 g/dl (6.4-8.2)
[2023-03-19 09:08] LABS: BILIRUBIN,TOTAL 0.5 mg/dL (0.2-1)
[2023-03-19] MEDS ORDERED: diazePAM 5 MG TABLET ONE (12:42)
[2023-03-19] MEDS: NYSTATIN 100,000 UNIT/GM TOPICAL CREAM 15 GM TUBE TP SCH (12:48)
[2023-03-19] MEDS: FERROUS SO4 300 MG/5 ML ORAL SOLN UNIT DOSE CUPS GT SCH (12:48)
[2023-03-19] MEDS: FAMOTIDINE 20 MG/2.5 ML ORAL LIQUID PEG SCH (12:48)
[2023-03-19] MEDS: LIDOCAINE 4% PATCH TP SCH (12:48)
[2023-03-19] MEDS: diazePAM 5 MG TABLET GT SCH ×2 (12:49→21:23)
[2023-03-19] MEDS: MIDODRINE HCL 5 MG TABLET GT SCH ×2 (15:15→21:23)
[2023-03-19] MEDS: HEPARIN NA (PORCINE) 5,000 UNITS/ML 1ML VIAL SQ SCH ×2 (15:16→21:22)
[2023-03-19] MEDS: ATORVASTATIN CA 80 MG TABLET (FP) GT SCH (21:23)
[2023-03-19] MEDS: SENNOSIDES 8.8 MG/5 ML SYRUP PO SCH (21:23)
[2023-03-19] MEDS: LIDOCAINE PATCH REMOVAL MC SCH (21:49)
[2023-03-20] MEDS: MOMETASONE FUROATE 220 MCG/IH INHALER IH SCH (05:06)
[2023-03-20] MEDS: oxyCODONE HCL 5 MG TABLET GT SCH ×3 (06:19→22:33)
[2023-03-20] MEDS: HEPARIN NA (PORCINE) 5,000 UNITS/ML 1ML VIAL SQ SCH ×3 (06:19→22:33)
[2023-03-20] MEDS: MIDODRINE HCL 5 MG TABLET GT SCH ×3 (06:21→22:32)
[2023-03-20] MEDS: ALBUTEROL SO4 0.083% IH SOL 2.5 MG/3 ML VIAL.NEB. NEB SCH ×4 (07:41→19:52)
[2023-03-20] MEDS: LACTATED RINGERS SOLUTION 1,000 ML/1,000 ML INFUS.BAG IV SCH (07:45)
[2023-03-20] MEDS: FERROUS SO4 300 MG/5 ML ORAL SOLN UNIT DOSE CUPS GT SCH (10:40)
[2023-03-20] MEDS: diazePAM 5 MG TABLET GT SCH ×2 (10:40→22:32)
[2023-03-20] MEDS: LIDOCAINE 4% PATCH TP SCH (10:41)
[2023-03-20] MEDS: NYSTATIN 100,000 UNIT/GM TOPICAL CREAM 15 GM TUBE TP SCH (10:41)
[2023-03-20] MEDS ORDERED: LIDOCAINE 4% PATCH TP SCH (10:44)
[2023-03-20] MEDS: FAMOTIDINE 20 MG/2.5 ML ORAL LIQUID PEG SCH (11:23)
[2023-03-20] MEDS: ACETAMINOPHEN 325 MG TABLET (FP) PO PRN (11:56)
[2023-03-20 12:15] LABS: BASO % 0.2 % (0-2.0); EOS % 2.9 % (0-4.5); HEMATOCRIT 31.7 % (32.4-45.2); HEMOGLOBIN 10.4 GM/dL (10.7-15.3); LYMPH % 10.7 % (8-40); MCH 32.2 pg (25.7-33.7); MCHC 32.9 g/dl (32.0-36.0); MEAN CELL VOLUME 98.1 fl (80-96); MONO % 4.8 % (3.8-10.2); NEUT % 81.4 % (42.8-82.8); PLATELET COUNT 277 10^3/uL (134-434); RBC 3.23 M/mm3 (3.60-5.2); RDW 15.6 % (11.6-15.6); WHITE BLOOD COUNT 11.1 K/mm3 (4.0-10.0)
[2023-03-20 12:38] LABS: POTASSIUM 3.7 mmol/L (3.5-5.1)
[2023-03-20 12:40] LABS: CALCIUM 10.2 mg/dL (8.5-10.1)
[2023-03-20 12:41] LABS: BLOOD UREA NITROGEN 59.1 mg/dL (7-18)
[2023-03-20 12:44] LABS: CREATININE 2.3 mg/dL (0.55-1.3)
[2023-03-20 12:46] LABS: BILIRUBIN,TOTAL 0.3 mg/dL (0.2-1); TOT PROT 6.8 g/dl (6.4-8.2)
[2023-03-20] MEDS: SODIUM CHLORIDE 0.45% 1,000 ML IV SCH ×2 (14:36→22:23)
[2023-03-20] MEDS ORDERED: MELATONIN 5 MG TABLETS PO SCH (22:00)
[2023-03-20] MEDS: SENNOSIDES 8.8 MG/5 ML SYRUP PO SCH (22:32)
[2023-03-20] MEDS: ATORVASTATIN CA 80 MG TABLET (FP) GT SCH (22:32)
[2023-03-20] MEDS: LIDOCAINE PATCH REMOVAL MC SCH (22:34)
[2023-03-21] MEDS: MOMETASONE FUROATE 220 MCG/IH INHALER IH SCH ×2 (01:26→22:02)
[2023-03-21] MEDS: ACETAMINOPHEN 325 MG TABLET (FP) PO PRN (06:26)
[2023-03-21] MEDS: oxyCODONE HCL 5 MG TABLET GT SCH ×3 (06:26→21:42)
[2023-03-21] MEDS: HEPARIN NA (PORCINE) 5,000 UNITS/ML 1ML VIAL SQ SCH ×3 (06:27→21:37)
[2023-03-21] MEDS: MIDODRINE HCL 5 MG TABLET GT SCH ×3 (06:28→21:38)
[2023-03-21] MEDS: ALBUTEROL SO4 0.083% IH SOL 2.5 MG/3 ML VIAL.NEB. NEB SCH ×4 (08:10→20:35)
[2023-03-21 08:21] LABS: BASO % 0.3 % (0-2.0); EOS % 2.9 % (0-4.5); HEMATOCRIT 29.6 % (32.4-45.2); HEMOGLOBIN 9.9 GM/dL (10.7-15.3); LYMPH % 12.1 % (8-40); MCH 33.2 pg (25.7-33.7); MCHC 33.5 g/dl (32.0-36.0); MEAN CELL VOLUME 99.1 fl (80-96); MEAN PLT VOLUME 6.8 fl (7.5-11.1); MONO % 5.1 % (3.8-10.2); NEUT % 79.6 % (42.8-82.8); PLATELET COUNT 249 10^3/uL (134-434); RBC 2.99 M/mm3 (3.60-5.2); RDW 15.8 % (11.6-15.6); WHITE BLOOD COUNT 10.5 K/mm3 (4.0-10.0)
[2023-03-21 09:02] LABS: POTASSIUM 3.9 mmol/L (3.5-5.1)
[2023-03-21 09:04] LABS: ALBUMIN 3.1 g/dl (3.4-5.0); CALCIUM 10.1 mg/dL (8.5-10.1)
[2023-03-21 09:05] LABS: BLOOD UREA NITROGEN 55.6 mg/dL (7-18)
[2023-03-21 09:13] LABS: CREATININE 2.1 mg/dL (0.55-1.3)
[2023-03-21 09:14] LABS: TOT PROT 6.8 g/dl (6.4-8.2)
[2023-03-21 09:15] LABS: BILIRUBIN,TOTAL 0.3 mg/dL (0.2-1)
[2023-03-21] MEDS: FERROUS SO4 300 MG/5 ML ORAL SOLN UNIT DOSE CUPS GT SCH (10:04)
[2023-03-21] MEDS: NYSTATIN 100,000 UNIT/GM TOPICAL CREAM 15 GM TUBE TP SCH (10:04)
[2023-03-21] MEDS: FAMOTIDINE 20 MG/2.5 ML ORAL LIQUID PEG SCH (10:04)
[2023-03-21] MEDS: diazePAM 5 MG TABLET GT SCH ×2 (10:04→21:37)
[2023-03-21] MEDS: SODIUM CHLORIDE 0.45% 1,000 ML IV SCH ×3 (10:10→22:52)
[2023-03-21 16:15] VITALS: BMI 33.7
[2023-03-21 17:37] VITALS: BP 90/58; TEMP 98.5
[2023-03-21] MEDS: ATORVASTATIN CA 80 MG TABLET (FP) GT SCH (21:37)
[2023-03-21] MEDS: SENNOSIDES 8.8 MG/5 ML SYRUP PO SCH (21:47)
[2023-03-21] MEDS ORDERED: MELATONIN 1 MG TABLET PO SCH (22:00)
[2023-03-21] MEDS: LIDOCAINE PATCH REMOVAL MC SCH (22:02)
[2023-03-21 22:27] VITALS: PULSE 88; RESP 31
== END 2023-03-21 23:00 ==
LOC: JER 22:18 → UNDOADMOB 03-19 04:43 → JERBED 03-19 04:43 → INTOOBSV 03-19 04:43 → JERBED 03-19 14:34 → J5S 03-19 14:34 → JERBED 03-19 15:46
PROVIDERS: ADMIT Internal Medicine
PROC: 3E0F7GC Introduction of Other Therapeutic Substance into Respiratory Tract, Via Natural or Artificial Opening (ICD-10-PCS; principal; 2023-03-19)
PROC: 3E023GC Introduction of Other Therapeutic Substance into Muscle, Percutaneous Approach (ICD-10-PCS; 2023-03-19)
PROC: 3E0337Z Introduction of Electrolytic and Water Balance Substance into Peripheral Vein, Percutaneous Approach (ICD-10-PCS; 2023-03-19)
DX: N17.9 Acute kidney failure, unspecified (principal); S09.90XA Unspecified injury of head, initial encounter; J44.9 Chronic obstructive pulmonary disease, unspecified; E78.5 Hyperlipidemia, unspecified; I48.91 Unspecified atrial fibrillation; F25.9 Schizoaffective disorder, unspecified; I69.354 Hemiplegia and hemiparesis following cerebral infarction affecting left non-dominant side; F03.90 Unspecified dementia, unspecified severity, without behavioral disturbance, psychotic disturbance, mood disturbance, and anxiety; L89.159 Pressure ulcer of sacral region, unspecified stage; D64.9 Anemia, unspecified; M24.412 Recurrent dislocation, left shoulder; I50.9 Heart failure, unspecified; W18.39XA Other fall on same level, initial encounter; Y93.89 Activity, other specified; Y92.89 Other specified places as the place of occurrence of the external cause; E66.9 Obesity, unspecified; Z68.33 Body mass index [BMI] 33.0-33.9, adult; K21.9 Gastro-esophageal reflux disease without esophagitis
CPT/HCPCS: 0241U-QW; 36415; 70450-TC; 71045-TC-FY; 72125-TC; 72170-TC-FY; 73030-TC-LT-FY; 73060-TC-LT-FY; 73070-TC-LT-FY; 73090-TC-LT-FY; 73110-TC-LT-FY; 73130-TC-LT-FY; 73521-TC-FY; 76775-TC; 76856-TC; 80053; 82550; 82728; 83540; 83550; 83735; 84100; 84484; 85025; 85045; 85610; 85730; 86850; 86900; 86901; 93005; 93010; 94002; 94640; 96360; 96361; 96372; 99285-25; G0378; J1644

== ENCOUNTER 2023-11-05 12:00 | Inpatient (IN) | payer OTHER ==
[2023-11-05] MEDS ORDERED: ACETAMINOPHEN INJECTION 100 ML IVPB ONE (12:20)
[2023-11-05] MEDS: ACETAMINOPHEN 1000 MG/100 ML BAG IVPB ONE (13:03)
[2023-11-05] MEDS: SODIUM CHLORIDE 0.9% 1000 ML INFUS.BAG IV STA (13:03)
[2023-11-05 13:25] LABS: VENOUS BASE EXCESS 4.9 mmol/L (-2-2); VENOUS O2 SATURATION 81.6 % (70-80); VENOUS PCO2 47.7 mmHg (38-52); VENOUS PH 7.419 (7.310-7.410)
[2023-11-05 13:28] LABS: EPI CELLS 15 /uL (0-25.1); HYALINE CASTS 1 /uL (0-3.1); PH,URINE 6.5 (5.0-8.0); URINE APPEARANCE CLOUDY; URINE BACTERIA 3196 /uL (0-1359); URINE BILIRUBIN NEGATIVE (NEGATIVE); URINE COLOR YELLOW; URINE GLUCOSE (UA) NEGATIVE (NEGATIVE); URINE KETONE NEGATIVE (NEGATIVE); URINE LEUK ESTERASE 3+ (NEGATIVE); URINE NITRITE NEGATIVE (NEGATIVE); URINE PROTEIN 2+ (NEGATIVE); URINE RBC 153 /uL (0-23.9); URINE UROBILINOGEN 0.2 mg/dL (0.2-1.0); URINE WBC 2944 /uL (0-25.8)
[2023-11-05 13:51] LABS: BASO % 0.3 % (0-2.0); EOS % 0.1 % (0-4.5); HEMATOCRIT 32.8 % (32.4-45.2); HEMOGLOBIN 10.7 GM/dL (10.7-15.3); LYMPH % 20.6 % (8-40); MCH 31.9 pg (25.7-33.7); MCHC 32.7 g/dl (32.0-36.0); MEAN CELL VOLUME 97.5 fl (80-96); MEAN PLT VOLUME 7.4 fl (7.5-11.1); MONO % 6.6 % (3.8-10.2); NEUT % 72.4 % (42.8-82.8); PLATELET COUNT 239 10^3/uL (134-434); RBC 3.37 M/mm3 (3.60-5.2); WHITE BLOOD COUNT 11.9 K/mm3 (4.0-10.0)
[2023-11-05 14:00] LABS: INR 0.97 (0.83-1.09)
[2023-11-05 14:03] LABS: ACTIVATED PTT 35.1 SECONDS (25.2-36.5)
[2023-11-05] MEDS ORDERED: CEFEPIME 1 GM/100 ML BAG IVPB ONE (14:09)
[2023-11-05] MEDS: CEFEPIME HCL 1 GM VIAL (RESTRICTED TO ID) IVPB ONE (14:15)
[2023-11-05 14:16] LABS: POTASSIUM 3.7 mmol/L (3.5-5.1)
[2023-11-05 14:19] LABS: CALCIUM 9.5 mg/dL (8.5-10.1)
[2023-11-05 14:20] LABS: BLOOD UREA NITROGEN 57.2 mg/dL (7-18)
[2023-11-05 14:23] LABS: CREATININE 1.3 mg/dL (0.55-1.3)
[2023-11-05 14:24] LABS: BILIRUBIN,TOTAL 0.6 mg/dL (0.2-1)
[2023-11-05] MEDS ORDERED: VANCOMYCIN 1 GRAM (PRE-DOCKED) 1,000 MG/250 ML BAG IVPB ONE (14:41)
[2023-11-05] MEDS: SODIUM CHLORIDE 0.9% 500 ML INFUS.BAG IV ONE (14:47)
[2023-11-05] MEDS: VANCOMYCIN 1,000 MG in DEXTROSE 5%-WATER - 250 ML IVPB ONE (14:47)
[2023-11-05] MEDS: SODIUM CHLORIDE 1,000 ML IV STA (14:47)
[2023-11-05] MEDS: SODIUM CHLORIDE 0.9% 1000 ML INFUS.BAG IV SCH (14:47)
[2023-11-05] MEDS ORDERED: KETOROLAC TROMETHAMINE 15 MG/ML VIAL ONE (15:25)
[2023-11-05] MEDS: KETOROLAC TROMETHAMINE 15 MG/ML VIAL IVPUSH ONE (15:30)
[2023-11-05] MEDS: SODIUM CHLORIDE 1,000 ML IV SCH (16:15)
[2023-11-05] MEDS: MEROPENEM 1 GM in DEXTROSE 5%-WATER 100 ML IVPB SCH (18:33)
[2023-11-05] MEDS: MIDODRINE HCL 5 MG TABLET GT SCH (18:33)
[2023-11-05] MEDS: ACETAMINOPHEN 1000 MG/100 ML BAG IVPB PRN (18:34)
[2023-11-05] MEDS: ALBUTEROL SO4 0.083% IH SOL 2.5 MG/3 ML VIAL.NEB. NEB SCH (20:30)
[2023-11-05] MEDS: POLYETHYLENE GLYCOL (HEALTHYLAX) 3350 17 GM PACKET GT SCH (21:51)
[2023-11-05] MEDS: HEPARIN NA (PORCINE) 5,000 UNITS/ML 1ML VIAL SQ SCH (21:51)
[2023-11-05] MEDS: MUPIROCIN 2% TOPICAL OINTMENT FOR DECOLONIZATION NS SCH (21:51)
[2023-11-05] MEDS: ASCORBIC ACID 500 MG/5 ML UNIT DOSE CUP GT SCH (21:51)
[2023-11-05] MEDS: ATORVASTATIN CA 80 MG TABLET (FP) GT SCH (21:51)
[2023-11-05] MEDS: CHLORHEXIDINE GLUCONATE 4% CLEANSER FOR DECOLONIZATION TP SCH (21:52)
[2023-11-05] MEDS ORDERED: GABAPENTIN 250 MG/5 ML ORAL SOLUTION, 470 ML BOTTLE PO SCH (22:00)
[2023-11-06 07:22] LABS: BASO % 0.4 % (0-2.0); EOS % 1.2 % (0-4.5); HEMATOCRIT 25.1 % (32.4-45.2); HEMOGLOBIN 8.4 GM/dL (10.7-15.3); LYMPH % 13.5 % (8-40); MCHC 33.6 g/dl (32.0-36.0); MEAN CELL VOLUME 98.4 fl (80-96); MEAN PLT VOLUME 7.4 fl (7.5-11.1); NEUT % 79.9 % (42.8-82.8); PLATELET COUNT 148 10^3/uL (134-434); RBC 2.55 M/mm3 (3.60-5.2); RDW 17.4 % (11.6-15.6); WHITE BLOOD COUNT 7.8 K/mm3 (4.0-10.0)
[2023-11-06 07:51] LABS: BLOOD UREA NITROGEN 53.3 mg/dL (7-18); CALCIUM 8.7 mg/dL (8.5-10.1); MAGNESIUM 2.6 mg/dL (1.8-2.4)
[2023-11-06 07:53] LABS: ALBUMIN 2.2 g/dl (3.4-5.0)
[2023-11-06 07:55] LABS: PHOSPHOROUS 3.3 mg/dL (2.5-4.9)
[2023-11-06 07:56] LABS: BILIRUBIN,TOTAL 0.5 mg/dL (0.2-1); TOT PROT 5.2 g/dl (6.4-8.2)
[2023-11-06] MEDS: FAMOTIDINE 20 MG/2.5 ML ORAL LIQUID NGT SCH (10:08)
[2023-11-06] MEDS: FERROUS SO4 300 MG/5 ML ORAL SOLN UNIT DOSE CUPS GT SCH (10:08)
[2023-11-06] MEDS: SENNOSIDES 8.8 MG/5 ML SYRUP GT SCH (10:09)
[2023-11-06] MEDS: KCL 10 MEQ IVPB 10 MEQ/100 ML INFUS.BAG IVPB SCH (10:10)
[2023-11-06] MEDS: PANTOPRAZOLE SODIUM 40 MG VIAL IVPUSH SCH (10:10)
[2023-11-06] MEDS: oxyCODONE HCL 5 MG TABLET GT PRN (11:53)
[2023-11-06] MEDS: MEROPENEM 1 GM in DEXTROSE 5%-WATER 100 ML IVPB SCH (17:23)
[2023-11-06] MEDS: POTASSIUM CHLORIDE ORAL LIQUID 20 MEQ/15 ML GT ONE (20:58)
[2023-11-07 07:54] LABS: HEMATOCRIT 29.6 % (32.4-45.2); HEMOGLOBIN 9.9 GM/dL (10.7-15.3); MCH 32.7 pg (25.7-33.7); MCHC 33.3 g/dl (32.0-36.0); MEAN CELL VOLUME 98.2 fl (80-96); MEAN PLT VOLUME 7.7 fl (7.5-11.1); PLATELET COUNT 189 10^3/uL (134-434); RBC 3.01 M/mm3 (3.60-5.2); RDW 17.5 % (11.6-15.6); WHITE BLOOD COUNT 8.8 K/mm3 (4.0-10.0)
[2023-11-07 08:03] LABS: POTASSIUM 3.7 mmol/L (3.5-5.1)
[2023-11-07 08:11] LABS: ALBUMIN 2.4 g/dl (3.4-5.0); BLOOD UREA NITROGEN 44.4 mg/dL (7-18); CALCIUM 9.1 mg/dL (8.5-10.1); MAGNESIUM 2.8 mg/dL (1.8-2.4)
[2023-11-07 08:15] LABS: CREATININE 0.9 mg/dL (0.55-1.3); PHOSPHOROUS 2.8 mg/dL (2.5-4.9)
[2023-11-07 08:16] LABS: BILIRUBIN,TOTAL 0.5 mg/dL (0.2-1); TOT PROT 5.7 g/dl (6.4-8.2)
[2023-11-07] MEDS: ACETAMINOPHEN 650 MG/20.3 ML ORAL SOLUTION (CUPS) GT PRN (14:40)
[2023-11-08 06:49] LABS: BASO % 0.4 % (0-2.0); EOS % 2.8 % (0-4.5); HEMATOCRIT 28.8 % (32.4-45.2); HEMOGLOBIN 9.4 GM/dL (10.7-15.3); LYMPH % 12.6 % (8-40); MCH 31.9 pg (25.7-33.7); MCHC 32.7 g/dl (32.0-36.0); MEAN CELL VOLUME 97.6 fl (80-96); MEAN PLT VOLUME 7.6 fl (7.5-11.1); MONO % 4.9 % (3.8-10.2); NEUT % 79.3 % (42.8-82.8); PLATELET COUNT 217 10^3/uL (134-434); RBC 2.95 M/mm3 (3.60-5.2); RDW 17.6 % (11.6-15.6); WHITE BLOOD COUNT 9.1 K/mm3 (4.0-10.0)
[2023-11-08 06:53] LABS: POTASSIUM 3.4 mmol/L (3.5-5.1)
[2023-11-08 06:55] LABS: ALBUMIN 2.5 g/dl (3.4-5.0); BLOOD UREA NITROGEN 35.5 mg/dL (7-18); CALCIUM 9.3 mg/dL (8.5-10.1); MAGNESIUM 2.6 mg/dL (1.8-2.4)
[2023-11-08 07:00] LABS: BILIRUBIN,TOTAL 0.5 mg/dL (0.2-1); CREATININE 0.7 mg/dL (0.55-1.3); PHOSPHOROUS 2.2 mg/dL (2.5-4.9); TOT PROT 5.6 g/dl (6.4-8.2)
[2023-11-08] MEDS: KCL 10 MEQ IVPB 10 MEQ/100 ML INFUS.BAG IVPB SCH (09:37)
[2023-11-08 13:46] VITALS: BMI 33.2
[2023-11-08] MEDS: ERTAPENEM SODIUM 1 GM in SODIUM CHLORIDE 50 ML IVPB SCH ×2 (14:17→18:04)
[2023-11-08] MEDS: NAPH,MB-DB/K PH,MBDB POWDER PACKET GT ONE (15:53)
[2023-11-08] MEDS: ENOXAPARIN NA (PORCINE) 80 MG/0.8 ML DISP.SYRIN SQ SCH (21:28)
[2023-11-09] MEDS: POTASSIUM PHOSPHATE 30 MM in SODIUM CHLORIDE 250 ML IVPB ONE (20:00)
[2023-11-10 07:48] LABS: BASO % 0.4 % (0-2.0); EOS % 4.8 % (0-4.5); HEMATOCRIT 27.5 % (32.4-45.2); LYMPH % 16.9 % (8-40); MCH 32.5 pg (25.7-33.7); MCHC 32.7 g/dl (32.0-36.0); MEAN CELL VOLUME 99.4 fl (80-96); MEAN PLT VOLUME 7.4 fl (7.5-11.1); MONO % 4.7 % (3.8-10.2); NEUT % 73.2 % (42.8-82.8); PLATELET COUNT 265 10^3/uL (134-434); RBC 2.77 M/mm3 (3.60-5.2); RDW 17.8 % (11.6-15.6); WHITE BLOOD COUNT 7.5 K/mm3 (4.0-10.0)
[2023-11-10 08:03] LABS: POTASSIUM 3.8 mmol/L (3.5-5.1)
[2023-11-10 08:09] LABS: ALBUMIN 2.4 g/dl (3.4-5.0); BLOOD UREA NITROGEN 26.8 mg/dL (7-18); CALCIUM 9.9 mg/dL (8.5-10.1)
[2023-11-10 08:10] LABS: MAGNESIUM 2.8 mg/dL (1.8-2.4)
[2023-11-10 08:13] LABS: CREATININE 0.8 mg/dL (0.55-1.3); PHOSPHOROUS 4.8 mg/dL (2.5-4.9)
[2023-11-10 08:14] LABS: BILIRUBIN,TOTAL 0.4 mg/dL (0.2-1); TOT PROT 5.7 g/dl (6.4-8.2)
[2023-11-10] MEDS: ENOXAPARIN NA (PORCINE) 40 MG/0.4 ML DISP.SYRIN SQ SCH (10:47)
[2023-11-10] MEDS: FERROUS SO4 300 MG/5 ML ORAL SOLN UNIT DOSE CUPS GT SCH (10:47)
[2023-11-12 07:22] LABS: HEMATOCRIT 29.3 % (32.4-45.2); HEMOGLOBIN 9.5 GM/dL (10.7-15.3); MCH 32.5 pg (25.7-33.7); MCHC 32.4 g/dl (32.0-36.0); MEAN CELL VOLUME 100.3 fl (80-96); MEAN PLT VOLUME 7.1 fl (7.5-11.1); PLATELET COUNT 320 10^3/uL (134-434); RBC 2.92 M/mm3 (3.60-5.2); RDW 17.5 % (11.6-15.6); WHITE BLOOD COUNT 7.9 K/mm3 (4.0-10.0)
[2023-11-12 07:43] LABS: CALCIUM 9.5 mg/dL (8.5-10.1); MAGNESIUM 2.5 mg/dL (1.8-2.4)
[2023-11-12 07:44] LABS: BLOOD UREA NITROGEN 25.1 mg/dL (7-18)
[2023-11-12 07:47] LABS: CREATININE 0.7 mg/dL (0.55-1.3)
[2023-11-12] MEDS: AMINO ACIDS/PROTEIN HYDROLYS 30 ML LIQUID.PKT PO SCH (17:07)
[2023-11-13 07:32] LABS: HEMATOCRIT 32.5 % (32.4-45.2); HEMOGLOBIN 10.4 GM/dL (10.7-15.3); MCH 32.1 pg (25.7-33.7); MCHC 32.2 g/dl (32.0-36.0); MEAN CELL VOLUME 99.8 fl (80-96); MEAN PLT VOLUME 7.1 fl (7.5-11.1); PLATELET COUNT 359 10^3/uL (134-434); RBC 3.25 M/mm3 (3.60-5.2); WHITE BLOOD COUNT 6.3 K/mm3 (4.0-10.0)
[2023-11-13 07:51] LABS: POTASSIUM 3.9 mmol/L (3.5-5.1)
[2023-11-13 07:57] LABS: CALCIUM 10.1 mg/dL (8.5-10.1)
[2023-11-13 07:58] LABS: BLOOD UREA NITROGEN 23.9 mg/dL (7-18)
[2023-11-13 08:01] LABS: CREATININE 0.6 mg/dL (0.55-1.3)
[2023-11-13] MEDS: MIDODRINE HCL 5 MG TABLET GT SCH (09:25)
[2023-11-13] MEDS ORDERED: diazePAM 5 MG TABLET PO PRN (17:41)
[2023-11-13] MEDS ORDERED: oxyCODONE HCL 5 MG TABLET PO PRN (17:42)
[2023-11-13] MEDS ORDERED: diazePAM 5 MG TABLET GT PRN (18:12)
[2023-11-13] MEDS: ALBUTEROL SO4 0.083% IH SOL 2.5 MG/3 ML VIAL.NEB. NEB SCH (20:36)
[2023-11-13] MEDS: ASCORBIC ACID 500 MG/5 ML UNIT DOSE CUP GT SCH (21:26)
[2023-11-13] MEDS: APIXABAN 5 MG TABLET PO SCH (21:27)
[2023-11-13] MEDS: ATORVASTATIN CA 80 MG TABLET (FP) GT SCH (21:27)
[2023-11-13] MEDS: POLYETHYLENE GLYCOL (HEALTHYLAX) 3350 17 GM PACKET GT SCH (21:27)
[2023-11-13] MEDS ORDERED: CHLORHEXIDINE GLUCONATE 4% CLEANSER FOR DECOLONIZATION TP SCH (22:00)
[2023-11-14] MEDS: FAMOTIDINE 20 MG/2.5 ML ORAL LIQUID NGT SCH (09:30)
[2023-11-14] MEDS: SENNOSIDES 8.8 MG/5 ML SYRUP GT SCH (09:30)
[2023-11-14] MEDS: METOPROLOL TARTRATE 25 MG TABLET (FP) GT SCH (10:35)
[2023-11-14] MEDS: PANTOPRAZOLE SODIUM 40 MG VIAL IVPUSH SCH (10:35)
[2023-11-14] MEDS: LIDOCAINE 5% TOPICAL PATCH TP SCH (13:03)
[2023-11-14] MEDS: MIDODRINE HCL 2.5 MG TABLET GT SCH (14:48)
[2023-11-14] MEDS: oxyCODONE HCL 5 MG TABLET GT PRN (14:48)
[2023-11-14] MEDS: LIDOCAINE PATCH REMOVAL MC SCH (23:57)
[2023-11-15] MEDS: LIDOCAINE 5% TOPICAL PATCH TP SCH (10:03)
[2023-11-15] MEDS: ACETAMINOPHEN 650 MG/20.3 ML ORAL SOLUTION (CUPS) GT PRN (14:40)
[2023-11-18 10:51] LABS: BASO % 0.6 % (0-2.0); EOS % 1.6 % (0-4.5); HEMATOCRIT 31.4 % (32.4-45.2); HEMOGLOBIN 10.1 GM/dL (10.7-15.3); LYMPH % 18.8 % (8-40); MCH 31.7 pg (25.7-33.7); MCHC 32.1 g/dl (32.0-36.0); MEAN CELL VOLUME 98.7 fl (80-96); MEAN PLT VOLUME 7.1 fl (7.5-11.1); MONO % 5.2 % (3.8-10.2); NEUT % 73.8 % (42.8-82.8); PLATELET COUNT 406 10^3/uL (134-434); RBC 3.18 M/mm3 (3.60-5.2); RDW 17.7 % (11.6-15.6); WHITE BLOOD COUNT 13.7 K/mm3 (4.0-10.0)
[2023-11-18 11:04] LABS: POTASSIUM 4.2 mmol/L (3.5-5.1)
[2023-11-18 11:16] LABS: ALBUMIN 2.6 g/dl (3.4-5.0); BLOOD UREA NITROGEN 43.1 mg/dL (7-18); CALCIUM 9.9 mg/dL (8.5-10.1)
[2023-11-18 11:19] LABS: CREATININE 0.7 mg/dL (0.55-1.3)
[2023-11-18 11:20] LABS: BILIRUBIN,TOTAL 0.4 mg/dL (0.2-1); TOT PROT 6.4 g/dl (6.4-8.2)
[2023-11-18] MEDS: MIDODRINE HCL 2.5 MG TABLET GT SCH (22:35)
[2023-11-19 09:54] LABS: BASO % 0.8 % (0-2.0); EOS % 2.4 % (0-4.5); HEMATOCRIT 32.1 % (32.4-45.2); HEMOGLOBIN 10.4 GM/dL (10.7-15.3); LYMPH % 12.9 % (8-40); MCH 31.8 pg (25.7-33.7); MCHC 32.4 g/dl (32.0-36.0); MEAN PLT VOLUME 7.1 fl (7.5-11.1); MONO % 3.8 % (3.8-10.2); NEUT % 80.1 % (42.8-82.8); PLATELET COUNT 364 10^3/uL (134-434); RBC 3.27 M/mm3 (3.60-5.2); RDW 17.4 % (11.6-15.6); WHITE BLOOD COUNT 11.8 K/mm3 (4.0-10.0)
[2023-11-19 10:14] LABS: POTASSIUM 3.9 mmol/L (3.5-5.1)
[2023-11-19 10:23] LABS: CALCIUM 9.7 mg/dL (8.5-10.1)
[2023-11-19 10:25] LABS: CREATININE 0.7 mg/dL (0.55-1.3)
[2023-11-20 09:35] LABS: BASO % 0.6 % (0-2.0); EOS % 3.1 % (0-4.5); HEMOGLOBIN 10.1 GM/dL (10.7-15.3); LYMPH % 13.6 % (8-40); MCH 32.2 pg (25.7-33.7); MCHC 32.4 g/dl (32.0-36.0); MEAN CELL VOLUME 99.1 fl (80-96); MONO % 3.4 % (3.8-10.2); NEUT % 79.3 % (42.8-82.8); RBC 3.13 M/mm3 (3.60-5.2); RDW 17.5 % (11.6-15.6); WHITE BLOOD COUNT 11.5 K/mm3 (4.0-10.0)
[2023-11-20 09:43] LABS: ALBUMIN 2.4 g/dl (3.4-5.0); BLOOD UREA NITROGEN 47.2 mg/dL (7-18); CALCIUM 9.7 mg/dL (8.5-10.1)
[2023-11-20 09:46] LABS: CREATININE 0.7 mg/dL (0.55-1.3)
[2023-11-20 09:47] LABS: BILIRUBIN,TOTAL 0.4 mg/dL (0.2-1)
[2023-11-21 10:07] LABS: BASO % 0.3 % (0-2.0); EOS % 1.6 % (0-4.5); HEMATOCRIT 31.4 % (32.4-45.2); HEMOGLOBIN 9.9 GM/dL (10.7-15.3); LYMPH % 8.5 % (8-40); MCH 31.2 pg (25.7-33.7); MCHC 31.6 g/dl (32.0-36.0); MEAN CELL VOLUME 98.6 fl (80-96); MEAN PLT VOLUME 7.4 fl (7.5-11.1); MONO % 3.3 % (3.8-10.2); NEUT % 86.3 % (42.8-82.8); PLATELET COUNT 331 10^3/uL (134-434); RBC 3.18 M/mm3 (3.60-5.2); RDW 17.5 % (11.6-15.6); WHITE BLOOD COUNT 16.1 K/mm3 (4.0-10.0)
[2023-11-21 10:34] LABS: POTASSIUM 4.2 mmol/L (3.5-5.1)
[2023-11-21 10:37] LABS: ALBUMIN 2.6 g/dl (3.4-5.0); BLOOD UREA NITROGEN 48.7 mg/dL (7-18); CALCIUM 9.7 mg/dL (8.5-10.1)
[2023-11-21 10:39] LABS: MAGNESIUM 2.5 mg/dL (1.8-2.4)
[2023-11-21 10:40] LABS: CREATININE 0.7 mg/dL (0.55-1.3); PHOSPHOROUS 2.8 mg/dL (2.5-4.9)
[2023-11-21 10:42] LABS: BILIRUBIN,TOTAL 0.4 mg/dL (0.2-1); TOT PROT 6.3 g/dl (6.4-8.2)
[2023-11-21] MEDS: MIDODRINE HCL 2.5 MG TABLET GT SCH (14:26)
[2023-11-22 09:58] LABS: BASO % 0.4 % (0-2.0); EOS % 1.7 % (0-4.5); HEMATOCRIT 28.8 % (32.4-45.2); HEMOGLOBIN 9.4 GM/dL (10.7-15.3); LYMPH % 13.1 % (8-40); MCH 31.8 pg (25.7-33.7); MCHC 32.5 g/dl (32.0-36.0); MEAN PLT VOLUME 7.4 fl (7.5-11.1); MONO % 5.1 % (3.8-10.2); NEUT % 79.7 % (42.8-82.8); PLATELET COUNT 291 10^3/uL (134-434); RBC 2.94 M/mm3 (3.60-5.2); RDW 17.1 % (11.6-15.6); WHITE BLOOD COUNT 11.9 K/mm3 (4.0-10.0)
[2023-11-22 10:18] LABS: POTASSIUM 3.9 mmol/L (3.5-5.1)
[2023-11-22 10:25] LABS: ALBUMIN 2.6 g/dl (3.4-5.0); CALCIUM 10.1 mg/dL (8.5-10.1)
[2023-11-22 10:26] LABS: BLOOD UREA NITROGEN 52.6 mg/dL (7-18)
[2023-11-22 10:28] LABS: CREATININE 0.8 mg/dL (0.55-1.3)
[2023-11-22 10:30] LABS: BILIRUBIN,TOTAL 0.7 mg/dL (0.2-1); TOT PROT 6.2 g/dl (6.4-8.2)
[2023-11-24] MEDS: FAMOTIDINE 20 MG/2.5 ML ORAL LIQUID GT SCH (10:37)
[2023-11-25] MEDS: oxyCODONE HCL 5 MG TABLET GT PRN (13:17)
[2023-11-28 10:06] LABS: HEMATOCRIT 28.7 % (32.4-45.2); HEMOGLOBIN 9.2 GM/dL (10.7-15.3); MCH 31.5 pg (25.7-33.7); MCHC 31.9 g/dl (32.0-36.0); MEAN CELL VOLUME 98.8 fl (80-96); PLATELET COUNT 221 10^3/uL (134-434); RBC 2.91 M/mm3 (3.60-5.2); RDW 17.4 % (11.6-15.6); WHITE BLOOD COUNT 8.6 K/mm3 (4.0-10.0)
[2023-11-28 10:23] LABS: POTASSIUM 3.9 mmol/L (3.5-5.1)
[2023-11-28 10:30] LABS: ALBUMIN 2.5 g/dl (3.4-5.0); BLOOD UREA NITROGEN 66.8 mg/dL (7-18)
[2023-11-28 10:32] LABS: BILIRUBIN,TOTAL 0.3 mg/dL (0.2-1); TOT PROT 6.3 g/dl (6.4-8.2)
[2023-11-28 10:33] LABS: CREATININE 0.9 mg/dL (0.55-1.3)
[2023-11-28] MEDS: SODIUM CHLORIDE 0.45% 1,000 ML IV SCH (15:42)
[2023-11-29 09:58] LABS: POTASSIUM 3.9 mmol/L (3.5-5.1)
[2023-11-29 10:02] LABS: CALCIUM 9.8 mg/dL (8.5-10.1)
[2023-11-29 10:03] LABS: ALBUMIN 2.5 g/dl (3.4-5.0); BLOOD UREA NITROGEN 63.1 mg/dL (7-18)
[2023-11-29 10:06] LABS: CREATININE 0.9 mg/dL (0.55-1.3)
[2023-11-29 10:07] LABS: BILIRUBIN,TOTAL 0.5 mg/dL (0.2-1); TOT PROT 6.1 g/dl (6.4-8.2)
[2023-11-30 08:53] LABS: BASO % 0.3 % (0-2.0); EOS % 3.1 % (0-4.5); HEMATOCRIT 29.1 % (32.4-45.2); HEMOGLOBIN 9.5 GM/dL (10.7-15.3); LYMPH % 11.7 % (8-40); MCHC 32.5 g/dl (32.0-36.0); MEAN CELL VOLUME 98.3 fl (80-96); MEAN PLT VOLUME 7.4 fl (7.5-11.1); MONO % 5.1 % (3.8-10.2); NEUT % 79.8 % (42.8-82.8); PLATELET COUNT 242 10^3/uL (134-434); RBC 2.96 M/mm3 (3.60-5.2); RDW 17.2 % (11.6-15.6); WHITE BLOOD COUNT 9.4 K/mm3 (4.0-10.0)
[2023-11-30 09:11] LABS: POTASSIUM 3.7 mmol/L (3.5-5.1)
[2023-11-30 09:21] LABS: ALBUMIN 2.5 g/dl (3.4-5.0); BLOOD UREA NITROGEN 59.6 mg/dL (7-18)
[2023-11-30 09:22] LABS: BILIRUBIN,TOTAL 0.3 mg/dL (0.2-1)
[2023-11-30 09:23] LABS: CALCIUM 9.8 mg/dL (8.5-10.1); CREATININE 0.8 mg/dL (0.55-1.3); MAGNESIUM 2.6 mg/dL (1.8-2.4); PHOSPHOROUS 2.4 mg/dL (2.5-4.9)
[2023-11-30] MEDS: ERTAPENEM SODIUM 1 GM in SODIUM CHLORIDE 50 ML IVPB SCH (23:20)
[2023-11-30 23:50] LABS: EPI CELLS 9 /uL (0-25.1); HYALINE CASTS 1 /uL (0-3.1); URINE APPEARANCE TURBID; URINE BACTERIA 446 /uL (0-1359); URINE BILIRUBIN NEGATIVE (NEGATIVE); URINE COLOR YELLOW; URINE GLUCOSE (UA) NEGATIVE (NEGATIVE); URINE KETONE NEGATIVE (NEGATIVE); URINE LEUK ESTERASE 3+ (NEGATIVE); URINE NITRITE NEGATIVE (NEGATIVE); URINE PROTEIN 1+ (NEGATIVE); URINE RBC 654 /uL (0-23.9); URINE UROBILINOGEN 0.2 mg/dL (0.2-1.0); URINE WBC 5371 /uL (0-25.8)
[2023-12-01] LABS: URINE CRYSTALS NONE SEEN /hpf
[2023-12-01 09:11] LABS: HEMATOCRIT 26.4 % (32.4-45.2); HEMOGLOBIN 8.5 GM/dL (10.7-15.3); MCH 31.3 pg (25.7-33.7); MCHC 32.2 g/dl (32.0-36.0); MEAN CELL VOLUME 97.4 fl (80-96); MEAN PLT VOLUME 7.7 fl (7.5-11.1); PLATELET COUNT 261 10^3/uL (134-434); RBC 2.71 M/mm3 (3.60-5.2); RDW 17.1 % (11.6-15.6); WHITE BLOOD COUNT 7.9 K/mm3 (4.0-10.0)
[2023-12-01] MEDS: NAPH,MB-DB/K PH,MBDB POWDER PACKET PO ONE (12:11)
[2023-12-02] MEDS: VANCOMYCIN/WATER FOR INJ (PEG) 1,000 MG/200 ML BAG IVPB ONE (09:34)
[2023-12-02 10:18] LABS: BASO % 0.2 % (0-2.0); EOS % 1.8 % (0-4.5); HEMATOCRIT 26.8 % (32.4-45.2); HEMOGLOBIN 8.6 GM/dL (10.7-15.3); LYMPH % 14.1 % (8-40); MCH 31.4 pg (25.7-33.7); MCHC 32.1 g/dl (32.0-36.0); MEAN CELL VOLUME 97.7 fl (80-96); MEAN PLT VOLUME 7.6 fl (7.5-11.1); MONO % 5.4 % (3.8-10.2); NEUT % 78.5 % (42.8-82.8); PLATELET COUNT 306 10^3/uL (134-434); RBC 2.75 M/mm3 (3.60-5.2); RDW 17.5 % (11.6-15.6); WHITE BLOOD COUNT 8.7 K/mm3 (4.0-10.0)
[2023-12-02 10:37] LABS: POTASSIUM 3.8 mmol/L (3.5-5.1)
[2023-12-02 10:40] LABS: ALBUMIN 2.3 g/dl (3.4-5.0); BLOOD UREA NITROGEN 56.6 mg/dL (7-18); CALCIUM 9.6 mg/dL (8.5-10.1); MAGNESIUM 2.4 mg/dL (1.8-2.4)
[2023-12-02 10:43] LABS: CREATININE 0.7 mg/dL (0.55-1.3)
[2023-12-02 10:44] LABS: BILIRUBIN,TOTAL 0.3 mg/dL (0.2-1); PHOSPHOROUS 2.8 mg/dL (2.5-4.9); TOT PROT 5.8 g/dl (6.4-8.2)
[2023-12-03 10:19] LABS: HEMATOCRIT 25.7 % (32.4-45.2); HEMOGLOBIN 8.2 GM/dL (10.7-15.3); MCH 31.2 pg (25.7-33.7); MEAN CELL VOLUME 97.5 fl (80-96); MEAN PLT VOLUME 7.2 fl (7.5-11.1); PLATELET COUNT 308 10^3/uL (134-434); RBC 2.63 M/mm3 (3.60-5.2); RDW 17.7 % (11.6-15.6); WHITE BLOOD COUNT 7.6 K/mm3 (4.0-10.0)
[2023-12-03 10:44] LABS: POTASSIUM 3.8 mmol/L (3.5-5.1)
[2023-12-03 10:48] LABS: ALBUMIN 2.2 g/dl (3.4-5.0); CALCIUM 9.3 mg/dL (8.5-10.1)
[2023-12-03 10:49] LABS: BLOOD UREA NITROGEN 50.5 mg/dL (7-18); MAGNESIUM 2.5 mg/dL (1.8-2.4)
[2023-12-03 10:52] LABS: CREATININE 0.8 mg/dL (0.55-1.3); PHOSPHOROUS 2.7 mg/dL (2.5-4.9)
[2023-12-03 10:53] LABS: BILIRUBIN,TOTAL 0.3 mg/dL (0.2-1); TOT PROT 5.4 g/dl (6.4-8.2)
[2023-12-04 10:39] LABS: BASO % 0.4 % (0-2.0); EOS % 2.3 % (0-4.5); HEMATOCRIT 25.9 % (32.4-45.2); HEMOGLOBIN 8.3 GM/dL (10.7-15.3); LYMPH % 13.9 % (8-40); MCH 31.2 pg (25.7-33.7); MCHC 32.1 g/dl (32.0-36.0); MEAN CELL VOLUME 97.1 fl (80-96); MEAN PLT VOLUME 7.2 fl (7.5-11.1); MONO % 5.3 % (3.8-10.2); NEUT % 78.1 % (42.8-82.8); PLATELET COUNT 322 10^3/uL (134-434); RBC 2.67 M/mm3 (3.60-5.2); RDW 17.4 % (11.6-15.6)
[2023-12-04 10:58] LABS: POTASSIUM 3.8 mmol/L (3.5-5.1)
[2023-12-04 11:05] LABS: CALCIUM 9.6 mg/dL (8.5-10.1)
[2023-12-04 11:06] LABS: ALBUMIN 2.3 g/dl (3.4-5.0); BLOOD UREA NITROGEN 51.8 mg/dL (7-18); MAGNESIUM 2.6 mg/dL (1.8-2.4)
[2023-12-04 11:09] LABS: CREATININE 0.8 mg/dL (0.55-1.3); PHOSPHOROUS 2.6 mg/dL (2.5-4.9)
[2023-12-04 11:10] LABS: BILIRUBIN,TOTAL 0.3 mg/dL (0.2-1)
[2023-12-04 11:11] LABS: TOT PROT 5.5 g/dl (6.4-8.2)
[2023-12-05 11:10] LABS: ARTERIAL BLD GAS O2 SATURATION 98.9 % (95-98); ARTERIAL BLOOD GAS BASE EXCESS -5.7 mmol/L (-2-2)
[2023-12-05 11:12] LABS: ALLENS TEST POSITIVE
[2023-12-05 11:13] LABS: VENT MODE A/C; VENT RATE 16
[2023-12-06 10:44] LABS: BASO % 0.3 % (0-2.0); EOS % 1.6 % (0-4.5); HEMATOCRIT 24.5 % (32.4-45.2); HEMOGLOBIN 7.9 GM/dL (10.7-15.3); LYMPH % 13.2 % (8-40); MCH 31.2 pg (25.7-33.7); MCHC 32.3 g/dl (32.0-36.0); MEAN CELL VOLUME 96.9 fl (80-96); MEAN PLT VOLUME 7.1 fl (7.5-11.1); MONO % 4.8 % (3.8-10.2); NEUT % 80.1 % (42.8-82.8); PLATELET COUNT 339 10^3/uL (134-434); RBC 2.53 M/mm3 (3.60-5.2); WHITE BLOOD COUNT 8.9 K/mm3 (4.0-10.0)
[2023-12-06 11:08] LABS: POTASSIUM 3.8 mmol/L (3.5-5.1)
[2023-12-06 11:28] LABS: CALCIUM 9.2 mg/dL (8.5-10.1)
[2023-12-06 11:29] LABS: ALBUMIN 2.2 g/dl (3.4-5.0); BLOOD UREA NITROGEN 52.3 mg/dL (7-18); MAGNESIUM 2.5 mg/dL (1.8-2.4)
[2023-12-06 11:32] LABS: CREATININE 0.7 mg/dL (0.55-1.3); PHOSPHOROUS 3.4 mg/dL (2.5-4.9)
[2023-12-06 11:33] LABS: BILIRUBIN,TOTAL 0.5 mg/dL (0.2-1); TOT PROT 5.3 g/dl (6.4-8.2)
[2023-12-07] MEDS: diazePAM 5 MG TABLET GT ONE (21:37)
[2023-12-08] MEDS ORDERED: diazePAM 5 MG TABLET GT PRN (11:40)
[2023-12-08] MEDS: oxyCODONE HCL 5 MG TABLET GT PRN (11:52)
[2023-12-10 10:37] LABS: BASO % 0.3 % (0-2.0); EOS % 2.4 % (0-4.5); HEMOGLOBIN 8.2 GM/dL (10.7-15.3); LYMPH % 11.2 % (8-40); MCH 30.6 pg (25.7-33.7); MCHC 31.8 g/dl (32.0-36.0); MEAN CELL VOLUME 96.3 fl (80-96); MEAN PLT VOLUME 6.8 fl (7.5-11.1); MONO % 3.6 % (3.8-10.2); NEUT % 82.5 % (42.8-82.8); PLATELET COUNT 344 10^3/uL (134-434); RBC 2.69 M/mm3 (3.60-5.2); RDW 17.5 % (11.6-15.6); WHITE BLOOD COUNT 8.3 K/mm3 (4.0-10.0)
[2023-12-10 11:09] LABS: MAGNESIUM 2.5 mg/dL (1.8-2.4); PHOSPHOROUS 3.1 mg/dL (2.5-4.9)
[2023-12-10 22:05] LABS: POTASSIUM 3.9 mmol/L (3.5-5.1)
[2023-12-10 22:07] LABS: ALBUMIN 2.4 g/dl (3.4-5.0); BLOOD UREA NITROGEN 41.4 mg/dL (7-18); CALCIUM 9.4 mg/dL (8.5-10.1)
[2023-12-10 22:11] LABS: CREATININE 0.7 mg/dL (0.55-1.3)
[2023-12-10 22:12] LABS: BILIRUBIN,TOTAL 0.3 mg/dL (0.2-1)
[2023-12-10 22:13] LABS: TOT PROT 5.8 g/dl (6.4-8.2)
[2023-12-11] MEDS ORDERED: diazePAM 5 MG TABLET GT PRN (13:12)
[2023-12-11] MEDS ORDERED: oxyCODONE HCL 5 MG TABLET PO PRN (18:15)
[2023-12-11] MEDS: oxyCODONE HCL 5 MG TABLET GT PRN (21:03)
[2023-12-12 10:09] LABS: POTASSIUM 3.9 mmol/L (3.5-5.1)
[2023-12-12 10:10] LABS: ALBUMIN 2.3 g/dl (3.4-5.0); BLOOD UREA NITROGEN 46.2 mg/dL (7-18); CALCIUM 9.4 mg/dL (8.5-10.1)
[2023-12-12 10:14] LABS: CREATININE 0.8 mg/dL (0.55-1.3)
[2023-12-12 10:16] LABS: BILIRUBIN,TOTAL 0.4 mg/dL (0.2-1); TOT PROT 5.5 g/dl (6.4-8.2)
[2023-12-13 06:45] VITALS: TEMP 97.3
[2023-12-13 09:56] VITALS: BP 101/58; PULSE 72
[2023-12-13 15:18] VITALS: RESP 25
== END 2023-12-13 17:30 | DRG 870 ==
LOC: JER 12:00 → JERBED 16:05 → JICU 17:25 → J5S 11-13 18:14
PROVIDERS: ADMIT Internal Medicine Pulmonary Disease
PROC: 5A1955Z Respiratory Ventilation, Greater than 96 Consecutive Hours (ICD-10-PCS; principal; 2023-11-05)
PROC: 0B21XFZ Change Tracheostomy Device in Trachea, External Approach (ICD-10-PCS; 2023-11-05)
DX: A41.89 Other specified sepsis (principal); L89.154 Pressure ulcer of sacral region, stage 4; R53.2 Functional quadriplegia; R65.21 Severe sepsis with septic shock; G93.41 Metabolic encephalopathy; I69.354 Hemiplegia and hemiparesis following cerebral infarction affecting left non-dominant side; N39.0 Urinary tract infection, site not specified; J96.11 Chronic respiratory failure with hypoxia; I24.89 Other forms of acute ischemic heart disease; I13.0 Hypertensive heart and chronic kidney disease with heart failure and stage 1 through stage 4 chronic kidney disease, or unspecified chronic kidney disease; I50.32 Chronic diastolic (congestive) heart failure; J98.11 Atelectasis; R41.82 Altered mental status, unspecified; N18.30 Chronic kidney disease, stage 3 unspecified; F20.9 Schizophrenia, unspecified; D50.9 Iron deficiency anemia, unspecified; E78.5 Hyperlipidemia, unspecified; I48.91 Unspecified atrial fibrillation; G30.9 Alzheimer's disease, unspecified; F02.80 Dementia in other diseases classified elsewhere, unspecified severity, without behavioral disturbance, psychotic disturbance, mood disturbance, and anxiety; Z93.0 Tracheostomy status; B96.4 Proteus (mirabilis) (morganii) as the cause of diseases classified elsewhere; R79.89 Other specified abnormal findings of blood chemistry; E87.6 Hypokalemia; D17.71 Benign lipomatous neoplasm of kidney; R50.9 Fever, unspecified; K21.9 Gastro-esophageal reflux disease without esophagitis; Z86.718 Personal history of other venous thrombosis and embolism
CPT/HCPCS: 0241U-QW; 36415; 36600; 70450-TC; 71045-TC-FY; 80048; 80053; 81003; 82272; 82728; 82803; 82977; 83540; 83550; 83605; 83735; 84100; 84466; 84484; 85025; 85027; 85045; 85610; 85730; 86850; 86900; 86901; 87040; 87070; 87086; 87186; 87205; 87635; 93005; 93010; 93306-TC; 94002; 94640; 97162-GP; 99291; J0131; J1644